=== PATIENT | male | born 1960 | race Caucasian/White ===

== ENCOUNTER 2019-04-28 13:00 | Outpatient (RCR) | payer MEDICAID, SELFPAY ==
[2019-04-16 08:27] VITALS: BP 126/83; PULSE 67; RESP 16; TEMP 36.6; BMI 27.8
--- NOTE | 2019-04-16 10:24 | HP.PCM_ITS ---
(1) Venous ulcer of right leg Status: Chronic Current Visit: Yes Code(s): I83.019 - Varicose veins of right lower extremity with ulcer of unspecified site; L97.919 - Non-pressure chronic ulcer of unspecified part of right lower leg with unspecified severity (2) Venous insufficiency of both lower extremities Status: Chronic Current Visit: Yes Code(s): I87.2 - Venous insufficiency (chronic) (peripheral) History of Present Illness Date of Service: 04/16/19 Chief Complaint: Nonhealing right lower extremity ulcer. History of Wound: Mr. Ly is a 58-year-old who was referred to the wound center by his primary care due to nonhealing right lower extremity ulcer. He reports recurrence of the ulcer since the . Recent episode said to have been present for over a year. He has managed this conservatively occasionally with Neosporin and gauze dressing without any significant improvement. Also be en periodically treated with doxycycline with only modest improvement. Denies any known precipitating factor however, states that he had venous studies about 20 years ago which was suggestive of venous insufficiency in his right lower extremity. Does admit to periodic bilateral lower extremity swelling. Stands for longer hours due to the nature of his job. Does state however that he utilizes compression stockings (20 to 30 mmHg). Denies any history of diabetes mellitus. Chews tobacco. Feels well otherwise at this time. Past Medical History Past Medical History: Chronic Problems Venous ulcer of right leg (Chronic) Venous insufficiency of both lower extremities (Chronic) Allergies/Adverse Reactions: Allergies iodine Allergy (Verified 04/16/19 08:57) Anaphylaxis Penicillins [PCN] Allergy (Verified 04/16/19 08:57) Anaphylaxis sulfasalazine Adverse Reaction (Verified 04/16/19 08:57) Anaphylaxis Home Medications: Ambulatory Orders Medication Instructions Recorded Loratadine 10 mg PO 04/16/19 Sildenafil Citrate [Viagra] 50 mg PO 04/16/19 Smoking Status: Current every day smoker Review of Systems Constitutional: Denies: Anorexia, Chills, Fever Eyes: Denies: Blurred vision, Pain HEENT: Denies: Difficulty Swallowing Cardiovascular: Denies: Chest Pain, Chest Pressure Respiratory: Denies: Cough Gastrointestinal: Denies: Abdominal Pain, Hematemesis Skin: Denies: Jaundice - Physical Exam Vital Signs Temp Pulse Resp BP 97.8 F 67 16 126/83 H 07/17/19 08:27 04/16/19 08:27 04/16/19 08:27 04/16/19 08:27 General: Alert, Oriented x3, Cooperative, No apparent distress HEENT: Atraumatic, Normocephalic Oral: Moist Mucosa Neck: Supple Lungs: Clear to auscultation, Normal air movement Cardiovascular: Regular rate, Regular Rhythm, Normal S1, Normal S2 Extremities: No cyanosis, Edema Skin: Ulcer/ Wound Wound Measurements and Assessment WC - Nurse 1 - General Ulcer Measurement Start: 04/16/19 08:18 Freq: Status: Active Protocol: Activity Type Activity Date Activity User E-Sign Co-Sign Detail Recorded Client Recorded Date Recorded By Document 04/16/19 08:27 DV [id number] 04/16/19 08:51 DV 04/16/19 08:27 Wound Center Nurse 1 [Ulcer Assessment] #1 R Med LE -Current Size (cm) - Length 3.8 -Current Size (cm) - Width 1.5 -Current Size (cm) - Depth 0.5 -Total Square Cm 5.70 -Photo Taken Yes -Exudate Amt Small -Exudate Type Serosanguineous -Wound Margin Distinct, Outline Attached -Granulation Amt Medium (34-66%) -Granulation Quality [place],Red -Necrosis Amt Medium (34-66%) -Necrotic Tissue Type Adherent Slough -Structure Exposed N/A -Texture (Emely-wound Skin Appearance) Scarring -Moisture (Emely-wound Skin Appearance Dry/Scaly ) -Color (Emely-wound Skin Appearance) Hemosiderin Staining,Rubor -Temperature (Emely-wound Skin No Abnormality Appearance) (Pt Warm) -Tenderness on Palpation (Emely-wound No Skin Appearance) -Ulcer Cleansing Wound Cleanser -Foul Odor after Cleansing No -Anesthetic Used 4% Lidocaine Solution [Edema Assessment] -Right Calf (cm) 40.5 -Right Ankle (cm) 27 -Left Calf (cm) 39.2 -Left Ankle (cm) 24.5 WC - Nurse 2 - General Ulcer CM Notes Start: 04/16/19 08:18 Freq: Status: Active Protocol: Activity Type Activity Date Activity User E-Sign Co-Sign Detail Recorded Client Recorded Date Recorded By Document 04/16/19 09:13 MW [id number] 04/16/19 09:24 MW 04/16/19 09:13 Wound Center Nurse 2 [Procedure/Treatment] #1 R [employer] LE -Time 09:13 -Correct Patient Yes -Correct Side, Site, Position Yes -Correct Procedure Yes -Procedure Performed Yes -Type of Procedure Debridement -Clinical Debridement Subcutaneous -Post Debridement Size (cm) - Length 4.0 -Post Debridement Size (cm) - Width 1.7 -Post Debridement Size (cm) - Depth 0.6 -Total Square Cm 6.80 -Wound/Ulcer Outcome Not Healed -Ulcer Cleansing Rinsed/ Irrigated with Saline -Foul Odor after Cleansing No -Bioengineered Tissue No -Bleeding Controlled with Pressure -Offloading No -Treatment Response Procedure Tolerated Well [See Physician Procedure note for Specifics] Pain Scale: 0-10 Numeric [Pain] -Is Patient Pain Free? Yes Musculoskeletal: No Muscle Wasting Neurological: Cranial nerves II-XII grossly intact Psych/Mental Status: Normal Affect Debridement Note Post-Debridement Measurements/Treatment WC - Nurse 2 - General Ulcer CM Notes Start: 04/16/19 08:18 Freq: Status: Active Protocol: Activity Type Activity Date Activity User E-Sign Co-Sign Detail Recorded Client Recorded Date Recorded By Document 04/16/19 09:13 MW [id number] 04/16/19 09:24 MW 04/16/19 09:13 Wound Center Nurse 2 #1 [place] LE -Time 09:13 -Correct Patient Yes -Correct Side, Site, Position Yes -Correct Procedure Yes -Procedure Performed Yes -Type of Procedure Debridement -Clinical Debridement Subcutaneous -Post Debridement Size (cm) - Length 4.0 -Post Debridement Size (cm) - Width 1.7 -Post Debridement Size (cm) - Depth 0.6 -Total Square Cm 6.80 -Wound/Ulcer Outcome Not Healed -Ulcer Cleansing Rinsed/ Irrigated with Saline -Foul Odor after Cleansing No -Bioengineered Tissue No -Bleeding Controlled with Pressure -Offloading No -Treatment Response Procedure Tolerated Well Pain Scale: 0-10 Numeric Is Patient Pain Free? Yes Wound debrided: Right lower extremity (medial) Wound Grade/Stage: Stage II Type of Debridement: Excisional debridement Anesthesia Used: 4% Lidocaine Solution Depth: Down to and including healthy tissue, in the subcutaneous layer Percentage of wound debrided: 100 Instrument Used: 3mm curette Tissue Removed: Slough and devitalized tissue Severity: Fat Layer Exposed Amount of bleeding with debridement: Mild Bleeding Controlled with: Pressure Patient tolerated procedure well Assessment/Plan Active Problems Venous ulcer of right leg (Chronic) Venous insufficiency of both lower extremities (Chronic) Assessment: Chronic/recurrent right lower extremity ulcer. Venous insufficiency. Venous leg ulcer. Plan: Debridement done as documented above, procedure was well-tolerated. Cultures taken. Venous and arterial studies also ordered. Last study was at least 20 years ago. Fibrocal daily with Adaptic over top. Continue use of compression stockings. Advised to elevate his lower extremities when seated and in bed. Increased protein intake also recommended. His questions were answered and he was advised to call with any further questions or concerns. Follow-up in 1 week. This note was generated with [employer] dictation software. It may contain incorrect words, spelling, and punctuation that were not noted in checking the note before signing.
[2019-04-24 09:08] VITALS: BP 148/86; PULSE 66; RESP 18; TEMP 36.9; BMI 27.8
--- NOTE | 2019-04-24 09:46 | PCM.WC.PN ---
(1) Venous ulcer of right leg Status: Chronic Current Visit: Yes Code(s): I83.019 - Varicose veins of right lower extremity with ulcer of unspecified site; L97.919 - Non-pressure chronic ulcer of unspecified part of right lower leg with unspecified severity (2) Venous insufficiency of both lower extremities Status: Chronic Current Visit: Yes Code(s): I87.2 - Venous insufficiency (chronic) (peripheral) Type of Wound Date of Service: 04/24/19 Chief Complaint: Nonhealing right lower extremity ulcer. History of Wound: Mr. Ly is a 58-year-old who was referred to the wound center by his primary care due to nonhealing right lower extremity ulcer. He reports recurrence of the ulcer since the . Recent episode said to have been present for over a year. He has managed this conservatively occasionally with Neosporin and gauze dressing without any significant improvement. Also been periodically treated with doxycycline with only modest improvement. Denies any known precipitating factor however, states that he had venous studies about 20 years ago which was suggestive of venous insufficiency in his right lower extremity. Does admit to periodic bilateral lower extremity swelling. Stands for longer hours due to the nature of his job. Does state however that he utilizes compression stockings (20 to 30 mmHg). Denies any history of diabetes mellitus. Chews tobacco. Feels well otherwise at this time. Progress of Wound: No new concerns at this time. Some improvement noted. Cultures positve for Ps[place] and Staph - Physical Exam Vital Signs Temp Pulse Resp BP 98.4 F 66 18 148/86 H 04/24/19 09:08 04/24/19 09:08 04/24/19 09:08 04/24/19 09:08 General: Alert, Oriented x3, Cooperative, No apparent distress HEENT: Atraumatic, Normocephalic Oral: Moist Mucosa Neck: Supple Lungs: Normal air movement Extremities: No cyanosis, Edema Skin: Ulcer/ Wound Wound Measurements and Assessment - Nurse 1 - General Ulcer Measurement Start: 04/16/19 08:18 Freq: Status: Active Protocol: Activity Type Activity Date Activity User E-Sign Co-Sign Detail Recorded Client Recorded Date Recorded By Document 04/24/19 09:08 [facility] [id number] 04/24/19 09:12 [facility] 04/24/19 09:08 Wound Center Nurse 1 [Ulcer Assessment] #1 R Med LE -Combined with other wound No -Current Size (cm) - Length 3.8 -Current Size (cm) - Width 1.5 -Current Size (cm) - Depth 0.5 -Total Square Cm 5.70 -Photo Taken No -Epithelialization None Present -Tunneling No -Undermining/Tunneling No -Circular Undermining No -Exudate Amt Small -Exudate Type Serosanguineous -Wound Margin Thickened -Granulation Amt Small (1-33%) -Granulation Quality Red -Slough/Fibrin Yes -Necrosis Amt Large (67-100%) -Necrotic Tissue Type Adherent Slough -Texture (Emely-wound Skin Appearance) Assessed, Scarring -Moisture (Emely-wound Skin Appearance Assessed ) -Color (Emely-wound Skin Appearance) Assessed, Hemosiderin Staining -Temperature (Emely-wound Skin No Abnormality Appearance) (Pt Warm) -Tenderness on Palpation (Emely-wound No Skin Appearance) -Ulcer Cleansing Rinsed/ Irrigated with Saline -Foul Odor after Cleansing No -Anesthetic Used 4% Lidocaine Solution WC - Nurse 2 - General Ulcer CM Notes Start: 04/16/19 08:18 Freq: Status: Active Protocol: Activity Type Activity Date Activity User E-Sign Co-Sign Detail Recorded Client Recorded Date Recorded By Document 04/24/19 09:25 MW [id number] 04/24/19 09:26 MW 04/24/19 09:25 Wound Center Nurse 2 [Procedure/Treatment] -Time 09:25 -Correct Patient Yes -Correct Side, Site, Position Yes -Correct Procedure Yes -Procedure Performed Yes -Type of Procedure Debridement -Clinical Debridement Subcutaneous -Post Debridement Size (cm) - Length 3.7 -Post Debridement Size (cm) - Width 1.4 -Post Debridement Size (cm) - Depth 0.4 -Total Square Cm 5.18 -Wound/Ulcer Outcome Not Healed -Ulcer Cleansing Rinsed/ Irrigated with Saline -Foul Odor after Cleansing No -Bioengineered Tissue No -Bleeding Controlled with Pressure -Offloading No -Treatment Response Procedure Tolerated Well [See Physician Procedure note for Specifics] Pain Scale: 0-10 Numeric [Pain] -Is Patient Pain Free? Yes Musculoskeletal: No Muscle Wasting Neurological: Cranial nerves II-XII grossly intact Psych/Mental Status: Normal Affect Debridement Note Post-Debridement Measurements/Treatment WC - Nurse 2 - General Ulcer CM Notes Start: 04/16/19 08:18 Freq: Status: Active Protocol: Activity Type Activity Date Activity User E-Sign Co-Sign Detail Recorded Client Recorded Date Recorded By Document 04/16/19 09:13 MW [id number] 04/16/19 09:24 MW Document 04/24/19 09:25 MW [id number] 04/24/19 09:26 MW 04/16/19 04/24/19 09:13 09:25 Wound Center Nurse 2 #1 R Med LE -Time 09:13 09:25 -Correct Patient Yes Yes -Correct Side, Site, Position Yes Yes -Correct Procedure Yes Yes -Procedure Performed Yes Yes -Type of Procedure Debridement Debridement -Clinical Debridement Subcutaneous Subcutaneous -Post Debridement Size (cm) - Length 4.0 3.7 -Post Debridement Size (cm) - Width 1.7 1.4 -Post Debridement Size (cm) - Depth 0.6 0.4 -Total Square Cm 6.80 5.18 -Wound/Ulcer Outcome Not Healed Not Healed -Ulcer Cleansing Rinsed/ Rinsed/ Irrigated with Irrigated with Saline Saline -Foul Odor after Cleansing No No -Bioengineered Tissue No No -Bleeding Controlled with Pressure Pressure -Offloading No No -Treatment Response Procedure Procedure Tolerated Well Tolerated Well Pain Scale: 0-10 Numeric Is Patient Pain Free? Yes Yes Wound debrided: Right lower extremity Wound Grade/Stage: Stage II Type of Debridement: Excisional debridement Anesthesia Used: 4% Lidocaine Solution Depth: Down to and including healthy tissue, in the subcutaneous layer Percentage of wound debrided: 100 Instrument Used: 3mm curette Tissue Removed: Slough and devitalized tissue Severity: Fat Layer Exposed Amount of bleeding with debridement: Mild Bleeding Controlled with: Pressure Patient tolerated procedure well Assessment/Plan Active Problems Venous ulcer of right leg (Chronic) Venous insufficiency of both lower extremities (Chronic) Assessment: Chronic/recurrent right lower extremity ulcer. Venous insufficiency. Venous leg ulcer. Plan: Debridement done as documented above, procedure was well-tolerated. Prescription for Ciprofloxacin given based on Culture and sensitivity. also now approved for Epifix. Will start next week. Continue Fibrocal daily with Adaptic over top. Continue use of compression stockings. Advised to elevate his lower extremities when seated and in bed. Increased protein intake also recommended. His questions were answered and he was advised to call with any further questions or concerns. Follow-up in 1 week. This note was generated with [employer] software. It may contain incorrect words, spelling, and punctuation that were not noted in checking the note before signing.
--- NOTE | 2019-04-28 12:57 | VDLE_ITS ---
Reason For Study: Leg ulcer RIGHT LEFT CFV is compressible, spontaneous, phasic, CFV is compressible, spontaneous, phasic, competent and demonstrates normal competent, and demonstrates normal augmentation. augmentation. FV is compressible, spontaneous, phasic, FV is compressible, spontaneous, phasic, competent and demonstrates normal competent and demonstrates normal augmentation. augmentation. T/P Trunk is compressible. POP V is compressible, spontaneous, phasic, PTV is compressible. competent and demonstrates normal RT PerV is compressible. augmentation. POP V is compressible, spontaeous, phasic, T/P Trunk is compressible. and INCOMPETENT for greater than 1.0 seconds. PTV is compressible. Right gastroc veins are partially LT PerV is compressible. compressible with bright intraluminal echos SFJ is INCOMPETENT for greater than 0.5 consistent with chronic DVT. seconds and measures 0.74 x 0.73 cm. GSV is competent and measures 0.46 x 0.46 cm SFJ is competent and measures 0.63 x 0.76 cm. in prox thigh and 0.24 x 0.22 cm at knee. GSV above knee is competent and measures0.44 SSV is competent and measures 0.22 x 0.25 cm. x 0.51 cm at prox thigh and 0.38 x 0.39 cm at knee. GSV below knee is INCOMEPETENT for greater than 0.5 seconds and measures 0.27 x 0.32 cm. SSV is competent and measures 0.36 x 0.37 cm. Procedure Exam performed in department. A preliminary report was called and/or faxed to [facility]. Interpretation Summary Chronic venous changes are noted in the right gastrocnemius veins, which are partially compressible and demonstrate bright intraluminal echogenicity. The remainder of the right lower extremity deep venous system is patent and compressible. The right popliteal vein is incompetent. The right common femoral vein and femoral vein are competent. Deep veins of the left lower extremity are patent and compressible segmentally. There is no evidence of left lower extremity deep vein thrombosis. Valvular competence appears intact within the proximal deep venous system on the left . The greater saphenous veins appear bilaterally patent and compressible segmentally. The right sapheno-femoral junction is competent . The left sapheno-femoral junction is incompetent . The right great saphenous vein appears competent above the knee. The right great saphenous vein appears incompetent below the knee. The left great saphenous vein appears segmentally competent. Small saphenous veins are patent and competent bilaterally. Ordering Physician: Finn Carroll Referring Physician: Mendy Goodman Performed By: Meagan Tello RVT
--- NOTE | 2019-04-28 12:57 | ART_ITS ---
Reason For Study: Leg Ulcer Procedure A bilateral lower extremity continuous wave Doppler with analog waveform analysis,segmental pressures,and ankle brachial indexes without exercise. Left Segmental Pressures Left brachial= 120mmHg. Left posterior tibial artery = 155mmHg. Left dorsalis pedis artery = 149mmHg. Left digit = 133 mmHg. The left dorsalis pedis waveforms are triphasic. The left posterior tibial artery waveforms are triphasic. Right Segmental Pressures Right brachial= 111mmHg. Right posterior tibial artery = 156mmHg. Right dorsalis pedis artery = 156mmHg. Right digit = 128 mmHg. The right dorsalis pedis waveforms are triphasic. The right posterior tibial artery waveforms are triphasic. Indices The right ankle brachial index by the dorsalis pedis is 1.30. The right ankle brachial index by the posterior tibial artery is 1.30. The right digital-brachial index is 1.07. The left ankle brachial index by the dorsalis pedis is 1.24. The left ankle brachial index by the posterior tibial artery is 1.29. The left digital-brachial index is 1.11. Interpretation Summary Triphasic Doppler waveforms are noted at ankle level bilaterally. Pulse-volume recording waveform amplitudes are satisfactory at all levels bilaterally, including low-thigh, calf, ankle, and digital levels. Resting ankle-brachial indices are normal bilaterally. Digital-brachial indices are normal bilaterally. There is no evidence of significant arterial occlusive disease in the lower extremities bilaterally. Ordering Physician: Finn Carroll Referring Physician: Mendy Goodman Performed By: Meagan Tello RVT
== END 2019-04-30 23:59 ==
LOC: CVS 13:00
PROVIDERS: Family Provider Nurse Practitioner Family; PCP Nurse Practitioner Family; Referring Provider Internal Medicine; Visit Provider Internal Medicine
DX: I83.018 Varicose veins of right lower extremity with ulcer other part of lower leg (principal); L97.812 Non-pressure chronic ulcer of other part of right lower leg with fat layer exposed; I87.2 Venous insufficiency (chronic) (peripheral); F17.220 Nicotine dependence, chewing tobacco, uncomplicated; M79.89 Other specified soft tissue disorders
CPT/HCPCS: 11042; 87070; 87075; 87077; 87186; 87205; 93923; 93970; 99203; G0463

== ENCOUNTER 2019-05-29 10:45 | Outpatient (RCR) | payer MEDICAID, SELFPAY ==
[2019-04-24 09:08] VITALS: BMI 27.8
[2019-05-01 01:14] VITALS: BP 148/86; PULSE 66; RESP 18; TEMP 36.9
[2019-05-01 08:19] VITALS: BP 134/72; PULSE 76; RESP 18; TEMP 37.1; BMI 27.8
--- NOTE | 2019-05-01 08:50 | PN.PCM_ITS ---
(1) Venous insufficiency of both lower extremities Status: Chronic Current Visit: Yes Code(s): I87.2 - Venous insufficiency (chronic) (peripheral) (2) Venous ulcer of right leg Status: Chronic Current Visit: Yes Code(s): I83.019 - Varicose veins of right lower extremity with ulcer of unspecified site; L97.919 - Non-pressure chronic ulcer of unspecified part of right lower leg with unspecified severity Type of Wound Date of Service: 05/01/19 Chief Complaint: Nonhealing right lower extremity ulcer. History of Wound: Mr. Ly is a 58-year-old who was referred to the wound center by his primary care due to nonhealing right lower extremity ulcer. He reports recurrence of the ulcer since the . Recent episode said to have been present for over a year. He has managed this conservatively occasionally with Neosporin and gauze dressing without any significant improvement. Also been periodically treated with doxycycline with only modest improvement. Denies any known precipitating factor however, states that he had venous studies about 20 years ago which was suggestive of venous insufficiency in his right lower extremity. Does admit to periodic bilateral lower extremity swelling. Stands for longer hours due to the nature of his job. Does state however that he utilizes compression stockings (20 to 30 mmHg). Denies any history of diabetes mellitus. Chews tobacco. Feels well otherwise at this time. Progress of Wound: No new concerns at this time. Tolerated antibiotics well. - Physical Exam Vital Signs Temp Pulse Resp BP 98.7 F 76 18 134/72 H 05/01/19 08:19 05/01/19 08:19 05/01/19 08:19 05/01/19 08:19 General: Alert, Oriented x3, Cooperative, No apparent distress HEENT: Atraumatic, Normocephalic Oral: Moist Mucosa Neck: Supple Lungs: Normal air movement Extremities: No cyanosis, Edema Skin: Ulcer/ Wound Wound Measurements and Assessment WC - Nurse 1 - General Ulcer Measurement Start: 05/01/19 08:19 Freq: Status: Active Protocol: Activity Type Activity Date Activity User E-Sign Co-Sign Detail Recorded Client Recorded Date Recorded By Document 05/01/19 08:19 DL [id number] 05/01/19 08:27 DL 05/01/19 08:19 Wound Center Nurse 1 [Ulcer Assessment] #1 R Med LE -Current Size (cm) - Length 3.6 -Current Size (cm) - Width 1.1 -Current Size (cm) - Depth 0.5 -Total Square Cm 3.96 -Photo Taken No -Exudate Amt Small -Exudate Type Serosanguineous -Wound Margin Distinct, Outline Attached -Granulation Amt Medium (34-66%) -Granulation Quality Red -Necrosis Amt Medium (34-66%) -Necrotic Tissue Type Adherent Slough -Structure Exposed N/A -Texture (Emely-wound Skin Appearance) Localized Edema ,Scarring -Moisture (Emely-wound Skin Appearance No Abnormality ) -Color (Emely-wound Skin Appearance) Hemosiderin Staining -Temperature (Emely-wound Skin No Abnormality Appearance) (Pt Warm) -Tenderness on Palpation (Emely-wound No Skin Appearance) -Ulcer Cleansing Wound Cleanser -Foul Odor after Cleansing No -Anesthetic Used 5% Lidocaine Gel [Edema Assessment] -Right Calf (cm) 38.5 -Right Ankle (cm) 25 WC - Nurse 2 - General Ulcer CM Notes Start: 05/01/19 08:19 Freq: Status: Active Protocol: Activity Type Activity Date Activity User E-Sign Co-Sign Detail Recorded Client Recorded Date Recorded By Document 05/01/19 08:37 MW [id number] 05/01/19 08:47 MW 05/01/19 08:37 Wound Center Nurse 2 [Procedure/Treatment] #1 R [employer] LE -Time 08:37 -Correct Patient Yes -Correct Side, Site, Position Yes -Correct Procedure Yes -Procedure Performed Yes -Type of Procedure Debridement -Clinical Debridement Subcutaneous -Post Debridement Size (cm) - Length 3.0 -Post Debridement Size (cm) - Width 1.4 -Post Debridement Size (cm) - Depth 0.4 -Total Square Cm 4.20 -Wound/Ulcer Outcome Not Healed -Ulcer Cleansing Rinsed/ Irrigated with Saline -Foul Odor after Cleansing No -Bioengineered Tissue Yes -Type of bioengineered Tissue EPIFIX -Expiration Date 07/01/23 -Product Lot Number [id number] -Percent Used 100 -Saline Lot Number [id number] -Bleeding Controlled with Pressure -Offloading No -Treatment Response Procedure Tolerated Well [See Physician Procedure note for Specifics] Pain Scale: 0-10 Numeric [Pain] -Is Patient Pain Free? Yes Musculoskeletal: No Muscle Wasting Neurological: Cranial nerves II-XII grossly intact Psych/Mental Status: Normal Affect Debridement Note Post-Debridement Measurements/Treatment WC - Nurse 2 - General Ulcer CM Notes Start: 05/01/19 08:19 Freq: Status: Active Protocol: Activity Type Activity Date Activity User E-Sign Co-Sign Detail Recorded Client Recorded Date Recorded By Document 05/01/19 08:37 MW [id number] 05/01/19 08:47 MW 05/01/19 08:37 Wound Center Nurse 2 #1 R Med LE -Time 08:37 -Correct Patient Yes -Correct Side, Site, Position Yes -Correct Procedure Yes -Procedure Performed Yes -Type of Procedure Debridement -Clinical Debridement Subcutaneous -Post Debridement Size (cm) - Length 3.0 -Post Debridement Size (cm) - Width 1.4 -Post Debridement Size (cm) - Depth 0.4 -Total Square Cm 4.20 -Wound/Ulcer Outcome Not Healed -Ulcer Cleansing Rinsed/ Irrigated with Saline -Foul Odor after Cleansing No -Bioengineered Tissue Yes -Type of bioengineered Tissue EPIFIX -Expiration Date 07/01/23 -Product Lot Number [id number] -Percent Used 100 -Saline Lot Number [id number] -Bleeding Controlled with Pressure -Offloading No -Treatment Response Procedure Tolerated Well Pain Scale: 0-10 Numeric Is Patient Pain Free? Yes Wound debrided: Right lower extremity Wound Grade/Stage: Stage II Type of Debridement: Excisional debridement Anesthesia Used: 4% Lidocaine Solution Depth: Down to and including healthy tissue, in the subcutaneous layer Percentage of wound debrided: 100 Instrument Used: 3mm curette Tissue Removed: Slough and devitalized Severity: Fat Layer Exposed Amount of bleeding with debridement: Mild Bleeding Controlled with: Pressure Patient tolerated procedure well Assessment/Plan Active Problems Venous ulcer of right leg (Chronic) Venous insufficiency of both lower extremities (Chronic) Assessment: Chronic/recurrent right lower extremity ulcer. Venous insufficiency. Venous leg ulcer. Plan: Debridement done as documented above, procedure was well-tolerated. Initial application of Epifix done today using 100% of product. Moistened with saline and secured with adaptic touch. Guaze over top. Leave in place for a week. Continue use of compression stockings. Advised to elevate his lower extremities when seated and in bed. Increased protein intake also recommended. His Venous studies were reviewed and patient was advised to follow / schedule with a vascular surgeon due to chronic venous incompetence and recurrent venous ulcers. His questions were answered and he was advised to call with any further questions or concerns. Follow-up in 1 week. This note was generated with [employer] dictation software. It may contain incorrect words, spelling, and punctuation that were not noted in checking the note before signing.
[2019-05-08 11:04] VITALS: BP 117/90; PULSE 80; RESP 18; TEMP 37.1; BMI 27.8
--- NOTE | 2019-05-08 11:54 | PN.PCM_ITS ---
(1) Venous insufficiency of both lower extremities Status: Chronic Current Visit: Yes Code(s): I87.2 - Venous insufficiency (chronic) (peripheral) (2) Venous ulcer of right leg Status: Chronic Current Visit: Yes Code(s): I83.019 - Varicose veins of right lower extremity with ulcer of unspecified site; L97.919 - Non-pressure chronic ulcer of unspecified part of right lower leg with unspecified severity Type of Wound Date of Service: 05/08/19 Chief Complaint: Nonhealing right lower extremity ulcer. History of Wound: Mr. Ly is a 58-year-old who was referred to the wound center by his primary care due to nonhealing right lower extremity ulcer. He reports recurrence of the ulcer since the . Recent episode said to have been present for over a year. He has managed this conservatively occasionally with Neosporin and gauze dressing without any significant improvement. Also been periodically treated with doxycycline with only modest improvement. Denies any known precipitating factor however, states that he had venous studies about 20 years ago which was suggestive of venous insufficiency in his right lower extremity. Does admit to periodic bilateral lower extremity swelling. Stands for longer hours due to the nature of his job. Does state however that he utilizes compression stockings (20 to 30 mmHg). Denies any history of diabetes mellitus. Chews tobacco. Feels well otherwise at this time. Progress of Wound: No new concerns at this time. Has had 1 application of Epifix. - Physical Exam Vital Signs Temp Pulse Resp BP 98.7 F 80 18 117/90 H 05/08/19 11:04 05/08/19 11:04 05/08/19 11:04 05/08/19 11:04 General: Alert, Oriented x3, Cooperative, No apparent distress HEENT: Atraumatic, Normocephalic Oral: Moist Mucosa Neck: Supple Lungs: Normal air movement Extremities: No cyanosis, Edema Skin: Ulcer/ Wound Wound Measurements and Assessment WC - Nurse 1 - General Ulcer Measurement Start: 05/01/19 08:19 Freq: Status: Active Protocol: Activity Type Activity Date Activity User E-Sign Co-Sign Detail Recorded Client Recorded Date Recorded By Document 05/08/19 11:04 RB [id number] 05/08/19 11:07 RB 05/08/19 11:04 Wound Center Nurse 1 [Ulcer Assessment] #1 R Med LE -Combined with other wound No -Current Size (cm) - Length 3.5 -Current Size (cm) - Width 1.3 -Current Size (cm) - Depth 0.3 -Total Square Cm 4.55 -Tunneling No -Undermining/Tunneling No -Circular Undermining No -Exudate Amt Small -Exudate Type Serosanguineous -Wound Margin Distinct, Outline Attached -Granulation Amt Large (67-100%) -Granulation Quality [place] -Slough/Fibrin Yes -Necrosis Amt Small (1-33%) -Necrotic Tissue Type Adherent Slough -Structure Exposed N/A -Texture (Emely-wound Skin Appearance) Assessed -Moisture (Emely-wound Skin Appearance Assessed ) -Color (Emely-wound Skin Appearance) Assessed -Temperature (Emely-wound Skin No Abnormality Appearance) (Pt Warm) -Tenderness on Palpation (Emely-wound No Skin Appearance) -Ulcer Cleansing Wound Cleanser -Foul Odor after Cleansing No -Anesthetic Used 5% Lidocaine Gel [Edema Assessment] -Lower Limb Edema Present Yes -Right Calf (cm) 41.5 -Right Ankle (cm) 26 WC - Nurse 2 - General Ulcer CM Notes Start: 05/01/19 08:19 Freq: Status: Active Protocol: Activity Type Activity Date Activity User E-Sign Co-Sign Detail Recorded Client Recorded Date Recorded By Document 05/08/19 11:24 MW [id number] 05/08/19 11:35 MW 05/08/19 11:24 Wound Center Nurse 2 [Procedure/Treatment] #1 R Med LE -Time 11:24 -Correct Patient Yes -Correct Side, Site, Position Yes -Correct Procedure Yes -Procedure Performed Yes -Type of Procedure Debridement -Clinical Debridement Subcutaneous -Post Debridement Size (cm) - Length 3.5 -Post Debridement Size (cm) - Width 1.0 -Post Debridement Size (cm) - Depth 0.3 -Total Square Cm 3.50 -Wound/Ulcer Outcome Not Healed -Ulcer Cleansing Rinsed/ Irrigated with Saline -Foul Odor after Cleansing No -Bioengineered Tissue Yes -Type of bioengineered Tissue EPIFIX -Expiration Date 08/31/23 -Product Lot Number [id number] -Percent Used 100 -Saline Lot Number [id number] -Bleeding Controlled with Pressure -Offloading No -Treatment Response Procedure Tolerated Well [See Physician Procedure note for Specifics] Pain Scale: 0-10 Numeric [Pain] -Is Patient Pain Free? Yes Musculoskeletal: No Muscle Wasting Neurological: Cranial nerves II-XII grossly intact Psych/Mental Status: Normal Affect Debridement Note Post-Debridement Measurements/Treatment WC - Nurse 2 - General Ulcer CM Notes Start: 05/01/19 08:19 Freq: Status: Active Protocol: Activity Type Activity Date Activity User E-Sign Co-Sign Detail Recorded Client Recorded Date Recorded By Document 05/01/19 08:37 MW [id number] 05/01/19 08:47 MW Document 05/08/19 11:24 MW [id number] 05/08/19 11:35 MW 05/01/19 05/08/19 08:37 11:24 Wound Center Nurse 2 #1 R [facility] LE -Time 08:37 11:24 -Correct Patient Yes Yes -Correct Side, Site, Position Yes Yes -Correct Procedure Yes Yes -Procedure Performed Yes Yes -Type of Procedure Debridement Debridement -Clinical Debridement Subcutaneous Subcutaneous -Post Debridement Size (cm) - Length 3.0 3.5 -Post Debridement Size (cm) - Width 1.4 1.0 -Post Debridement Size (cm) - Depth 0.4 0.3 -Total Square Cm 4.20 3.50 -Wound/Ulcer Outcome Not Healed Not Healed -Ulcer Cleansing Rinsed/ Rinsed/ Irrigated with Irrigated with Saline Saline -Foul Odor after Cleansing No No -Bioengineered Tissue Yes Yes -Type of bioengineered Tissue EPIFIX EPIFIX -Expiration Date 07/01/23 08/31/23 -Product Lot Number [id number] -Percent Used 100 100 -Saline Lot Number [id number] -Bleeding Controlled with Pressure Pressure -Offloading No No -Treatment Response Procedure Procedure Tolerated Well Tolerated Well Pain Scale: 0-10 Numeric Is Patient Pain Free? Yes Yes Wound debrided: Right lower extremity Wound Grade/Stage: Stage III Type of Debridement: Excisional debridement Anesthesia Used: 4% Lidocaine Solution Depth: Down to and including healthy tissue, in the subcutaneous layer Percentage of wound debrided: 100 Instrument Used: 3mm curette Tissue Removed: Slough and devitalized tissue Severity: Fat Layer Exposed Amount of bleeding with debridement: Mild Bleeding Controlled with: Pressure Patient tolerated procedure well Assessment/Plan Active Problems Venous ulcer of right leg (Chronic) Venous insufficiency of both lower extremities (Chronic) Assessment: Chronic/recurrent right lower extremity ulcer. Venous insufficiency. Venous leg ulcer. Plan: Debridement done as documented above, procedure was well-tolerated. 2nd application of Epifix done today using 100% of product. Moistened with saline and secured with adaptic touch. Guaze over top. Leave in place for a week. Continue use of compression stockings. Advised to elevate his lower extremities when seated and in bed. Increased protein intake also recommended. His Venous studies were reviewed and patient was advised to follow / schedule with a vascular surgeon due to chronic venous incompetence and recurrent venous ulcers. His questions were answered and he was advised to call with any further questions or concerns. Follow-up in 1 week. This note was generated with [employer] dictation software. It may contain incorrect words, spelling, and punctuation that were not noted in checking the note before signing.
[2019-05-15 08:53] VITALS: BP 141/80; PULSE 68; RESP 18; TEMP 37.4; BMI 27.8
--- NOTE | 2019-05-15 09:15 | PN.PCM_ITS ---
(1) Venous insufficiency of both lower extremities Status: Chronic Current Visit: Yes Code(s): I87.2 - Venous insufficiency (chronic) (peripheral) (2) Venous ulcer of right leg Status: Chronic Current Visit: Yes Code(s): I83.019 - Varicose veins of right lower extremity with ulcer of unspecified site; L97.919 - Non-pressure chronic ulcer of unspecified part of right lower leg with unspecified severity Type of Wound Date of Service: 05/15/19 Chief Complaint: Nonhealing right lower extremity ulcer. History of Wound: Mr. Ly is a 58-year-old who was referred to the wound center by his primary care due to nonhealing right lower extremity ulcer. He reports recurrence of the ulcer since the . Recent episode said to have been present for over a year. He has managed this conservatively occasionally with Neosporin and gauze dressing without any significant improvement. Also been periodically treated with doxycycline with only modest improvement. Denies any known precipitating factor however, states that he had venous studies about 20 years ago which was suggestive of venous insufficiency in his right lower extremity. Does admit to periodic bilateral lower extremity swelling. Stands for longer hours due to the nature of his job. Does state however that he utilizes compression stockings (20 to 30 mmHg). Denies any history of diabetes mellitus. Chews tobacco. Feels well otherwise at this time. Progress of Wound: No new concerns at this time. Has had 2 applications of Epifix. - Physical Exam Vital Signs Temp Pulse Resp BP 99.3 F H 68 18 141/80 H 05/15/19 08:53 05/15/19 08:53 05/15/19 08:53 05/15/19 08:53 General: Alert, Oriented x3, Cooperative, No apparent distress HEENT: Atraumatic, Normocephalic Oral: Moist Mucosa Neck: Supple Lungs: Normal air movement Extremities: No cyanosis, Edema Skin: Ulcer/ Wound Wound Measurements and Assessment WC - Nurse 1 - General Ulcer Measurement Start: 05/01/19 08:19 Freq: Status: Active Protocol: Activity Type Activity Date Activity User E-Sign Co-Sign Detail Recorded Client Recorded Date Recorded By Document 05/15/19 08:53 MN [id number] 05/15/19 09:00 MN 05/15/19 08:53 Wound Center Nurse 1 [Ulcer Assessment] #1 R Med LE -Current Size (cm) - Length 3.5 -Current Size (cm) - Width 1.0 -Current Size (cm) - Depth 0.2 -Total Square Cm 3.50 -Exudate Amt Small -Exudate Type Serosanguineous -Wound Margin Fibrotic Scar, Thickened Scar -Granulation Amt Small (1-33%) -Granulation Quality [place] -Necrosis Amt Large (67-100%) -Necrotic Tissue Type Adherent Slough -Texture (Emely-wound Skin Appearance) Assessed -Moisture (Emely-wound Skin Appearance Assessed ) -Color (Emely-wound Skin Appearance) Assessed -Temperature (Emely-wound Skin No Abnormality Appearance) (Pt Warm) -Tenderness on Palpation (Emely-wound Yes Skin Appearance) -Ulcer Cleansing Rinsed/ Irrigated with Saline -Foul Odor after Cleansing No -Anesthetic Used 5% Lidocaine Gel [Edema Assessment] -Right Calf (cm) 39 -Right Ankle (cm) 26 WC - Nurse 2 - General Ulcer CM Notes Start: 05/01/19 08:19 Freq: Status: Active Protocol: Activity Type Activity Date Activity User E-Sign Co-Sign Detail Recorded Client Recorded Date Recorded By Document 05/15/19 09:10 AN [id number] 05/15/19 09:12 AN 05/15/19 09:10 Wound Center Nurse 2 [Procedure/Treatment] #1 [employer] LE -Time 09:10 -Correct Patient Yes -Correct Side, Site, Position Yes -Correct Procedure Yes -Procedure Performed Yes -Type of Procedure Debridement -Clinical Debridement Subcutaneous -Post Debridement Size (cm) - Length 3.1 -Post Debridement Size (cm) - Width 0.1 -Post Debridement Size (cm) - Depth 0.3 -Total Square Cm 0.31 -Wound/Ulcer Outcome Not Healed -Ulcer Cleansing Rinsed/ Irrigated with Saline -Foul Odor after Cleansing No -Bioengineered Tissue Yes -Type of bioengineered Tissue EPIFIX -Expiration Date 08/31/23 -Product Lot Number [id number] -Bleeding Controlled with Pressure -Treatment Response Procedure Tolerated Well [See Physician Procedure note for Specifics] Pain Scale: 0-10 Numeric [Pain] -Is Patient Pain Free? Yes Musculoskeletal: No Muscle Wasting Neurological: Cranial nerves II-XII grossly intact Psych/Mental Status: Normal Affect Debridement Note Post-Debridement Measurements/Treatment - Nurse 2 - General Ulcer CM Notes Start: 05/01/19 08:19 Freq: Status: Active Protocol: Activity Type Activity Date Activity User E-Sign Co-Sign Detail Recorded Client Recorded Date Recorded By Document 05/01/19 08:37 MW [id number] 05/01/19 08:47 MW Document 05/08/19 11:24 MW [id number] 05/08/19 11:35 MW Document 05/15/19 09:10 AN [id number] 05/15/19 09:12 AN 05/01/19 05/08/19 05/15/19 08:37 11:24 09:10 Wound Center Nurse 2 #1 R Med LE -Time 08:37 11:24 09:10 -Correct Patient Yes Yes Yes -Correct Side, Site, Position Yes Yes Yes -Correct Procedure Yes Yes Yes -Procedure Performed Yes Yes Yes -Type of Procedure Debridement Debridement Debridement -Clinical Debridement Subcutaneous Subcutaneous Subcutaneous -Post Debridement Size (cm) - Length 3.0 3.5 3.1 -Post Debridement Size (cm) - Width 1.4 1.0 0.1 -Post Debridement Size (cm) - Depth 0.4 0.3 0.3 -Total Square Cm 4.20 3.50 0.31 -Wound/Ulcer Outcome Not Healed Not Healed Not Healed -Ulcer Cleansing Rinsed/ Rinsed/ Rinsed/ Irrigated with Irrigated with Irrigated with Saline Saline Saline -Foul Odor after Cleansing No No No -Bioengineered Tissue Yes Yes Yes -Type of bioengineered Tissue EPIFIX EPIFIX EPIFIX -Expiration Date 07/01/23 08/31/23 08/31/23 -Product Lot Number [id number] -Percent Used 100 100 -Saline Lot Number [id number] -Bleeding Controlled with Pressure Pressure Pressure -Offloading No No -Treatment Response Procedure Procedure Procedure Tolerated Well Tolerated Well Tolerated Well Pain Scale: 0-10 Numeric Is Patient Pain Free? Yes Yes Yes Wound debrided: Right lower extremity Wound Grade/Stage: Stage II Type of Debridement: Excisional debridement Anesthesia Used: 4% Lidocaine Solution Depth: Down to and including healthy tissue, in the subcutaneous layer Percentage of wound debrided: 100 Instrument Used: 7mm curette Tissue Removed: Slough and devitalized tissue Severity: Fat Layer Exposed Amount of bleeding with debridement: Mild Bleeding Controlled with: Compression and gauze Patient tolerated procedure well Assessment/Plan Active Problems Venous ulcer of right leg (Chronic) Venous insufficiency of both lower extremities (Chronic) Assessment: Chronic/recurrent right lower extremity ulcer. Venous insufficiency. Venous leg ulcer. Plan: Debridement done as documented above, procedure was well-tolerated. 3rd application of Epifix done today using 100% of product. Moistened with saline and secured with adaptic touch. Guaze over top. Leave in place for a week. Continue use of compression stockings. Advised to elevate his lower extremities when seated and in bed. Increased protein intake also recommended. His Venous studies were reviewed and patient was advised to follow / schedule with a vascular surgeon due to chronic venous incompetence and recurrent venous ulcers. His questions were answered and he was advised to call with any further que stions or concerns. Follow-up in 1 week. This note was generated with [employer] dictation software. It may contain incorrect words, spelling, and punctuation that were not noted in checking the note before signing.
[2019-05-22 09:23] VITALS: BP 141/83; PULSE 69; RESP 18; TEMP 37.3; BMI 27.8
--- NOTE | 2019-05-22 10:03 | PN.PCM_ITS ---
(1) Venous insufficiency of both lower extremities Status: Chronic Current Visit: Yes Code(s): I87.2 - Venous insufficiency (chronic) (peripheral) (2) Venous ulcer of right leg Status: Chronic Current Visit: Yes Code(s): I83.019 - Varicose veins of right lower extremity with ulcer of unspecified site; L97.919 - Non-pressure chronic ulcer of unspecified part of right lower leg with unspecified severity Type of Wound Date of Service: 05/22/19 Chief Complaint: Nonhealing right lower extremity ulcer. History of Wound: Mr. Ly is a 58-year-old who was referred to the wound center by his primary care due to nonhealing right lower extremity ulcer. He reports recurrence of the ulcer since the . Recent episode said to have been present for over a year. He has managed this conservatively occasionally with Neosporin and gauze dressing without any significant improvement. Also been periodically treated with doxycycline with only modest improvement. Denies any known precipitating factor however, states that he had venous studies about 20 years ago which was suggestive of venous insufficiency in his right lower extremity. Does admit to periodic bilateral lower extremity swelling. Stands for longer hours due to the nature of his job. Does state however that he utilizes compression stockings (20 to 30 mmHg). Denies any history of diabetes mellitus. Chews tobacco. Feels well otherwise at this time. Progress of Wound: No new concerns at this time. Has had 3 applications of Epifix. Improving. - Physical Exam Vital Signs Temp Pulse Resp BP 99.1 F 69 18 141/83 H 05/22/19 09:23 05/22/19 09:23 05/22/19 09:23 05/22/19 09:23 General: Alert, Oriented x3, Cooperative, No apparent distress HEENT: Atraumatic, Normocephalic Neck: Supple Lungs: Normal air movement Extremities: No cyanosis, Edema Skin: Ulcer/ Wound Wound Measurements and Assessment WC - Nurse 1 - General Ulcer Measurement Start: 05/01/19 08:19 Freq: Status: Active Protocol: Activity Type Activity Date Activity User E-Sign Co-Sign Detail Recorded Client Recorded Date Recorded By Document 05/22/19 09:23 RB [id number] 05/22/19 09:31 RB 05/22/19 09:23 Wound Center Nurse 1 [Ulcer Assessment] #1 R Med LE -Combined with other wound No -Current Size (cm) - Length 3.2 -Current Size (cm) - Width 1 -Current Size (cm) - Depth 0.3 -Total Square Cm 3.2 -Tunneling No -Undermining/Tunneling No -Circular Undermining No -Exudate Amt Small -Exudate Type Serosanguineous -Wound Margin Thickened & Rolled Under -Granulation Amt Medium (34-66%) -Granulation Quality [place] -Slough/Fibrin Yes -Necrosis Amt Medium (34-66%) -Necrotic Tissue Type Adherent Slough -Structure Exposed N/A -Texture (Emely-wound Skin Appearance) Assessed, Scarring -Moisture (Emely-wound Skin Appearance Dry/Scaly ) -Color (Emely-wound Skin Appearance) Assessed -Temperature (Emely-wound Skin No Abnormality Appearance) (Pt Warm) -Tenderness on Palpation (Emely-wound No Skin Appearance) -Ulcer Cleansing Wound Cleanser -Foul Odor after Cleansing No -Anesthetic Used 5% Lidocaine Gel [Edema Assessment] -Lower Limb Edema Present Yes -Right Calf (cm) 39.5 -Right Ankle (cm) 25.5 WC - Nurse 2 - General Ulcer CM Notes Start: 05/01/19 08:19 Freq: Status: Active Protocol: Activity Type Activity Date Activity User E-Sign Co-Sign Detail Recorded Client Recorded Date Recorded By Document 05/22/19 09:39 MW [id number] 05/22/19 09:49 MW 05/22/19 09:39 Wound Center Nurse 2 [Procedure/Treatment] #1 R Med LE -Time 09:39 -Correct Patient Yes -Correct Side, Site, Position Yes -Correct Procedure Yes -Procedure Performed Yes -Type of Procedure Debridement -Clinical Debridement Subcutaneous -Post Debridement Size (cm) - Length 3.3 -Post Debridement Size (cm) - Width 0.8 -Post Debridement Size (cm) - Depth 0.3 -Total Square Cm 2.64 -Wound/Ulcer Outcome Not Healed -Ulcer Cleansing Rinsed/ Irrigated with Saline -Foul Odor after Cleansing No -Bioengineered Tissue Yes -Type of bioengineered Tissue EPIFIX -Expiration Date 08/31/23 -Product Lot Number [id number] -Percent Used 100 -Saline Lot Number [id number] -Bleeding Controlled with Pressure -Offloading No -Treatment Response Procedure Tolerated Well [See Physician Procedure note for Specifics] Pain Scale: 0-10 Numeric [Pain] -Is Patient Pain Free? Yes Musculoskeletal: No Muscle Wasting Neurological: Cranial nerves II-XII grossly intact Psych/Mental Status: Normal Affect Debridement Note Post-Debridement Measurements/Treatment WC - Nurse 2 - General Ulcer CM Notes Start: 05/01/19 08:19 Freq: Status: Active Protocol: Activity Type Activity Date Activity User E-Sign Co-Sign Detail Recorded Client Recorded Date Recorded By Document 05/01/19 08:37 MW [id number] 05/01/19 08:47 MW Document 05/08/19 11:24 MW [id number] 05/08/19 11:35 MW Document 05/15/19 09:10 AN [id number] 05/15/19 09:12 AN Document 05/22/19 09:39 MW [id number] 05/22/19 09:49 MW 05/01/19 05/08/19 05/15/19 08:37 11:24 09:10 Wound Center Nurse 2 #1 R Med LE -Time 08:37 11:24 09:10 -Correct Patient Yes Yes Yes -Correct Side, Site, Position Yes Yes Yes -Correct Procedure Yes Yes Yes -Procedure Performed Yes Yes Yes -Type of Procedure Debridement Debridement Debridement -Clinical Debridement Subcutaneous Subcutaneous Subcutaneous -Post Debridement Size (cm) - Length 3.0 3.5 3.1 -Post Debridement Size (cm) - Width 1.4 1.0 0.1 -Post Debridement Size (cm) - Depth 0.4 0.3 0.3 -Total Square Cm 4.20 3.50 0.31 -Wound/Ulcer Outcome Not Healed Not Healed Not Healed -Ulcer Cleansing Rinsed/ Rinsed/ Rinsed/ Irrigated with Irrigated with Irrigated with Saline Saline Saline -Foul Odor after Cleansing No No No -Bioengineered Tissue Yes Yes Yes -Type of bioengineered Tissue EPIFIX EPIFIX EPIFIX -Expiration Date 07/01/23 08/31/23 08/31/23 -Product Lot Number [id number] -Percent Used 100 100 -Saline Lot Number [id number] -Bleeding Controlled with Pressure Pressure Pressure -Offloading No No -Treatment Response Procedure Procedure Procedure Tolerated Well Tolerated Well Tolerated Well Pain Scale: 0-10 Numeric Is Patient Pain Free? Yes Yes Yes 05/22/19 09:39 Wound Center Nurse 2 #1 R Med LE -Time 09:39 -Correct Patient Yes -Correct Side, Site, Position Yes -Correct Procedure Yes -Procedure Performed Yes -Type of Procedure Debridement -Clinical Debridement Subcutaneous -Post Debridement Size (cm) - Length 3.3 -Post Debridement Size (cm) - Width 0.8 -Post Debridement Size (cm) - Depth 0.3 -Total Square Cm 2.64 -Wound/Ulcer Outcome Not Healed -Ulcer Cleansing Rinsed/ Irrigated with Saline -Foul Odor after Cleansing No -Bioengineered Tissue Yes -Type of bioengineered Tissue EPIFIX -Expiration Date 08/31/23 -Product Lot Number [id number] -Percent Used 100 -Saline Lot Number [id number] -Bleeding Controlled with Pressure -Offloading No -Treatment Response Procedure Tolerated Well Pain Scale: 0-10 Numeric Is Patient Pain Free? Yes Wound debrided: Right lower extremity Wound Grade/Stage: Stage II Type of Debridement: Excisional debridement Anesthesia Used: 4% Lidocaine Solution Depth: Down to and including healthy tissue, in the subcutaneous layer Percentage of wound debrided: 100 Instrument Used: 3mm curette Tissue Removed: Slough and devitalized tissue Severity: Fat Layer Exposed Amount of bleeding with debridement: Mild Bleeding Controlled with: Pressure Patient tolerated procedure well Assessment/Plan Active Problems Venous ulcer of right leg (Chronic) Venous insufficiency of both lower extremities (Chronic) Assessment: Chronic/recurrent right lower extremity ulcer. Venous insufficiency. Venous leg ulcer. Plan: Improving. Debridement done as documented above, procedure was well- tolerated. 4th application of Epifix done today using 100% of product. Moistened with saline and secured with adaptic touch. Guaze over top. Leave in place for a week. Continue use of compression stockings. Advised to elevate his lower extremities when seated and in bed. Increased protein intake also recommended. His Venous studies were reviewed and patient was advised to follow / schedule with a vascular surgeon due to chronic venous incompetence and recurrent venous ulcers. His questions were answered and he was advised to call with any further questions or concerns. Follow-up in 1 week. This note was generated with [employer] software. It may contain incorrect words, spelling, and punctuation that were not noted in checking the note before signing.
[2019-05-29 08:46] VITALS: BP 128/83; PULSE 66; RESP 18; TEMP 36.6; BMI 27.8
--- NOTE | 2019-05-29 10:00 | PN.PCM_ITS ---
(1) Venous insufficiency of both lower extremities Status: Chronic Current Visit: Yes Code(s): I87.2 - Venous insufficiency (chronic) (peripheral) (2) Venous ulcer of right leg Status: Chronic Current Visit: Yes Code(s): I83.019 - Varicose veins of right lower extremity with ulcer of unspecified site; L97.919 - Non-pressure chronic ulcer of unspecified part of right lower leg with unspecified severity Type of Wound Date of Service: 05/29/19 Chief Complaint: Nonhealing right lower extremity ulcer. History of Wound: Mr. Ly is a 58-year-old who was referred to the wound center by his primary care due to nonhealing right lower extremity ulcer. He reports recurrence of the ulcer since the . Recent episode said to have been present for over a year. He has managed this conservatively occasionally with Neosporin and gauze dressing without any significant improvement. Also been periodically treated with doxycycline with only modest improvement. Denies any known precipitating factor however, states that he had venous studies about 20 years ago which was suggestive of venous insufficiency in his right lower extremity. Does admit to periodic bilateral lower extremity swelling. Stands for longer hours due to the nature of his job. Does state however that he utilizes compression stockings (20 to 30 mmHg). Denies any history of diabetes mellitus. Chews tobacco. Feels well otherwise at this time. Progress of Wound: No new concerns at this time. Has had 4 applications of Epifix. Improving. - Physical Exam Vital Signs Temp Pulse Resp BP 98 F 66 18 128/83 H 05/29/19 08:46 05/29/19 08:46 05/29/19 08:46 05/29/19 08:46 General: Alert, Oriented x3, Cooperative, No apparent distress HEENT: Atraumatic, Normocephalic Oral: Moist Mucosa Neck: Supple Lungs: Normal air movement Extremities: No cyanosis, Edema Skin: Ulcer/ Wound Wound Measurements and Assessment WC - Nurse 1 - General Ulcer Measurement Start: 05/01/19 08:19 Freq: Status: Active Protocol: Activity Type Activity Date Activity User E-Sign Co-Sign Detail Recorded Client Recorded Date Recorded By Document 05/29/19 08:46 RB [id number] 05/29/19 08:48 RB 05/29/19 08:46 Wound Center Nurse 1 [Ulcer Assessment] #1 R Med LE -Combined with other wound No -Current Size (cm) - Length 2.7 -Current Size (cm) - Width 1.8 -Current Size (cm) - Depth 0.2 -Total Square Cm 4.86 -Tunneling No -Undermining/Tunneling No -Circular Undermining No -Exudate Amt Small -Exudate Type Serosanguineous -Wound Margin Flat & Intact -Granulation Amt Medium (34-66%) -Granulation Quality [place] -Slough/Fibrin Yes -Necrosis Amt Small (1-33%) -Necrotic Tissue Type Adherent Slough -Structure Exposed N/A -Texture (Emely-wound Skin Appearance) Assessed -Moisture (Emely-wound Skin Appearance Assessed ) -Color (Emely-wound Skin Appearance) Hemosiderin Staining -Temperature (Emely-wound Skin No Abnormality Appearance) (Pt Warm) -Tenderness on Palpation (Emely-wound No Skin Appearance) -Ulcer Cleansing Wound Cleanser -Foul Odor after Cleansing No -Anesthetic Used 4% Lidocaine Solution,5% Lidocaine Gel [Edema Assessment] -Lower Limb Edema Present Yes -Right Calf (cm) 40 -Right Ankle (cm) 26.1 WC - Nurse 2 - General Ulcer CM Notes Start: 05/01/19 08:19 Freq: Status: Active Protocol: Activity Type Activity Date Activity User E-Sign Co-Sign Detail Recorded Client Recorded Date Recorded By Document 05/29/19 09:11 MW [id number] 05/29/19 09:17 MW 05/29/19 09:11 Wound Center Nurse 2 [Procedure/Treatment] #1 R Med LE -Time 09:11 -Correct Patient Yes -Correct Side, Site, Position Yes -Correct Procedure Yes -Procedure Performed Yes -Type of Procedure Debridement -Clinical Debridement Subcutaneous -Post Debridement Size (cm) - Length 2.1 -Post Debridement Size (cm) - Width 0.9 -Post Debridement Size (cm) - Depth 0.3 -Total Square Cm 1.89 -Wound/Ulcer Outcome Not Healed -Ulcer Cleansing Rinsed/ Irrigated with Saline -Foul Odor after Cleansing No -Bioengineered Tissue Yes -Type of bioengineered Tissue EPIFIX -Expiration Date 08/31/23 -Product Lot Number [id number] -Percent Used 100 -Saline Lot Number [id number] -Bleeding Controlled with Pressure -Offloading No -Treatment Response Procedure Tolerated Well [See Physician Procedure note for Specifics] Pain Scale: 0-10 Numeric [Pain] -Is Patient Pain Free? Yes Musculoskeletal: No Muscle Wasting Neurological: Cranial nerves II-XII grossly intact Psych/Mental Status: Normal Affect Debridement Note Post-Debridement Measurements/Treatment WC - Nurse 2 - General Ulcer CM Notes Start: 05/01/19 08:19 Freq: Status: Active Protocol: Activity Type Activity Date Activity User E-Sign Co-Sign Detail Recorded Client Recorded Date Recorded By Document 05/01/19 08:37 MW [id number] 05/01/19 08:47 MW Document 05/08/19 11:24 MW [id number] 05/08/19 11:35 MW Document 05/15/19 09:10 AN [id number] 05/15/19 09:12 AN Document 05/22/19 09:39 MW [id number] 05/22/19 09:49 MW Document 05/29/19 09:11 MW [id number] 05/29/19 09:17 MW 05/01/19 05/08/19 05/15/19 08:37 11:24 09:10 Wound Center Nurse 2 #1 R Med LE -Time 08:37 11:24 09:10 -Correct Patient Yes Yes Yes -Correct Side, Site, Position Yes Yes Yes -Correct Procedure Yes Yes Yes -Procedure Performed Yes Yes Yes -Type of Procedure Debridement Debridement Debridement -Clinical Debridement Subcutaneous Subcutaneous Subcutaneous -Post Debridement Size (cm) - Length 3.0 3.5 3.1 -Post Debridement Size (cm) - Width 1.4 1.0 0.1 -Post Debridement Size (cm) - Depth 0.4 0.3 0.3 -Total Square Cm 4.20 3.50 0.31 -Wound/Ulcer Outcome Not Healed Not Healed Not Healed -Ulcer Cleansing Rinsed/ Rinsed/ Rinsed/ Irrigated with Irrigated with Irrigated with Saline Saline Saline -Foul Odor after Cleansing No No No -Bioengineered Tissue Yes Yes Yes -Type of bioengineered Tissue EPIFIX EPIFIX EPIFIX -Expiration Date 07/01/23 08/31/23 08/31/23 -Product Lot Number [id number] -Percent Used 100 100 -Saline Lot Number [id number] -Bleeding Controlled with Pressure Pressure Pressure -Offloading No No -Treatment Response Procedure Procedure Procedure Tolerated Well Tolerated Well Tolerated Well Pain Scale: 0-10 Numeric Is Patient Pain Free? Yes Yes Yes 05/22/19 05/29/19 09:39 09:11 Wound Center Nurse 2 #1 R Med LE -Time 09:39 09:11 -Correct Patient Yes Yes -Correct Side, Site, Position Yes Yes -Correct Procedure Yes Yes -Procedure Performed Yes Yes -Type of Procedure Debridement Debridement -Clinical Debridement Subcutaneous Subcutaneous -Post Debridement Size (cm) - Length 3.3 2.1 -Post Debridement Size (cm) - Width 0.8 0.9 -Post Debridement Size (cm) - Depth 0.3 0.3 -Total Square Cm 2.64 1.89 -Wound/Ulcer Outcome Not Healed Not Healed -Ulcer Cleansing Rinsed/ Rinsed/ Irrigated with Irrigated with Saline Saline -Foul Odor after Cleansing No No -Bioengineered Tissue Yes Yes -Type of bioengineered Tissue EPIFIX EPIFIX -Expiration Date 08/31/23 08/31/23 -Product Lot Number [id number] -Percent Used 100 100 -Saline Lot Number [id number] -Bleeding Controlled with Pressure Pressure -Offloading No No -Treatment Response Procedure Procedure Tolerated Well Tolerated Well Pain Scale: 0-10 Numeric Is Patient Pain Free? Yes Yes Wound debrided: Right lower extremity Type of Debridement: Excisional debridement Anesthesia Used: 4% Lidocaine Solution Depth: Down to and including healthy tissue, in the subcutaneous layer Percentage of wound debrided: 100 Instrument Used: 3mm curette Tissue Removed: Slough and devitalized tissue Severity: Fat Layer Exposed Amount of bleeding with debridement: Mild Bleeding Controlled with: Pressure Patient tolerated procedure well Assessment/Plan Active Problems Venous ulcer of right leg (Chronic) Venous insufficiency of both lower extremities (Chronic) Assessment: Chronic/recurrent right lower extremity ulcer. Venous insufficiency. Venous leg ulcer. Plan: Improving. Debridement done as documented above, procedure was well- tolerated. 5th application of Epifix done today using 100% of product. Moistened with saline and secured with adaptic touch. Guaze over top. Leave in place for a week. Continue use of compression stockings. Advised to elevate his lower extremities when seated and in bed. Increased protein intake also recommended. His Venous studies were reviewed and patient was advised to follow / schedule with a vascular surgeon due to chronic venous incompetence and recurrent venous ulcers. His questions were answered and he was advised to call with any further questions or concerns. Follow-up in 1 week. This note was generated with [employer] dictation software. It may contain incorrect words, spelling, and punctuation that were not noted in checking the note before signing.
== END 2019-05-31 23:59 ==
LOC: WC 10:45
PROVIDERS: Family Provider Nurse Practitioner Family; PCP Nurse Practitioner Family; Referring Provider Internal Medicine; Visit Provider Internal Medicine
DX: I83.018 Varicose veins of right lower extremity with ulcer other part of lower leg (principal); L97.812 Non-pressure chronic ulcer of other part of right lower leg with fat layer exposed; I87.2 Venous insufficiency (chronic) (peripheral); M79.89 Other specified soft tissue disorders; F17.220 Nicotine dependence, chewing tobacco, uncomplicated
CPT/HCPCS: 15271; Q4186

== ENCOUNTER 2019-06-26 08:00 | Outpatient (RCR) | payer MEDICAID, SELFPAY ==
[2019-06-01 00:59] VITALS: BP 128/83; PULSE 66; RESP 18; TEMP 36.6
[2019-06-05 09:12] VITALS: BP 132/75; PULSE 79; RESP 16; TEMP 37; BMI 27.8
--- NOTE | 2019-06-05 10:09 | PN.PCM_ITS ---
(1) Venous insufficiency of both lower extremities Status: Chronic Current Visit: No Code(s): I87.2 - Venous insufficiency (chronic) (peripheral) (2) Venous ulcer of right leg Status: Chronic Current Visit: No Code(s): I83.019 - Varicose veins of right lower extremity with ulcer of unspecified site; L97.919 - Non-pressure chronic ulcer of unspecified part of right lower leg with unspecified severity Type of Wound Date of Service: 06/05/19 Chief Complaint: Nonhealing right lower extremity ulcer. History of Wound: Mr. Ly is a 58-year-old who was referred to the wound center by his primary care due to nonhealing right lower extremity ulcer. He reports recurrence of the ulcer since the . Recent episode said to have been present for over a year. He has managed this conservatively occasionally with Neosporin and gauze dressing without any significant improvement. Also been periodically treated with doxycycline with only modest improvement. Denies any known precipitating factor however, states that he had venous studies about 20 years ago which was suggestive of venous insufficiency in his right lower extremity. Does admit to periodic bilateral lower extremity swelling. Stands for longer hours due to the nature of his job. Does state however that he utilizes compression stockings (20 to 30 mmHg). Denies any history of diabetes mellitus. Chews tobacco. Feels well otherwise at this time. Progress of Wound: No new concerns at this time. Has had 5 applications of Epifix. Stable. - Physical Exam Vital Signs Temp Pulse Resp BP 98.6 F 79 16 132/75 H 06/05/19 09:12 06/05/19 09:12 06/05/19 09:12 06/05/19 09:12 General: Alert, Oriented x3, Cooperative, No apparent distress HEENT: Atraumatic, Normocephalic Oral: Moist Mucosa Neck: Supple Lungs: Normal air movement Extremities: No cyanosis Skin: Ulcer/ Wound Wound Measurements and Assessment WC - Nurse 1 - General Ulcer Measurement Start: 06/05/19 09:11 Freq: Status: Active Protocol: Activity Type Activity Date Activity User E-Sign Co-Sign Detail Recorded Client Recorded Date Recorded By Document 06/05/19 09:12 [facility] [id number] 06/05/19 09:17 [facility] 06/05/19 09:12 Wound Center Nurse 1 [Ulcer Assessment] #1 R Med LE -Combined with other wound No -Current Size (cm) - Length 2.1 -Current Size (cm) - Width 1.1 -Current Size (cm) - Depth 0.2 -Total Square Cm 2.31 -Photo Taken No -Epithelialization None Present -Tunneling No -Undermining/Tunneling No -Circular Undermining No -Exudate Amt Small -Exudate Type Serosanguineous -Wound Margin Distinct, Outline Attached -Granulation Amt Small (1-33%) -Granulation Quality Red -Slough/Fibrin Yes -Necrosis Amt Large (67-100%) -Necrotic Tissue Type Adherent Slough -Texture (Emely-wound Skin Appearance) Assessed, Scarring -Moisture (Emely-wound Skin Appearance Assessed ) -Color (Emely-wound Skin Appearance) Assessed, Hemosiderin Staining -Temperature (Emely-wound Skin No Abnormality Appearance) (Pt Warm) -Tenderness on Palpation (Emely-wound No Skin Appearance) -Ulcer Cleansing Rinsed/ Irrigated with Saline -Foul Odor after Cleansing No -Anesthetic Used 4% Lidocaine Solution [Edema Assessment] -Lower Limb Edema Present Yes -Right Calf (cm) 39.9 -Right Ankle (cm) 25.1 WC - Nurse 2 - General Ulcer CM Notes Start: 06/05/19 09:11 Freq: Status: Active Protocol: Activity Type Activity Date Activity User E-Sign Co-Sign Detail Recorded Client Recorded Date Recorded By Document 06/05/19 09:43 MW [id number] 06/05/19 09:52 MW 06/05/19 09:43 Wound Center Nurse 2 [Procedure/Treatment] #1 R Med LE -Time 09:50 -Correct Patient Yes -Correct Side, Site, Position Yes -Correct Procedure Yes -Procedure Performed Yes -Type of Procedure Debridement -Clinical Debridement Subcutaneous -Post Debridement Size (cm) - Length 2.0 -Post Debridement Size (cm) - Width 1.0 -Post Debridement Size (cm) - Depth 0.3 -Total Square Cm 2.00 -Wound/Ulcer Outcome Not Healed -Ulcer Cleansing Rinsed/ Irrigated with Saline -Foul Odor after Cleansing No -Bioengineered Tissue Yes -Type of bioengineered Tissue EPIFIX -Expiration Date 11/01/23 -Product Lot Number [id number] -Percent Used 100 -Saline Lot Number [id number] -Bleeding Controlled with Pressure -Offloading No -Treatment Response Procedure Tolerated Well [See Physician Procedure note for Specifics] Pain Scale: 0-10 Numeric [Pain] -Is Patient Pain Free? Yes Musculoskeletal: No Muscle Wasting Neurological: Cranial nerves II-XII grossly intact Psych/Mental Status: Normal Affect Debridement Note Post-Debridement Measurements/Treatment WC - Nurse 2 - General Ulcer CM Notes Start: 06/05/19 09:11 Freq: Status: Active Protocol: Activity Type Activity Date Activity User E-Sign Co-Sign Detail Recorded Client Recorded Date Recorded By Document 06/05/19 09:43 MW [id number] 06/05/19 09:52 MW 06/05/19 09:43 Wound Center Nurse 2 #1 R Med LE -Time 09:50 -Correct Patient Yes -Correct Side, Site, Position Yes -Correct Procedure Yes -Procedure Performed Yes -Type of Procedure Debridement -Clinical Debridement Subcutaneous -Post Debridement Size (cm) - Length 2.0 -Post Debridement Size (cm) - Width 1.0 -Post Debridement Size (cm) - Depth 0.3 -Total Square Cm 2.00 -Wound/Ulcer Outcome Not Healed -Ulcer Cleansing Rinsed/ Irrigated with Saline -Foul Odor after Cleansing No -Bioengineered Tissue Yes -Type of bioengineered Tissue EPIFIX -Expiration Date 11/01/23 -Product Lot Number [id number] -Percent Used 100 -Saline Lot Number [id number] -Bleeding Controlled with Pressure -Offloading No -Treatment Response Procedure Tolerated Well Pain Scale: 0-10 Numeric Is Patient Pain Free? Yes Wound debrided: Right Leg Wound Grade/Stage: Stgae II Type of Debridement: Excisional debridement Anesthesia Used: 4% Lidocaine Solution Depth: Down to and including healthy tissue, in the subcutaneous layer Percentage of wound debrided: 100 Instrument Used: 3mm curette Tissue Removed: Slough and devitalized tissue Severity: Fat Layer Exposed Amount of bleeding with debridement: Mild Bleeding Controlled with: Pressure Patient tolerated procedure well Assessment/Plan Assessment: Chronic/recurrent right lower extremity ulcer. Venous insufficiency. Venous leg ulcer. Plan: Stable. Debridement done as documented above, procedure was well- tolerated. 6th application of Epifix done today using 100% of product. Moistened with saline and secured with adaptic touch. Guaze over top. Leave in place for a week. Continue use of compression stockings. Advised to elevate his lower extremities when seated and in bed. Increased protein intake also recom mended. His Venous studies were reviewed and patient was advised to follow / schedule with a vascular surgeon due to chronic venous incompetence and recurrent venous ulcers. His questions were answered and he was advised to call with any further questions or concerns. Follow-up in 2 weeks . Paient going on vacation. This note was generated with [employer] dictation software. It may contain incorrect words, spelling, and punctuation that were not noted in checking the note before signing.
[2019-06-19 09:09] VITALS: BP 124/78; PULSE 62; RESP 18; TEMP 36; BMI 27.8
--- NOTE | 2019-06-19 10:24 | PN.PCM_ITS ---
(1) Venous insufficiency of both lower extremities Status: Chronic Current Visit: No Code(s): I87.2 - Venous insufficiency (chronic) (peripheral) (2) Venous ulcer of right leg Status: Chronic Current Visit: No Code(s): I83.019 - Varicose veins of right lower extremity with ulcer of unspecified site; L97.919 - Non-pressure chronic ulcer of unspecified part of right lower leg with unspecified severity Type of Wound Date of Service: 06/19/19 Chief Complaint: Nonhealing right lower extremity ulcer. History of Wound: Mr. Ly is a 58-year-old who was referred to the wound center by his primary care due to nonhealing right lower extremity ulcer. He reports recurrence of the ulcer since the . Recent episode said to have been present for over a year. He has managed this conservatively occasionally with Neosporin and gauze dressing without any significant improvement. Also been periodically treated with doxycycline with only modest improvement. Denies any known precipitating factor however, states that he had venous studies about 20 years ago which was suggestive of venous insufficiency in his right lower extremity. Does admit to periodic bilateral lower extremity swelling. Stands for longer hours due to the nature of his job. Does state however that he utilizes compression stockings (20 to 30 mmHg). Denies any history of diabetes mellitus. Chews tobacco. Feels well otherwise at this time. Progress of Wound: Improving. Has had 6 applications of Epifix. Stable. - Physical Exam Vital Signs Temp Pulse Resp BP 96.8 F L 62 18 124/78 H 06/19/19 09:09 06/19/19 09:09 06/19/19 09:09 06/19/19 09:09 General: Alert, Oriented x3, Cooperative, No apparent distress HEENT: Atraumatic, Normocephalic Oral: Moist Mucosa Neck: Supple Lungs: Normal air movement Extremities: No cyanosis, Edema Skin: Ulcer/ Wound Wound Measurements and Assessment WC - Nurse 1 - General Ulcer Measurement Start: 06/05/19 09:11 Freq: Status: Active Protocol: Activity Type Activity Date Activity User E-Sign Co-Sign Detail Recorded Client Recorded Date Recorded By Document 06/19/19 09:09 DL [id number] 06/19/19 09:17 DL 06/19/19 09:09 Wound Center Nurse 1 [Ulcer Assessment] #1 R Med LE -Current Size (cm) - Length 1.2 -Current Size (cm) - Width 0.9 -Current Size (cm) - Depth 0.3 -Total Square Cm 1.08 -Photo Taken No -Exudate Amt Small -Exudate Type Serosanguineous -Wound Margin Distinct, Outline Attached -Granulation Amt Medium (34-66%) -Granulation Quality [place],Red -Necrosis Amt Medium (34-66%) -Necrotic Tissue Type Adherent Slough -Structure Exposed N/A -Texture (Emely-wound Skin Appearance) Scarring -Moisture (Emely-wound Skin Appearance Dry/Scaly ) -Color (Emely-wound Skin Appearance) Hemosiderin Staining -Temperature (Emely-wound Skin No Abnormality Appearance) (Pt Warm) -Tenderness on Palpation (Emely-wound No Skin Appearance) -Ulcer Cleansing Wound Cleanser -Foul Odor after Cleansing No -Anesthetic Used 5% Lidocaine Gel [Edema Assessment] -Right Calf (cm) 38 -Right Ankle (cm) 24.4 WC - Nurse 2 - General Ulcer CM Notes Start: 06/05/19 09:11 Freq: Status: Active Protocol: Activity Type Activity Date Activity User E-Sign Co-Sign Detail Recorded Client Recorded Date Recorded By Document 06/19/19 09:29 MW [id number] 06/19/19 09:35 MW 06/19/19 09:29 Wound Center Nurse 2 [Procedure/Treatment] #1 R Trending Taste LE -Time 09:30 -Correct Patient Yes -Correct Side, Site, Position Yes -Correct Procedure Yes -Procedure Performed Yes -Type of Procedure Debridement -Clinical Debridement Subcutaneous -Post Debridement Size (cm) - Length 1.5 -Post Debridement Size (cm) - Width 0.8 -Post Debridement Size (cm) - Depth 0.2 -Total Square Cm 1.20 -Wound/Ulcer Outcome Not Healed -Ulcer Cleansing Rinsed/ Irrigated with Saline -Foul Odor after Cleansing No -Bioengineered Tissue Yes -Type of bioengineered Tissue EPIFIX -Expiration Date 10/01/23 -Product Lot Number [id number] -Percent Used 100 -Saline Lot Number [id number] -Bleeding Controlled with Pressure -Offloading No -Treatment Response Procedure Tolerated Well [See Physician Procedure note for Specifics] Musculoskeletal: No Muscle Wasting Neurological: Cranial nerves II-XII grossly intact Psych/Mental Status: Normal Affect Debridement Note Post-Debridement Measurements/Treatment WC - Nurse 2 - General Ulcer CM Notes Start: 06/05/19 09:11 Freq: Status: Active Protocol: Activity Type Activity Date Activity User E-Sign Co-Sign Detail Recorded Client Recorded Date Recorded By Document 06/05/19 09:43 MW [id number] 06/05/19 09:52 MW Document 06/19/19 09:29 MW [id number] 06/19/19 09:35 MW 06/05/19 06/19/19 09:43 09:29 Wound Center Nurse 2 #1 R Med LE -Time 09:50 09:30 -Correct Patient Yes Yes -Correct Side, Site, Position Yes Yes -Correct Procedure Yes Yes -Procedure Performed Yes Yes -Type of Procedure Debridement Debridement -Clinical Debridement Subcutaneous Subcutaneous -Post Debridement Size (cm) - Length 2.0 1.5 -Post Debridement Size (cm) - Width 1.0 0.8 -Post Debridement Size (cm) - Depth 0.3 0.2 -Total Square Cm 2.00 1.20 -Wound/Ulcer Outcome Not Healed Not Healed -Ulcer Cleansing Rinsed/ Rinsed/ Irrigated with Irrigated with Saline Saline -Foul Odor after Cleansing No No -Bioengineered Tissue Yes Yes -Type of bioengineered Tissue EPIFIX EPIFIX -Expiration Date 11/01/23 10/01/23 -Product Lot Number [id number] -Percent Used 100 100 -Saline Lot Number [id number] -Bleeding Controlled with Pressure Pressure -Offloading No No -Treatment Response Procedure Procedure Tolerated Well Tolerated Well Pain Scale: 0-10 Numeric Is Patient Pain Free? Yes Wound debrided: Right Leg Type of Debridement: Excisional debridement Anesthesia Used: 4% Lidocaine Solution Depth: Down to and including healthy tissue, in the subcutaneous layer Percentage of wound debrided: 100 Instrument Used: 3mm curette Tissue Removed: Slough and devitalized tissue Severity: Fat Layer Exposed Amount of bleeding with debridement: Mild Bleeding Controlled with: Pressure Patient tolerated procedure well Assessment/Plan Assessment: Chronic/recurrent right lower extremity ulcer. Venous insufficiency. Venous leg ulcer. Plan: Improving. Debridement done as documented above, procedure was well- tolerated. 7th application of Epifix done today using 100% of product. Moistened with saline and secured with adaptic touch. Guaze over top. Leave in place for a week. Continue use of compression stockings. Prescription for a 30 - 40mmHg stocking given. Advised to elevate his lower extremities when seated and in bed. Increased protein intake also recommended. His Venous studies were reviewed and patient was advised to follow / schedule with a vascular surgeon due to chronic venous incompetence and recurrent venous ulcers. His questions were answered and he was advised to call with any further questions or concerns. Follow-up in 1 week. This note was generated with [employer] dictation software. It may contain incorrect words, spelling, and punctuation that were not noted in checking the note before signing.
[2019-06-26 08:24] VITALS: BP 139/88; PULSE 67; RESP 16; TEMP 36.9; BMI 27.8
--- NOTE | 2019-06-26 08:51 | PCM.WC.PN ---
(1) Venous insufficiency of both lower extremities Status: Chronic Current Visit: Yes Code(s): I87.2 - Venous insufficiency (chronic) (peripheral) (2) Venous ulcer of right leg Status: Chronic Current Visit: Yes Code(s): I83.019 - Varicose veins of right lower extremity with ulcer of unspecified site; L97.919 - Non-pressure chronic ulcer of unspecified part of right lower leg with unspecified severity Type of Wound Date of Service: 06/26/19 Chief Complaint: Nonhealing right lower extremity ulcer. History of Wound: Mr. Ly is a 58-year-old who was referred to the wound center by his primary care due to nonhealing right lower extremity ulcer. He reports recurrence of the ulcer since the . Recent episode said to have been present for over a year. He has managed this conservatively occasionally with Neosporin and gauze dressing without any significant improvement. Also been periodically treated with doxycycline with only modest improvement. Denies any known precipitating factor however, states that he had venous studies about 20 years ago which was suggestive of venous insufficiency in his right lower extremity. Does admit to periodic bilateral lower extremity swelling. Stands for longer hours due to the nature of his job. Does state however that he utilizes compression stockings (20 to 30 mmHg). Denies any history of diabetes mellitus. Chews tobacco. Feels well otherwise at this time. Progress of Wound: Improving. Has had 7 applications of Epifix. Stable. - Physical Exam Vital Signs Temp Pulse Resp BP 98.4 F 67 16 139/88 H 06/26/19 08:24 06/26/19 08:24 06/26/19 08:24 06/26/19 08:24 General: Alert, Oriented x3, Cooperative, No apparent distress HEENT: Atraumatic, Normocephalic Oral: Moist Mucosa Neck: Supple Lungs: Normal air movement Extremities: No cyanosis, Edema Skin: Ulcer/ Wound Wound Measurements and Assessment WC - Nurse 1 - General Ulcer Measurement Start: 06/05/19 09:11 Freq: Status: Active Protocol: Activity Type Activity Date Activity User E-Sign Co-Sign Detail Recorded Client Recorded Date Recorded By Document 06/26/19 08:24 [id number] 06/26/19 08:26 06/26/19 08:24 Wound Center Nurse 1 [Ulcer Assessment] #1 R Med LE -Combined with other wound No -Current Size (cm) - Length 0.1 -Current Size (cm) - Width 0.1 -Current Size (cm) - Depth 0.1 -Total Square Cm 0.01 -Photo Taken No -Epithelialization Small 1-33% -Tunneling No -Undermining/Tunneling No -Circular Undermining No -Exudate Amt Small -Exudate Type Serosanguineous -Wound Margin Distinct, Outline Attached -Granulation Amt None Present (0 %) -Granulation Quality N/A -Slough/Fibrin Yes -Necrosis Amt Large (67-100%) -Necrotic Tissue Type Adherent Slough -Structure Exposed N/A -Texture (Emely-wound Skin Appearance) Assessed, Excoriation, Scarring -Moisture (Emely-wound Skin Appearance No Abnormality, ) Assessed -Color (Emely-wound Skin Appearance) No Abnormality, Assessed -Temperature (Emely-wound Skin No Abnormality Appearance) (Pt Warm) -Ulcer Cleansing soap and water -Foul Odor after Cleansing No -Anesthetic Used 4% Lidocaine Solution,5% Lidocaine Gel [Edema Assessment] -Lower Limb Edema Present Yes -Right Calf (cm) 39.0 -Right Ankle (cm) 25.8 WC - Nurse 2 - General Ulcer CM Notes Start: 06/05/19 09:11 Freq: Status: Active Protocol: Activity Type Activity Date Activity User E-Sign Co-Sign Detail Recorded Client Recorded Date Recorded By Document 06/26/19 08:27 MW [id number] 06/26/19 08:35 MW 06/26/19 08:27 Wound Center Nurse 2 [Procedure/Treatment] #1 R Med LE -Time 08:28 -Correct Patient Yes -Correct Side, Site, Position Yes -Correct Procedure Yes -Procedure Performed Yes -Type of Procedure Debridement -Clinical Debridement Subcutaneous -Post Debridement Size (cm) - Length 1.3 -Post Debridement Size (cm) - Width 0.8 -Post Debridement Size (cm) - Depth 0.2 -Total Square Cm 1.04 -Wound/Ulcer Outcome Not Healed -Ulcer Cleansing Rinsed/ Irrigated with Saline -Foul Odor after Cleansing No -Bioengineered Tissue Yes -Type of bioengineered Tissue EPIFIX -Expiration Date 10/01/23 -Product Lot Number [id number] -Percent Used 100 -Saline Lot Number [id number] -Bleeding Controlled with Pressure -Offloading No -Treatment Response Procedure Tolerated Well [See Physician Procedure note for Specifics] Pain Scale: 0-10 Numeric [Pain] -Is Patient Pain Free? Yes Musculoskeletal: No Muscle Wasting Neurological: Cranial nerves II-XII grossly intact Psych/Mental Status: Normal Affect Debridement Note Post-Debridement Measurements/Treatment WC - Nurse 2 - General Ulcer CM Notes Start: 06/05/19 09:11 Freq: Status: Active Protocol: Activity Type Activity Date Activity User E-Sign Co-Sign Detail Recorded Client Recorded Date Recorded By Document 06/05/19 09:43 MW [id number] 06/05/19 09:52 MW Document 06/19/19 09:29 MW [id number] 06/19/19 09:35 MW Document 06/26/19 08:27 MW [id number] 06/26/19 08:35 MW 06/05/19 06/19/19 06/26/19 09:43 09:29 08:27 Wound Center Nurse 2 #1 R Med LE -Time 09:50 09:30 08:28 -Correct Patient Yes Yes Yes -Correct Side, Site, Position Yes Yes Yes -Correct Procedure Yes Yes Yes -Procedure Performed Yes Yes Yes -Type of Procedure Debridement Debridement Debridement -Clinical Debridement Subcutaneous Subcutaneous Subcutaneous -Post Debridement Size (cm) - Length 2.0 1.5 1.3 -Post Debridement Size (cm) - Width 1.0 0.8 0.8 -Post Debridement Size (cm) - Depth 0.3 0.2 0.2 -Total Square Cm 2.00 1.20 1.04 -Wound/Ulcer Outcome Not Healed Not Healed Not Healed -Ulcer Cleansing Rinsed/ Rinsed/ Rinsed/ Irrigated with Irrigated with Irrigated with Saline Saline Saline -Foul Odor after Cleansing No No No -Bioengineered Tissue Yes Yes Yes -Type of bioengineered Tissue EPIFIX EPIFIX EPIFIX -Expiration Date 11/01/23 10/01/23 10/01/23 -Product Lot Number [id number] -Percent Used 100 100 100 -Saline Lot Number [id number] -Bleeding Controlled with Pressure Pressure Pressure -Offloading No No No -Treatment Response Procedure Procedure Procedure Tolerated Well Tolerated Well Tolerated Well Pain Scale: 0-10 Numeric Is Patient Pain Free? Yes Yes Wound debrided: Right Leg Type of Debridement: Excisional debridement Anesthesia Used: 4% Lidocaine Solution Depth: Down to and including healthy tissue, in the subcutaneous layer Percentage of wound debrided: 100 Instrument Used: 3mm curette Tissue Removed: Slough and devitalized tissue Severity: Fat Layer Exposed Amount of bleeding with debridement: Mild Bleeding Controlled with: Pressure Patient tolerated procedure well Assessment/Plan Active Problems Venous ulcer of right leg (Chronic) Venous insufficiency of both lower extremities (Chronic) Assessment: Chronic/recurrent right lower extremity ulcer. Venous insufficiency. Venous leg ulcer. Plan: Improving. Debridement done as documented above, procedure was well-tolerated. 8th application of Epifix done today using 100% of product. Moistened with saline and secured with adaptic touch. Guaze over top. Leave in place for a week. Continue use of compression stockings. Advised to elevate his lower extremities when seated and in bed. Increased protein intake also recommended. His Venous studies were reviewed and patient was advised to follow / schedule with a vascular surgeon due to chronic venous incompetence and recurrent venous ulcers. His questions were answered and he was advised to call with any further questions or concerns. Follow-up in 1 week. This note was generated with [employer] dictation software. It may contain incorrect words, spelling, and punctuation that were not noted in checking the note before signing.
== END 2019-06-30 23:59 ==
LOC: WC 08:00
PROVIDERS: Family Provider Nurse Practitioner Family; PCP Nurse Practitioner Family; Referring Provider Internal Medicine; Visit Provider Internal Medicine
DX: I83.018 Varicose veins of right lower extremity with ulcer other part of lower leg (principal); L97.812 Non-pressure chronic ulcer of other part of right lower leg with fat layer exposed; I87.2 Venous insufficiency (chronic) (peripheral); F17.220 Nicotine dependence, chewing tobacco, uncomplicated; M79.89 Other specified soft tissue disorders
CPT/HCPCS: 15271; Q4186

== ENCOUNTER 2019-07-31 08:45 | Outpatient (RCR) | payer MEDICAID, SELFPAY ==
[2019-07-01 00:54] VITALS: BP 139/88; PULSE 67; RESP 16; TEMP 36.9
[2019-07-03 09:01] VITALS: BP 123/79; PULSE 71; RESP 18; TEMP 36.6; BMI 27.8
--- NOTE | 2019-07-03 09:35 | PN.PCM_ITS ---
(1) Venous insufficiency of both lower extremities Status: Chronic Current Visit: Yes Code(s): I87.2 - Venous insufficiency (chronic) (peripheral) (2) Venous ulcer of right leg Status: Chronic Current Visit: Yes Code(s): I83.019 - Varicose veins of right lower extremity with ulcer of unspecified site; L97.919 - Non-pressure chronic ulcer of unspecified part of right lower leg with unspecified severity Type of Wound Date of Service: 07/03/19 Chief Complaint: Nonhealing right lower extremity ulcer. History of Wound: Mr. Ly is a 58-year-old who was referred to the wound center by his primary care due to nonhealing right lower extremity ulcer. He reports recurrence of the ulcer since the . Recent episode said to have been present for over a year. He has managed this conservatively occasionally with Neosporin and gauze dressing without any significant improvement. Also been periodically treated with doxycycline with only modest improvement. Denies any known precipitating factor however, states that he had venous studies about 20 years ago which was suggestive of venous insufficiency in his right lower extremity. Does admit to periodic bilateral lower extremity swelling. Stands for longer hours due to the nature of his job. Does state however that he utilizes compression stockings (20 to 30 mmHg). Denies any history of diabetes mellitus. Chews tobacco. Feels well otherwise at this time. Progress of Wound: Improving. Has had 8 applications of Epifix. Stable. - Physical Exam Vital Signs Temp Pulse Resp BP 97.8 F 71 18 123/79 H 07/03/19 09:01 07/03/19 09:01 07/03/19 09:01 07/03/19 09:01 General: Alert, Oriented x3, Cooperative, No apparent distress HEENT: Atraumatic, Normocephalic Oral: Moist Mucosa Neck: Supple Lungs: Normal air movement Extremities: No cyanosis Skin: Ulcer/ Wound Wound Measurements and Assessment WC - Nurse 1 - General Ulcer Measurement Start: 07/03/19 09:00 Freq: Status: Active Protocol: Activity Type Activity Date Activity User E-Sign Co-Sign Detail Recorded Client Recorded Date Recorded By Document 07/03/19 09:01 DL [id number] 07/03/19 09:07 DL 07/03/19 09:01 Wound Center Nurse 1 [Ulcer Assessment] #1 R Med LE -Current Size (cm) - Length 1.2 -Current Size (cm) - Width 0.6 -Current Size (cm) - Depth 0.2 -Total Square Cm 0.72 -Photo Taken No -Exudate Amt None Present -Wound Margin Thickened -Granulation Amt Small (1-33%) -Granulation Quality Pale,[place] -Necrosis Amt Small (1-33%) -Necrotic Tissue Type Adherent Slough -Structure Exposed N/A -Texture (Emely-wound Skin Appearance) Excoriation, Scarring -Moisture (Emely-wound Skin Appearance Dry/Scaly ) -Color (Emely-wound Skin Appearance) Hemosiderin Staining -Temperature (Emely-wound Skin No Abnormality Appearance) (Pt Warm) -Tenderness on Palpation (Emely-wound No Skin Appearance) -Ulcer Cleansing Wound Cleanser -Foul Odor after Cleansing No -Anesthetic Used 5% Lidocaine Gel [Edema Assessment] -Right Calf (cm) 39 -Right Ankle (cm) 25 WC - Nurse 2 - General Ulcer CM Notes Start: 07/03/19 09:00 Freq: Status: Active Protocol: Activity Type Activity Date Activity User E-Sign Co-Sign Detail Recorded Client Recorded Date Recorded By Document 07/03/19 09:17 MW [id number] 07/03/19 09:26 MW 07/03/19 09:17 Wound Center Nurse 2 [Procedure/Treatment] #1 R XillianTV LE -Time 09:18 -Correct Patient Yes -Correct Side, Site, Position Yes -Correct Procedure Yes -Procedure Performed Yes -Type of Procedure Debridement -Clinical Debridement Subcutaneous -Post Debridement Size (cm) - Length 1.1 -Post Debridement Size (cm) - Width 0.7 -Post Debridement Size (cm) - Depth 0.2 -Total Square Cm 0.77 -Wound/Ulcer Outcome Not Healed -Ulcer Cleansing Rinsed/ Irrigated with Saline -Foul Odor after Cleansing No -Bioengineered Tissue Yes -Type of bioengineered Tissue EPIFIX -Expiration Date 10/01/23 -Product Lot Number [id number] -Percent Used 100 -Saline Lot Number [id number] -Bleeding Controlled with Pressure -Offloading No -Treatment Response Procedure Tolerated Well [See Physician Procedure note for Specifics] Pain Scale: 0-10 Numeric [Pain] -Is Patient Pain Free? Yes Musculoskeletal: No Muscle Wasting Neurological: Cranial nerves II-XII grossly intact Psych/Mental Status: Normal Affect Debridement Note Post-Debridement Measurements/Treatment WC - Nurse 2 - General Ulcer CM Notes Start: 07/03/19 09:00 Freq: Status: Active Protocol: Activity Type Activity Date Activity User E-Sign Co-Sign Detail Recorded Client Recorded Date Recorded By Document 07/03/19 09:17 MW [id number] 07/03/19 09:26 MW 07/03/19 09:17 Wound Center Nurse 2 #1 R Med LE -Time 09:18 -Correct Patient Yes -Correct Side, Site, Position Yes -Correct Procedure Yes -Procedure Performed Yes -Type of Procedure Debridement -Clinical Debridement Subcutaneous -Post Debridement Size (cm) - Length 1.1 -Post Debridement Size (cm) - Width 0.7 -Post Debridement Size (cm) - Depth 0.2 -Total Square Cm 0.77 -Wound/Ulcer Outcome Not Healed -Ulcer Cleansing Rinsed/ Irrigated with Saline -Foul Odor after Cleansing No -Bioengineered Tissue Yes -Type of bioengineered Tissue EPIFIX -Expiration Date 10/01/23 -Product Lot Number [id number] -Percent Used 100 -Saline Lot Number [id number] -Bleeding Controlled with Pressure -Offloading No -Treatment Response Procedure Tolerated Well Pain Scale: 0-10 Numeric Is Patient Pain Free? Yes Wound debrided: Right Leg Type of Debridement: Excisional debridement Anesthesia Used: 5% Lidocaine Gel Depth: Down to and including healthy tissue, in the subcutaneous layer Percentage of wound debrided: 100 Instrument Used: 3mm curette Tissue Removed: Slough and devitalized tissue Severity: Fat Layer Exposed Amount of bleeding with debridement: Mild Bleeding Controlled with: Pressure Patient tolerated procedure well Assessment/Plan Active Problems Venous ulcer of right leg (Chronic) Venous insufficiency of both lower extremities (Chronic) Assessment: Chronic/recurrent right lower extremity ulcer. Venous insufficiency. Venous leg ulcer. Plan: Improving. Debridement done as documented above, procedure was well- tolerated. 9th application of Epifix done today using 100% of product. Moistened with saline and secured with adaptic touch. Guaze over top. Leave in place for a week. Continue use of compression stockings. Advised to elevate his lower extremities when seated and in bed. Increased protein intake also recommended. His Venous studies were reviewed and patient was advised to follow / schedule with a vascular surgeon due to chronic venous incompetence and recurrent venous ulcers. His questions were answered and he was advised to call with any further questions or concerns. Follow-up in 1 week. This note was generated with [employer] dictation software. It may contain incorrect words, spelling, and punctuation that were not noted in checking the note before signing.
[2019-07-10 08:16] VITALS: BP 134/75; PULSE 61; RESP 18; TEMP 37.2; BMI 27.8
--- NOTE | 2019-07-10 08:30 | PN.PCM_ITS ---
(1) Venous insufficiency of both lower extremities Status: Chronic Current Visit: Yes Code(s): I87.2 - Venous insufficiency (chronic) (peripheral) (2) Venous ulcer of right leg Status: Chronic Current Visit: Yes Code(s): I83.019 - Varicose veins of right lower extremity with ulcer of unspecified site; L97.919 - Non-pressure chronic ulcer of unspecified part of right lower leg with unspecified severity Type of Wound Date of Service: 07/10/19 Chief Complaint: Nonhealing right lower extremity ulcer. History of Wound: Mr. Ly is a 58-year-old who was referred to the wound center by his primary care due to nonhealing right lower extremity ulcer. He reports recurrence of the ulcer since the . Recent episode said to have been present for over a year. He has managed this conservatively occasionally with Neosporin and gauze dressing without any significant improvement. Also been periodically treated with doxycycline with only modest improvement. Denies any known precipitating factor however, states that he had venous studies about 20 years ago which was suggestive of venous insufficiency in his right lower extremity. Does admit to periodic bilateral lower extremity swelling. Stands for longer hours due to the nature of his job. Does state however that he utilizes compression stockings (20 to 30 mmHg). Denies any history of diabetes mellitus. Chews tobacco. Feels well otherwise at this time. Progress of Wound: Improving. Has had 9 applications of Epifix. - Physical Exam Vital Signs Temp Pulse Resp BP 98.9 F 61 18 134/75 H 07/10/19 08:16 07/10/19 08:16 07/10/19 08:16 07/10/19 08:16 General: Alert, Oriented x3, Cooperative, No apparent distress HEENT: Atraumatic, Normocephalic Oral: Moist Mucosa Neck: Supple Lungs: Normal air movement Extremities: No cyanosis Skin: Ulcer/ Wound Wound Measurements and Assessment WC - Nurse 1 - General Ulcer Measurement Start: 07/03/19 09:00 Freq: Status: Active Protocol: Activity Type Activity Date Activity User E-Sign Co-Sign Detail Recorded Client Recorded Date Recorded By Document 07/10/19 08:16 DL [id number] 07/10/19 08:17 DL 07/10/19 08:16 Wound Center Nurse 1 [Ulcer Assessment] #1 R Med LE -Current Size (cm) - Length 1.1 -Current Size (cm) - Width 0.7 -Current Size (cm) - Depth 0.2 -Total Square Cm 0.77 -Photo Taken No -Exudate Amt Small -Exudate Type Serosanguineous -Wound Margin Distinct, Outline Attached -Granulation Amt Large (67-100%) -Granulation Quality [place],Red -Necrosis Amt Small (1-33%) -Necrotic Tissue Type Adherent Slough -Structure Exposed N/A -Texture (Emely-wound Skin Appearance) Scarring -Moisture (Emely-wound Skin Appearance Dry/Scaly ) -Color (Emely-wound Skin Appearance) Hemosiderin Staining -Temperature (Emely-wound Skin No Abnormality Appearance) (Pt Warm) -Tenderness on Palpation (Emely-wound No Skin Appearance) -Ulcer Cleansing Wound Cleanser -Foul Odor after Cleansing No -Anesthetic Used 5% Lidocaine Gel Musculoskeletal: No Muscle Wasting Neurological: Cranial nerves II-XII grossly intact Psych/Mental Status: Normal Affect Debridement Note Post-Debridement Measurements/Treatment WC - Nurse 2 - General Ulcer CM Notes Start: 07/03/19 09:00 Freq: Status: Active Protocol: Activity Type Activity Date Activity User E-Sign Co-Sign Detail Recorded Client Recorded Date Recorded By Document 07/03/19 09:17 MW [id number] 07/03/19 09:26 MW 07/03/19 09:17 Wound Center Nurse 2 #1 R Med LE -Time 09:18 -Correct Patient Yes -Correct Side, Site, Position Yes -Correct Procedure Yes -Procedure Performed Yes -Type of Procedure Debridement -Clinical Debridement Subcutaneous -Post Debridement Size (cm) - Length 1.1 -Post Debridement Size (cm) - Width 0.7 -Post Debridement Size (cm) - Depth 0.2 -Total Square Cm 0.77 -Wound/Ulcer Outcome Not Healed -Ulcer Cleansing Rinsed/ Irrigated with Saline -Foul Odor after Cleansing No -Bioengineered Tissue Yes -Type of bioengineered Tissue EPIFIX -Expiration Date 10/01/23 -Product Lot Number [id number] -Percent Used 100 -Saline Lot Number [id number] -Bleeding Controlled with Pressure -Offloading No -Treatment Response Procedure Tolerated Well Pain Scale: 0-10 Numeric Is Patient Pain Free? Yes Wound debrided: Right Leg Type of Debridement: Excisional debridement Anesthesia Used: 5% Lidocaine Gel Depth: Down to and including healthy tissue, in the subcutaneous layer Percentage of wound debrided: 100 Instrument Used: 3mm curette Tissue Removed: Slough and devitalized tissue Severity: Fat Layer Exposed Amount of bleeding with debridement: Mild Bleeding Controlled with: Pressure Patient tolerated procedure well Assessment/Plan Active Problems Venous ulcer of right leg (Chronic) Venous insufficiency of both lower extremities (Chronic) Assessment: Chronic/recurrent right lower extremity ulcer. Venous insufficiency. Venous leg ulcer. Plan: Improving. Debridement done as documented above, procedure was well- tolerated. 10th application of Epifix done today using 100% of product. Moistened with saline and secured with adaptic touch. Guaze over top. Leave in place for a week. Continue use of compression stockings. Advised to elevate his lower extremities when seated and in bed. Increased protein intake also recommended. His Venous studies were reviewed and patient was advised to follow / schedule with a vascular surgeon due to chronic venous incompetence and recurrent venous ulcers. His questions were answered and he was advised to call with any further questions or concerns. Follow-up in 1 week. This note was generated with [employer] dictation software. It may contain incorrect words, spelling, and punctuation that were not noted in checking the note before signing.
[2019-07-17 09:22] VITALS: BP 133/83; PULSE 80; RESP 16; TEMP 38.8; BMI 27.8
--- NOTE | 2019-07-17 10:10 | PCM.WC.PN ---
(1) Venous insufficiency of both lower extremities Status: Chronic Current Visit: Yes Code(s): I87.2 - Venous insufficiency (chronic) (peripheral) (2) Venous ulcer of right leg Status: Chronic Current Visit: Yes Code(s): I83.019 - Varicose veins of right lower extremity with ulcer of unspecified site; L97.919 - Non-pressure chronic ulcer of unspecified part of right lower leg with unspecified severity Type of Wound Date of Service: 07/17/19 Chief Complaint: Nonhealing right lower extremity ulcer. History of Wound: Mr. Ly is a 58-year-old who was referred to the wound center by his primary care due to nonhealing right lower extremity ulcer. He reports recurrence of the ulcer since the . Recent episode said to have been present for over a year. He has managed this conservatively occasionally with Neosporin and gauze dressing without any significant improvement. Also been periodically treated with doxycycline with only modest improvement. Denies any known precipitating factor however, states that he had venous studies about 20 years ago which was suggestive of venous insufficiency in his right lower extremity. Does admit to periodic bilateral lower extremity swelling. Stands for longer hours due to the nature of his job. Does state however that he utilizes compression stockings (20 to 30 mmHg). Denies any history of diabetes mellitus. Chews tobacco. Feels well otherwise at this time. Progress of Wound: Improving. Has had 10 applications of Epifix. - Physical Exam Vital Signs Temp Pulse Resp BP 101.9 F H 80 16 133/83 H 07/17/19 09:22 07/17/19 09:22 07/17/19 09:22 07/17/19 09:22 General: Alert, Oriented x3, Cooperative, No apparent distress HEENT: Atraumatic, Normocephalic Oral: Moist Mucosa Neck: No JVD Lungs: Normal air movement Extremities: No cyanosis, Edema Skin: Ulcer/ Wound Wound Measurements and Assessment WC - Nurse 1 - General Ulcer Measurement Start: 07/03/19 09:00 Freq: Status: Active Protocol: Activity Type Activity Date Activity User E-Sign Co-Sign Detail Recorded Client Recorded Date Recorded By Document 07/17/19 09:22 DV [id number] 07/17/19 09:25 DV 07/17/19 09:22 Wound Center Nurse 1 [Ulcer Assessment] #1 R Med LE -Combined with other wound No -Current Size (cm) - Length 1.0 -Current Size (cm) - Width 0.5 -Current Size (cm) - Depth 0.2 -Total Square Cm 0.50 -Photo Taken No -Epithelialization Small 1-33% -Tunneling No -Undermining/Tunneling No -Circular Undermining No -Classification - Thickness Full Thickness without Exposed Support Structure -Exudate Amt Medium -Exudate Type Serosanguineous -Wound Margin Flat & Intact -Granulation Amt Medium (34-66%) -Granulation Quality Pale,[place] -Slough/Fibrin Yes -Necrosis Amt Medium (34-66%) -Necrotic Tissue Type Adherent Slough -Structure Exposed None/Limited to Skin Breakdown -Texture (Emely-wound Skin Appearance) Assessed, Scarring -Moisture (Emely-wound Skin Appearance Assessed, ) Weeping -Color (Emely-wound Skin Appearance) No Abnormality, Assessed -Foul Odor after Cleansing No -Anesthetic Used 5% Lidocaine Gel [Edema Assessment] -Lower Limb Edema Present No WC - Nurse 2 - General Ulcer CM Notes Start: 07/03/19 09:00 Freq: Status: Active Protocol: Activity Type Activity Date Activity User E-Sign Co-Sign Detail Recorded Client Recorded Date Recorded By Document 07/17/19 09:40 MW [id number] 07/17/19 09:46 MW 07/17/19 09:40 Wound Center Nurse 2 [Procedure/Treatment] #1 R Med LE -Time 09:40 -Correct Patient Yes -Correct Side, Site, Position Yes -Correct Procedure Yes -Procedure Performed Yes -Type of Procedure Debridement -Clinical Debridement Subcutaneous -Post Debridement Size (cm) - Length 1.1 -Post Debridement Size (cm) - Width 0.6 -Post Debridement Size (cm) - Depth 0.2 -Total Square Cm 0.66 -Wound/Ulcer Outcome Not Healed -Ulcer Cleansing Rinsed/ Irrigated with Saline -Foul Odor after Cleansing No -Bioengineered Tissue Yes -Type of bioengineered Tissue EPIFIX -Expiration Date 01/30/24 -Product Lot Number [id number] -Percent Used 100 -Saline Lot Number [id number] -Bleeding Controlled with Pressure -Offloading No -Treatment Response Procedure Tolerated Well [See Physician Procedure note for Specifics] Pain Scale: 0-10 Numeric [Pain] -Is Patient Pain Free? Yes Musculoskeletal: No Muscle Wasting Neurological: Cranial nerves II-XII grossly intact Psych/Mental Status: Normal Affect Debridement Note Post-Debridement Measurements/Treatment WC - Nurse 2 - General Ulcer CM Notes Start: 07/03/19 09:00 Freq: Status: Active Protocol: Activity Type Activity Date Activity User E-Sign Co-Sign Detail Recorded Client Recorded Date Recorded By Document 07/03/19 09:17 MW [id number] 07/03/19 09:26 MW Document 07/10/19 08:41 MW [id number] 07/10/19 08:42 MW Document 07/17/19 09:40 MW [id number] 07/17/19 09:46 MW 07/03/19 07/10/19 07/17/19 09:17 08:41 09:40 Wound Center Nurse 2 #1 R Med LE -Time 09:18 08:20 09:40 -Correct Patient Yes Yes Yes -Correct Side, Site, Position Yes Yes Yes -Correct Procedure Yes Yes Yes -Procedure Performed Yes Yes Yes -Type of Procedure Debridement Debridement Debridement -Clinical Debridement Subcutaneous Subcutaneous Subcutaneous -Post Debridement Size (cm) - Length 1.1 1.1 1.1 -Post Debridement Size (cm) - Width 0.7 0.5 0.6 -Post Debridement Size (cm) - Depth 0.2 0.2 0.2 -Total Square Cm 0.77 0.55 0.66 -Wound/Ulcer Outcome Not Healed Not Healed Not Healed -Ulcer Cleansing Rinsed/ Rinsed/ Rinsed/ Irrigated with Irrigated with Irrigated with Saline Saline Saline -Foul Odor after Cleansing No No No -Bioengineered Tissue Yes Yes Yes -Type of bioengineered Tissue EPIFIX EPIFIX EPIFIX -Expiration Date 10/01/23 10/01/23 01/30/24 -Product Lot Number [id number] -Percent Used 100 100 100 -Saline Lot Number [id number] -Bleeding Controlled with Pressure Pressure Pressure -Offloading No No No -Treatment Response Procedure Procedure Procedure Tolerated Well Tolerated Well Tolerated Well Pain Scale: 0-10 Numeric Is Patient Pain Free? Yes Yes Yes Wound debrided: Right Leg Type of Debridement: Excisional debridement Anesthesia Used: 4% Lidocaine Solution Depth: Down to and including healthy tissue, in the subcutaneous layer Percentage of wound debrided: 100 Instrument Used: 3mm curette Tissue Removed: Slough and devitalized tissue Severity: Fat Layer Exposed Amount of bleeding with debridement: Mild Bleeding Controlled with: Pressure Patient tolerated procedure well Assessment/Plan Active Problems Venous ulcer of right leg (Chronic) Venous insufficiency of both lower extremities (Chronic) Assessment: Chronic/recurrent right lower extremity ulcer. Venous insufficiency. Venous leg ulcer. Plan: Improving. Debridement done as documented above, procedure was well-tolerated. 11th application of Epifix done today using 100% of product. Moistened with saline and secured with adaptic touch. Guaze over top. Leave in place for a week. Continue use of compression stockings. Advised to elevate his lower extremities when seated and in bed. Increased protein intake also recommended. His Venous studies were reviewed and patient was advised to follow / schedule with a vascular surgeon due to chronic venous incompetence and recurrent venous ulcers. His questions were answered and he was advised to call with any further questions or concerns. Follow-up in 1 week. This note was generated with [employer] dictation software. It may contain incorrect words, spelling, and punctuation that were not noted in checking the note before signing.
[2019-07-24 08:46] VITALS: BP 133/92; PULSE 74; RESP 18; TEMP 37.1; BMI 27.8
--- NOTE | 2019-07-24 09:56 | PCM.WC.PN ---
(1) Venous insufficiency of both lower extremities Status: Chronic Current Visit: Yes Code(s): I87.2 - Venous insufficiency (chronic) (peripheral) (2) Venous ulcer of right leg Status: Chronic Current Visit: Yes Code(s): I83.019 - Varicose veins of right lower extremity with ulcer of unspecified site; L97.919 - Non-pressure chronic ulcer of unspecified part of right lower leg with unspecified severity Type of Wound Date of Service: 07/24/19 Chief Complaint: Nonhealing right lower extremity ulcer. History of Wound: Mr. Ly is a 58-year-old who was referred to the wound center by his primary care due to nonhealing right lower extremity ulcer. He reports recurrence of the ulcer since the . Recent episode said to have been present for over a year. He has managed this conservatively occasionally with Neosporin and gauze dressing without any significant improvement. Also been periodically treated with doxycycline with only modest improvement. Denies any known precipitating factor however, states that he had venous studies about 20 years ago which was suggestive of venous insufficiency in his right lower extremity. Does admit to periodic bilateral lower extremity swelling. Stands for longer hours due to the nature of his job. Does state however that he utilizes compression stockings (20 to 30 mmHg). Denies any history of diabetes mellitus. Chews tobacco. Feels well otherwise at this time. Progress of Wound: Improving. Has had 11 applications of Epifix. - Physical Exam Vital Signs Temp Pulse Resp BP 98.8 F 74 18 133/92 H 07/24/19 08:46 07/24/19 08:46 07/24/19 08:46 07/24/19 08:46 General: Alert, Oriented x3, Cooperative, No apparent distress HEENT: Atraumatic, Normocephalic Oral: Moist Mucosa Neck: Supple Lungs: Normal air movement Extremities: No cyanosis, Edema Skin: Ulcer/ Wound Wound Measurements and Assessment WC - Nurse 1 - General Ulcer Measurement Start: 07/03/19 09:00 Freq: Status: Active Protocol: Activity Type Activity Date Activity User E-Sign Co-Sign Detail Recorded Client Recorded Date Recorded By Document 07/24/19 08:46 DL [id number] 07/24/19 08:55 DL 07/24/19 08:46 Wound Center Nurse 1 [Ulcer Assessment] #1 R Med LE -Current Size (cm) - Length 1.3 -Current Size (cm) - Width 0.6 -Current Size (cm) - Depth 0.2 -Total Square Cm 0.78 -Photo Taken No -Exudate Amt Small -Exudate Type Serosanguineous -Wound Margin Distinct, Outline Attached -Granulation Amt None Present (0 %) -Necrosis Amt Large (67-100%) -Necrotic Tissue Type Adherent Slough -Structure Exposed N/A -Texture (Emely-wound Skin Appearance) Scarring -Moisture (Emely-wound Skin Appearance Dry/Scaly ) -Color (Emely-wound Skin Appearance) Hemosiderin Staining -Temperature (Emely-wound Skin No Abnormality Appearance) (Pt Warm) -Tenderness on Palpation (Emely-wound No Skin Appearance) -Ulcer Cleansing Rinsed/ Irrigated with Saline -Foul Odor after Cleansing No -Anesthetic Used 5% Lidocaine Gel [Edema Assessment] -Right Calf (cm) 38.5 -Right Ankle (cm) 25 WC - Nurse 2 - General Ulcer CM Notes Start: 07/03/19 09:00 Freq: Status: Active Protocol: Activity Type Activity Date Activity User E-Sign Co-Sign Detail Recorded Client Recorded Date Recorded By Document 07/24/19 09:23 MW [id number] 07/24/19 09:29 MW 07/24/19 09:23 Wound Center Nurse 2 [Procedure/Treatment] #1 R Broken Buy LE -Time 09:23 -Correct Patient Yes -Correct Side, Site, Position Yes -Correct Procedure Yes -Procedure Performed Yes -Type of Procedure Debridement -Clinical Debridement Subcutaneous -Post Debridement Size (cm) - Length 0.9 -Post Debridement Size (cm) - Width 0.4 -Post Debridement Size (cm) - Depth 0.2 -Total Square Cm 0.36 -Wound/Ulcer Outcome Not Healed -Ulcer Cleansing Rinsed/ Irrigated with Saline -Foul Odor after Cleansing No -Bioengineered Tissue Yes -Type of bioengineered Tissue EPIFIX -Expiration Date 12/31/23 -Product Lot Number [id number] -Percent Used 100 -Saline Lot Number [id number] -Bleeding Controlled with Pressure -Offloading No -Treatment Response Procedure Tolerated Well [See Physician Procedure note for Specifics] Pain Scale: 0-10 Numeric [Pain] -Is Patient Pain Free? Yes Musculoskeletal: No Muscle Wasting Neurological: Cranial nerves II-XII grossly intact Psych/Mental Status: Normal Affect Debridement Note Post-Debridement Measurements/Treatment WC - Nurse 2 - General Ulcer CM Notes Start: 07/03/19 09:00 Freq: Status: Active Protocol: Activity Type Activity Date Activity User E-Sign Co-Sign Detail Recorded Client Recorded Date Recorded By Document 07/03/19 09:17 MW [id number] 07/03/19 09:26 MW Document 07/10/19 08:41 MW [id number] 07/10/19 08:42 MW Document 07/17/19 09:40 MW [id number] 07/17/19 09:46 MW Document 07/24/19 09:23 MW [id number] 07/24/19 09:29 MW 07/03/19 07/10/19 07/17/19 09:17 08:41 09:40 Wound Center Nurse 2 #1 R Med LE -Time 09:18 08:20 09:40 -Correct Patient Yes Yes Yes -Correct Side, Site, Position Yes Yes Yes -Correct Procedure Yes Yes Yes -Procedure Performed Yes Yes Yes -Type of Procedure Debridement Debridement Debridement -Clinical Debridement Subcutaneous Subcutaneous Subcutaneous -Post Debridement Size (cm) - Length 1.1 1.1 1.1 -Post Debridement Size (cm) - Width 0.7 0.5 0.6 -Post Debridement Size (cm) - Depth 0.2 0.2 0.2 -Total Square Cm 0.77 0.55 0.66 -Wound/Ulcer Outcome Not Healed Not Healed Not Healed -Ulcer Cleansing Rinsed/ Rinsed/ Rinsed/ Irrigated with Irrigated with Irrigated with Saline Saline Saline -Foul Odor after Cleansing No No No -Bioengineered Tissue Yes Yes Yes -Type of bioengineered Tissue EPIFIX EPIFIX EPIFIX -Expiration Date 10/01/23 10/01/23 01/30/24 -Product Lot Number [id number] -Percent Used 100 100 100 -Saline Lot Number [id number] -Bleeding Controlled with Pressure Pressure Pressure -Offloading No No No -Treatment Response Procedure Procedure Procedure Tolerated Well Tolerated Well Tolerated Well Pain Scale: 0-10 Numeric Is Patient Pain Free? Yes Yes Yes 07/24/19 09:23 Wound Center Nurse 2 #1 R Med LE -Time 09:23 -Correct Patient Yes -Correct Side, Site, Position Yes -Correct Procedure Yes -Procedure Performed Yes -Type of Procedure Debridement -Clinical Debridement Subcutaneous -Post Debridement Size (cm) - Length 0.9 -Post Debridement Size (cm) - Width 0.4 -Post Debridement Size (cm) - Depth 0.2 -Total Square Cm 0.36 -Wound/Ulcer Outcome Not Healed -Ulcer Cleansing Rinsed/ Irrigated with Saline -Foul Odor after Cleansing No -Bioengineered Tissue Yes -Type of bioengineered Tissue EPIFIX -Expiration Date 12/31/23 -Product Lot Number [id number] -Percent Used 100 -Saline Lot Number [id number] -Bleeding Controlled with Pressure -Offloading No -Treatment Response Procedure Tolerated Well Pain Scale: 0-10 Numeric Is Patient Pain Free? Yes Wound debrided: Right Leg Type of Debridement: Excisional debridement Anesthesia Used: 4% Lidocaine Solution Depth: Down to and including healthy tissue, in the subcutaneous layer Percentage of wound debrided: 100 Instrument Used: 3mm curette Tissue Removed: Slough and devitalized tissue Severity: Fat Layer Exposed Amount of bleeding with debridement: Mild Bleeding Controlled with: Pressure Patient tolerated procedure well Assessment/Plan Active Problems Venous ulcer of right leg (Chronic) Venous insufficiency of both lower extremities (Chronic) Assessment: Chronic/recurrent right lower extremity ulcer. Venous insufficiency. Venous leg ulcer. Plan: Improving. Debridement done as documented above, procedure was well-tolerated. 12th application of Epifix done today using 100% of product. Moistened with saline and secured with adaptic touch. Guaze over top. Leave in place for a week. Continue use of compression stockings. Advised to elevate his lower extremities when seated and in bed. Increased protein intake also recommended. His Venous studies were reviewed and patient was advised to follow / schedule with a vascular surgeon due to chronic venous incompetence and recurrent venous ulcers. His questions were answered and he was advised to call with any further questions or concerns. Follow-up in 1 week. This note was generated with [employer] software. It may contain incorrect words, spelling, and punctuation that were not noted in checking the note before signing.
[2019-07-31 08:46] VITALS: BP 129/59; PULSE 72; RESP 16; TEMP 36.8; BMI 27.8
--- NOTE | 2019-07-31 09:59 | PN.PCM_ITS ---
(1) Venous insufficiency of both lower extremities Status: Chronic Current Visit: Yes Code(s): I87.2 - Venous insufficiency (chronic) (peripheral) (2) Venous ulcer of right leg Status: Chronic Current Visit: Yes Code(s): I83.019 - Varicose veins of right lower extremity with ulcer of unspecified site; L97.919 - Non-pressure chronic ulcer of unspecified part of right lower leg with unspecified severity Type of Wound Date of Service: 07/31/19 Chief Complaint: Nonhealing right lower extremity ulcer. History of Wound: Mr. Ly is a 58-year-old who was referred to the wound center by his primary care due to nonhealing right lower extremity ulcer. He reports recurrence of the ulcer since the . Recent episode said to have been present for over a year. He has managed this conservatively occasionally with Neosporin and gauze dressing without any significant improvement. Also been periodically treated with doxycycline with only modest improvement. Denies any known precipitating factor however, states that he had venous studies about 20 years ago which was suggestive of venous insufficiency in his right lower extremity. Does admit to periodic bilateral lower extremity swelling. Stands for longer hours due to the nature of his job. Does state however that he utilizes compression stockings (20 to 30 mmHg). Denies any history of diabetes mellitus. Chews tobacco. Feels well otherwise at this time. Progress of Wound: Stable. No new concerns at this time. Has had 12 applications of Epifix. - Physical Exam Vital Signs Temp Pulse Resp BP 98.2 F 72 16 129/59 H 07/31/19 08:46 07/31/19 08:46 07/31/19 08:46 07/31/19 08:46 General: Alert, Oriented x3, Cooperative, No apparent distress HEENT: Atraumatic, Normocephalic Oral: Moist Mucosa Neck: Supple Lungs: Normal air movement Extremities: No cyanosis Skin: Ulcer/ Wound Wound Measurements and Assessment WC - Nurse 1 - General Ulcer Measurement Start: 07/03/19 09:00 Freq: Status: Active Protocol: Activity Type Activity Date Activity User E-Sign Co-Sign Detail Recorded Client Recorded Date Recorded By Document 07/31/19 08:46 DV [id number] 07/31/19 08:58 DV 07/31/19 08:46 Wound Center Nurse 1 [Ulcer Assessment] #1 R Med LE -Combined with other wound No -Current Size (cm) - Length 1.3 -Current Size (cm) - Width 0.7 -Current Size (cm) - Depth 0.1 -Total Square Cm 0.91 -Photo Taken No -Epithelialization Small 1-33% -Tunneling No -Undermining/Tunneling No -Circular Undermining No -Classification - Thickness Full Thickness without Exposed Support Structure -Wound Margin Distinct, Outline Attached -Granulation Amt Small (1-33%) -Granulation Quality Red -Slough/Fibrin Yes -Necrosis Amt Small (1-33%) -Necrotic Tissue Type Adherent Slough -Structure Exposed None/Limited to Skin Breakdown -Texture (Emely-wound Skin Appearance) Assessed, Scarring -Moisture (Emely-wound Skin Appearance Assessed,Dry/ ) Scaly -Color (Emely-wound Skin Appearance) No Abnormality, Assessed -Temperature (Emely-wound Skin No Abnormality Appearance) (Pt Warm) -Tenderness on Palpation (Emely-wound No Skin Appearance) -Ulcer Cleansing Rinsed/ Irrigated with Saline -Foul Odor after Cleansing No -Anesthetic Used 5% Lidocaine Gel WC - Nurse 2 - General Ulcer CM Notes Start: 07/03/19 09:00 Freq: Status: Active Protocol: Activity Type Activity Date Activity User E-Sign Co-Sign Detail Recorded Client Recorded Date Recorded By Document 07/31/19 09:22 MW [id number] 07/31/19 09:27 MW 07/31/19 09:22 Wound Center Nurse 2 [Procedure/Treatment] -Time 09:26 -Correct Patient Yes -Correct Side, Site, Position Yes -Correct Procedure Yes -Procedure Performed Yes -Type of Procedure Debridement -Clinical Debridement Subcutaneous -Post Debridement Size (cm) - Length 0.9 -Post Debridement Size (cm) - Width 0.5 -Post Debridement Size (cm) - Depth 0.1 -Total Square Cm 0.45 -Wound/Ulcer Outcome Not Healed -Ulcer Cleansing Rinsed/ Irrigated with Saline -Foul Odor after Cleansing No -Bioengineered Tissue Yes -Type of bioengineered Tissue EPIFIX -Expiration Date 01/30/24 -Product Lot Number [id number] -Percent Used 100 -Saline Lot Number [id number] -Bleeding Controlled with Pressure -Offloading No -Treatment Response Procedure Tolerated Well [See Physician Procedure note for Specifics] Pain Scale: 0-10 Numeric [Pain] -Is Patient Pain Free? Yes Musculoskeletal: No Muscle Wasting Neurological: Cranial nerves II-XII grossly intact Psych/Mental Status: Normal Affect Debridement Note Post-Debridement Measurements/Treatment WC - Nurse 2 - General Ulcer CM Notes Start: 07/03/19 09:00 Freq: Status: Active Protocol: Activity Type Activity Date Activity User E-Sign Co-Sign Detail Recorded Client Recorded Date Recorded By Document 07/03/19 09:17 MW [id number] 07/03/19 09:26 MW Document 07/10/19 08:41 MW [id number] 07/10/19 08:42 MW Document 07/17/19 09:40 MW [id number] 07/17/19 09:46 MW Document 07/24/19 09:23 MW [id number] 07/24/19 09:29 MW Document 07/31/19 09:22 MW [id number] 07/31/19 09:27 MW 07/03/19 07/10/19 07/17/19 09:17 08:41 09:40 Wound Center Nurse 2 #1 R Med LE -Time 09:18 08:20 09:40 -Correct Patient Yes Yes Yes -Correct Side, Site, Position Yes Yes Yes -Correct Procedure Yes Yes Yes -Procedure Performed Yes Yes Yes -Type of Procedure Debridement Debridement Debridement -Clinical Debridement Subcutaneous Subcutaneous Subcutaneous -Post Debridement Size (cm) - Length 1.1 1.1 1.1 -Post Debridement Size (cm) - Width 0.7 0.5 0.6 -Post Debridement Size (cm) - Depth 0.2 0.2 0.2 -Total Square Cm 0.77 0.55 0.66 -Wound/Ulcer Outcome Not Healed Not Healed Not Healed -Ulcer Cleansing Rinsed/ Rinsed/ Rinsed/ Irrigated with Irrigated with Irrigated with Saline Saline Saline -Foul Odor after Cleansing No No No -Bioengineered Tissue Yes Yes Yes -Type of bioengineered Tissue EPIFIX EPIFIX EPIFIX -Expiration Date 10/01/23 10/01/23 01/30/24 -Product Lot Number [id number] -Percent Used 100 100 100 -Saline Lot Number [id number] -Bleeding Controlled with Pressure Pressure Pressure -Offloading No No No -Treatment Response Procedure Procedure Procedure Tolerated Well Tolerated Well Tolerated Well Pain Scale: 0-10 Numeric Is Patient Pain Free? Yes Yes Yes 07/24/19 07/31/19 09:23 09:22 Wound Center Nurse 2 #1 Lucie Walter LE -Time 09:26 -Correct Patient Yes Yes -Correct Side, Site, Position Yes Yes -Correct Procedure Yes Yes -Procedure Performed Yes Yes -Type of Procedure Debridement Debridement -Clinical Debridement Subcutaneous Subcutaneous -Post Debridement Size (cm) - Length 0.9 0.9 -Post Debridement Size (cm) - Width 0.4 0.5 -Post Debridement Size (cm) - Depth 0.2 0.1 -Total Square Cm 0.36 0.45 -Wound/Ulcer Outcome Not Healed Not Healed -Ulcer Cleansing Rinsed/ Rinsed/ Irrigated with Irrigated with Saline Saline -Foul Odor after Cleansing No No -Bioengineered Tissue Yes Yes -Type of bioengineered Tissue EPIFIX EPIFIX -Expiration Date 12/31/23 01/30/24 -Product Lot Number [id number] -Percent Used 100 100 -Saline Lot Number [id number] -Bleeding Controlled with Pressure Pressure -Offloading No No -Treatment Response Procedure Procedure Tolerated Well Tolerated Well Pain Scale: 0-10 Numeric Is Patient Pain Free? Yes Yes Wound debrided: Right Leg Type of Debridement: Excisional debridement Anesthesia Used: 4% Lidocaine Solution Depth: Down to and including healthy tissue, in the subcutaneous layer Percentage of wound debrided: 100 Instrument Used: 3mm curette Tissue Removed: Slough and devitalized tissue Severity: Fat Layer Exposed Amount of bleeding with debridement: Mild Bleeding Controlled with: Pressure Patient tolerated procedure well Assessment/Plan Active Problems Venous ulcer of right leg (Chronic) Venous insufficiency of both lower extremities (Chronic) Assessment: Chronic/recurrent right lower extremity ulcer. Venous insu fficiency. Venous leg ulcer. Plan: Improving depth. Debridement done as documented above, procedure was well- tolerated. 13th application of Epifix done today using 100% of product. Moistened with saline and secured with adaptic touch. Guaze over top. Leave in place for a week. Continue use of compression stockings. Advised to elevate his lower extremities when seated and in bed. Increased protein intake also recommended. His Venous studies have been reviewed and patient was advised to follow / schedule with a vascular surgeon due to chronic venous incompetence and recurrent venous ulcers. His questions were answered and he was advised to call with any further questions or concerns. Follow-up in 1 week. This note was generated with [employer] dictation software. It may contain incorrect words, spelling, and punctuation that were not noted in checking the note before signing.
== END 2019-07-31 23:59 ==
LOC: WC 08:45
PROVIDERS: Family Provider Nurse Practitioner Family; PCP Nurse Practitioner Family; Referring Provider Internal Medicine; Visit Provider Internal Medicine
DX: I83.018 Varicose veins of right lower extremity with ulcer other part of lower leg (principal); L97.812 Non-pressure chronic ulcer of other part of right lower leg with fat layer exposed; I87.2 Venous insufficiency (chronic) (peripheral); M79.89 Other specified soft tissue disorders
CPT/HCPCS: 15271; Q4186

== ENCOUNTER 2019-08-21 08:15 | Outpatient (RCR) | payer MEDICAID, SELFPAY ==
[2019-08-01 00:53] VITALS: BP 129/59; PULSE 72; RESP 16; TEMP 36.8
[2019-08-07 08:11] VITALS: BP 136/84; PULSE 66; RESP 18; TEMP 36.6; BMI 27.8
--- NOTE | 2019-08-07 08:52 | PN.PCM_ITS ---
(1) Venous ulcer of right leg Status: Chronic Current Visit: Yes Code(s): I83.019 - Varicose veins of right lower extremity with ulcer of unspecified site; L97.919 - Non-pressure chronic ulcer of unspecified part of right lower leg with unspecified severity (2) Venous insufficiency of both lower extremities Status: Chronic Current Visit: Yes Code(s): I87.2 - Venous insufficiency (chronic) (peripheral) Type of Wound Date of Service: 08/07/19 Chief Complaint: Nonhealing right lower extremity ulcer. History of Wound: Mr. Ly is a 58-year-old who was referred to the wound center by his primary care due to nonhealing right lower extremity ulcer. He reports recurrence of the ulcer since the . Recent episode said to have been present for over a year. He has managed this conservatively occasionally with Neosporin and gauze dressing without any significant improvement. Also been periodically treated with doxycycline with only modest improvement. Denies any known precipitating factor however, states that he had venous studies about 20 years ago which was suggestive of venous insufficiency in his right lower extremity. Does admit to periodic bilateral lower extremity swelling. Stands for longer hours due to the nature of his job. Does state however that he utilizes compression stockings (20 to 30 mmHg). Denies any history of diabetes mellitus. Chews tobacco. Feels well otherwise at this time. Progress of Wound: Stable. No new concerns at this time. Has had 13 applications of Epifix. - Physical Exam Vital Signs Temp Pulse Resp BP 97.8 F 66 18 136/84 H 08/07/19 08:11 08/07/19 08:11 08/07/19 08:11 08/07/19 08:11 General: Alert, Oriented x3, Cooperative, No apparent distress HEENT: Atraumatic, Normocephalic Oral: Moist Mucosa Neck: Supple Lungs: Normal air movement Extremities: No cyanosis, Edema Skin: Ulcer/ Wound Wound Measurements and Assessment WC - Nurse 1 - General Ulcer Measurement Start: 08/07/19 08:11 Freq: Status: Active Protocol: Activity Type Activity Date Activity User E-Sign Co-Sign Detail Recorded Client Recorded Date Recorded By Document 08/07/19 08:11 DL [id number] 08/07/19 08:16 DL 08/07/19 08:11 Wound Center Nurse 1 [Ulcer Assessment] #1 R M2G LE -Current Size (cm) - Length 1 -Current Size (cm) - Width 0.5 -Current Size (cm) - Depth 0.1 -Total Square Cm 0.5 -Photo Taken No -Exudate Amt None Present -Wound Margin Thickened -Granulation Amt Small (1-33%) -Granulation Quality Red -Necrosis Amt Small (1-33%) -Necrotic Tissue Type Adherent Slough -Structure Exposed N/A -Texture (Emely-wound Skin Appearance) Scarring -Moisture (Emely-wound Skin Appearance Dry/Scaly ) -Color (Emely-wound Skin Appearance) Hemosiderin Staining -Temperature (Emely-wound Skin No Abnormality Appearance) (Pt Warm) -Tenderness on Palpation (Emely-wound No Skin Appearance) -Ulcer Cleansing Wound Cleanser -Foul Odor after Cleansing No -Anesthetic Used 5% Lidocaine Gel [Edema Assessment] -Right Calf (cm) 38.5 -Right Ankle (cm) 25.5 WC - Nurse 2 - General Ulcer CM Notes Start: 08/07/19 08:11 Freq: Status: Active Protocol: Activity Type Activity Date Activity User E-Sign Co-Sign Detail Recorded Client Recorded Date Recorded By Document 08/07/19 08:40 MW [id number] 08/07/19 08:48 MW 08/07/19 08:40 Wound Center Nurse 2 [Procedure/Treatment] #1 ShelfFlip LE -Time 08:42 -Correct Patient Yes -Correct Side, Site, Position Yes -Correct Procedure Yes -Procedure Performed Yes -Type of Procedure Debridement -Clinical Debridement Subcutaneous -Post Debridement Size (cm) - Length 0.9 -Post Debridement Size (cm) - Width 0.4 -Post Debridement Size (cm) - Depth 0.1 -Total Square Cm 0.36 -Wound/Ulcer Outcome Not Healed -Ulcer Cleansing Rinsed/ Irrigated with Saline -Foul Odor after Cleansing No -Bioengineered Tissue Yes -Type of bioengineered Tissue EPIFIX -Expiration Date 01/30/24 -Product Lot Number [id number] -Percent Used 100 -Saline Lot Number [id number] -Bleeding Controlled with Pressure -Offloading No -Treatment Response Procedure Tolerated Well [See Physician Procedure note for Specifics] Pain Scale: 0-10 Numeric [Pain] -Is Patient Pain Free? Yes Musculoskeletal: No Muscle Wasting Neurological: Cranial nerves II-XII grossly intact Psych/Mental Status: Normal Affect Debridement Note Post-Debridement Measurements/Treatment WC - Nurse 2 - General Ulcer CM Notes Start: 08/07/19 08:11 Freq: Status: Active Protocol: Activity Type Activity Date Activity User E-Sign Co-Sign Detail Recorded Client Recorded Date Recorded By Document 08/07/19 08:40 MW [id number] 08/07/19 08:48 MW 08/07/19 08:40 Wound Center Nurse 2 #1 R Med LE -Time 08:42 -Correct Patient Yes -Correct Side, Site, Position Yes -Correct Procedure Yes -Procedure Performed Yes -Type of Procedure Debridement -Clinical Debridement Subcutaneous -Post Debridement Size (cm) - Length 0.9 -Post Debridement Size (cm) - Width 0.4 -Post Debridement Size (cm) - Depth 0.1 -Total Square Cm 0.36 -Wound/Ulcer Outcome Not Healed -Ulcer Cleansing Rinsed/ Irrigated with Saline -Foul Odor after Cleansing No -Bioengineered Tissue Yes -Type of bioengineered Tissue EPIFIX -Expiration Date 01/30/24 -Product Lot Number [id number] -Percent Used 100 -Saline Lot Number [id number] -Bleeding Controlled with Pressure -Offloading No -Treatment Response Procedure Tolerated Well Pain Scale: 0-10 Numeric Is Patient Pain Free? Yes Wound debrided: Right leg Type of Debridement: Excisional debridement Anesthesia Used: 4% Lidocaine Solution Depth: Down to and including healthy tissue, in the subcutaneous layer Percentage of wound debrided: 100 Instrument Used: 3mm curette Tissue Removed: Slough and devitalized tissue Severity: Fat Layer Exposed Amount of bleeding with debridement: Mild Bleeding Controlled with: Compression and gauze Patient tolerated procedure well Assessment/Plan Active Problems Venous ulcer of right leg (Chronic) Venous insufficiency of both lower extremities (Chronic) Assessment: Chronic/recurrent right lower extremity ulcer. Venous insufficie ncy. Venous leg ulcer. Plan: Stable. Debridement done as documented above, procedure was well- tolerated. 14th application of Epifix done today using 100% of product. Moisten ed with saline and secured with adaptic touch. Guaze over top. Leave in place for 2 weeks. may change outer dressing. Continue use of compression stockings. Advised to elevate his lower extremities when seated and in bed. Increased protein intake also recommended. His Venous studies have been reviewed and patient was advised to follow / schedule with a vascular surgeon due to chronic venous incompetence and recurrent venous ulcers. His questions were answered and he was advised to call with any further questions or concerns. Follow-up in 2 weeks. This note was generated with [employer] dictation software. It may contain incorrect words, spelling, and punctuation that were not noted in checking the note before signing. Multi Select Codes - Integumentary Integumentary CPT Codes: 82395 [place] subq tissue 20 sq cm/<, 69949 Skin sub graft trnk/arm/leg
[2019-08-21 08:26] VITALS: BP 118/76; PULSE 67; RESP 18; TEMP 37.1; BMI 27.8
--- NOTE | 2019-08-21 08:56 | PN.PCM_ITS ---
(1) Venous ulcer of right leg Status: Chronic Current Visit: Yes Code(s): I83.019 - Varicose veins of right lower extremity with ulcer of unspecified site; L97.919 - Non-pressure chronic ulcer of unspecified part of right lower leg with unspecified severity (2) Venous insufficiency of both lower extremities Status: Chronic Current Visit: Yes Code(s): I87.2 - Venous insufficiency (chronic) (peripheral) Type of Wound Date of Service: 08/21/19 Chief Complaint: Nonhealing right lower extremity ulcer. History of Wound: Mr. Ly is a 58-year-old who was referred to the wound center by his primary care due to nonhealing right lower extremity ulcer. He reports recurrence of the ulcer since the . Recent episode said to have been present for over a year. He has managed this conservatively occasionally with Neosporin and gauze dressing without any significant improvement. Also been periodically treated with doxycycline with only modest improvement. Denies any known precipitating factor however, states that he had venous studies about 20 years ago which was suggestive of venous insufficiency in his right lower extremity. Does admit to periodic bilateral lower extremity swelling. Stands for longer hours due to the nature of his job. Does state however that he utilizes compression stockings (20 to 30 mmHg). Denies any history of diabetes mellitus. Chews tobacco. Feels well otherwise at this time. Progress of Wound: Stable. No new concerns at this time. Has had 14 applications of Epifix. - Physical Exam Vital Signs Temp Pulse Resp BP 98.7 F 67 18 118/76 08/21/19 08:26 08/21/19 08:26 08/21/19 08:26 08/21/19 08:26 General: Alert, Oriented x3, Cooperative, No apparent distress HEENT: Atraumatic, Normocephalic Oral: Moist Mucosa Neck: Supple Lungs: Normal air movement Extremities: No cyanosis Wound Measurements and Assessment WC - Nurse 1 - General Ulcer Measurement Start: 08/07/19 08:11 Freq: Status: Active Protocol: Activity Type Activity Date Activity User E-Sign Co-Sign Detail Recorded Client Recorded Date Recorded By Document 08/21/19 08:26 DL [id number] 08/21/19 08:34 DL 08/21/19 08:26 Wound Center Nurse 1 [Ulcer Assessment] #1 R Med LE -Current Size (cm) - Length 0.9 -Current Size (cm) - Width 0.4 -Current Size (cm) - Depth 0.1 -Total Square Cm 0.36 -Photo Taken No -Exudate Amt Small -Exudate Type Serosanguineous -Wound Margin Indistinct, Non -Visible -Granulation Amt None Present (0 %) -Necrosis Amt Large (67-100%) -Necrotic Tissue Type Adherent Slough -Structure Exposed N/A -Texture (Emely-wound Skin Appearance) Excoriation, Localized Edema ,Scarring -Moisture (Emely-wound Skin Appearance Dry/Scaly ) -Color (Emely-wound Skin Appearance) Erythema -Temperature (Emely-wound Skin No Abnormality Appearance) (Pt Warm) -Tenderness on Palpation (Emely-wound No Skin Appearance) -Ulcer Cleansing Wound Cleanser -Foul Odor after Cleansing No -Anesthetic Used 4% Lidocaine Solution [Edema Assessment] -Right Calf (cm) 39.7 -Right Ankle (cm) 25 WC - Nurse 2 - General Ulcer CM Notes Start: 08/07/19 08:11 Freq: Status: Active Protocol: Activity Type Activity Date Activity User E-Sign Co-Sign Detail Recorded Client Recorded Date Recorded By Document 08/21/19 08:38 MW [id number] 08/21/19 08:45 MW 08/21/19 08:38 Wound Center Nurse 2 [Procedure/Treatment] #1 R [place] LE -Time 08:39 -Correct Patient Yes -Correct Side, Site, Position Yes -Correct Procedure Yes -Procedure Performed Yes -Type of Procedure Debridement -Clinical Debridement Subcutaneous -Post Debridement Size (cm) - Length 0.5 -Post Debridement Size (cm) - Width 0.2 -Post Debridement Size (cm) - Depth 0.1 -Total Square Cm 0.10 -Wound/Ulcer Outcome Not Healed -Ulcer Cleansing Rinsed/ Irrigated with Saline -Foul Odor after Cleansing No -Bioengineered Tissue Yes -Type of bioengineered Tissue EPIFIX -Expiration Date 01/30/24 -Product Lot Number [id number] -Percent Used 100 -Saline Lot Number [id number] -Bleeding Controlled with Pressure -Offloading No -Treatment Response Procedure Tolerated Well [See Physician Procedure note for Specifics] Pain Scale: 0-10 Numeric [Pain] -Is Patient Pain Free? Yes Musculoskeletal: No Muscle Wasting Neurological: Cranial nerves II-XII grossly intact Psych/Mental Status: Normal Affect Debridement Note Post-Debridement Measurements/Treatment WC - Nurse 2 - General Ulcer CM Notes Start: 08/07/19 08:11 Freq: Status: Active Protocol: Activity Type Activity Date Activity User E-Sign Co-Sign Detail Recorded Client Recorded Date Recorded By Document 08/07/19 08:40 MW [id number] 08/07/19 08:48 MW Document 08/21/19 08:38 MW [id number] 08/21/19 08:45 MW 08/07/19 08/21/19 08:40 08:38 Wound Center Nurse 2 #1 R Med LE -Time 08:42 08:39 -Correct Patient Yes Yes -Correct Side, Site, Position Yes Yes -Correct Procedure Yes Yes -Procedure Performed Yes Yes -Type of Procedure Debridement Debridement -Clinical Debridement Subcutaneous Subcutaneous -Post Debridement Size (cm) - Length 0.9 0.5 -Post Debridement Size (cm) - Width 0.4 0.2 -Post Debridement Size (cm) - Depth 0.1 0.1 -Total Square Cm 0.36 0.10 -Wound/Ulcer Outcome Not Healed Not Healed -Ulcer Cleansing Rinsed/ Rinsed/ Irrigated with Irrigated with Saline Saline -Foul Odor after Cleansing No No -Bioengineered Tissue Yes Yes -Type of bioengineered Tissue EPIFIX EPIFIX -Expiration Date 01/30/24 01/30/24 -Product Lot Number [id number] -Percent Used 100 100 -Saline Lot Number [id number] -Bleeding Controlled with Pressure Pressure -Offloading No No -Treatment Response Procedure Procedure Tolerated Well Tolerated Well Pain Scale: 0-10 Numeric Is Patient Pain Free? Yes Yes Wound debrided: Left Leg Type of Debridement: Excisional debridement Anesthesia Used: 4% Lidocaine Solution Depth: Down to and including healthy tissue, in the subcutaneous layer Percentage of wound debrided: 100 Instrument Used: 3mm curette Tissue Removed: Slough and devitalized tissue Severity: Fat Layer Exposed Amount of bleeding with debridement: Mild Bleeding Controlled with: Pressure Patient tolerated procedure well Assessment/Plan Active Problems Venous ulcer of right leg (Chronic) Venous insufficiency of both lower extremities (Chronic) Assessment: Chronic/recurrent right lower extremity ulcer. Venous insufficiency. Venous leg ulcer. Plan: Improving. Debridement done as documented above, procedure was well- tolerated. 15th application of Epifix done today using 100% of product. Moistened with saline and secured with adaptic touch. Guaze over top. Leave in place for 2 weeks. May change outter dressing. Continue use of compression stockings. Advised to elevate his lower extremities when seated and in bed. Increased protein intake also recommended. His Venous studies have been reviewed and patient was advised to follow / schedule with a vascular surgeon due to chronic venous incompetence and recurrent venous ulcers. His questions were answered and he was advised to call with any further questions or concerns. Follow-up in 2 weeks. This note was generated with [employer] dictation software. It may contain incorrect words, spelling, and punctuation that were not noted in checking the note before signing. Multi Select Codes - Integumentary Integumentary CPT Codes: 55947 [place] subq tissue 20 sq cm/<, 74314 Skin sub graft trnk/arm/leg
== END 2019-08-30 23:59 ==
LOC: WC 08:15
PROVIDERS: Family Provider Nurse Practitioner Family; PCP Nurse Practitioner Family; Referring Provider Internal Medicine; Visit Provider Internal Medicine
DX: I83.018 Varicose veins of right lower extremity with ulcer other part of lower leg (principal); L97.812 Non-pressure chronic ulcer of other part of right lower leg with fat layer exposed; I87.2 Venous insufficiency (chronic) (peripheral); M79.89 Other specified soft tissue disorders; F17.220 Nicotine dependence, chewing tobacco, uncomplicated
CPT/HCPCS: 15271; Q4186

== ENCOUNTER 2019-09-18 08:00 | Outpatient (RCR) | payer MEDICAID, SELFPAY ==
[2019-08-31 00:42] VITALS: BP 118/76; PULSE 67; RESP 18; TEMP 37.1
[2019-09-04 08:16] VITALS: BP 130/87; PULSE 67; RESP 18; TEMP 37.3; BMI 27.8
--- NOTE | 2019-09-04 08:52 | PCM.WC.PN ---
(1) Venous insufficiency of both lower extremities Status: Chronic Current Visit: Yes Code(s): I87.2 - Venous insufficiency (chronic) (peripheral) (2) Venous ulcer of right leg Status: Chronic Current Visit: Yes Code(s): I83.019 - Varicose veins of right lower extremity with ulcer of unspecified site; L97.919 - Non-pressure chronic ulcer of unspecified part of right lower leg with unspecified severity Type of Wound Date of Service: 09/04/19 Chief Complaint: Nonhealing right lower extremity ulcer. History of Wound: Mr. Ly is a 58-year-old who was referred to the wound center by his primary care due to nonhealing right lower extremity ulcer. He reports recurrence of the ulcer since the . Recent episode said to have been present for over a year. He has managed this conservatively occasionally with Neosporin and gauze dressing without any significant improvement. Also been periodically treated with doxycycline with only modest improvement. Denies any known precipitating factor however, states that he had venous studies about 20 years ago which was suggestive of venous insufficiency in his right lower extremity. Does admit to periodic bilateral lower extremity swelling. Stands for longer hours due to the nature of his job. Does state however that he utilizes compression stockings (20 to 30 mmHg). Denies any history of diabetes mellitus. Chews tobacco. Feels well otherwise at this time. Progress of Wound: Drainage and skin tear noted today. Has had 15 applications of Epifix. - Physical Exam Vital Signs Temp Pulse Resp BP 99.1 F 67 18 130/87 H 09/04/19 08:16 09/04/19 08:16 09/04/19 08:16 09/04/19 08:16 General: Alert, Oriented x3, Cooperative, No apparent distress HEENT: Atraumatic, Normocephalic Oral: Moist Mucosa Neck: Supple Lungs: Normal air movement Extremities: No cyanosis, Edema Skin: Ulcer/ Wound Wound Measurements and Assessment WC - Nurse 1 - General Ulcer Measurement Start: 09/04/19 08:16 Freq: Status: Active Protocol: Activity Type Activity Date Activity User E-Sign Co-Sign Detail Recorded Client Recorded Date Recorded By Document 09/04/19 08:16 DL [id number] 09/04/19 08:18 DL 09/04/19 08:16 Wound Center Nurse 1 [Ulcer Assessment] #1 R Med LE -Current Size (cm) - Length 0.8 -Current Size (cm) - Width 0.7 -Current Size (cm) - Depth 0.1 -Total Square Cm 0.56 -Photo Taken No -Exudate Amt Small -Exudate Type Yellow/Green -Wound Margin Indistinct, Non -Visible -Granulation Amt Medium (34-66%) -Granulation Quality [place] -Necrosis Amt Medium (34-66%) -Necrotic Tissue Type Adherent Slough -Structure Exposed N/A -Texture (Emely-wound Skin Appearance) Excoriation, Scarring -Color (Emely-wound Skin Appearance) Hemosiderin Staining -Temperature (Emely-wound Skin No Abnormality Appearance) (Pt Warm) -Tenderness on Palpation (Emely-wound No Skin Appearance) -Ulcer Cleansing Rinsed/ Irrigated with Saline -Foul Odor after Cleansing No -Anesthetic Used 4% Lidocaine Solution [Edema Assessment] -Right Calf (cm) 39.5 -Right Ankle (cm) 26.4 Neurological: Cranial nerves II-XII grossly intact Psych/Mental Status: Normal Affect Debridement Note Wound debrided: Right Leg Type of Debridement: Excisional debridement Anesthesia Used: 4% Lidocaine Solution Depth: Down to and including healthy tissue, in the subcutaneous layer Percentage of wound debrided: 100 Instrument Used: 3mm curette Tissue Removed: Slough and devitalized tissue Severity: Fat Layer Exposed Amount of bleeding with debridement: Mild Bleeding Controlled with: Pressure Patient tolerated procedure well Assessment/Plan Active Problems Venous ulcer of right leg (Chronic) Venous insufficiency of both lower extremities (Chronic) Assessment: Chronic/recurrent right lower extremity ulcer. Venous insufficiency. Venous leg ulcer. Plan: Some drainage noted and new superficial skin tear surrounding. Old ulcer appears to be improving. Debridement done as documented above, procedure was well-tolerated. Cultures taken. 16th application of Epifix done today using 100% of product. Moistened with saline and secured with adaptic touch. Guaze over top. Leave in place x 1 week. May change outter dressing. Continue use of compression stockings. Worsened edema noted today. Complaince encouraged. Advised to elevate his lower extremities when seated and in bed. Increased protein intake also recommended. His Venous studies have been reviewed and patient was advised to follow / schedule with a vascular surgeon due to chronic venous incompetence and recurrent venous ulcers. His questions were answered and he was advised to call with any further questions or concerns. Follow-up in 1 week. This note was generated with [employer] dictation software. It may contain incorrect words, spelling, and punctuation that were not noted in checking the note before signing. Code Visit 150xxx-[id number]: 26306 Skin sub graft trnk/arm/leg
[2019-09-11 09:26] VITALS: BP 131/77; PULSE 75; RESP 18; TEMP 37; BMI 27.8
--- NOTE | 2019-09-11 10:18 | PN.PCM_ITS ---
(1) Venous insufficiency of both lower extremities Status: Chronic Current Visit: Yes Code(s): I87.2 - Venous insufficiency (chronic) (peripheral) (2) Venous ulcer of right leg Status: Chronic Current Visit: Yes Code(s): I83.019 - Varicose veins of right lower extremity with ulcer of unspecified site; L97.919 - Non-pressure chronic ulcer of unspecified part of right lower leg with unspecified severity Type of Wound Date of Service: 09/11/19 Chief Complaint: Nonhealing right lower extremity ulcer. History of Wound: Mr. Ly is a 58-year-old who was referred to the wound center by his primary care due to nonhealing right lower extremity ulcer. He reports recurrence of the ulcer since the . Recent episode said to have been present for over a year. He has managed this conservatively occasionally with Neosporin and gauze dressing without any significant improvement. Also been periodically treated with doxycycline with only modest improvement. Denies any known precipitating factor however, states that he had venous studies about 20 years ago which was suggestive of venous insufficiency in his right lower extremity. Does admit to periodic bilateral lower extremity swelling. Stands for longer hours due to the nature of his job. Does state however that he utilizes compression stockings (20 to 30 mmHg). Denies any history of diabetes mellitus. Chews tobacco. Feels well otherwise at this time. Progress of Wound: Improving. No new cocnerns at this time. - Physical Exam Vital Signs Temp Pulse Resp BP 98.6 F 75 18 131/77 H 09/11/19 09:26 09/11/19 09:26 09/11/19 09:26 09/11/19 09:26 General: Alert, Oriented x3, Cooperative, No apparent distress HEENT: Atraumatic, Normocephalic Oral: Moist Mucosa Neck: Supple Lungs: Normal air movement Extremities: No cyanosis, Edema Skin: Ulcer/ Wound Wound Measurements and Assessment WC - Nurse 1 - General Ulcer Measurement Start: 09/04/19 08:16 Freq: Status: Active Protocol: Activity Type Activity Date Activity User E-Sign Co-Sign Detail Recorded Client Recorded Date Recorded By Document 09/11/19 09:26 RB [id number] 09/11/19 09:28 RB 09/11/19 09:26 Wound Center Nurse 1 [Ulcer Assessment] #1 R Med LE -Combined with other wound No -Current Size (cm) - Length 1 -Current Size (cm) - Width 0.4 -Current Size (cm) - Depth 0.2 -Total Square Cm 0.4 -Photo Taken No -Tunneling No -Undermining/Tunneling No -Circular Undermining No -Exudate Amt None Present -Exudate Type Serosanguineous -Wound Margin Thickened -Granulation Amt Small (1-33%) -Granulation Quality [place] -Slough/Fibrin Yes -Necrosis Amt Small (1-33%) -Necrotic Tissue Type Adherent Slough -Structure Exposed N/A -Texture (Emely-wound Skin Appearance) Assessed -Moisture (Emely-wound Skin Appearance Assessed ) -Color (Emely-wound Skin Appearance) Assessed -Temperature (Emely-wound Skin No Abnormality Appearance) (Pt Warm) -Tenderness on Palpation (Emely-wound No Skin Appearance) -Ulcer Cleansing Wound Cleanser -Foul Odor after Cleansing No -Anesthetic Used 5% Lidocaine Gel [Edema Assessment] -Lower Limb Edema Present Yes -Right Calf (cm) 40 -Right Ankle (cm) 28.5 WC - Nurse 2 - General Ulcer CM Notes Start: 09/04/19 08:16 Freq: Status: Active Protocol: Activity Type Activity Date Activity User E-Sign Co-Sign Detail Recorded Client Recorded Date Recorded By Document 09/11/19 09:42 MW [id number] 09/11/19 09:47 MW 09/11/19 09:42 Wound Center Nurse 2 [Procedure/Treatment] #1 R Med LE -Time 09:42 -Correct Patient Yes -Correct Side, Site, Position Yes -Correct Procedure Yes -Procedure Performed Yes -Type of Procedure Debridement -Clinical Debridement Subcutaneous -Post Debridement Size (cm) - Length 0.3 -Post Debridement Size (cm) - Width 0.3 -Post Debridement Size (cm) - Depth 0.1 -Total Square Cm 0.09 -Wound/Ulcer Outcome Not Healed -Ulcer Cleansing Rinsed/ Irrigated with Saline -Foul Odor after Cleansing No -Bioengineered Tissue No -Bleeding Controlled with Pressure -Offloading No -Treatment Response Procedure Tolerated Well [See Physician Procedure note for Specifics] Pain Scale: 0-10 Numeric [Pain] -Is Patient Pain Free? Yes Musculoskeletal: No Muscle Wasting Neurological: Cranial nerves II-XII grossly intact Psych/Mental Status: Normal Affect Debridement Note Post-Debridement Measurements/Treatment WC - Nurse 2 - General Ulcer CM Notes Start: 09/04/19 08:16 Freq: Status: Active Protocol: Activity Type Activity Date Activity User E-Sign Co-Sign Detail Recorded Client Recorded Date Recorded By Document 09/04/19 08:50 MW [id number] 09/04/19 08:52 MW Document 09/11/19 09:42 MW [id number] 09/11/19 09:47 MW 09/04/19 09/11/19 08:50 09:42 Wound Center Nurse 2 #1 R Med LE -Time 08:51 09:42 -Correct Patient Yes Yes -Correct Side, Site, Position Yes Yes -Correct Procedure Yes Yes -Procedure Performed Yes Yes -Type of Procedure Debridement Debridement -Clinical Debridement Subcutaneous Subcutaneous -Post Debridement Size (cm) - Length 0.4 0.3 -Post Debridement Size (cm) - Width 0.3 0.3 -Post Debridement Size (cm) - Depth 0.1 0.1 -Total Square Cm 0.12 0.09 -Wound/Ulcer Outcome Not Healed Not Healed -Ulcer Cleansing Rinsed/ Rinsed/ Irrigated with Irrigated with Saline Saline -Foul Odor after Cleansing Yes No -Bioengineered Tissue No -Type of bioengineered Tissue EPIFIX -Expiration Date 01/30/24 -Product Lot Number [id number] -Percent Used 100 -Saline Lot Number [id number] -Bleeding Controlled with Pressure Pressure -Offloading No No -Treatment Response Procedure Procedure Tolerated Well Tolerated Well Pain Scale: 0-10 Numeric Is Patient Pain Free? Yes Yes Wound debrided: Right leg Type of Debridement: Excisional debridement Anesthesia Used: 4% Lidocaine Solution Depth: Down to and including healthy tissue, in the subcutaneous layer Percentage of wound debrided: 100 Instrument Used: 3mm curette Tissue Removed: Devitalized tissue Severity: Fat Layer Exposed Amount of bleeding with debridement: Mild Bleeding Controlled with: Pressure Patient tolerated procedure well Assessment/Plan Active Problems Venous ulcer of right leg (Chronic) Venous insufficiency of both lower extremities (Chronic) Assessment: Chronic/recurrent right lower extremity ulcer. Venous insufficiency. Venous leg ulcer. Plan: Improved. No draiange appreciated. Culure done last week with no significant growth. Debridement done as documented above, procedure was well-tolerated. Hold off Epifix. switch to Pomogran daily with adaptic over top. Moisturize skin adequately. Continue use of compression stockings. Compliance encouraged. Advised to elevate his lower extremities when seated and in bed. Increased protein intake also recommended. His Venous studies have been reviewed and patient was advised to follow / schedule with a vascular surgeon due to chronic venous incompetence and recurrent venous ulcers. His questions were answered and he was advised to call with any further questions or concerns. Follow-up in 1 week. This note was generated with [employer] dictation software. It may contain incorrect words, spelling, and punctuation that were not noted in checking the note before signing. Code Visit 111xxx-113xx: [id number] Sylwia subq tissue 20 sq cm/<
[2019-09-18 08:08] VITALS: BP 126/81; PULSE 70; RESP 18; TEMP 36.2; BMI 27.8
--- NOTE | 2019-09-18 08:29 | PN.PCM_ITS ---
(1) Venous insufficiency of both lower extremities Status: Chronic Current Visit: Yes Code(s): I87.2 - Venous insufficiency (chronic) (peripheral) (2) Venous ulcer of right leg Status: Chronic Current Visit: Yes Code(s): I83.019 - Varicose veins of right lower extremity with ulcer of unspecified site; L97.919 - Non-pressure chronic ulcer of unspecified part of right lower leg with unspecified severity Type of Wound Date of Service: 09/18/19 Chief Complaint: Nonhealing right lower extremity ulcer. History of Wound: Mr. Ly is a 58-year-old who was referred to the wound center by his primary care due to nonhealing right lower extremity ulcer. He reports recurrence of the ulcer since the . Recent episode said to have been present for over a year. He has managed this conservatively occasionally with Neosporin and gauze dressing without any significant improvement. Also been periodically treated with doxycycline with only modest improvement. Denies any known precipitating factor however, states that he had venous studies about 20 years ago which was suggestive of venous insufficiency in his right lower extremity. Does admit to periodic bilateral lower extremity swelling. Stands for longer hours due to the nature of his job. Does state however that he utilizes compression stockings (20 to 30 mmHg). Denies any history of diabetes mellitus. Chews tobacco. Feels well otherwise at this time. Progress of Wound: Healed. - Physical Exam Vital Signs Temp Pulse Resp BP 97.2 F L 70 18 126/81 H 09/18/19 08:08 09/18/19 08:08 09/18/19 08:08 09/18/19 08:08 General: Alert, Oriented x3, Cooperative, No apparent distress HEENT: Atraumatic, Normocephalic Oral: Moist Mucosa Neck: Supple Lungs: Normal air movement Extremities: No cyanosis, Edema Wound Measurements and Assessment WC - Nurse 1 - General Ulcer Measurement Start: 09/04/19 08:16 Freq: Status: Active Protocol: Activity Type Activity Date Activity User E-Sign Co-Sign Detail Recorded Client Recorded Date Recorded By Document 09/18/19 08:08 DL [id number] 09/18/19 08:15 DL 09/18/19 08:08 Wound Center Nurse 1 [Ulcer Assessment] #1 R Med LE -Current Size (cm) - Length 0.1 -Current Size (cm) - Width 0.1 -Current Size (cm) - Depth 0.1 -Total Square Cm 0.01 -Photo Taken No -Exudate Amt Small -Exudate Type Serosanguineous -Wound Margin Indistinct, Non -Visible -Granulation Amt Small (1-33%) -Granulation Quality [place] -Necrosis Amt Small (1-33%) -Necrotic Tissue Type Adherent Slough -Structure Exposed N/A -Texture (Emely-wound Skin Appearance) Scarring -Moisture (Emely-wound Skin Appearance Dry/Scaly ) -Color (Emely-wound Skin Appearance) Hemosiderin Staining -Temperature (Emely-wound Skin No Abnormality Appearance) (Pt Warm) -Tenderness on Palpation (Emely-wound No Skin Appearance) -Ulcer Cleansing Wound Cleanser -Foul Odor after Cleansing No -Anesthetic Used 5% Lidocaine Gel [Edema Assessment] -Right Calf (cm) 38.5 -Right Ankle (cm) 25.5 WC - Nurse 2 - General Ulcer CM Notes Start: 09/04/19 08:16 Freq: Status: Active Protocol: Activity Type Activity Date Activity User E-Sign Co-Sign Detail Recorded Client Recorded Date Recorded By Document 09/18/19 08:24 DL [id number] 09/18/19 08:28 DL 09/18/19 08:24 Wound Center Nurse 2 [Procedure/Treatment] #1 R Med LE -Time 08:25 -Correct Patient Yes -Correct Side, Site, Position Yes -Correct Procedure Yes -Procedure Performed No -Post Debridement Size (cm) - Length 0 -Post Debridement Size (cm) - Width 0 -Post Debridement Size (cm) - Depth 0 -Total Square Cm 0 -Wound/Ulcer Outcome Healed- Epithelialized [See Physician Procedure note for Specifics] Musculoskeletal: No Muscle Wasting Neurological: Cranial nerves II-XII grossly intact Psych/Mental Status: Normal Affect Debridement Note Post-Debridement Measurements/Treatment WC - Nurse 2 - General Ulcer CM Notes Start: 09/04/19 08:16 Freq: Status: Active Protocol: Activity Type Activity Date Activity User E-Sign Co-Sign Detail Recorded Client Recorded Date Recorded By Document 09/04/19 08:50 MW [id number] 09/04/19 08:52 MW Document 09/11/19 09:42 MW [id number] 09/11/19 09:47 MW Document 09/18/19 08:24 DL [id number] 09/18/19 08:28 DL 09/04/19 09/11/19 09/18/19 08:50 09:42 08:24 Wound Center Nurse 2 #1 R [facility] LE -Time 08:51 09:42 08:25 -Correct Patient Yes Yes Yes -Correct Side, Site, Position Yes Yes Yes -Correct Procedure Yes Yes Yes -Procedure Performed Yes Yes No -Type of Procedure Debridement Debridement -Clinical Debridement Subcutaneous Subcutaneous -Post Debridement Size (cm) - Length 0.4 0.3 0 -Post Debridement Size (cm) - Width 0.3 0.3 0 -Post Debridement Size (cm) - Depth 0.1 0.1 0 -Total Square Cm 0.12 0.09 0 -Wound/Ulcer Outcome Not Healed Not Healed Healed- Epithelialized -Ulcer Cleansing Rinsed/ Rinsed/ Irrigated with Irrigated with Saline Saline -Foul Odor after Cleansing Yes No -Bioengineered Tissue No -Type of bioengineered Tissue EPIFIX -Expiration Date 01/30/24 -Product Lot Number [id number] -Percent Used 100 -Saline Lot Number [id number] -Bleeding Controlled with Pressure Pressure -Offloading No No -Treatment Response Procedure Procedure Tolerated Well Tolerated Well Pain Scale: 0-10 Numeric Is Patient Pain Free? Yes Yes No debridement was completed today Assessment/Plan Active Problems Venous ulcer of right leg (Chronic) Venous insufficiency of both lower extremities (Chronic) Assessment: Chronic/recurrent right lower extremity ulcer. Venous insufficiency. Venous leg ulcer. Plan: Healed. Surrounding area of erythema but ulcer is healed. Aquaphor healing ointment daily and cover with guaze for 2 weeks. Advised to elevate his lower extremities when seated and in bed. Compliance with compression stockings also strongly recommended. His questions were answered and he was advised to call with any further questions or concerns. Discharged from the wound clinic. This note was generated with [employer] dictation software. It may contain incorrect words, spelling, and punctuation that were not noted in checking the note before signing. Code Visit Office Visits / Consults: 59739 OV L3 Est - E and M level 3.
== END 2019-09-30 23:59 ==
LOC: WC 08:00
PROVIDERS: Family Provider Nurse Practitioner Family; PCP Nurse Practitioner Family; Referring Provider Internal Medicine; Visit Provider Internal Medicine
DX: I83.018 Varicose veins of right lower extremity with ulcer other part of lower leg (principal); L97.812 Non-pressure chronic ulcer of other part of right lower leg with fat layer exposed; I87.2 Venous insufficiency (chronic) (peripheral); M79.89 Other specified soft tissue disorders; F17.220 Nicotine dependence, chewing tobacco, uncomplicated
CPT/HCPCS: 11042; 15271; 87070; 87075; 87077; 87186; 87205; 99213; Q4186; G0463

== ENCOUNTER 2020-07-29 08:45 | Outpatient (RCR) | payer MEDICAID, SELFPAY ==
[2020-07-22 08:17] VITALS: BP 156/83; RESP 16; TEMP 36.3; BMI 29.0
--- NOTE | 2020-07-22 16:54 | HP.PCM_ITS ---
(1) Venous insufficiency of both lower extremities Status: Chronic Code(s): I87.2 - Venous insufficiency (chronic) (peripheral) (2) Venous ulcer of right leg Status: Chronic Code(s): I83.019 - Varicose veins of right lower extremity with ulcer of unspecified site; L97.919 - Non-pressure chronic ulcer of unspecified part of right lower leg with unspecified severity History of Present Illness Date of Service: 07/22/20 Chief Complaint: Nonhealing right lower extremity ulcer. History of Wound: Mr. Ly is a 59 yo Last seen here in August 2019 for right lower extremity ulcer. He had done well post discharge from the wound center until about 2 to 3 months ago when he noted reopening of his ulcer. Denies trauma. Has been using his compression stockings as prescribed. Was seen by his primary care physician and prescribed an ointment which he applied daily with no significant improvement. Denies chills or fever but notes a lot of pain around the site. No known history of diabetes. Feels well otherwise. Past Medical History Past Medical History: Chronic Problems Venous ulcer of right leg (Chronic) Venous insufficiency of both lower extremities (Chronic) Allergies/Adverse Reactions: Allergies iodine Allergy (Verified 04/16/19 08:57) Anaphylaxis Penicillins [PCN] Allergy (Verified 04/16/19 08:57) Anaphylaxis sulfasalazine Adverse Reaction (Verified 04/16/19 08:57) Anaphylaxis Home Medications: Ambulatory Orders Medication Instructions Recorded Loratadine 10 mg PO DAILY 04/16/19 Sildenafil Citrate [Viagra] 50 mg PO DAILY 04/16/19 Azelastine/Fluticasone 23 gm NS DAILY 07/22/20 [Azelastin-Flutic 137-50Mcg Spr] Mupirocin [Bactroban] 1 applic TOPICAL TID 07/22/20 Triamcinolone 0.1% Cream [Kenalog] 1 applic TP PRN PRN 07/22/20 Smoking Status: Current every day smoker Review of Systems Constitutional: Denies: Anorexia, Chills, Fever Eyes: Denies: Pain, Redness HEENT: Denies: Difficulty Hearing, Difficulty Swallowing, Head Aches Cardiovascular: Denies: Chest Pain, Claudication, Chest Pressure, Chest Tightness Respiratory: Denies: Cough, Hemoptysis Gastrointestinal: Denies: Abdominal Pain, Hematemesis, Vomiting Genitourinary: Denies: Hematuria Skin: Denies: Jaundice - Physical Exam Vital Signs Temp Resp BP 97.4 F L 16 156/83 H 07/22/20 08:17 07/22/20 08:17 07/22/20 08:17 General: Alert, Oriented x3, Cooperative, No apparent distress HEENT: Atraumatic, Normocephalic Oral: Moist Mucosa Lungs: Normal air movement Abdomen: Non Tender Extremities: No cyanosis, Edema Skin: Ulcer/ Wound Wound Measurements and Assessment WC - Nurse 1 - General Ulcer Measurement Start: 07/22/20 08:17 Freq: Status: Active Protocol: Activity Type Activity Date Activity User E-Sign Co-Sign Detail Recorded Client Recorded Date Recorded By Document 07/22/20 08:17 MW [id number] 07/22/20 08:28 MW Document 07/22/20 08:29 MT [id number] 07/22/20 08:38 MT 07/22/20 07/22/20 08:17 08:29 Wound Center Nurse 1 [Ulcer Assessment] #2 RIGHT MEDIAL LE -Combined with other wound No -Current Size (cm) - Length 6.5 -Current Size (cm) - Width 3.5 -Current Size (cm) - Depth 0.2 -Total Square Cm 22.75 -Photo Taken Yes -Wound Margin Thickened & Rolled Under -Granulation Amt Medium (34-66%) -Granulation Quality Pale,[place],Red -Necrosis Amt Medium (34-66%) -Necrotic Tissue Type Adherent Slough -Texture (Emely-wound Skin Appearance) Assessed -Moisture (Emely-wound Skin Appearance Assessed, ) Maceration -Color (Emely-wound Skin Appearance) Assessed, Hemosiderin Staining -Temperature (Emely-wound Skin No Abnormality Appearance) (Pt Warm) -Tenderness on Palpation (Emely-wound No Skin Appearance) -Ulcer Cleansing Rinsed/ Irrigated with Saline -Foul Odor after Cleansing No -Anesthetic Used 4% Lidocaine Solution WC - Nurse 2 - General Ulcer CM Notes Start: 07/22/20 08:17 Freq: Status: Active Protocol: Activity Type Activity Date Activity User E-Sign Co-Sign Detail Recorded Client Recorded Date Recorded By Document 07/22/20 08:46 MW [id number] 07/22/20 08:55 MW 07/22/20 08:46 Wound Center Nurse 2 [Procedure/Treatment] -Time 08:46 -Correct Patient Yes -Correct Side, Site, Position Yes -Correct Procedure Yes -Procedure Performed Yes -Type of Procedure Debridement -Clinical Debridement Subcutaneous -Tissue Removed Subcutaneous -Post Debridement (cm) - Length 7.0 -Post Debridement (cm) - Width 3.5 -Post Debridement (cm) - Depth 0.4 -Total Square (Post) (cm) 24.50 -Area of Debridement (cm) - Length 7.0 -Area of Debridement (cm) - Width 3.5 -Total Square (Area) (cm) 24.50 -Tunneling No -Undermining/Tunneling No -Circular Undermining No -Wound/Ulcer Outcome Not Healed -Ulcer Cleansing Rinsed/ Irrigated with Saline -Foul Odor after Cleansing No -Bioengineered Tissue No -Bleeding Controlled with Pressure -Offloading No -Treatment Response Procedure Tolerated Well -Debridement - Subq, 1st 20sq cm Yes -Debridement, SubQ, ea addt'l 20sq cm 1 or part thereof [See Physician Procedure note for Specifics] Pain Scale: 0-10 Numeric [Pain] -Is Patient Pain Free? Yes - Nurse 3 - General Ulcer D/C NN Start: 07/22/20 08:17 Freq: Status: Active Protocol: Activity Type Activity Date Activity User E-Sign Co-Sign Detail Recorded Client Recorded Date Recorded By Document 07/22/20 09:09 [facility] [id number] 07/22/20 09:11 [facility] 07/22/20 09:09 Wound Care Nurse 3 [Wound Dressing] #2 RIGHT MEDIAL LE -Ulcer Cleansing Rinsed/ Irrigated with Saline -Foul Odor after Cleansing No -Primary Dressing Applied NonAdherent Contact Layer, Promogran -Primary Dressing Covered/Secured Dry Gauze & with Roll Gauze, Secured with Tape,Other -Other Covering DRSG BY Erasto RAMOS RN -Promogran 1 [Compression Applied] Right -Multi-Layered Wrap Application Multi-Layer Comp - Right ($ ) [Post Procedure Tolerated] -Treatment Response Procedure Tolerated Well Pain Scale: 0-10 Numeric [Pain] -Is Patient Pain Free? Yes - Visit Discharge [Visit Discharge Information] -Discharge Condition Stable -Ambulatory Status Ambulatory -Transportation Private Auto Musculoskeletal: No Muscle Wasting Neurological: Cranial nerves II-XII grossly intact Psych/Mental Status: Normal Affect Debridement Note Post-Debridement Measurements/Treatment - Nurse 2 - General Ulcer CM Notes Start: 07/22/20 08:17 Freq: Status: Active Protocol: Activity Type Activity Date Activity User E-Sign Co-Sign Detail Recorded Client Recorded Date Recorded By Document 07/22/20 08:46 MW [id number] 07/22/20 08:55 MW 07/22/20 08:46 Wound Center Nurse 2 #2 RIGHT MEDIAL LE -Time 08:46 -Correct Patient Yes -Correct Side, Site, Position Yes -Correct Procedure Yes -Procedure Performed Yes -Type of Procedure Debridement -Clinical Debridement Subcutaneous -Tissue Removed Subcutaneous -Post Debridement (cm) - Length 7.0 -Post Debridement (cm) - Width 3.5 -Post Debridement (cm) - Depth 0.4 -Total Square (Post) (cm) 24.50 -Area of Debridement (cm) - Length 7.0 -Area of Debridement (cm) - Width 3.5 -Total Square (Area) (cm) 24.50 -Tunneling No -Undermining/Tunneling No -Circular Undermining No -Wound/Ulcer Outcome Not Healed -Ulcer Cleansing Rinsed/ Irrigated with Saline -Foul Odor after Cleansing No -Bioengineered Tissue No -Bleeding Controlled with Pressure -Offloading No -Treatment Response Procedure Tolerated Well -Debridement - Subq, 1st 20sq cm Yes -Debridement, SubQ, ea addt'l 20sq cm 1 or part thereof Pain Scale: 0-10 Numeric Is Patient Pain Free? Yes - Nurse 3 - General Ulcer D/C NN Start: 07/22/20 08:17 Freq: Status: Active Protocol: Activity Type Activity Date Activity User E-Sign Co-Sign Detail Recorded Client Recorded Date Recorded By Document 07/22/20 09:09 [facility] [id number] 07/22/20 09:11 [facility] 07/22/20 09:09 Wound Care Nurse 3 #2 RIGHT MEDIAL LE -Ulcer Cleansing Rinsed/ Irrigated with Saline -Foul Odor after Cleansing No -Primary Dressing Applied NonAdherent Contact Layer, Promogran -Primary Dressing Covered/Secured with Dry Gauze & Roll Gauze, Secured with Tape,Other -Other Covering DRSG BY Erasto RAMOS RN -Promogran 1 Right -Multi-Layered Wrap Application Multi-Layer Comp - Right ($ ) Treatment Response Procedure Tolerated Well Pain Scale: 0-10 Numeric Is Patient Pain Free? Yes WC - Visit Discharge Discharge Condition Stable Ambulatory Status Ambulatory Transportation Private Auto Wound debrided: Right lower extremity Type of Debridement: Excisional debridement Anesthesia Used: 4% Lidocaine Solution Depth: Down to and including healthy tissue, in the subcutaneous layer Percentage of wound debrided: 100 Instrument Used: 5mm curette Tissue Removed: Slough and devitalized tissue Severity: Fat Layer Exposed Amount of bleeding with debridement: Mild Bleeding Controlled with: Pressure Patient tolerated procedure well Assessment/Plan Active Problems Venous ulcer of right leg (Chronic) Venous insufficiency of both lower extremities (Chronic) Assessment: Chronic/recurrent right lower extremity ulcer. Venous insufficiency. Venous leg ulcer. Plan: Debridement done as documented above, procedure was well-tolerated. Cultures taken due to significant tenderness. Promogran with Xeroform over top. 3M wrap for edema management. Due to the chronicity and having done really well on Epifix in the past, will apply for a skin substitute again. Follow-up on Sunday for a nurse visit. Leg elevation, avoid idle standing and exercise as tolerated. Increase protein intake as well. His questions were answered and he was advised to call with any further questions or concerns. Follow-up with me in a week. This note was generated with [employer] dictation software. It may contain incorrect words, spelling, and punctuation that were not noted in checking the note before signing. Multi Select Codes - Visit Charges Office Visit/Consults: 30437 OV L3 Est - Integumentary Integumentary CPT Codes: 00264 Sylwia subq tissue 20 sq cm/< - Additional square centimeter debrided, please refer to clinical note.
[2020-07-27 12:29] VITALS: BP 132/86; PULSE 82; RESP 16; TEMP 36.4; BMI 29.0
[2020-07-29 08:59] VITALS: BP 137/90; PULSE 67; RESP 18; TEMP 36.6; BMI 29.0
[2020-07-29 09:39] VITALS: BP 137/90
--- NOTE | 2020-07-29 12:44 | PN.PCM_ITS ---
(1) Venous insufficiency of both lower extremities Status: Chronic Code(s): I87.2 - Venous insufficiency (chronic) (peripheral) (2) Venous ulcer of right leg Status: Chronic Code(s): I83.019 - Varicose veins of right lower extremity with ulcer of unspecified site; L97.919 - Non-pressure chronic ulcer of unspecified part of right lower leg with unspecified severity Type of Wound Date of Service: 07/29/20 Chief Complaint: Nonhealing right lower extremity ulcer. History of Wound: Mr. Ly is a 59 yo Last seen here in August 2019 for right lower extremity ulcer. He had done well post discharge from the wound center until about 2 to 3 months ago when he noted reopening of his ulcer. Denies trauma. Has been using his compression stockings as prescribed. Was seen by his primary care physician and prescribed an ointment which he applied daily with no significant improvement. Denies chills or fever but notes a lot of pain around the site. No known history of diabetes. Feels well otherwise. Progress of Wound: Some Improvement noted in the past week. Now approved for epifix. - Physical Exam Vital Signs Temp Pulse Resp BP 98 F 67 18 137/90 H 07/29/20 08:59 07/29/20 08:59 07/29/20 08:59 07/29/20 09:39 General: Alert, Oriented x3, Cooperative, No apparent distress HEENT: Atraumatic, Normocephalic Oral: Moist Mucosa Neck: Supple Lungs: Normal air movement Abdomen: Non Tender, Obese Extremities: No cyanosis, Edema Skin: Ulcer/ Wound Wound Measurements and Assessment WC - Nurse 1 - General Ulcer Measurement Start: 07/22/20 08:17 Freq: Status: Active Protocol: Activity Type Activity Date Activity User E-Sign Co-Sign Detail Recorded Client Recorded Date Recorded By Document 07/27/20 12:29 [facility] [id number] 07/27/20 12:30 BM Document 07/29/20 08:59 RB [id number] 07/29/20 09:12 RB 07/27/20 07/29/20 12:29 08:59 [Ulcer Assessment] #2 RIGHT MEDIAL LE -Combined with other wound No -Current Size (cm) - Length 6 -Current Size (cm) - Width 2.9 -Current Size (cm) - Depth 0.3 -Total Square Cm 17.4 -Tunneling No -Undermining/Tunneling No -Circular Undermining No -Exudate Amt Small -Exudate Type Serosanguineous -Wound Margin Flat & Intact -Granulation Amt Small (1-33%) -Granulation Quality [address] -Slough/Fibrin Yes -Necrosis Amt Large (67-100%) -Necrotic Tissue Type Adherent Slough -Structure Exposed N/A -Texture (Emely-wound Skin Appearance) Assessed, Scarring -Moisture (Emely-wound Skin Appearance Assessed ) -Color (Emely-wound Skin Appearance) Assessed, Hemosiderin Staining -Temperature (Emely-wound Skin No Abnormality Appearance) (Pt Warm) -Tenderness on Palpation (Emely-wound No Skin Appearance) -Ulcer Cleansing Wound Cleanser -Foul Odor after Cleansing No -Anesthetic Used 4% Lidocaine Solution,5% Lidocaine Gel Wound Center Nurse 1 [Edema Assessment] -Lower Limb Edema Present Yes Yes -Right Calf (cm) 39.8 39 -Right Ankle (cm) 25.7 27 WC - Nurse 2 - General Ulcer CM Notes Start: 07/22/20 08:17 Freq: Status: Active Protocol: Activity Type Activity Date Activity User E-Sign Co-Sign Detail Recorded Client Recorded Date Recorded By Document 07/29/20 09:17 MW [id number] 07/29/20 09:26 MW 07/29/20 09:17 Wound Center Nurse 2 [Procedure/Treatment] #2 RIGHT MEDIAL LE -Time 09:17 -Correct Patient Yes -Correct Side, Site, Position Yes -Correct Procedure Yes -Procedure Performed Yes -Type of Procedure Debridement -Clinical Debridement Subcutaneous -Tissue Removed Subcutaneous -Post Debridement (cm) - Length 5.8 -Post Debridement (cm) - Width 2.7 -Post Debridement (cm) - Depth 0.3 -Total Square (Post) (cm) 15.66 -Area of Debridement (cm) - Length 5.8 -Area of Debridement (cm) - Width 2.7 -Total Square (Area) (cm) 15.66 -Tunneling No -Undermining/Tunneling No -Circular Undermining No -Wound/Ulcer Outcome Not Healed -Ulcer Cleansing Rinsed/ Irrigated with Saline -Foul Odor after Cleansing No -Bioengineered Tissue Yes -Type of Bioengineered Tissue Epifix Mesh -Expiration Date 05/01/25 -Product Lot Number [id number] -Percent Used 100 -Saline Lot Number [id number] -Bleeding Controlled with Pressure -Offloading No -Treatment Response Procedure Tolerated Well -Debridement - Subq, 1st 20sq cm No -Apply Skin Sub - 1st 25 sq cm - Legs 1 -Epifix Mesh (per sq cm) 11 [See Physician Procedure note for Specifics] Pain Scale: 0-10 Numeric [Pain] -Is Patient Pain Free? Yes WC - Nurse 3 - General Ulcer D/C NN Start: 07/22/20 08:17 Freq: Status: Active Protocol: Activity Type Activity Date Activity User E-Sign Co-Sign Detail Recorded Client Recorded Date Recorded By Document 07/27/20 12:29 [facility] [id number] 07/27/20 12:30 BM Document 07/29/20 09:39 RB [id number] 07/29/20 09:40 RB 07/27/20 07/29/20 12:29 09:39 Vital Signs [Temperature Protocol: VS] -Temperature (97.8 F-99.1 F) 97.6 F L -Temperature Source Temporal [Pulse] -Pulse Rate (60-100 beats/min) 82 -Pulse Location Monitor [Respirations] -Respiratory Rate (12-18 breaths/min) 16 -Respiratory rate source Observation -Oxygen Delivery Method Room Air [Blood Pressure] -Blood Pressure (90/60-120/80 mm Hg) 132/86 H 137/90 H -Blood Pressure Mean (mm Hg) 101 105 -Source Monitor Monitor -Position Sitting Semi-Fowlers -Blood Pressure Location Left Forearm Left Arm Pain Scale: 0-10 Numeric [Pain] -Is Patient Pain Free? Yes Teaching: Wound Center [Wound Center Education] (Items with an * have Printed Materials Available- Please identify what is given to patient under the Teaching materials given to patient and caregiver Section. Compression Wraps & Stockings -Person Taught Patient -Teaching Method Discussion -Response to teaching Verbalize understanding Wound Care Nurse 3 [Wound Dressing] #2 RIGHT MEDIAL LE -Ulcer Cleansing soapy water -Foul Odor after Cleansing No -Primary Dressing Applied NonAdherent Contact Layer, Promogran -Other Dressing xeroform -Primary Dressing Covered/Secured Other with -Other Covering abd ABD -Promogran 1 [Compression Applied] Right -Multi-Layered Wrap Application Multi-Layer Multi-Layer Comp - Right ($ Comp - Left ($) ) [Post Procedure Tolerated] -Treatment Response Procedure Procedure Tolerated Well Tolerated Well WC - Visit Discharge [Visit Discharge Information] -Discharge Condition Stable Stable -Ambulatory Status Ambulatory Ambulatory -Transportation Private Auto Private Auto -Medication Reconcilliation completed No & provided to patient/care provider -Clinical Summary of Care Provided Yes Musculoskeletal: No Muscle Wasting Neurological: Cranial nerves II-XII grossly intact Psych/Mental Status: Normal Affect Debridement Note Post-Debridement Measurements/Treatment WC - Nurse 2 - General Ulcer CM Notes Start: 07/22/20 08:17 Freq: Status: Active Protocol: Activity Type Activity Date Activity User E-Sign Co-Sign Detail Recorded Client Recorded Date Recorded By Document 07/22/20 08:46 MW [id number] 07/22/20 08:55 MW Document 07/29/20 09:17 MW [id number] 07/29/20 09:26 MW 07/22/20 07/29/20 08:46 09:17 Wound Center Nurse 2 #2 RIGHT MEDIAL LE -Time 08:46 09:17 -Correct Patient Yes Yes -Correct Side, Site, Position Yes Yes -Correct Procedure Yes Yes -Procedure Performed Yes Yes -Type of Procedure Debridement Debridement -Clinical Debridement Subcutaneous Subcutaneous -Tissue Removed Subcutaneous Subcutaneous -Post Debridement (cm) - Length 7.0 5.8 -Post Debridement (cm) - Width 3.5 2.7 -Post Debridement (cm) - Depth 0.4 0.3 -Total Square (Post) (cm) 24.50 15.66 -Area of Debridement (cm) - Length 7.0 5.8 -Area of Debridement (cm) - Width 3.5 2.7 -Total Square (Area) (cm) 24.50 15.66 -Tunneling No No -Undermining/Tunneling No No -Circular Undermining No No -Wound/Ulcer Outcome Not Healed Not Healed -Ulcer Cleansing Rinsed/ Rinsed/ Irrigated with Irrigated with Saline Saline -Foul Odor after Cleansing No No -Bioengineered Tissue No Yes -Type of Bioengineered Tissue Epifix Mesh -Expiration Date 05/01/25 -Product Lot Number [id number] -Percent Used 100 -Saline Lot Number [id number] -Bleeding Controlled with Pressure Pressure -Offloading No No -Treatment Response Procedure Procedure Tolerated Well Tolerated Well -Debridement - Subq, 1st 20sq cm Yes No -Debridement, SubQ, ea addt'l 20sq cm 1 or part thereof -Apply Skin Sub - 1st 25 sq cm - Legs 1 -Epifix Mesh (per sq cm) 11 Pain Scale: 0-10 Numeric Is Patient Pain Free? Yes Yes WC - Nurse 3 - General Ulcer D/C NN Start: 07/22/20 08:17 Freq: Status: Active Protocol: Activity Type Activity Date Activity User E-Sign Co-Sign Detail Recorded Client Recorded Date Recorded By Document 07/22/20 09:09 [facility] [id number] 07/22/20 09:11 [facility] Document 07/27/20 12:29 BM [id number] 07/27/20 12:30 BM Document 07/29/20 09:39 RB [id number] 07/29/20 09:40 RB 07/22/20 07/27/20 07/29/20 09:09 12:29 09:39 Wound Care Nurse 3 #2 RIGHT MEDIAL LE -Ulcer Cleansing Rinsed/ soapy water Irrigated with Saline -Foul Odor after Cleansing No No -Primary Dressing Applied NonAdherent NonAdherent Contact Layer, Contact Layer, Promogran Promogran -Other Dressing xeroform -Primary Dressing Covered/Secured with Dry Gauze & Other Roll Gauze, Secured with Tape,Other -Other Covering DRSG BY Erasto RAMOS RN -Promogran 1 1 Right -Multi-Layered Wrap Application Multi-Layer Multi-Layer Multi-Layer Comp - Right ($ Comp - Right ($ Comp - Left ($) ) ) Treatment Response Procedure Procedure Procedure Tolerated Well Tolerated Well Tolerated Well Vital Signs Temperature (97.8 F-99.1 F) 97.6 F L Temperature Source Temporal Pulse Rate (60-100 beats/min) 82 Pulse Location Monitor Respiratory Rate (12-18 breaths/min) 16 Respiratory rate source Observation Oxygen Delivery Method Room Air Blood Pressure (90/60-120/80 mm Hg) 132/86 H 137/90 H Blood Pressure Mean (mm Hg) 101 105 Source Monitor Monitor Position Sitting Semi-Fowlers Blood Pressure Location Left Forearm Left Arm Pain Scale: 0-10 Numeric Is Patient Pain Free? Yes Yes Teaching: Wound Center Compression Wraps & Stockings -Person Taught Patient -Teaching Method Discussion -Response to teaching Verbalize understanding WC - Visit Discharge Discharge Condition Stable Stable Stable Ambulatory Status Ambulatory Ambulatory Ambulatory Transportation Private Auto Private Auto Private Auto Medication Reconcilliation completed & No provided to patient/care provider Clinical Summary of Care Provided Yes Wound debrided: Right lower extremity Type of Debridement: Excisional debridement Anesthesia Used: 4% Lidocaine Solution Depth: Down to and including healthy tissue, in the subcutaneous layer Percentage of wound debrided: 100 Instrument Used: 5mm curette Tissue Removed: Slough and devitalized tissue Severity: Fat Layer Exposed Amount of bleeding with debridement: Mild Bleeding Controlled with: Pressure Patient tolerated procedure well Assessment/Plan Active Problems Venous ulcer of right leg (Chronic) Venous insufficiency of both lower extremities (Chronic) Assessment: Chronic/recurrent right lower extremity ulcer. Venous insufficiency. Venous leg ulcer. Plan: Debridement done as documented above, procedure was well-tolerated. Started on ciprofloxacin per culture and sensitivity. First application of epifix done today using 100% of product. Adaptic touch over top and secured with Steri-Strips. Leave in place for a week. 3M wrap for edema management. Leg elevation, avoid idle standing and exercise as tolerated. Increase protein intake as well. His questions were answered and he was advised to call with any further questions or concerns. Follow-up with me in a week. This note was generated with [employer] dictation software. It may contain incorrect words, spel ling, and punctuation that were not noted in checking the note before signing. [id number]: [id number] Skin sub graft trnk/arm/leg
== END 2020-07-31 23:59 ==
LOC: WC 08:45
PROVIDERS: PCP Nurse Practitioner Family; Visit Provider Internal Medicine
DX: I87.2 Venous insufficiency (chronic) (peripheral) (principal); I83.019 Varicose veins of right lower extremity with ulcer of unspecified site; L97.919 Non-pressure chronic ulcer of unspecified part of right lower leg with unspecified severity; F17.200 Nicotine dependence, unspecified, uncomplicated; Z79.899 Other long term (current) drug therapy; Z88.0 Allergy status to penicillin
CPT/HCPCS: 11042; 11045; 15271; 29581; 87070; 87075; 87077; 87186; 87205; 99213; Q4186; G0463

== ENCOUNTER 2020-08-25 13:00 | Outpatient (RCR) | payer MEDICAID, SELFPAY ==
[2020-08-01 00:40] VITALS: BP 137/90; PULSE 67; RESP 18; TEMP 36.6
[2020-08-05 08:18] VITALS: BP 153/96; PULSE 61; RESP 18; TEMP 36.7; BMI 29.0
--- NOTE | 2020-08-05 12:43 | PCM.WC.PN ---
(1) Venous insufficiency of both lower extremities Status: Chronic Code(s): I87.2 - Venous insufficiency (chronic) (peripheral) (2) Venous ulcer of right leg Status: Chronic Code(s): I83.019 - Varicose veins of right lower extremity with ulcer of unspecified site; L97.919 - Non-pressure chronic ulcer of unspecified part of right lower leg with unspecified severity Type of Wound Date of Service: 08/05/20 Chief Complaint: Nonhealing right lower extremity ulcer. History of Wound: Mr. Ly is a 59 yo Last seen here in August 2019 for right lower extremity ulcer. He had done well post discharge from the wound center until about 2 to 3 months ago when he noted reopening of his ulcer. Denies trauma. Has been using his compression stockings as prescribed. Was seen by his primary care physician and prescribed an ointment which he applied daily with no significant improvement. Denies chills or fever but notes a lot of pain around the site. No known history of diabetes. Feels well otherwise. Progress of Wound: Improving. Has had 1 application of Epifix so far. - Physical Exam Vital Signs Temp Pulse Resp BP 98.1 F 61 18 153/96 H 08/05/20 08:18 08/05/20 08:18 08/05/20 08:18 08/05/20 08:18 General: Alert, Oriented x3, Cooperative, No apparent distress HEENT: Atraumatic, Normocephalic Oral: Moist Mucosa Neck: Supple Lungs: Normal air movement Extremities: No cyanosis, Edema Wound Measurements and Assessment WC - Nurse 1 - General Ulcer Measurement Start: 08/05/20 08:18 Freq: Status: Active Protocol: Activity Type Activity Date Activity User E-Sign Co-Sign Detail Recorded Client Recorded Date Recorded By Document 08/05/20 08:18 PL [id number] 08/05/20 08:29 PL 08/05/20 08:18 Wound Center Nurse 1 [Ulcer Assessment] #2 RIGHT MEDIAL LE -Combined with other wound No -Combined with (Name of Wound-Exactly R Medial LE as it is documented) -Current Size (cm) - Length 5.4 -Current Size (cm) - Width 2.4 -Current Size (cm) - Depth 0.3 -Total Square Cm 12.96 -Photo Taken No -Epithelialization None Present -Tunneling No -Undermining/Tunneling No -Circular Undermining No -Exudate Amt Medium -Exudate Type Serosanguineous -Wound Margin Flat & Intact -Granulation Amt Small (1-33%) -Granulation Quality [place] -Slough/Fibrin Yes -Necrosis Amt Large (67-100%) -Necrotic Tissue Type Adherent Slough -Structure Exposed Fat Layer Exposed -Texture (Emely-wound Skin Appearance) No Abnormality -Moisture (Emely-wound Skin Appearance No Abnormality ) -Color (Emely-wound Skin Appearance) No Abnormality -Temperature (Emely-wound Skin No Abnormality Appearance) (Pt Warm) -Tenderness on Palpation (Emely-wound No Skin Appearance) -Ulcer Cleansing soap and water -Foul Odor after Cleansing No -Anesthetic Used 5% Lidocaine Gel [Edema Assessment] -Right Calf (cm) 38 -Point of measurement (cm from the 32 medial instep) -Right Ankle (cm) 26 -Point of Measurement (cm from the 14 medial instep) WC - Nurse 2 - General Ulcer CM Notes Start: 08/05/20 08:18 Freq: Status: Active Protocol: Activity Type Activity Date Activity User E-Sign Co-Sign Detail Recorded Client Recorded Date Recorded By Document 08/05/20 08:35 MW [id number] 08/05/20 08:43 MW 08/05/20 08:35 Wound Center Nurse 2 [Procedure/Treatment] #2 RIGHT MEDIAL LE -Time 08:36 -Correct Patient Yes -Correct Side, Site, Position Yes -Correct Procedure Yes -Procedure Performed Yes -Type of Procedure Debridement -Clinical Debridement Subcutaneous -Tissue Removed Subcutaneous -Post Debridement (cm) - Length 5.2 -Post Debridement (cm) - Width 2.3 -Post Debridement (cm) - Depth 0.3 -Total Square (Post) (cm) 11.96 -Area of Debridement (cm) - Length 5.2 -Area of Debridement (cm) - Width 2.3 -Total Square (Area) (cm) 11.96 -Tunneling No -Undermining/Tunneling No -Circular Undermining No -Wound/Ulcer Outcome Not Healed -Ulcer Cleansing Rinsed/ Irrigated with Saline -Foul Odor after Cleansing No -Bioengineered Tissue Yes -Type of Bioengineered Tissue Epifix Mesh -Expiration Date 05/01/25 -Product Lot Number [id number] -Percent Used 100 -Saline Lot Number [id number] -Bleeding Controlled with Pressure -Offloading No -Treatment Response Procedure Tolerated Well -Debridement - Subq, 1st 20sq cm Yes -Apply Skin Sub - 1st 25 sq cm - Legs 1 -Epifix Mesh (per sq cm) 11 [See Physician Procedure note for Specifics] Pain Scale: 0-10 Numeric [Pain] -Is Patient Pain Free? Yes - Nurse 3 - General Ulcer D/C NN Start: 08/05/20 08:18 Freq: Status: Active Protocol: Activity Type Activity Date Activity User E-Sign Co-Sign Detail Recorded Client Recorded Date Recorded By Document 08/05/20 08:59 PL [id number] 08/05/20 09:01 PL 08/05/20 08:59 Wound Care Nurse 3 [Wound Dressing] #2 RIGHT MEDIAL LE -Ulcer Cleansing Rinsed/ Irrigated with Saline -Foul Odor after Cleansing No [Compression Applied] Right -Lotion applied to leg before Yes compression wrap -Multi-Layered Wrap Application Multi-Layer Comp - Right ($ ) Pain Scale: 0-10 Numeric [Pain] -Is Patient Pain Free? Yes - Visit Discharge [Visit Discharge Information] -Discharge Condition Stable -Ambulatory Status Ambulatory -Transportation Private Auto -Clinical Summary of Care Provided Yes Musculoskeletal: No Muscle Wasting Neurological: Cranial nerves II-XII grossly intact Psych/Mental Status: Normal Affect Debridement Note Post-Debridement Measurements/Treatment - Nurse 2 - General Ulcer CM Notes Start: 08/05/20 08:18 Freq: Status: Active Protocol: Activity Type Activity Date Activity User E-Sign Co-Sign Detail Recorded Client Recorded Date Recorded By Document 08/05/20 08:35 MW [id number] 08/05/20 08:43 MW 08/05/20 08:35 Wound Center Nurse 2 #2 RIGHT MEDIAL LE -Time 08:36 -Correct Patient Yes -Correct Side, Site, Position Yes -Correct Procedure Yes -Procedure Performed Yes -Type of Procedure Debridement -Clinical Debridement Subcutaneous -Tissue Removed Subcutaneous -Post Debridement (cm) - Length 5.2 -Post Debridement (cm) - Width 2.3 -Post Debridement (cm) - Depth 0.3 -Total Square (Post) (cm) 11.96 -Area of Debridement (cm) - Length 5.2 -Area of Debridement (cm) - Width 2.3 -Total Square (Area) (cm) 11.96 -Tunneling No -Undermining/Tunneling No -Circular Undermining No -Wound/Ulcer Outcome Not Healed -Ulcer Cleansing Rinsed/ Irrigated with Saline -Foul Odor after Cleansing No -Bioengineered Tissue Yes -Type of Bioengineered Tissue Epifix Mesh -Expiration Date 05/01/25 -Product Lot Number [id number] -Percent Used 100 -Saline Lot Number [id number] -Bleeding Controlled with Pressure -Offloading No -Treatment Response Procedure Tolerated Well -Debridement - Subq, 1st 20sq cm Yes -Apply Skin Sub - 1st 25 sq cm - Legs 1 -Epifix Mesh (per sq cm) 11 Pain Scale: 0-10 Numeric Is Patient Pain Free? Yes - Nurse 3 - General Ulcer D/C NN Start: 08/05/20 08:18 Freq: Status: Active Protocol: Activity Type Activity Date Activity User E-Sign Co-Sign Detail Recorded Client Recorded Date Recorded By Document 08/05/20 08:59 [id number] 08/05/20 09:01 PL 08/05/20 08:59 Wound Care Nurse 3 #2 RIGHT MEDIAL LE -Ulcer Cleansing Rinsed/ Irrigated with Saline -Foul Odor after Cleansing No Right -Lotion applied to leg before Yes compression wrap -Multi-Layered Wrap Application Multi-Layer Comp - Right ($ ) Pain Scale: 0-10 Numeric Is Patient Pain Free? Yes WC - Visit Discharge Discharge Condition Stable Ambulatory Status Ambulatory Transportation Private Auto Clinical Summary of Care Provided Yes Wound debrided: Right Lower Extremity Type of Debridement: Excisional debridement Anesthesia Used: 4% Lidocaine Solution Depth: Down to and including healthy tissue, in the subcutaneous layer Percentage of wound debrided: 100 Instrument Used: 5mm curette Tissue Removed: Slough and devitalized tissue Severity: Fat Layer Exposed Amount of bleeding with debridement: Mild Bleeding Controlled with: Pressure Patient tolerated procedure well Assessment/Plan Assessment: Chronic/recurrent right lower extremity ulcer. Venous insufficiency. Venous leg ulcer. Plan: Debridement done as documented above, procedure was well-tolerated. Improving. 2nd application of epifix done today using 100% of product. Adaptic touch over top. Leave in place for a week. 3M wrap for edema management. Leg elevation, avoid idle standing and exercise as tolerated. Increase protein intake as well. His questions were answered and he was advised to call with any further questions or concerns. Follow-up with me in a week. This note was generated with [employer] software. It may contain incorrect words, spelling, and punctuation that were not noted in checking the note before signing. [id number]: [id number] Skin sub graft trnk/arm/leg
[2020-08-12 09:07] VITALS: BP 156/85; PULSE 76; RESP 18; TEMP 36.6; BMI 29.0
--- NOTE | 2020-08-12 09:46 | PN.PCM_ITS ---
(1) Venous insufficiency of both lower extremities Status: Chronic Code(s): I87.2 - Venous insufficiency (chronic) (peripheral) (2) Venous ulcer of right leg Status: Chronic Code(s): I83.019 - Varicose veins of right lower extremity with ulcer of unspecified site; L97.919 - Non-pressure chronic ulcer of unspecified part of right lower leg with unspecified severity Type of Wound Date of Service: 08/12/20 Chief Complaint: Nonhealing right lower extremity ulcer. History of Wound: Mr. Ly is a 59 yo Last seen here in August 2019 for right lower extremity ulcer. He had done well post discharge from the wound center until about 2 to 3 months ago when he noted reopening of his ulcer. Denies trauma. Has been using his compression stockings as prescribed. Was seen by his primary care physician and prescribed an ointment which he applied daily with no significant improvement. Denies chills or fever but notes a lot of pain around the site. No known history of diabetes. Feels well otherwise. Progress of Wound: Improving. Has had 2 applications of Epifix so far. - Physical Exam Vital Signs Temp Pulse Resp BP 97.8 F 76 18 156/85 H 08/12/20 09:07 08/12/20 09:07 08/12/20 09:07 08/12/20 09:07 General: Alert, Oriented x3, Cooperative, No apparent distress HEENT: Atraumatic, Normocephalic Oral: Moist Mucosa Neck: Supple Lungs: Normal air movement Extremities: No cyanosis, Edema Skin: Ulcer/ Wound Wound Measurements and Assessment WC - Nurse 1 - General Ulcer Measurement Start: 08/05/20 08:18 Freq: Status: Active Protocol: Activity Type Activity Date Activity User E-Sign Co-Sign Detail Recorded Client Recorded Date Recorded By Document 08/12/20 09:07 TN [id number] 08/12/20 09:19 TN 08/12/20 09:07 Wound Center Nurse 1 [Ulcer Assessment] #2 RIGHT MEDIAL LE -Current Size (cm) - Length 4.4 -Current Size (cm) - Width 2.2 -Current Size (cm) - Depth 0.2 -Total Square Cm 9.68 -Exudate Amt Small -Exudate Type Serosanguineous -Wound Margin Thickened & Rolled Under -Granulation Amt Large (67-100%) -Granulation Quality Pale,[place] -Necrosis Amt Small (1-33%) -Necrotic Tissue Type Adherent Slough -Texture (Emely-wound Skin Appearance) Assessed -Moisture (Emely-wound Skin Appearance Assessed, ) Maceration -Color (Emely-wound Skin Appearance) Assessed -Temperature (Emely-wound Skin No Abnormality Appearance) (Pt Warm) -Tenderness on Palpation (Emely-wound No Skin Appearance) -Ulcer Cleansing Rinsed/ Irrigated with Saline -Foul Odor after Cleansing No -Anesthetic Used 4% Lidocaine Solution [Edema Assessment] -Right Calf (cm) 38.5 -Right Ankle (cm) 26.5 WC - Nurse 2 - General Ulcer CM Notes Start: 08/05/20 08:18 Freq: Status: Active Protocol: Activity Type Activity Date Activity User E-Sign Co-Sign Detail Recorded Client Recorded Date Recorded By Document 08/12/20 09:29 MW [id number] 08/12/20 09:40 MW 08/12/20 09:29 Wound Center Nurse 2 [Procedure/Treatment] #2 RIGHT MEDIAL LE -Time 09:31 -Correct Patient Yes -Correct Side, Site, Position Yes -Correct Procedure Yes -Procedure Performed Yes -Type of Procedure Debridement -Clinical Debridement Subcutaneous -Tissue Removed Subcutaneous -Post Debridement (cm) - Length 4.5 -Post Debridement (cm) - Width 2.0 -Post Debridement (cm) - Depth 0.2 -Total Square (Post) (cm) 9.00 -Area of Debridement (cm) - Length 4.5 -Area of Debridement (cm) - Width 2.0 -Total Square (Area) (cm) 9.00 -Tunneling No -Undermining/Tunneling No -Circular Undermining No -Wound/Ulcer Outcome Not Healed -Ulcer Cleansing Rinsed/ Irrigated with Saline -Foul Odor after Cleansing No -Bioengineered Tissue Yes -Type of Bioengineered Tissue Epifix Mesh -Expiration Date 06/01/25 -Product Lot Number [id number] -Percent Used 100 -Saline Lot Number [id number] -Bleeding Controlled with Pressure -Offloading No -Treatment Response Procedure Tolerated Well -Debridement - Subq, 1st 20sq cm No -Apply Skin Sub - 1st 25 sq cm - Legs 1 -Epifix Mesh (per sq cm) 11 [See Physician Procedure note for Specifics] Pain Scale: 0-10 Numeric [Pain] -Is Patient Pain Free? Yes Musculoskeletal: No Muscle Wasting Neurological: Cranial nerves II-XII grossly intact Psych/Mental Status: Normal Affect Debridement Note Post-Debridement Measurements/Treatment WC - Nurse 2 - General Ulcer CM Notes Start: 08/05/20 08:18 Freq: Status: Active Protocol: Activity Type Activity Date Activity User E-Sign Co-Sign Detail Recorded Client Recorded Date Recorded By Document 08/05/20 08:35 MW [id number] 08/05/20 08:43 MW Document 08/12/20 09:29 MW [id number] 08/12/20 09:40 MW 08/05/20 08/12/20 08:35 09:29 Wound Center Nurse 2 #2 RIGHT MEDIAL LE -Time 08:36 09:31 -Correct Patient Yes Yes -Correct Side, Site, Position Yes Yes -Correct Procedure Yes Yes -Procedure Performed Yes Yes -Type of Procedure Debridement Debridement -Clinical Debridement Subcutaneous Subcutaneous -Tissue Removed Subcutaneous Subcutaneous -Post Debridement (cm) - Length 5.2 4.5 -Post Debridement (cm) - Width 2.3 2.0 -Post Debridement (cm) - Depth 0.3 0.2 -Total Square (Post) (cm) 11.96 9.00 -Area of Debridement (cm) - Length 5.2 4.5 -Area of Debridement (cm) - Width 2.3 2.0 -Total Square (Area) (cm) 11.96 9.00 -Tunneling No No -Undermining/Tunneling No No -Circular Undermining No No -Wound/Ulcer Outcome Not Healed Not Healed -Ulcer Cleansing Rinsed/ Rinsed/ Irrigated with Irrigated with Saline Saline -Foul Odor after Cleansing No No -Bioengineered Tissue Yes Yes -Type of Bioengineered Tissue Epifix Mesh Epifix Mesh -Expiration Date 05/01/25 06/01/25 -Product Lot Number [id number] -Percent Used 100 100 -Saline Lot Number [id number] -Bleeding Controlled with Pressure Pressure -Offloading No No -Treatment Response Procedure Procedure Tolerated Well Tolerated Well -Debridement - Subq, 1st 20sq cm Yes No -Apply Skin Sub - 1st 25 sq cm - Legs 1 1 -Epifix Mesh (per sq cm) 11 11 Pain Scale: 0-10 Numeric Is Patient Pain Free? Yes Yes WC - Nurse 3 - General Ulcer D/C NN Start: 08/05/20 08:18 Freq: Status: Active Protocol: Activity Type Activity Date Activity User E-Sign Co-Sign Detail Recorded Client Recorded Date Recorded By Document 08/05/20 08:59 PL [id number] 08/05/20 09:01 PL 08/05/20 08:59 Wound Care Nurse 3 #2 RIGHT MEDIAL LE -Ulcer Cleansing Rinsed/ Irrigated with Saline -Foul Odor after Cleansing No Right -Lotion applied to leg before Yes compression wrap -Multi-Layered Wrap Application Multi-Layer Comp - Right ($ ) Pain Scale: 0-10 Numeric Is Patient Pain Free? Yes WC - Visit Discharge Discharge Condition Stable Ambulatory Status Ambulatory Transportation Private Auto Clinical Summary of Care Provided Yes Wound debrided: Right lower extremity Type of Debridement: Excisional debridement Anesthesia Used: 4% Lidocaine Solution Depth: Down to and including healthy tissue, in the subcutaneous layer Percentage of wound debrided: 100 Instrument Used: 5mm curette Tissue Removed: Slough and devitalized tissue Severity: Fat Layer Exposed Amount of bleeding with debridement: Mild Bleeding Controlled with: Pressure Patient tolerated procedure well Assessment/Plan Active Problems Venous ulcer of right leg (Chronic) Venous insufficiency of both lower extremities (Chronic) Assessment: Chronic/recurrent right lower extremity ulcer. Venous insufficiency. Venous leg ulcer. Plan: Debridement done as documented above, procedure was well-tolerated. Improving. 3rd application of epifix done today using 100% of product. Adaptic touch over top. Leave in place for a week. 3M wrap for edema management. Leg elevation, avoid idle standing and exercise as tolerated. Increase protein intake as well. His questions were answered and he was advised to call with any further questions or concerns. Follow-up with me in a week. This note was generated with [employer] dictation software. It may contain incorrect words, spelling, and punctuation that were not noted in checking the note before signing. [id number]: [id number] Skin sub graft trnk/arm/leg
[2020-08-19 08:20] VITALS: BP 117/70; PULSE 77; TEMP 36.6; BMI 29.0
[2020-08-19 09:07] VITALS: BP 120/78
--- NOTE | 2020-08-19 12:45 | PN.PCM_ITS ---
(1) Venous insufficiency of both lower extremities Status: Chronic Code(s): I87.2 - Venous insufficiency (chronic) (peripheral) (2) Venous ulcer of right leg Status: Chronic Code(s): I83.019 - Varicose veins of right lower extremity with ulcer of unspecified site; L97.919 - Non-pressure chronic ulcer of unspecified part of right lower leg with unspecified severity Type of Wound Date of Service: 08/19/20 Chief Complaint: Nonhealing right lower extremity ulcer. History of Wound: Mr. Ly is a 59 yo Last seen here in August 2019 for right lower extremity ulcer. He had done well post discharge from the wound center until about 2 to 3 months ago when he noted reopening of his ulcer. Denies trauma. Has been using his compression stockings as prescribed. Was seen by his primary care physician and prescribed an ointment which he applied daily with no significant improvement. Denies chills or fever but notes a lot of pain around the site. No known history of diabetes. Feels well otherwise. Progress of Wound: Improving. Has had 3 applications of Epifix so far. - Physical Exam Vital Signs Temp Pulse Resp BP 97.8 F 77 18 120/78 08/19/20 08:20 08/19/20 08:20 08/12/20 09:07 08/19/20 09:07 General: Alert, Oriented x3, Cooperative, No apparent distress HEENT: Atraumatic, Normocephalic Oral: Moist Mucosa Neck: Supple Lungs: Normal air movement Extremities: No cyanosis, Edema Skin: Ulcer/ Wound Wound Measurements and Assessment WC - Nurse 1 - General Ulcer Measurement Start: 08/05/20 08:18 Freq: Status: Active Protocol: Activity Type Activity Date Activity User E-Sign Co-Sign Detail Recorded Client Recorded Date Recorded By Document 08/19/20 08:20 KR [id number] 08/19/20 08:29 KR 08/19/20 08:20 Wound Center Nurse 1 [Ulcer Assessment] #2 RIGHT MEDIAL LE -Combined with other wound No -Current Size (cm) - Length 4.7 -Current Size (cm) - Width 2.6 -Current Size (cm) - Depth 0.1 -Total Square Cm 12.22 -Photo Taken No -Exudate Amt Medium -Exudate Type Serosanguineous -Wound Margin Distinct, Outline Attached -Granulation Amt Medium (34-66%) -Granulation Quality Red -Necrosis Amt Small (1-33%) -Necrotic Tissue Type Adherent Slough -Texture (Emely-wound Skin Appearance) Assessed, Scarring -Moisture (Emely-wound Skin Appearance Assessed,Dry/ ) Scaly -Color (Emely-wound Skin Appearance) Assessed, Hemosiderin Staining -Temperature (Emely-wound Skin No Abnormality Appearance) (Pt Warm) -Tenderness on Palpation (Emely-wound No Skin Appearance) -Ulcer Cleansing soapy water -Foul Odor after Cleansing No -Anesthetic Used 4% Lidocaine Solution [Edema Assessment] -Right Calf (cm) 39.9 -Right Ankle (cm) 26 WC - Nurse 2 - General Ulcer CM Notes Start: 08/05/20 08:18 Freq: Status: Active Protocol: Activity Type Activity Date Activity User E-Sign Co-Sign Detail Recorded Client Recorded Date Recorded By Document 08/19/20 08:37 MW [id number] 08/19/20 08:46 MW 08/19/20 08:37 Wound Center Nurse 2 [Procedure/Treatment] #2 RIGHT MEDIAL LE -Time 08:37 -Correct Patient Yes -Correct Side, Site, Position Yes -Correct Procedure Yes -Procedure Performed Yes -Type of Procedure Debridement -Clinical Debridement Subcutaneous -Tissue Removed Subcutaneous -Post Debridement (cm) - Length 3.5 -Post Debridement (cm) - Width 1.4 -Post Debridement (cm) - Depth 0.2 -Total Square (Post) (cm) 4.90 -Area of Debridement (cm) - Length 3.5 -Area of Debridement (cm) - Width 1.4 -Total Square (Area) (cm) 4.90 -Tunneling No -Undermining/Tunneling No -Circular Undermining No -Wound/Ulcer Outcome Not Healed -Ulcer Cleansing Rinsed/ Irrigated with Saline -Foul Odor after Cleansing No -Bioengineered Tissue Yes -Type of Bioengineered Tissue Epifix -Expiration Date 03/31/25 -Product Lot Number [id number] -Percent Used 100 -Saline Lot Number [id number] -Bleeding Controlled with Pressure -Offloading No -Treatment Response Procedure Tolerated Well -Debridement - Subq, 1st 20sq cm No -Apply Skin Sub - 1st 25 sq cm - Legs 1 -Epifix (per sq cm) 4 [See Physician Procedure note for Specifics] Pain Scale: 0-10 Numeric [Pain] -Is Patient Pain Free? Yes WC - Nurse 3 - General Ulcer D/C NN Start: 08/05/20 08:18 Freq: Status: Active Protocol: Activity Type Activity Date Activity User E-Sign Co-Sign Detail Recorded Client Recorded Date Recorded By Document 08/19/20 09:07 RB [id number] 08/19/20 09:08 RB 08/19/20 09:07 Wound Care Nurse 3 [Wound Dressing] #2 RIGHT MEDIAL LE -Other Dressing ABD PAD -Primary Dressing Covered/Secured Dry Gauze with [Compression Applied] Right -Multi-Layered Wrap Application Multi-Layer Comp - Right ($ ) [Post Procedure Tolerated] -Treatment Response Procedure Tolerated Well Vital Signs [Blood Pressure] -Blood Pressure (90/60-120/80 mm Hg) 120/78 -Blood Pressure Mean (mm Hg) 92 -Source Monitor -Position Semi-Fowlers -Blood Pressure Location Left Arm Pain Scale: 0-10 Numeric [Pain] -Is Patient Pain Free? No WC - Visit Discharge [Visit Discharge Information] -Discharge Condition Stable -Ambulatory Status Ambulatory -Transportation Private Auto -Medication Reconcilliation completed No & provided to patient/care provider -Clinical Summary of Care Provided Yes Musculoskeletal: No Muscle Wasting Neurological: Cranial nerves II-XII grossly intact Psych/Mental Status: Normal Affect Debridement Note Post-Debridement Measurements/Treatment WC - Nurse 2 - General Ulcer CM Notes Start: 08/05/20 08:18 Freq: Status: Active Protocol: Activity Type Activity Date Activity User E-Sign Co-Sign Detail Recorded Client Recorded Date Recorded By Document 08/05/20 08:35 MW [id number] 08/05/20 08:43 MW Document 08/12/20 09:29 MW [id number] 08/12/20 09:40 MW Document 08/19/20 08:37 MW [id number] 08/19/20 08:46 MW 08/05/20 08/12/20 08/19/20 08:35 09:29 08:37 Wound Center Nurse 2 #2 RIGHT MEDIAL LE -Time 08:36 09:31 08:37 -Correct Patient Yes Yes Yes -Correct Side, Site, Position Yes Yes Yes -Correct Procedure Yes Yes Yes -Procedure Performed Yes Yes Yes -Type of Procedure Debridement Debridement Debridement -Clinical Debridement Subcutaneous Subcutaneous Subcutaneous -Tissue Removed Subcutaneous Subcutaneous Subcutaneous -Post Debridement (cm) - Length 5.2 4.5 3.5 -Post Debridement (cm) - Width 2.3 2.0 1.4 -Post Debridement (cm) - Depth 0.3 0.2 0.2 -Total Square (Post) (cm) 11.96 9.00 4.90 -Area of Debridement (cm) - Length 5.2 4.5 3.5 -Area of Debridement (cm) - Width 2.3 2.0 1.4 -Total Square (Area) (cm) 11.96 9.00 4.90 -Tunneling No No No -Undermining/Tunneling No No No -Circular Undermining No No No -Wound/Ulcer Outcome Not Healed Not Healed Not Healed -Ulcer Cleansing Rinsed/ Rinsed/ Rinsed/ Irrigated with Irrigated with Irrigated with Saline Saline Saline -Foul Odor after Cleansing No No No -Bioengineered Tissue Yes Yes Yes -Type of Bioengineered Tissue Epifix Mesh Epifix Mesh Epifix -Expiration Date 05/01/25 06/01/25 03/31/25 -Product Lot Number [id number] -Percent Used 100 100 100 -Saline Lot Number [id number] -Bleeding Controlled with Pressure Pressure Pressure -Offloading No No No -Treatment Response Procedure Procedure Procedure Tolerated Well Tolerated Well Tolerated Well -Debridement - Subq, 1st 20sq cm Yes No No -Apply Skin Sub - 1st 25 sq cm - Legs 1 1 1 -Epifix (per sq cm) 4 -Epifix Mesh (per sq cm) 11 11 Pain Scale: 0-10 Numeric Is Patient Pain Free? Yes Yes Yes WC - Nurse 3 - General Ulcer D/C NN Start: 08/05/20 08:18 Freq: Status: Active Protocol: Activity Type Activity Date Activity User E-Sign Co-Sign Detail Recorded Client Recorded Date Recorded By Document 08/05/20 08:59 PL [id number] 08/05/20 09:01 PL Document 08/12/20 09:48 BMF [id number] 08/12/20 09:48 BMF Document 08/19/20 09:07 RB [id number] 08/19/20 09:08 RB 08/05/20 08/12/20 08/19/20 08:59 09:48 09:07 Wound Care Nurse 3 #2 RIGHT MEDIAL LE -Ulcer Cleansing Rinsed/ Irrigated with Saline -Foul Odor after Cleansing No -Primary Dressing Applied Other -Other Dressing EPIFIX PER MD CHAVARRIA PAD -Primary Dressing Covered/Secured with Dry Gauze Dry Gauze Right -Lotion applied to leg before Yes Yes compression wrap -Multi-Layered Wrap Application Multi-Layer Multi-Layer Multi-Layer Comp - Right ($ Comp - Right ($ Comp - Right ($ ) ) ) Treatment Response Procedure Procedure Tolerated Well Tolerated Well Vital Signs Blood Pressure (90/60-120/80 mm Hg) 120/78 Blood Pressure Mean (mm Hg) 92 Source Monitor Position Semi-Fowlers Blood Pressure Location Left Arm Pain Scale: 0-10 Numeric Is Patient Pain Free? Yes Yes No WC - Visit Discharge Discharge Condition Stable Stable Stable Ambulatory Status Ambulatory Ambulatory Ambulatory Transportation Private Auto Private Auto Private Auto Medication Reconcilliation completed & No provided to patient/care provider Clinical Summary of Care Provided Yes Yes Wound debrided: Right Lower Extremity Type of Debridement: Excisional debridement Anesthesia Used: 4% Lidocaine Solution Depth: Down to and including healthy tissue, in the subcutaneous layer Percentage of wound debrided: 100 Instrument Used: 5mm curette Tissue Removed: Slough and devitalized tissue Severity: Fat Layer Exposed Amount of bleeding with debridement: Mild Bleeding Controlled with: Pressure Patient tolerated procedure well Assessment/Plan Active Problems Venous ulcer of right leg (Chronic) Venous insufficiency of both lower extremities (Chronic) Assessment: Chronic/recurrent right lower extremity ulcer. Venous insufficiency. Venous leg ulcer. Plan: Debridement done as documented above, procedure was well-tolerated. Improving. 4th application of epifix done today using 100% of product. Adaptic touch over top. Leave in place for a week. 3M wrap for edema management. Leg elevation, avoid idle standing and exercise as tolerated. Increase protein intake as well. His questions were answered and he was advised to call with any further questions or concerns. Follow-up in a week with Sean Kelly NP and in 2 weeks with me. This note was generated with [employer]ation software. It may contain incorrect words, spelling, and punctuation that were not noted in checking the note before signing. [id number]: [id number] Skin sub graft trnk/arm/leg
[2020-08-25 13:02] VITALS: BP 148/98; PULSE 85; RESP 16; TEMP 36; BMI 29.0
--- NOTE | 2020-08-25 19:35 | PCM.WC.PN ---
(1) Venous insufficiency of both lower extremities Status: Chronic Code(s): I87.2 - Venous insufficiency (chronic) (peripheral) (2) Venous ulcer of right leg Status: Chronic Code(s): I83.019 - Varicose veins of right lower extremity with ulcer of unspecified site; L97.919 - Non-pressure chronic ulcer of unspecified part of right lower leg with unspecified severity Type of Wound Date of Service: 08/25/20 Chief Complaint: Nonhealing right lower extremity ulcer. History of Wound: Mr. Ly is a 59 yo Last seen here in August 2019 for right lower extremity ulcer. He had done well post discharge from the wound center until about 2 to 3 months ago when he noted reopening of his ulcer. Denies trauma. Has been using his compression stockings as prescribed. Was seen by his primary care physician and prescribed an ointment which he applied daily with no significant improvement. Denies chills or fever but notes a lot of pain around the site. No known history of diabetes. Feels well otherwise. Progress of Wound: Courtesy visit Dr. Carroll?Improving. Has had 4 applications of Epifix so far. - Physical Exam Vital Signs Temp Pulse Resp BP 96.8 F L 85 16 148/98 H 08/25/20 13:02 08/25/20 13:02 08/25/20 13:02 08/25/20 13:02 General: Alert, Oriented x3, Cooperative, No apparent distress HEENT: Atraumatic Oral: Moist Mucosa Lungs: Clear to auscultation Cardiovascular: Regular rate Extremities: No clubbing, No cyanosis, Edema - Generalized bilateral lower extremity edema Skin: Ulcer/ Wound - See nursing documentation, right Lower extremity ulcer with adherent slough, no signs of obvious infection at this time Wound Measurements and Assessment WC - Nurse 1 - General Ulcer Measurement Start: 08/05/20 08:18 Freq: Status: Active Protocol: Activity Type Activity Date Activity User E-Sign Co-Sign Detail Recorded Client Recorded Date Recorded By Document 08/25/20 13:02 GIOVANNA [id number] 08/25/20 13:10 GIOVANNA 08/25/20 13:02 Wound Center Nurse 1 [Ulcer Assessment] #2 RIGHT MEDIAL LE -Combined with other wound No -Current Size (cm) - Length 4.9 -Current Size (cm) - Width 2.5 -Current Size (cm) - Depth 0.2 -Total Square Cm 12.25 -Photo Taken No -Epithelialization Small 1-33% -Tunneling No -Undermining/Tunneling No -Circular Undermining No -Exudate Amt Medium -Exudate Type Serosanguineous -Wound Margin Distinct, Outline Attached -Granulation Amt Medium (34-66%) -Granulation Quality Red -Slough/Fibrin Yes -Necrosis Amt Medium (34-66%) -Necrotic Tissue Type Adherent Slough -Texture (Emely-wound Skin Appearance) Assessed, Scarring -Moisture (Emely-wound Skin Appearance Assessed,Dry/ ) Scaly -Color (Emely-wound Skin Appearance) Assessed, Erythema -Temperature (Emely-wound Skin No Abnormality Appearance) (Pt Warm) -Tenderness on Palpation (Emely-wound No Skin Appearance) -Ulcer Cleansing soapy water -Foul Odor after Cleansing No -Anesthetic Used 5% Lidocaine Gel [Edema Assessment] -Lower Limb Edema Present Yes -Right Calf (cm) 38.7 -Right Ankle (cm) 26 WC - Nurse 2 - General Ulcer CM Notes Start: 08/05/20 08:18 Freq: Status: Active Protocol: Activity Type Activity Date Activity User E-Sign Co-Sign Detail Recorded Client Recorded Date Recorded By Document 08/25/20 13:26 MW [id number] 08/25/20 13:32 MW 08/25/20 13:26 Wound Center Nurse 2 [Procedure/Treatment] #2 RIGHT MEDIAL LE -Time 13:26 -Correct Patient Yes -Correct Side, Site, Position Yes -Correct Procedure Yes -Procedure Performed Yes -Type of Procedure Debridement -Clinical Debridement Subcutaneous -Tissue Removed Subcutaneous -Post Debridement (cm) - Length 3.8 -Post Debridement (cm) - Width 1.7 -Post Debridement (cm) - Depth 0.3 -Total Square (Post) (cm) 6.46 -Area of Debridement (cm) - Length 3.8 -Area of Debridement (cm) - Width 1.7 -Total Square (Area) (cm) 6.46 -Tunneling No -Undermining/Tunneling No -Circular Undermining No -Wound/Ulcer Outcome Not Healed -Ulcer Cleansing Rinsed/ Irrigated with Saline -Foul Odor after Cleansing No -Bioengineered Tissue Yes -Type of Bioengineered Tissue Epifix Mesh -Expiration Date 06/01/25 -Product Lot Number [id number] -Percent Used 100 -Saline Lot Number [id number] -Bleeding Controlled with Pressure -Offloading No -Treatment Response Procedure Tolerated Well -Debridement - Subq, 1st 20sq cm No -Apply Skin Sub - 1st 25 sq cm - Legs 1 -Epifix Mesh (per sq cm) 11 [See Physician Procedure note for Specifics] Pain Scale: 0-10 Numeric [Pain] -Is Patient Pain Free? Yes - Nurse 3 - General Ulcer D/C NN Start: 08/05/20 08:18 Freq: Status: Active Protocol: Activity Type Activity Date Activity User E-Sign Co-Sign Detail Recorded Client Recorded Date Recorded By Document 08/25/20 13:39 [facility] [id number] 08/25/20 13:40 [facility] 08/25/20 13:39 Wound Care Nurse 3 [Wound Dressing] #2 RIGHT MEDIAL LE -Primary Dressing Applied Other -Other Dressing EPIFIX PER [facility] [employer] -Primary Dressing Covered/Secured Other with -Other Covering ABD [Compression Applied] Right -Multi-Layered Wrap Application Multi-Layer Comp - Right ($ ) [Post Procedure Tolerated] -Treatment Response Procedure Tolerated Well Pain Scale: 0-10 Numeric [Pain] -Is Patient Pain Free? Yes - Visit Discharge [Visit Discharge Information] -Discharge Condition Stable -Ambulatory Status Ambulatory -Transportation Private Auto Neurological: Neuro grossly intact Psych/Mental Status: Normal Affect, Appropriate Debridement Note Post-Debridement Measurements/Treatment - Nurse 2 - General Ulcer CM Notes Start: 08/05/20 08:18 Freq: Status: Active Protocol: Activity Type Activity Date Activity User E-Sign Co-Sign Detail Recorded Client Recorded Date Recorded By Document 08/05/20 08:35 MW [id number] 08/05/20 08:43 MW Document 08/12/20 09:29 MW [id number] 08/12/20 09:40 MW Document 08/19/20 08:37 MW [id number] 08/19/20 08:46 MW Document 08/25/20 13:26 MW [id number] 08/25/20 13:32 MW 08/05/20 08/12/20 08/19/20 08:35 09:29 08:37 Wound Center Nurse 2 #2 RIGHT MEDIAL LE -Time 08:36 09:31 08:37 -Correct Patient Yes Yes Yes -Correct Side, Site, Position Yes Yes Yes -Correct Procedure Yes Yes Yes -Procedure Performed Yes Yes Yes -Type of Procedure Debridement Debridement Debridement -Clinical Debridement Subcutaneous Subcutaneous Subcutaneous -Tissue Removed Subcutaneous Subcutaneous Subcutaneous -Post Debridement (cm) - Length 5.2 4.5 3.5 -Post Debridement (cm) - Width 2.3 2.0 1.4 -Post Debridement (cm) - Depth 0.3 0.2 0.2 -Total Square (Post) (cm) 11.96 9.00 4.90 -Area of Debridement (cm) - Length 5.2 4.5 3.5 -Area of Debridement (cm) - Width 2.3 2.0 1.4 -Total Square (Area) (cm) 11.96 9.00 4.90 -Tunneling No No No -Undermining/Tunneling No No No -Circular Undermining No No No -Wound/Ulcer Outcome Not Healed Not Healed Not Healed -Ulcer Cleansing Rinsed/ Rinsed/ Rinsed/ Irrigated with Irrigated with Irrigated with Saline Saline Saline -Foul Odor after Cleansing No No No -Bioengineered Tissue Yes Yes Yes -Type of Bioengineered Tissue Epifix Mesh Epifix Mesh Epifix -Expiration Date 05/01/25 06/01/25 03/31/25 -Product Lot Number [id number] -Percent Used 100 100 100 -Saline Lot Number [id number] -Bleeding Controlled with Pressure Pressure Pressure -Offloading No No No -Treatment Response Procedure Procedure Procedure Tolerated Well Tolerated Well Tolerated Well -Debridement - Subq, 1st 20sq cm Yes No No -Apply Skin Sub - 1st 25 sq cm - Legs 1 1 1 -Epifix (per sq cm) 4 -Epifix Mesh (per sq cm) 11 11 Pain Scale: 0-10 Numeric Is Patient Pain Free? Yes Yes Yes 08/25/20 13:26 Wound Center Nurse 2 #2 RIGHT MEDIAL LE -Time 13:26 -Correct Patient Yes -Correct Side, Site, Position Yes -Correct Procedure Yes -Procedure Performed Yes -Type of Procedure Debridement -Clinical Debridement Subcutaneous -Tissue Removed Subcutaneous -Post Debridement (cm) - Length 3.8 -Post Debridement (cm) - Width 1.7 -Post Debridement (cm) - Depth 0.3 -Total Square (Post) (cm) 6.46 -Area of Debridement (cm) - Length 3.8 -Area of Debridement (cm) - Width 1.7 -Total Square (Area) (cm) 6.46 -Tunneling No -Undermining/Tunneling No -Circular Undermining No -Wound/Ulcer Outcome Not Healed -Ulcer Cleansing Rinsed/ Irrigated with Saline -Foul Odor after Cleansing No -Bioengineered Tissue Yes -Type of Bioengineered Tissue Epifix Mesh -Expiration Date 06/01/25 -Product Lot Number [id number] -Percent Used 100 -Saline Lot Number [id number] -Bleeding Controlled with Pressure -Offloading No -Treatment Response Procedure Tolerated Well -Debridement - Subq, 1st 20sq cm No -Apply Skin Sub - 1st 25 sq cm - Legs 1 -Epifix (per sq cm) -Epifix Mesh (per sq cm) 11 Pain Scale: 0-10 Numeric Is Patient Pain Free? Yes WC - Nurse 3 - General Ulcer D/C NN Start: 08/05/20 08:18 Freq: Status: Active Protocol: Activity Type Activity Date Activity User E-Sign Co-Sign Detail Recorded Client Recorded Date Recorded By Document 08/05/20 08:59 PL [id number] 08/05/20 09:01 PL Document 08/12/20 09:48 [facility] [id number] 08/12/20 09:48 [facility] Document 08/19/20 09:07 RB [id number] 08/19/20 09:08 RB Document 08/25/20 13:39 [facility] [id number] 08/25/20 13:40 [facility] 08/05/20 08/12/20 08/19/20 08:59 09:48 09:07 Wound Care Nurse 3 #2 RIGHT MEDIAL LE -Ulcer Cleansing Rinsed/ Irrigated with Saline -Foul Odor after Cleansing No -Primary Dressing Applied Other -Other Dressing EPIFIX PER MD CHAVARRIA PAD -Primary Dressing Covered/Secured with Dry Gauze Dry Gauze -Other Covering Right -Lotion applied to leg before Yes Yes compression wrap -Multi-Layered Wrap Application Multi-Layer Multi-Layer Multi-Layer Comp - Right ($ Comp - Right ($ Comp - Right ($ ) ) ) Treatment Response Procedure Procedure Tolerated Well Tolerated Well Vital Signs Blood Pressure (90/60-120/80) 120/78 Blood Pressure Mean (mm Hg) 92 Source Monitor Position Semi-Fowlers Blood Pressure Location Left Arm Pain Scale: 0-10 Numeric Is Patient Pain Free? Yes Yes No WC - Visit Discharge Discharge Condition Stable Stable Stable Ambulatory Status Ambulatory Ambulatory Ambulatory Transportation Private Auto Private Auto Private Auto Medication Reconcilliation completed & No provided to patient/care provider Clinical Summary of Care Provided Yes Yes 08/25/20 13:39 Wound Care Nurse 3 #2 RIGHT MEDIAL LE -Ulcer Cleansing -Foul Odor after Cleansing -Primary Dressing Applied Other -Other Dressing EPIFIX PER [employer] [employer] -Primary Dressing Covered/Secured with Other -Other Covering ABD Right -Lotion applied to leg before compression wrap -Multi-Layered Wrap Application Multi-Layer Comp - Right ($ ) Treatment Response Procedure Tolerated Well Vital Signs Blood Pressure (90/60-120/80) Blood Pressure Mean (mm Hg) Source Position Blood Pressure Location Pain Scale: 0-10 Numeric Is Patient Pain Free? Yes WC - Visit Discharge Discharge Condition Stable Ambulatory Status Ambulatory Transportation Private Auto Medication Reconcilliation completed & provided to patient/care provider Clinical Summary of Care Provided Wound debrided: Right lower extremity ulcer Laterality: Right Type of Debridement: Excisional debridement Anesthesia Used: 5% Lidocaine Gel Depth: in the subcutaneous layer Percentage of wound debrided: 100 Instrument Used: 5mm curette Tissue Removed: Slough and devitalized tissue Severity: Fat Layer Exposed Amount of bleeding with debridement: Mild Bleeding Controlled with: Pressure Patient tolerated procedure well Assessment/Plan Active Problems Venous ulcer of right leg (Chronic) Venous insufficiency of both lower extremities (Chronic) Assessment: Chronic/recurrent right lower extremity ulcer. Venous insufficiency. Venous leg ulcer. Plan: Debridement done as documented above, procedure was well-tolerated. Improving. 5th application of epifix done today using 100% of product. Adaptic touch over top. Leave in place for a week. 3M wrap for edema management. Leg elevation, avoid idle standing and exercise as tolerated. Increase protein intake as well. His questions were answered and he was advised to call with any further questions or concerns. Follow-up in a week with Dr. Carroll. This note was generated with [employer] software. It may contain incorrect words, spelling, and punctuation that were not noted in checking the note before signing. [id number]: [id number] Skin sub graft trnk/arm/leg
== END 2020-08-30 23:59 ==
LOC: WC 13:00
PROVIDERS: PCP Nurse Practitioner Family; Visit Provider Internal Medicine
DX: I83.018 Varicose veins of right lower extremity with ulcer other part of lower leg (principal); L97.812 Non-pressure chronic ulcer of other part of right lower leg with fat layer exposed; I87.2 Venous insufficiency (chronic) (peripheral); Z79.899 Other long term (current) drug therapy
CPT/HCPCS: 11042; 15271; 29581; Q4186

== ENCOUNTER 2020-09-23 08:00 | Outpatient (RCR) | payer MEDICAID, SELFPAY ==
[2020-08-31 00:36] VITALS: BP 148/98; PULSE 85; RESP 16; TEMP 36
[2020-09-02 08:28] VITALS: BP 110/77; PULSE 67; RESP 18; TEMP 36.3; BMI 29.0
--- NOTE | 2020-09-02 12:53 | PN.PCM_ITS ---
(1) Venous insufficiency of both lower extremities Status: Chronic Code(s): I87.2 - Venous insufficiency (chronic) (peripheral) (2) Venous ulcer of right leg Status: Chronic Code(s): I83.019 - Varicose veins of right lower extremity with ulcer of unspecified site; L97.919 - Non-pressure chronic ulcer of unspecified part of right lower leg with unspecified severity Type of Wound Date of Service: 09/02/20 Chief Complaint: Nonhealing right lower extremity ulcer. History of Wound: Mr. Ly is a 59 yo Last seen here in August 2019 for right lower extremity ulcer. He had done well post discharge from the wound center until about 2 to 3 months ago when he noted reopening of his ulcer. Denies trauma. Has been using his compression stockings as prescribed. Was seen by his primary care physician and prescribed an ointment which he applied daily with no significant improvement. Denies chills or fever but notes a lot of pain around the site. No known history of diabetes. Feels well otherwise. Progress of Wound: Improving. Has had 5 applications of Epifix so far. No new concerns at this time. - Physical Exam Vital Signs Temp Pulse Resp BP 97.3 F L 67 18 110/77 09/02/20 08:28 09/02/20 08:28 09/02/20 08:28 09/02/20 08:28 General: Alert, Oriented x3, Cooperative, No apparent distress HEENT: Atraumatic, Normocephalic Oral: Moist Mucosa Neck: Supple Lungs: Normal air movement Skin: Ulcer/ Wound Wound Measurements and Assessment WC - Nurse 1 - General Ulcer Measurement Start: 09/02/20 08:28 Freq: Status: Active Protocol: Activity Type Activity Date Activity User E-Sign Co-Sign Detail Recorded Client Recorded Date Recorded By Document 09/02/20 08:28 DL [id number] 09/02/20 08:33 DL 09/02/20 08:28 Wound Center Nurse 1 [Ulcer Assessment] #2 RIGHT MEDIAL LE -Combined with other wound No -Current Size (cm) - Length 1.2 -Current Size (cm) - Width 0.6 -Current Size (cm) - Depth 0.2 -Total Square Cm 0.72 -Tunneling No -Undermining/Tunneling No -Circular Undermining No -Exudate Amt Small -Exudate Type Serosanguineous -Wound Margin Thickened & Rolled Under -Granulation Amt Medium (34-66%) -Granulation Quality [place] -Slough/Fibrin Yes -Necrosis Amt Small (1-33%) -Necrotic Tissue Type Adherent Slough -Structure Exposed N/A -Texture (Emely-wound Skin Appearance) Assessed, Scarring -Moisture (Emely-wound Skin Appearance Assessed ) -Color (Emely-wound Skin Appearance) Assessed -Temperature (Emely-wound Skin No Abnormality Appearance) (Pt Warm) -Tenderness on Palpation (Emely-wound No Skin Appearance) -Ulcer Cleansing Wound Cleanser -Foul Odor after Cleansing No -Anesthetic Used 4% Lidocaine Solution,5% Lidocaine Gel [Edema Assessment] -Lower Limb Edema Present Yes -Right Calf (cm) 38 -Right Ankle (cm) 25.8 WC - Nurse 2 - General Ulcer CM Notes Start: 09/02/20 08:28 Freq: Status: Active Protocol: Activity Type Activity Date Activity User E-Sign Co-Sign Detail Recorded Client Recorded Date Recorded By Document 09/02/20 08:40 MW [id number] 09/02/20 08:51 MW 09/02/20 08:40 Wound Center Nurse 2 [Procedure/Treatment] #2 RIGHT MEDIAL LE -Time 08:40 -Correct Patient Yes -Correct Side, Site, Position Yes -Correct Procedure Yes -Procedure Performed Yes -Type of Procedure Debridement -Clinical Debridement Subcutaneous -Tissue Removed Subcutaneous -Post Debridement (cm) - Length 1.8 -Post Debridement (cm) - Width 1.0 -Post Debridement (cm) - Depth 0.2 -Total Square (Post) (cm) 1.80 -Area of Debridement (cm) - Length 1.8 -Area of Debridement (cm) - Width 1.0 -Total Square (Area) (cm) 1.80 -Tunneling No -Undermining/Tunneling No -Circular Undermining No -Wound/Ulcer Outcome Not Healed -Ulcer Cleansing Rinsed/ Irrigated with Saline -Foul Odor after Cleansing No -Bioengineered Tissue Yes -Type of Bioengineered Tissue Epifix -Expiration Date 03/31/25 -Product Lot Number [id number] -Percent Used 100 -Saline Lot Number [id number] -Bleeding Controlled with Pressure -Offloading No -Treatment Response Procedure Tolerated Well -Debridement - Subq, 1st 20sq cm No -Apply Skin Sub - 1st 25 sq cm - Legs 1 -Epifix (per sq cm) 4 [See Physician Procedure note for Specifics] Pain Scale: 0-10 Numeric [Pain] -Is Patient Pain Free? Yes WC - Nurse 3 - General Ulcer D/C NN Start: 09/02/20 08:28 Freq: Status: Active Protocol: Activity Type Activity Date Activity User E-Sign Co-Sign Detail Recorded Client Recorded Date Recorded By Document 09/02/20 09:08 [facility] [id number] 09/02/20 09:13 [facility] 09/02/20 09:08 Wound Care Nurse 3 [Wound Dressing] #2 RIGHT MEDIAL LE -Primary Dressing Applied Other -Other Dressing epifix per md -Primary Dressing Covered/Secured Dry Gauze with [Compression Applied] Right -Lotion applied to leg before Yes compression wrap -Multi-Layered Wrap Application Multi-Layer Comp - Right ($ ) [Post Procedure Tolerated] -Treatment Response Procedure Tolerated Well WC - Visit Discharge [Visit Discharge Information] -Discharge Condition Stable -Ambulatory Status Ambulatory -Transportation Private Auto Musculoskeletal: No Muscle Wasting Neurological: Cranial nerves II-XII grossly intact Psych/Mental Status: Normal Affect Debridement Note Post-Debridement Measurements/Treatment WC - Nurse 2 - General Ulcer CM Notes Start: 09/02/20 08:28 Freq: Status: Active Protocol: Activity Type Activity Date Activity User E-Sign Co-Sign Detail Recorded Client Recorded Date Recorded By Document 09/02/20 08:40 MW [id number] 09/02/20 08:51 MW 09/02/20 08:40 Wound Center Nurse 2 #2 RIGHT MEDIAL LE -Time 08:40 -Correct Patient Yes -Correct Side, Site, Position Yes -Correct Procedure Yes -Procedure Performed Yes -Type of Procedure Debridement -Clinical Debridement Subcutaneous -Tissue Removed Subcutaneous -Post Debridement (cm) - Length 1.8 -Post Debridement (cm) - Width 1.0 -Post Debridement (cm) - Depth 0.2 -Total Square (Post) (cm) 1.80 -Area of Debridement (cm) - Length 1.8 -Area of Debridement (cm) - Width 1.0 -Total Square (Area) (cm) 1.80 -Tunneling No -Undermining/Tunneling No -Circular Undermining No -Wound/Ulcer Outcome Not Healed -Ulcer Cleansing Rinsed/ Irrigated with Saline -Foul Odor after Cleansing No -Bioengineered Tissue Yes -Type of Bioengineered Tissue Epifix -Expiration Date 03/31/25 -Product Lot Number [id number] -Percent Used 100 -Saline Lot Number [id number] -Bleeding Controlled with Pressure -Offloading No -Treatment Response Procedure Tolerated Well -Debridement - Subq, 1st 20sq cm No -Apply Skin Sub - 1st 25 sq cm - Legs 1 -Epifix (per sq cm) 4 Pain Scale: 0-10 Numeric Is Patient Pain Free? Yes WC - Nurse 3 - General Ulcer D/C NN Start: 09/02/20 08:28 Freq: Status: Active Protocol: Activity Type Activity Date Activity User E-Sign Co-Sign Detail Recorded Client Recorded Date Recorded By Document 09/02/20 09:08 [facility] [id number] 09/02/20 09:13 [facility] 09/02/20 09:08 Wound Care Nurse 3 #2 RIGHT MEDIAL LE -Primary Dressing Applied Other -Other Dressing epifix per md -Primary Dressing Covered/Secured with Dry Gauze Right -Lotion applied to leg before Yes compression wrap -Multi-Layered Wrap Application Multi-Layer Comp - Right ($ ) Treatment Response Procedure Tolerated Well WC - Visit Discharge Discharge Condition Stable Ambulatory Status Ambulatory Transportation Private Auto Wound debrided: Right lower extremity Type of Debridement: Excisional debridement Anesthesia Used: 4% Lidocaine Solution Depth: Down to and including healthy tissue, in the subcutaneous layer Percentage of wound debrided: 100 Instrument Used: 5mm curette Tissue Removed: Slough and devitalized tissue Severity: Fat Layer Exposed Bleeding Controlled with: Pressure Patient tolerated procedure well Assessment/Plan Assessment: Chronic/recurrent right lower extremity ulcer. Venous insufficiency. Venous leg ulcer. Plan: Debridement done as documented above, procedure was well-tolerated. Improving. 6th application of epifix done today using 100% of product. Adaptic touch over top. Leave in place for a week. 3M wrap for edema management. Leg elevation, avoid idle standing and exercise as tolerated. Increase protein intake as well. His questions were answered and he was advised to call with any further questions or concerns. Follow-up in a week with Sean Kelly NP and in 2 weeks with me. This note was generated with [employer] software. It may contain incorrect words, spelling, and punctuation that were not noted in checking the note before signing. [id number]: [id number] Skin sub graft trnk/arm/leg
[2020-09-09 09:07] VITALS: BP 129/84; PULSE 76; RESP 18; TEMP 36.6; BMI 29.0
[2020-09-09 09:49] VITALS: BP 129/84
--- NOTE | 2020-09-09 11:46 | PCM.WC.PN ---
(1) Venous ulcer of right leg Status: Chronic Code(s): I83.019 - Varicose veins of right lower extremity with ulcer of unspecified site; L97.919 - Non-pressure chronic ulcer of unspecified part of right lower leg with unspecified severity (2) Venous insufficiency of both lower extremities Status: Chronic Code(s): I87.2 - Venous insufficiency (chronic) (peripheral) Type of Wound Date of Service: 09/09/20 Chief Complaint: Nonhealing right lower extremity ulcer. History of Wound: Mr. Ly is a 59 yo Last seen here in August 2019 for right lower extremity ulcer. He had done well post discharge from the wound center until about 2 to 3 months ago when he noted reopening of his ulcer. Denies trauma. Has been using his compression stockings as prescribed. Was seen by his primary care physician and prescribed an ointment which he applied daily with no significant improvement. Denies chills or fever but notes a lot of pain around the site. No known history of diabetes. Feels well otherwise. Progress of Wound: Improving. Has had 7 applications of Epifix so far. No new concerns at this time. - Physical Exam Vital Signs Temp Pulse Resp BP 97.8 F 76 18 129/84 H 09/09/20 09:07 09/09/20 09:07 09/09/20 09:07 09/09/20 09:49 General: Alert, Oriented x3, Cooperative, No apparent distress HEENT: Atraumatic Oral: Moist Mucosa Neck: Supple, No JVD Lungs: Clear to auscultation Cardiovascular: Regular rate Abdomen: Soft, Non Tender Extremities: No clubbing, No cyanosis, Edema - generalized BLLE edema Skin: Ulcer/ Wound - see nursing documentatio, right lower extremity ulcer with slough and devitalized tissue, no signs of infection at this time Wound Measurements and Assessment WC - Nurse 1 - General Ulcer Measurement Start: 09/02/20 08:28 Freq: Status: Active Protocol: Activity Type Activity Date Activity User E-Sign Co-Sign Detail Recorded Client Recorded Date Recorded By Document 09/09/20 09:07 DL [id number] 09/09/20 09:18 DL 09/09/20 09:07 Wound Center Nurse 1 [Ulcer Assessment] #2 RIGHT MEDIAL LE -Current Size (cm) - Length 1.7 -Current Size (cm) - Width 1.2 -Current Size (cm) - Depth 0.1 -Total Square Cm 2.04 -Photo Taken No -Exudate Amt Small -Exudate Type Serosanguineous -Wound Margin Distinct, Outline Attached -Granulation Amt Medium (34-66%) -Granulation Quality Red -Necrosis Amt Medium (34-66%) -Necrotic Tissue Type Adherent Slough -Structure Exposed N/A -Texture (Emely-wound Skin Appearance) Scarring -Moisture (Emely-wound Skin Appearance Dry/Scaly ) -Color (Emely-wound Skin Appearance) Hemosiderin Staining -Temperature (Emely-wound Skin No Abnormality Appearance) (Pt Warm) -Tenderness on Palpation (Emely-wound No Skin Appearance) -Ulcer Cleansing Wound Cleanser -Foul Odor after Cleansing No -Anesthetic Used 4% Lidocaine Solution [Edema Assessment] -Right Calf (cm) 38 -Right Ankle (cm) 24 WC - Nurse 2 - General Ulcer CM Notes Start: 09/02/20 08:28 Freq: Status: Active Protocol: Activity Type Activity Date Activity User E-Sign Co-Sign Detail Recorded Client Recorded Date Recorded By Document 09/09/20 09:31 MW [id number] 09/09/20 09:37 MW 09/09/20 09:31 Wound Center Nurse 2 [Procedure/Treatment] #2 RIGHT MEDIAL LE -Time 09:31 -Correct Patient Yes -Correct Side, Site, Position Yes -Correct Procedure Yes -Procedure Performed Yes -Type of Procedure Debridement -Clinical Debridement Subcutaneous -Tissue Removed Subcutaneous -Post Debridement (cm) - Length 1.5 -Post Debridement (cm) - Width 0.9 -Post Debridement (cm) - Depth 0.2 -Total Square (Post) (cm) 1.35 -Area of Debridement (cm) - Length 1.5 -Area of Debridement (cm) - Width 0.9 -Total Square (Area) (cm) 1.35 -Tunneling No -Undermining/Tunneling No -Circular Undermining No -Wound/Ulcer Outcome Not Healed -Ulcer Cleansing Rinsed/ Irrigated with Saline -Foul Odor after Cleansing No -Bioengineered Tissue Yes -Type of Bioengineered Tissue Epifix -Expiration Date 03/31/25 -Product Lot Number [id number] -Percent Used 100 -Bleeding Controlled with Pressure -Other SALINE LOT # [id number] -Offloading No -Treatment Response Procedure Tolerated Well -Debridement - Subq, 1st 20sq cm No -Apply Skin Sub - 1st 25 sq cm - Legs 1 -Epifix (per sq cm) 4 [See Physician Procedure note for Specifics] Pain Scale: 0-10 Numeric [Pain] -Is Patient Pain Free? Yes - Nurse 3 - General Ulcer D/C NN Start: 09/02/20 08:28 Freq: Status: Active Protocol: Activity Type Activity Date Activity User E-Sign Co-Sign Detail Recorded Client Recorded Date Recorded By Document 09/09/20 09:49 RB [id number] 09/09/20 09:50 RB 09/09/20 09:49 Wound Care Nurse 3 [Wound Dressing] #2 RIGHT MEDIAL LE -Primary Dressing Covered/Secured Dry Gauze with [Compression Applied] Right -Lotion applied to leg before Yes compression wrap -Multi-Layered Wrap Application Multi-Layer Comp - Right ($ ) Vital Signs [Blood Pressure] -Blood Pressure (90/60-120/80) 129/84 H -Blood Pressure Mean (mm Hg) 99 -Source Monitor -Position Semi-Fowlers -Blood Pressure Location Left Arm Pain Scale: 0-10 Numeric [Pain] -Is Patient Pain Free? Yes WC - Visit Discharge [Visit Discharge Information] -Discharge Condition Stable -Ambulatory Status Ambulatory -Transportation Private Auto -Medication Reconcilliation completed No & provided to patient/care provider -Clinical Summary of Care Provided Yes Neurological: Neuro grossly intact Psych/Mental Status: Normal Affect, Appropriate, Alert and oriented to time, place, person, mood and affect Debridement Note Post-Debridement Measurements/Treatment WC - Nurse 2 - General Ulcer CM Notes Start: 09/02/20 08:28 Freq: Status: Active Protocol: Activity Type Activity Date Activity User E-Sign Co-Sign Detail Recorded Client Recorded Date Recorded By Document 09/02/20 08:40 MW [id number] 09/02/20 08:51 MW Document 09/09/20 09:31 MW [id number] 09/09/20 09:37 MW 09/02/20 09/09/20 08:40 09:31 Wound Center Nurse 2 #2 RIGHT MEDIAL LE -Time 08:40 09:31 -Correct Patient Yes Yes -Correct Side, Site, Position Yes Yes -Correct Procedure Yes Yes -Procedure Performed Yes Yes -Type of Procedure Debridement Debridement -Clinical Debridement Subcutaneous Subcutaneous -Tissue Removed Subcutaneous Subcutaneous -Post Debridement (cm) - Length 1.8 1.5 -Post Debridement (cm) - Width 1.0 0.9 -Post Debridement (cm) - Depth 0.2 0.2 -Total Square (Post) (cm) 1.80 1.35 -Area of Debridement (cm) - Length 1.8 1.5 -Area of Debridement (cm) - Width 1.0 0.9 -Total Square (Area) (cm) 1.80 1.35 -Tunneling No No -Undermining/Tunneling No No -Circular Undermining No No -Wound/Ulcer Outcome Not Healed Not Healed -Ulcer Cleansing Rinsed/ Rinsed/ Irrigated with Irrigated with Saline Saline -Foul Odor after Cleansing No No -Bioengineered Tissue Yes Yes -Type of Bioengineered Tissue Epifix Epifix -Expiration Date 03/31/25 03/31/25 -Product Lot Number [id number] -Percent Used 100 100 -Saline Lot Number [id number] -Bleeding Controlled with Pressure Pressure -Other SALINE LOT # [id number] -Offloading No No -Treatment Response Procedure Procedure Tolerated Well Tolerated Well -Debridement - Subq, 1st 20sq cm No No -Apply Skin Sub - 1st 25 sq cm - Legs 1 1 -Epifix (per sq cm) 4 4 Pain Scale: 0-10 Numeric Is Patient Pain Free? Yes Yes WC - Nurse 3 - General Ulcer D/C NN Start: 09/02/20 08:28 Freq: Status: Active Protocol: Activity Type Activity Date Activity User E-Sign Co-Sign Detail Recorded Client Recorded Date Recorded By Document 09/02/20 09:08 [facility] [id number] 09/02/20 09:13 [facility] Document 09/09/20 09:49 RB [id number] 09/09/20 09:50 RB 09/02/20 09/09/20 09:08 09:49 Wound Care Nurse 3 #2 RIGHT MEDIAL LE -Primary Dressing Applied Other -Other Dressing epifix per md -Primary Dressing Covered/Secured with Dry Gauze Dry Gauze Right -Lotion applied to leg before Yes Yes compression wrap -Multi-Layered Wrap Application Multi-Layer Multi-Layer Comp - Right ($ Comp - Right ($ ) ) Treatment Response Procedure Tolerated Well Vital Signs Blood Pressure (90/60-120/80) 129/84 H Blood Pressure Mean (mm Hg) 99 Source Monitor Position Semi-Fowlers Blood Pressure Location Left Arm Pain Scale: 0-10 Numeric Is Patient Pain Free? Yes WC - Visit Discharge Discharge Condition Stable Stable Ambulatory Status Ambulatory Ambulatory Transportation Private Auto Private Auto Medication Reconcilliation completed & No provided to patient/care provider Clinical Summary of Care Provided Yes Wound debrided: Right lower extremity ulcer Laterality: Right Type of Debridement: Excisional debridement Anesthesia Used: 5% Lidocaine Gel Depth: in the subcutaneous layer Percentage of wound debrided: 100 Instrument Used: 5mm curette Tissue Removed: Slough and devitalized tissue Severity: Fat Layer Exposed Amount of bleeding with debridement: Mild Bleeding Controlled with: Pressure Patient tolerated procedure well Assessment/Plan Active Problems Venous ulcer of right leg (Chronic) Venous insufficiency of both lower extremities (Chronic) Assessment: Chronic/recurrent right lower extremity ulcer. Venous insufficiency. Venous leg ulcer. Plan: Debridement done as documented above, procedure was well-tolerated. Improving. 7th application of epifix done today using 100% of product. Adaptic touch over top. Leave in place for a week. 3M wrap for edema management. Leg elevation, avoid idle standing and exercise as tolerated. Increase protein intake as well. His questions were answered and he was advised to call with any further questions or concerns. Follow-up in a week with Dr. Carroll. This note was generated with [employer] software. It may contain incorrect words, spelling, and punctuation that were not noted in checking the note before signing. [id number]: [id number] Skin sub graft trnk/arm/leg
[2020-09-16 08:04] VITALS: BP 127/74; PULSE 68; RESP 18; TEMP 36.9; BMI 29.0
[2020-09-16 08:49] VITALS: BP 128/78
--- NOTE | 2020-09-16 12:24 | PCM.WC.PN ---
(1) Venous insufficiency of both lower extremities Status: Chronic Code(s): I87.2 - Venous insufficiency (chronic) (peripheral) (2) Venous ulcer of right leg Status: Chronic Code(s): I83.019 - Varicose veins of right lower extremity with ulcer of unspecified site; L97.919 - Non-pressure chronic ulcer of unspecified part of right lower leg with unspecified severity Type of Wound Date of Service: 09/16/20 Chief Complaint: Nonhealing right lower extremity ulcer. History of Wound: Mr. Ly is a 59 yo Last seen here in August 2019 for right lower extremity ulcer. He had done well post discharge from the wound center until about 2 to 3 months ago when he noted reopening of his ulcer. Denies trauma. Has been using his compression stockings as prescribed. Was seen by his primary care physician and prescribed an ointment which he applied daily with no significant improvement. Denies chills or fever but notes a lot of pain around the site. No known history of diabetes. Feels well otherwise. Progress of Wound: Stable. Has had 7 applications of Epifix so far. No new concerns at this time. - Physical Exam Vital Signs Temp Pulse Resp BP 98.5 F 68 18 128/78 H 09/16/20 08:04 09/16/20 08:04 09/16/20 08:04 09/16/20 08:49 General: Alert, Oriented x3, Cooperative, No apparent distress HEENT: Atraumatic, Normocephalic Oral: Moist Mucosa Neck: Supple Lungs: Normal air movement Extremities: No cyanosis, Edema Skin: Ulcer/ Wound Wound Measurements and Assessment WC - Nurse 1 - General Ulcer Measurement Start: 09/02/20 08:28 Freq: Status: Active Protocol: Activity Type Activity Date Activity User E-Sign Co-Sign Detail Recorded Client Recorded Date Recorded By Document 09/16/20 08:04 DL [id number] 09/16/20 08:12 DL 09/16/20 08:04 Wound Center Nurse 1 [Ulcer Assessment] #2 RIGHT MEDIAL LE -Current Size (cm) - Length 1.8 -Current Size (cm) - Width 1 -Current Size (cm) - Depth 0.2 -Total Square Cm 1.8 -Photo Taken No -Exudate Amt Small -Exudate Type Serosanguineous -Wound Margin Distinct, Outline Attached -Granulation Amt Medium (34-66%) -Granulation Quality [place] -Necrosis Amt Medium (34-66%) -Necrotic Tissue Type Adherent Slough -Structure Exposed N/A -Texture (Emely-wound Skin Appearance) Scarring,Rash -Moisture (Emely-wound Skin Appearance Weeping ) -Color (Emely-wound Skin Appearance) Hemosiderin Staining -Temperature (Emely-wound Skin No Abnormality Appearance) (Pt Warm) -Tenderness on Palpation (Emely-wound No Skin Appearance) -Ulcer Cleansing Wound Cleanser -Foul Odor after Cleansing No -Anesthetic Used 4% Lidocaine Solution,5% Lidocaine Gel [Edema Assessment] -Right Calf (cm) 38 -Right Ankle (cm) 25 WC - Nurse 2 - General Ulcer CM Notes Start: 09/02/20 08:28 Freq: Status: Active Protocol: Activity Type Activity Date Activity User E-Sign Co-Sign Detail Recorded Client Recorded Date Recorded By Document 09/16/20 08:22 MW [id number] 09/16/20 08:31 MW 09/16/20 08:22 Wound Center Nurse 2 [Procedure/Treatment] #2 RIGHT MEDIAL LE -Time 08:22 -Correct Patient Yes -Correct Side, Site, Position Yes -Correct Procedure Yes -Procedure Performed Yes -Type of Procedure Debridement -Clinical Debridement Subcutaneous -Tissue Removed Subcutaneous -Post Debridement (cm) - Length 1.1 -Post Debridement (cm) - Width 1.0 -Post Debridement (cm) - Depth 0.2 -Total Square (Post) (cm) 1.10 -Area of Debridement (cm) - Length 1.1 -Area of Debridement (cm) - Width 1.0 -Total Square (Area) (cm) 1.10 -Tunneling No -Undermining/Tunneling No -Circular Undermining No -Wound/Ulcer Outcome Not Healed -Ulcer Cleansing Rinsed/ Irrigated with Saline -Foul Odor after Cleansing No -Bioengineered Tissue Yes -Type of Bioengineered Tissue Epifix -Expiration Date 05/01/22 -Product Lot Number [id number] -Percent Used 100 -Bleeding Controlled with Pressure -Other SALINE LOT # [id number] -Offloading No -Treatment Response Procedure Tolerated Well -Debridement - Subq, 1st 20sq cm No -Apply Skin Sub - 1st 25 sq cm - Legs 1 -Epifix (per sq cm) 4 [See Physician Procedure note for Specifics] Pain Scale: 0-10 Numeric [Pain] -Is Patient Pain Free? Yes - Nurse 3 - General Ulcer D/C NN Start: 09/02/20 08:28 Freq: Status: Active Protocol: Activity Type Activity Date Activity User E-Sign Co-Sign Detail Recorded Client Recorded Date Recorded By Document 09/16/20 08:49 RB [id number] 09/16/20 08:50 RB 09/16/20 08:49 Wound Care Nurse 3 [Wound Dressing] #2 RIGHT MEDIAL LE -Other Dressing ABD [Compression Applied] Right -Lotion applied to leg before Yes compression wrap -Multi-Layered Wrap Application Multi-Layer Comp - Right ($ ) Vital Signs [Blood Pressure] -Blood Pressure (90/60-120/80 mm Hg) 128/78 H -Blood Pressure Mean (mm Hg) 94 -Source Monitor -Position Sitting -Blood Pressure Location Left Arm Pain Scale: 0-10 Numeric [Pain] -Is Patient Pain Free? Yes - Visit Discharge [Visit Discharge Information] -Discharge Condition Stable -Ambulatory Status Ambulatory -Transportation Private Auto -Medication Reconcilliation completed No & provided to patient/care provider -Clinical Summary of Care Provided Yes Musculoskeletal: No Muscle Wasting Neurological: Cranial nerves II-XII grossly intact Psych/Mental Status: Normal Affect Debridement Note Post-Debridement Measurements/Treatment - Nurse 2 - General Ulcer CM Notes Start: 09/02/20 08:28 Freq: Status: Active Protocol: Activity Type Activity Date Activity User E-Sign Co-Sign Detail Recorded Client Recorded Date Recorded By Document 09/02/20 08:40 MW [id number] 09/02/20 08:51 MW Document 09/09/20 09:31 MW [id number] 09/09/20 09:37 MW Document 09/16/20 08:22 MW [id number] 09/16/20 08:31 MW 09/02/20 09/09/20 09/16/20 08:40 09:31 08:22 Wound Center Nurse 2 #2 RIGHT MEDIAL LE -Time 08:40 09:31 08:22 -Correct Patient Yes Yes Yes -Correct Side, Site, Position Yes Yes Yes -Correct Procedure Yes Yes Yes -Procedure Performed Yes Yes Yes -Type of Procedure Debridement Debridement Debridement -Clinical Debridement Subcutaneous Subcutaneous Subcutaneous -Tissue Removed Subcutaneous Subcutaneous Subcutaneous -Post Debridement (cm) - Length 1.8 1.5 1.1 -Post Debridement (cm) - Width 1.0 0.9 1.0 -Post Debridement (cm) - Depth 0.2 0.2 0.2 -Total Square (Post) (cm) 1.80 1.35 1.10 -Area of Debridement (cm) - Length 1.8 1.5 1.1 -Area of Debridement (cm) - Width 1.0 0.9 1.0 -Total Square (Area) (cm) 1.80 1.35 1.10 -Tunneling No No No -Undermining/Tunneling No No No -Circular Undermining No No No -Wound/Ulcer Outcome Not Healed Not Healed Not Healed -Ulcer Cleansing Rinsed/ Rinsed/ Rinsed/ Irrigated with Irrigated with Irrigated with Saline Saline Saline -Foul Odor after Cleansing No No No -Bioengineered Tissue Yes Yes Yes -Type of Bioengineered Tissue Epifix Epifix Epifix -Expiration Date 03/31/25 03/31/25 05/01/22 -Product Lot Number [id number] -Percent Used 100 100 100 -Saline Lot Number [id number] -Bleeding Controlled with Pressure Pressure Pressure -Other SALINE LOT # SALINE LOT # [id number] -Offloading No No No -Treatment Response Procedure Procedure Procedure Tolerated Well Tolerated Well Tolerated Well -Debridement - Subq, 1st 20sq cm No No No -Apply Skin Sub - 1st 25 sq cm - Legs 1 1 1 -Epifix (per sq cm) 4 4 4 Pain Scale: 0-10 Numeric Is Patient Pain Free? Yes Yes Yes - Nurse 3 - General Ulcer D/C NN Start: 09/02/20 08:28 Freq: Status: Active Protocol: Activity Type Activity Date Activity User E-Sign Co-Sign Detail Recorded Client Recorded Date Recorded By Document 09/02/20 09:08 [facility] [id number] 09/02/20 09:13 [facility] Document 09/09/20 09:49 RB [id number] 09/09/20 09:50 RB Document 09/16/20 08:49 RB [id number] 09/16/20 08:50 RB 12/03/20 12/10/20 12/17/20 09:08 09:49 08:49 Wound Care Nurse 3 #2 RIGHT MEDIAL LE -Primary Dressing Applied Other -Other Dressing epifix per ABD -Primary Dressing Covered/Secured with Dry Gauze Dry Gauze Right -Lotion applied to leg before Yes Yes Yes compression wrap -Multi-Layered Wrap Application Multi-Layer Multi-Layer Multi-Layer Comp - Right ($ Comp - Right ($ Comp - Right ($ ) ) ) Treatment Response Procedure Tolerated Well Vital Signs Blood Pressure (90/60-120/80 mm Hg) 129/84 H 128/78 H Blood Pressure Mean (mm Hg) 99 94 Source Monitor Monitor Position Semi-Fowlers Sitting Blood Pressure Location Left Arm Left Arm Pain Scale: 0-10 Numeric Is Patient Pain Free? Yes Yes WC - Visit Discharge Discharge Condition Stable Stable Stable Ambulatory Status Ambulatory Ambulatory Ambulatory Transportation Private Auto Private Auto Private Auto Medication Reconcilliation completed & No No provided to patient/care provider Clinical Summary of Care Provided Yes Yes Wound debrided: Right Lower Extremity Type of Debridement: Excisional debridement Anesthesia Used: 4% Lidocaine Solution Depth: Down to and including healthy tissue, in the subcutaneous layer Percentage of wound debrided: 100 Instrument Used: 5mm curette Tissue Removed: Slough and devitalized tissue Severity: Fat Layer Exposed Amount of bleeding with debridement: Mild Bleeding Controlled with: Pressure Patient tolerated procedure well Assessment/Plan Active Problems Venous ulcer of right leg (Chronic) Venous insufficiency of both lower extremities (Chronic) Assessment: Chronic/recurrent right lower extremity ulcer. Venous insufficiency. Venous leg ulcer. Plan: Debridement done as documented above, procedure was well-tolerated. Stable, no significant change in the past week. 8th application of epifix done today using 100% of product. Adaptic touch over top. Leave in place for a week. 3M wrap for edema management. Leg elevation, avoid idle standing and exercise as tolerated. Increase protein intake as well. His questions were answered and he was advised to call with any further questions or concerns. Follow-up in a week. This note was generated with [employer] software. It may contain incorrect words, spelling, and punctuation that were not noted in checking the note before signing. 150xxx-[id number]: [id number] Skin sub graft trnk/arm/leg
[2020-09-23 08:13] VITALS: BP 122/76; PULSE 69; RESP 18; TEMP 36.4; BMI 29.0
[2020-09-23 08:58] VITALS: BP 122/76
--- NOTE | 2020-09-23 09:31 | PCM.WC.PN ---
(1) Venous insufficiency of both lower extremities Status: Chronic Code(s): I87.2 - Venous insufficiency (chronic) (peripheral) (2) Venous ulcer of right leg Status: Chronic Code(s): I83.019 - Varicose veins of right lower extremity with ulcer of unspecified site; L97.919 - Non-pressure chronic ulcer of unspecified part of right lower leg with unspecified severity Type of Wound Date of Service: 09/23/20 Chief Complaint: Nonhealing right lower extremity ulcer. History of Wound: Mr. Ly is a 59 yo Last seen here in August 2019 for right lower extremity ulcer. He had done well post discharge from the wound center until about 2 to 3 months ago when he noted reopening of his ulcer. Denies trauma. Has been using his compression stockings as prescribed. Was seen by his primary care physician and prescribed an ointment which he applied daily with no significant improvement. Denies chills or fever but notes a lot of pain around the site. No known history of diabetes. Feels well otherwise. Progress of Wound: Stable. Has had 8 applications of Epifix so far. No new concerns at this time. - Physical Exam Vital Signs Temp Pulse Resp BP 97.5 F L 69 18 122/76 H 09/23/20 08:13 09/23/20 08:13 09/23/20 08:13 09/23/20 08:58 General: Alert, Oriented x3, Cooperative, No apparent distress HEENT: Atraumatic, Normocephalic Oral: Moist Mucosa Neck: Supple Lungs: Normal air movement Extremities: No cyanosis, Edema Skin: Ulcer/ Wound Wound Measurements and Assessment WC - Nurse 1 - General Ulcer Measurement Start: 09/02/20 08:28 Freq: Status: Active Protocol: Activity Type Activity Date Activity User E-Sign Co-Sign Detail Recorded Client Recorded Date Recorded By Document 09/23/20 08:13 DL [id number] 09/23/20 08:18 DL 09/23/20 08:13 Wound Center Nurse 1 [Ulcer Assessment] #2 RIGHT MEDIAL LE -Current Size (cm) - Length 1.4 -Current Size (cm) - Width 1 -Current Size (cm) - Depth 0.3 -Total Square Cm 1.4 -Photo Taken No -Exudate Amt Small -Exudate Type Serosanguineous -Wound Margin Distinct, Outline Attached -Granulation Amt Large (67-100%) -Granulation Quality [place],Red -Necrosis Amt Small (1-33%) -Necrotic Tissue Type Adherent Slough -Structure Exposed N/A -Texture (Emely-wound Skin Appearance) Excoriation, Scarring -Moisture (Emely-wound Skin Appearance Dry/Scaly ) -Color (Emely-wound Skin Appearance) Rubor -Temperature (Emely-wound Skin No Abnormality Appearance) (Pt Warm) -Tenderness on Palpation (Emely-wound No Skin Appearance) -Ulcer Cleansing Wound Cleanser -Foul Odor after Cleansing No -Anesthetic Used 4% Lidocaine Solution [Edema Assessment] -Right Calf (cm) 38.5 -Right Ankle (cm) 26 WC - Nurse 2 - General Ulcer CM Notes Start: 09/02/20 08:28 Freq: Status: Active Protocol: Activity Type Activity Date Activity User E-Sign Co-Sign Detail Recorded Client Recorded Date Recorded By Document 09/23/20 08:30 MW [id number] 09/23/20 08:40 MW 09/23/20 08:30 Wound Center Nurse 2 [Procedure/Treatment] #2 RIGHT MEDIAL LE -Time 08:31 -Correct Patient Yes -Correct Side, Site, Position Yes -Correct Procedure Yes -Procedure Performed Yes -Type of Procedure Debridement -Clinical Debridement Subcutaneous -Tissue Removed Subcutaneous -Post Debridement (cm) - Length 1.5 -Post Debridement (cm) - Width 0.7 -Post Debridement (cm) - Depth 0.2 -Total Square (Post) (cm) 1.05 -Area of Debridement (cm) - Length 1.5 -Area of Debridement (cm) - Width 0.7 -Total Square (Area) (cm) 1.05 -Tunneling No -Undermining/Tunneling No -Circular Undermining No -Wound/Ulcer Outcome Not Healed -Ulcer Cleansing Rinsed/ Irrigated with Saline -Foul Odor after Cleansing No -Bioengineered Tissue Yes -Type of Bioengineered Tissue Epifix -Expiration Date 05/01/25 -Product Lot Number [id number] -Percent Used 100 -Lot number of Saline Used [id number] -Bleeding Controlled with Pressure -Offloading No -Treatment Response Procedure Tolerated Well -Debridement - Subq, 1st 20sq cm No -Epifix (per sq cm) 4 [See Physician Procedure note for Specifics] Pain Scale: 0-10 Numeric [Pain] -Is Patient Pain Free? Yes - Nurse 3 - General Ulcer D/C NN Start: 09/02/20 08:28 Freq: Status: Active Protocol: Activity Type Activity Date Activity User E-Sign Co-Sign Detail Recorded Client Recorded Date Recorded By Document 09/23/20 08:58 RB [id number] 09/23/20 08:59 RB 09/23/20 08:58 Wound Care Nurse 3 [Wound Dressing] #2 RIGHT MEDIAL LE -Other Dressing ABD -Primary Dressing Covered/Secured Dry Gauze with [Compression Applied] Right -Lotion applied to leg before Yes compression wrap -Multi-Layered Wrap Application Multi-Layer Comp - Right ($ ) Vital Signs [Blood Pressure] -Blood Pressure (90/60-120/80 mm Hg) 122/76 H -Blood Pressure Mean (mm Hg) 91 -Source Monitor -Position Semi-Fowlers -Blood Pressure Location Left Arm Pain Scale: 0-10 Numeric [Pain] -Is Patient Pain Free? Yes - Visit Discharge [Visit Discharge Information] -Discharge Condition Stable -Ambulatory Status Ambulatory -Transportation Private Auto -Medication Reconcilliation completed No & provided to patient/care provider -Clinical Summary of Care Provided Yes Musculoskeletal: No Muscle Wasting Neurological: Cranial nerves II-XII grossly intact Psych/Mental Status: Normal Affect Debridement Note Post-Debridement Measurements/Treatment - Nurse 2 - General Ulcer CM Notes Start: 09/02/20 08:28 Freq: Status: Active Protocol: Activity Type Activity Date Activity User E-Sign Co-Sign Detail Recorded Client Recorded Date Recorded By Document 09/02/20 08:40 MW [id number] 09/02/20 08:51 MW Document 09/09/20 09:31 MW [id number] 09/09/20 09:37 MW Document 09/16/20 08:22 MW [id number] 09/16/20 08:31 MW Document 09/23/20 08:30 MW [id number] 09/23/20 08:40 MW 09/02/20 09/09/20 09/16/20 08:40 09:31 08:22 Wound Center Nurse 2 #2 RIGHT MEDIAL LE -Time 08:40 09:31 08:22 -Correct Patient Yes Yes Yes -Correct Side, Site, Position Yes Yes Yes -Correct Procedure Yes Yes Yes -Procedure Performed Yes Yes Yes -Type of Procedure Debridement Debridement Debridement -Clinical Debridement Subcutaneous Subcutaneous Subcutaneous -Tissue Removed Subcutaneous Subcutaneous Subcutaneous -Post Debridement (cm) - Length 1.8 1.5 1.1 -Post Debridement (cm) - Width 1.0 0.9 1.0 -Post Debridement (cm) - Depth 0.2 0.2 0.2 -Total Square (Post) (cm) 1.80 1.35 1.10 -Area of Debridement (cm) - Length 1.8 1.5 1.1 -Area of Debridement (cm) - Width 1.0 0.9 1.0 -Total Square (Area) (cm) 1.80 1.35 1.10 -Tunneling No No No -Undermining/Tunneling No No No -Circular Undermining No No No -Wound/Ulcer Outcome Not Healed Not Healed Not Healed -Ulcer Cleansing Rinsed/ Rinsed/ Rinsed/ Irrigated with Irrigated with Irrigated with Saline Saline Saline -Foul Odor after Cleansing No No No -Bioengineered Tissue Yes Yes Yes -Type of Bioengineered Tissue Epifix Epifix Epifix -Expiration Date 03/31/25 03/31/25 05/01/22 -Product Lot Number [id number] -Percent Used 100 100 100 -Saline Lot Number [id number] -Lot number of Saline Used -Bleeding Controlled with Pressure Pressure Pressure -Other SALINE LOT # SALINE LOT # [id number] -Offloading No No No -Treatment Response Procedure Procedure Procedure Tolerated Well Tolerated Well Tolerated Well -Debridement - Subq, 1st 20sq cm No No No -Apply Skin Sub - 1st 25 sq cm - Legs 1 1 1 -Epifix (per sq cm) 4 4 4 Pain Scale: 0-10 Numeric Is Patient Pain Free? Yes Yes Yes 09/23/20 08:30 Wound Center Nurse 2 #2 RIGHT MEDIAL LE -Time 08:31 -Correct Patient Yes -Correct Side, Site, Position Yes -Correct Procedure Yes -Procedure Performed Yes -Type of Procedure Debridement -Clinical Debridement Subcutaneous -Tissue Removed Subcutaneous -Post Debridement (cm) - Length 1.5 -Post Debridement (cm) - Width 0.7 -Post Debridement (cm) - Depth 0.2 -Total Square (Post) (cm) 1.05 -Area of Debridement (cm) - Length 1.5 -Area of Debridement (cm) - Width 0.7 -Total Square (Area) (cm) 1.05 -Tunneling No -Undermining/Tunneling No -Circular Undermining No -Wound/Ulcer Outcome Not Healed -Ulcer Cleansing Rinsed/ Irrigated with Saline -Foul Odor after Cleansing No -Bioengineered Tissue Yes -Type of Bioengineered Tissue Epifix -Expiration Date 05/01/25 -Product Lot Number [id number] -Percent Used 100 -Saline Lot Number -Lot number of Saline Used [id number] -Bleeding Controlled with Pressure -Other -Offloading No -Treatment Response Procedure Tolerated Well -Debridement - Subq, 1st 20sq cm No -Apply Skin Sub - 1st 25 sq cm - Legs -Epifix (per sq cm) 4 Pain Scale: 0-10 Numeric Is Patient Pain Free? Yes - Nurse 3 - General Ulcer D/C NN Start: 09/02/20 08:28 Freq: Status: Active Protocol: Activity Type Activity Date Activity User E-Sign Co-Sign Detail Recorded Client Recorded Date Recorded By Document 09/02/20 09:08 [facility] [id number] 09/02/20 09:13 [facility] Document 09/09/20 09:49 RB [id number] 09/09/20 09:50 RB Document 09/16/20 08:49 RB [id number] 09/16/20 08:50 RB Document 09/23/20 08:58 RB [id number] 09/23/20 08:59 RB 09/02/20 09/09/20 09/16/20 09:08 09:49 08:49 Wound Care Nurse 3 #2 RIGHT MEDIAL LE -Primary Dressing Applied Other -Other Dressing epifix per ABD -Primary Dressing Covered/Secured with Dry Gauze Dry Gauze Right -Lotion applied to leg before Yes Yes Yes compression wrap -Multi-Layered Wrap Application Multi-Layer Multi-Layer Multi-Layer Comp - Right ($ Comp - Right ($ Comp - Right ($ ) ) ) Treatment Response Procedure Tolerated Well Vital Signs Blood Pressure (90/60-120/80 mm Hg) 129/84 H 128/78 H Blood Pressure Mean (mm Hg) 99 94 Source Monitor Monitor Position Semi-Fowlers Sitting Blood Pressure Location Left Arm Left Arm Pain Scale: 0-10 Numeric Is Patient Pain Free? Yes Yes WC - Visit Discharge Discharge Condition Stable Stable Stable Ambulatory Status Ambulatory Ambulatory Ambulatory Transportation Private Auto Private Auto Private Auto Medication Reconcilliation completed & No No provided to patient/care provider Clinical Summary of Care Provided Yes Yes 09/23/20 08:58 Wound Care Nurse 3 #2 RIGHT MEDIAL LE -Primary Dressing Applied -Other Dressing ABD -Primary Dressing Covered/Secured with Dry Gauze Right -Lotion applied to leg before Yes compression wrap -Multi-Layered Wrap Application Multi-Layer Comp - Right ($ ) Treatment Response Vital Signs Blood Pressure (90/60-120/80 mm Hg) 122/76 H Blood Pressure Mean (mm Hg) 91 Source Monitor Position Semi-Fowlers Blood Pressure Location Left Arm Pain Scale: 0-10 Numeric Is Patient Pain Free? Yes WC - Visit Discharge Discharge Condition Stable Ambulatory Status Ambulatory Transportation Private Auto Medication Reconcilliation completed & No provided to patient/care provider Clinical Summary of Care Provided Yes Wound debrided: Right Lower extremity Type of Debridement: Excisional debridement Anesthesia Used: 4% Lidocaine Solution Depth: Down to and including healthy tissue, in the subcutaneous layer Percentage of wound debrided: 100 Instrument Used: 3mm curette Tissue Removed: Slough and devitalized tissue Severity: Fat Layer Exposed Amount of bleeding with debridement: Mild Bleeding Controlled with: Pressure Patient tolerated procedure well Assessment/Plan Active Problems Venous ulcer of right leg (Chronic) Venous insufficiency of both lower extremities (Chronic) Assessment: Chronic/recurrent right lower extremity ulcer. Venous insufficiency. Venous leg ulcer. Plan: Debridement done as documented above, procedure was well-tolerated. Some improvement. 9th application of epifix done today using 100% of product. Adaptic touch over top. 3M wrap for edema management. Leg elevation, avoid idle standing and exercise as tolerated. Increase protein intake as well. His questions were answered and he was advised to call with any further questions or concerns. Leave epifix in place for 10 days. Cut off 3M wrap in a week. May apply Promogran if dressing comes off. Follow-up in 2 weeks per patient request. This note was generated with [employer] dictation software. It may contain incorrect words, spelling, and punctuation that were not noted in checking the note before signing. [id number]: [id number] Skin sub graft trnk/arm/leg
== END 2020-09-30 23:59 ==
LOC: WC 08:00
PROVIDERS: PCP Nurse Practitioner Family; Visit Provider Internal Medicine
DX: I87.2 Venous insufficiency (chronic) (peripheral) (principal); I83.018 Varicose veins of right lower extremity with ulcer other part of lower leg; Z79.899 Other long term (current) drug therapy; L97.812 Non-pressure chronic ulcer of other part of right lower leg with fat layer exposed; R60.9 Edema, unspecified; M79.604 Pain in right leg
CPT/HCPCS: 15271; 29581; Q4186

== ENCOUNTER 2020-10-28 08:30 | Outpatient (RCR) | payer MEDICAID, SELFPAY ==
[2020-10-01 00:31] VITALS: BP 122/76; PULSE 69; RESP 18; TEMP 36.4
[2020-10-07 09:06] VITALS: BP 129/79; PULSE 59; RESP 18; TEMP 37; BMI 29.0
--- NOTE | 2020-10-07 09:46 | PCM.WC.PN ---
(1) Venous insufficiency of both lower extremities Status: Chronic Code(s): I87.2 - Venous insufficiency (chronic) (peripheral) (2) Venous ulcer of right leg Status: Chronic Code(s): I83.019 - Varicose veins of right lower extremity with ulcer of unspecified site; L97.919 - Non-pressure chronic ulcer of unspecified part of right lower leg with unspecified severity Type of Wound Date of Service: 10/07/20 Chief Complaint: Nonhealing right lower extremity ulcer. History of Wound: Mr. Ly is a 59 yo Last seen here in August 2019 for right lower extremity ulcer. He had done well post discharge from the wound center until about 2 to 3 months ago when he noted reopening of his ulcer. Denies trauma. Has been using his compression stockings as prescribed. Was seen by his primary care physician and prescribed an ointment which he applied daily with no significant improvement. Denies chills or fever but notes a lot of pain around the site. No known history of diabetes. Feels well otherwise. Progress of Wound: Stable. Has had 9 applications of Epifix so far. No new concerns at this time. - Physical Exam Vital Signs Temp Pulse Resp BP 98.6 F 59 L 18 129/79 H 10/07/20 09:06 10/07/20 09:06 10/07/20 09:06 10/07/20 09:06 General: Alert, Oriented x3, Cooperative, No apparent distress HEENT: Atraumatic, Normocephalic Extremities: No cyanosis, Edema Skin: Ulcer/ Wound Wound Measurements and Assessment WC - Nurse 1 - General Ulcer Measurement Start: 10/07/20 09:06 Freq: Status: Active Protocol: Activity Type Activity Date Activity User E-Sign Co-Sign Detail Recorded Client Recorded Date Recorded By Document 10/07/20 09:06 DL [id number] 10/07/20 09:13 DL 10/07/20 09:06 Wound Center Nurse 1 [Ulcer Assessment] #2 RIGHT MEDIAL LE -Current Size (cm) - Length 0.6 -Current Size (cm) - Width 0.5 -Current Size (cm) - Depth 0.1 -Total Square Cm 0.30 -Photo Taken No -Exudate Amt None Present -Wound Margin Thickened -Granulation Amt Medium (34-66%) -Granulation Quality [place] -Necrosis Amt Small (1-33%) -Necrotic Tissue Type Adherent Slough -Structure Exposed N/A -Texture (Emely-wound Skin Appearance) Scarring -Moisture (Emely-wound Skin Appearance No Abnormality ) -Color (Emely-wound Skin Appearance) Hemosiderin Staining -Temperature (Emely-wound Skin No Abnormality Appearance) (Pt Warm) -Tenderness on Palpation (Emely-wound No Skin Appearance) -Ulcer Cleansing Wound Cleanser -Foul Odor after Cleansing No -Anesthetic Used 4% Lidocaine Solution [Edema Assessment] -Right Calf (cm) 38 -Right Ankle (cm) 24.8 WC - Nurse 2 - General Ulcer CM Notes Start: 10/07/20 09:06 Freq: Status: Active Protocol: Activity Type Activity Date Activity User E-Sign Co-Sign Detail Recorded Client Recorded Date Recorded By Document 10/07/20 09:25 MW [id number] 10/07/20 09:26 MW 10/07/20 09:25 Wound Center Nurse 2 [Procedure/Treatment] #2 RIGHT MEDIAL LE -Time 09:25 -Correct Patient Yes -Correct Side, Site, Position Yes -Correct Procedure Yes -Procedure Performed Yes -Type of Procedure Debridement -Clinical Debridement Subcutaneous -Tissue Removed Subcutaneous -Post Debridement (cm) - Length 1.0 -Post Debridement (cm) - Width 0.4 -Post Debridement (cm) - Depth 0.1 -Total Square (Post) (cm) 0.40 -Area of Debridement (cm) - Length 1.0 -Area of Debridement (cm) - Width 0.4 -Total Square (Area) (cm) 0.40 -Tunneling No -Undermining/Tunneling No -Circular Undermining No -Wound/Ulcer Outcome Not Healed -Ulcer Cleansing Rinsed/ Irrigated with Saline -Foul Odor after Cleansing No -Bioengineered Tissue Yes -Type of Bioengineered Tissue Epifix 18mm Disc -Bleeding Controlled with Pressure -Offloading No -Treatment Response Procedure Tolerated Well -Debridement - Subq, 1st 20sq cm No -Apply Skin Sub - 1st 25 sq cm - Legs 1 -Epifix 18mm Disc 3 Query Text:18mm = 3 [See Physician Procedure note for Specifics] Pain Scale: 0-10 Numeric [Pain] -Is Patient Pain Free? Yes - Nurse 3 - General Ulcer D/C NN Start: 10/07/20 09:06 Freq: Status: Active Protocol: Activity Type Activity Date Activity User E-Sign Co-Sign Detail Recorded Client Recorded Date Recorded By Document 10/07/20 09:30 BM [id number] 10/07/20 09:31 BM 10/07/20 09:30 Wound Care Nurse 3 [Wound Dressing] #2 RIGHT MEDIAL LE -Primary Dressing Applied Other -Other Dressing epifix per dr crabtree -Primary Dressing Covered/Secured Dry Gauze & with Roll Gauze, Secured with Tape [Compression Applied] Left -Multi-Layered Wrap Application Multi-Layer Comp - Left ($) [Post Procedure Tolerated] -Treatment Response Procedure Tolerated Well Pain Scale: 0-10 Numeric [Pain] -Is Patient Pain Free? Yes WC - Visit Discharge [Visit Discharge Information] -Discharge Condition Stable -Ambulatory Status Ambulatory -Transportation Private Auto Musculoskeletal: No Muscle Wasting Debridement Note Post-Debridement Measurements/Treatment WC - Nurse 2 - General Ulcer CM Notes Start: 10/07/20 09:06 Freq: Status: Active Protocol: Activity Type Activity Date Activity User E-Sign Co-Sign Detail Recorded Client Recorded Date Recorded By Document 10/07/20 09:25 MW [id number] 10/07/20 09:26 MW 10/07/20 09:25 Wound Center Nurse 2 #2 RIGHT MEDIAL LE -Time 09:25 -Correct Patient Yes -Correct Side, Site, Position Yes -Correct Procedure Yes -Procedure Performed Yes -Type of Procedure Debridement -Clinical Debridement Subcutaneous -Tissue Removed Subcutaneous -Post Debridement (cm) - Length 1.0 -Post Debridement (cm) - Width 0.4 -Post Debridement (cm) - Depth 0.1 -Total Square (Post) (cm) 0.40 -Area of Debridement (cm) - Length 1.0 -Area of Debridement (cm) - Width 0.4 -Total Square (Area) (cm) 0.40 -Tunneling No -Undermining/Tunneling No -Circular Undermining No -Wound/Ulcer Outcome Not Healed -Ulcer Cleansing Rinsed/ Irrigated with Saline -Foul Odor after Cleansing No -Bioengineered Tissue Yes -Type of Bioengineered Tissue Epifix 18mm Disc -Bleeding Controlled with Pressure -Offloading No -Treatment Response Procedure Tolerated Well -Debridement - Subq, 1st 20sq cm No -Apply Skin Sub - 1st 25 sq cm - Legs 1 -Epifix 18mm Disc 3 Query Text:18mm = 3 Pain Scale: 0-10 Numeric Is Patient Pain Free? Yes WC - Nurse 3 - General Ulcer D/C NN Start: 10/07/20 09:06 Freq: Status: Active Protocol: Activity Type Activity Date Activity User E-Sign Co-Sign Detail Recorded Client Recorded Date Recorded By Document 10/07/20 09:30 [facility] [id number] 10/07/20 09:31 [facility] 10/07/20 09:30 Wound Care Nurse 3 #2 RIGHT MEDIAL LE -Primary Dressing Applied Other -Other Dressing epifix per dr crabrtee -Primary Dressing Covered/Secured with Dry Gauze & Roll Gauze, Secured with Tape Left -Multi-Layered Wrap Application Multi-Layer Comp - Left ($) Treatment Response Procedure Tolerated Well Pain Scale: 0-10 Numeric Is Patient Pain Free? Yes WC - Visit Discharge Discharge Condition Stable Ambulatory Status Ambulatory Transportation Private Auto Wound debrided: Right Leg Type of Debridement: Excisional debridement Anesthesia Used: 4% Lidocaine Solution Depth: Down to and including healthy tissue, in the subcutaneous layer Percentage of wound debrided: 100 Instrument Used: 3mm curette Tissue Removed: Slough and devitalized tissue Amount of bleeding with debridement: Mild Bleeding Controlled with: Pressure Patient tolerated procedure well Assessment/Plan Assessment: Chronic/recurrent right lower extremity ulcer. Venous insufficiency. Venous leg ulcer. Plan: Debridement done as documented above, procedure was well-tolerated. Some improvement. 10th application of epifix done today using 100% of product. Adaptic touch over top. 3M wrap for edema management. Leg elevation, avoid idle standing and exercise as tolerated. Increase protein intake as well. His questions were answered and he was advised to call with any further questions or concerns. Leave the Epifix in place for 2 weeks. Follow-up in 1 week for nurse visit/3M change. This note was generated with [facility] dictation software. It may contain incorrect words, spelling, and punctuation that were not noted in checking the note before signing. [id number]: [id number] Skin sub graft trnk/arm/leg
[2020-10-15 12:27] VITALS: TEMP 36.4; BMI 29.0
[2020-10-21 08:39] VITALS: BP 132/78; PULSE 69; RESP 18; TEMP 36.9; BMI 29.0
--- NOTE | 2020-10-21 10:11 | PCM.WC.PN ---
(1) Venous insufficiency of both lower extremities Status: Chronic Code(s): I87.2 - Venous insufficiency (chronic) (peripheral) (2) Venous ulcer of right leg Status: Chronic Code(s): I83.019 - Varicose veins of right lower extremity with ulcer of unspecified site; L97.919 - Non-pressure chronic ulcer of unspecified part of right lower leg with unspecified severity Type of Wound Date of Service: 10/21/20 Chief Complaint: Nonhealing right lower extremity ulcer. History of Wound: Mr. Ly is a 59 yo Last seen here in August 2019 for right lower extremity ulcer. He had done well post discharge from the wound center until about 2 to 3 months ago when he noted reopening of his ulcer. Denies trauma. Has been using his compression stockings as prescribed. Was seen by his primary care physician and prescribed an ointment which he applied daily with no significant improvement. Denies chills or fever but notes a lot of pain around the site. No known history of diabetes. Feels well otherwise. Progress of Wound: Stable. Has had 10 applications of Epifix so far. Improving. - Physical Exam Vital Signs Temp Pulse Resp BP 98.5 F 69 18 132/78 H 10/21/20 08:39 10/21/20 08:39 10/21/20 08:39 10/21/20 08:39 General: Alert, Oriented x3, Cooperative, No apparent distress HEENT: Atraumatic, Normocephalic Oral: Moist Mucosa Neck: Supple Lungs: Normal air movement Extremities: No cyanosis, Edema Skin: Ulcer/ Wound Wound Measurements and Assessment WC - Nurse 1 - General Ulcer Measurement Start: 10/07/20 09:06 Freq: Status: Active Protocol: Activity Type Activity Date Activity User E-Sign Co-Sign Detail Recorded Client Recorded Date Recorded By Document 10/21/20 08:39 DL [id number] 10/21/20 08:46 DL 10/21/20 08:39 Wound Center Nurse 1 [Ulcer Assessment] #2 RIGHT MEDIAL LE -Current Size (cm) - Length 1.5 -Current Size (cm) - Width 0.6 -Current Size (cm) - Depth 0.1 -Total Square Cm 0.90 -Photo Taken No -Exudate Amt Small -Exudate Type Serosanguineous -Wound Margin Distinct, Outline Attached -Granulation Amt Small (1-33%) -Granulation Quality [place] -Necrosis Amt Small (1-33%) -Necrotic Tissue Type Adherent Slough -Structure Exposed N/A -Texture (Emely-wound Skin Appearance) Scarring -Moisture (Emely-wound Skin Appearance Dry/Scaly ) -Color (Emely-wound Skin Appearance) Hemosiderin Staining -Temperature (Emely-wound Skin No Abnormality Appearance) (Pt Warm) -Tenderness on Palpation (Emely-wound No Skin Appearance) -Ulcer Cleansing Wound Cleanser -Foul Odor after Cleansing No -Anesthetic Used 4% Lidocaine Solution [Edema Assessment] -Right Calf (cm) 37.5 -Right Ankle (cm) 25 WC - Nurse 2 - General Ulcer CM Notes Start: 10/07/20 09:06 Freq: Status: Active Protocol: Activity Type Activity Date Activity User E-Sign Co-Sign Detail Recorded Client Recorded Date Recorded By Document 10/21/20 09:18 MW [id number] 10/21/20 09:20 MW 10/21/20 09:18 Wound Center Nurse 2 [Procedure/Treatment] #2 RIGHT MEDIAL LE -Time 09:19 -Correct Patient Yes -Correct Side, Site, Position Yes -Correct Procedure Yes -Procedure Performed Yes -Type of Procedure Debridement -Clinical Debridement Subcutaneous -Tissue Removed Subcutaneous -Post Debridement (cm) - Length 0.6 -Post Debridement (cm) - Width 0.5 -Post Debridement (cm) - Depth 0.1 -Total Square (Post) (cm) 0.30 -Area of Debridement (cm) - Length 0.6 -Area of Debridement (cm) - Width 0.5 -Total Square (Area) (cm) 0.30 -Tunneling No -Undermining/Tunneling No -Circular Undermining No -Wound/Ulcer Outcome Not Healed -Ulcer Cleansing Rinsed/ Irrigated with Saline -Foul Odor after Cleansing No -Bioengineered Tissue No -Bleeding Controlled with Pressure -Offloading No -Treatment Response Procedure Tolerated Well -Debridement - Subq, 1st 20sq cm Yes [See Physician Procedure note for Specifics] Pain Scale: 0-10 Numeric [Pain] -Is Patient Pain Free? Yes HUNTER - Nurse 3 - General Ulcer D/C NN Start: 10/07/20 09:06 Freq: Status: Active Protocol: Activity Type Activity Date Activity User E-Sign Co-Sign Detail Recorded Client Recorded Date Recorded By Document 10/21/20 09:33 PL [id number] 10/21/20 09:34 PL 10/21/20 09:33 Wound Care Nurse 3 [Wound Dressing] #2 RIGHT MEDIAL LE -Ulcer Cleansing Rinsed/ Irrigated with Saline -Foul Odor after Cleansing No -Primary Dressing Applied Promogran Princess Matter -Primary Dressing Covered/Secured Dry Gauze with -Promogran Princess Matter 1 [Compression Applied] Right -Multi-Layered Wrap Application Multi-Layer Comp - Right ($ ) Pain Scale: 0-10 Numeric [Pain] -Is Patient Pain Free? Yes Musculoskeletal: No Muscle Wasting Neurological: Cranial nerves II-XII grossly intact Psych/Mental Status: Normal Affect Debridement Note Post-Debridement Measurements/Treatment WC - Nurse 2 - General Ulcer CM Notes Start: 10/07/20 09:06 Freq: Status: Active Protocol: Activity Type Activity Date Activity User E-Sign Co-Sign Detail Recorded Client Recorded Date Recorded By Document 10/07/20 09:25 MW [id number] 10/07/20 09:26 MW Document 10/21/20 09:18 MW [id number] 10/21/20 09:20 MW 10/07/20 10/21/20 09:25 09:18 Wound Center Nurse 2 #2 RIGHT MEDIAL LE -Time 09:25 09:19 -Correct Patient Yes Yes -Correct Side, Site, Position Yes Yes -Correct Procedure Yes Yes -Procedure Performed Yes Yes -Type of Procedure Debridement Debridement -Clinical Debridement Subcutaneous Subcutaneous -Tissue Removed Subcutaneous Subcutaneous -Post Debridement (cm) - Length 1.0 0.6 -Post Debridement (cm) - Width 0.4 0.5 -Post Debridement (cm) - Depth 0.1 0.1 -Total Square (Post) (cm) 0.40 0.30 -Area of Debridement (cm) - Length 1.0 0.6 -Area of Debridement (cm) - Width 0.4 0.5 -Total Square (Area) (cm) 0.40 0.30 -Tunneling No No -Undermining/Tunneling No No -Circular Undermining No No -Wound/Ulcer Outcome Not Healed Not Healed -Ulcer Cleansing Rinsed/ Rinsed/ Irrigated with Irrigated with Saline Saline -Foul Odor after Cleansing No No -Bioengineered Tissue Yes No -Type of Bioengineered Tissue Epifix 18mm Disc -Expiration Date 06/01/25 -Product Lot Number [id number] -Percent Used 100 -Lot number of Saline Used [id number] -Bleeding Controlled with Pressure Pressure -Offloading No No -Treatment Response Procedure Procedure Tolerated Well Tolerated Well -Debridement - Subq, 1st 20sq cm No Yes -Apply Skin Sub - 1st 25 sq cm - Legs 1 -Epifix 18mm Disc 3 Pain Scale: 0-10 Numeric Is Patient Pain Free? Yes Yes - Nurse 3 - General Ulcer D/C NN Start: 10/07/20 09:06 Freq: Status: Active Protocol: Activity Type Activity Date Activity User E-Sign Co-Sign Detail Recorded Client Recorded Date Recorded By Document 10/07/20 09:30 BM [id number] 10/07/20 09:31 BMF Document 10/15/20 14:00 PL [id number] 10/20/20 15:02 PL Document 10/21/20 09:33 PL [id number] 10/21/20 09:34 PL 10/07/20 10/15/20 10/21/20 09:30 14:00 09:33 Wound Care Nurse 3 #2 RIGHT MEDIAL LE -Ulcer Cleansing Rinsed/ Irrigated with Saline -Foul Odor after Cleansing No -Primary Dressing Applied Other Promogran Princess Matter -Other Dressing epifix per dr crabtree -Primary Dressing Covered/Secured with Dry Gauze & Dry Gauze Roll Gauze, Secured with Tape -Promogran Princess Matter 1 Right -Multi-Layered Wrap Application Multi-Layer Multi-Layer Comp - Right ($ Comp - Right ($ ) ) Left -Multi-Layered Wrap Application Multi-Layer Comp - Left ($) Treatment Response Procedure Tolerated Well Pain Scale: 0-10 Numeric Is Patient Pain Free? Yes Yes - Visit Discharge Discharge Condition Stable Ambulatory Status Ambulatory Transportation Private Auto Wound debrided: Right lower extremity Type of Debridement: Excisional debridement Anesthesia Used: 4% Lidocaine Solution Depth: Down to and including healthy tissue, in the subcutaneous layer Percentage of wound debrided: 100 Instrument Used: 3mm curette Tissue Removed: Slough and devitalized tissue Severity: Fat Layer Exposed Amount of bleeding with debridement: Mild Bleeding Controlled with: Pressure Patient tolerated procedure well Assessment/Plan Active Problems Venous ulcer of right leg (Chronic) Venous insufficiency of both lower extremities (Chronic) Assessment: Chronic/recurrent right lower extremity ulcer. Venous insufficiency. Venous leg ulcer. Plan: Debridement done as documented above, procedure was well-tolerated. Some improvement. Completed 10 applications of epifix. For now, switch to Promogran with Adaptic over top. 3M wrap for edema management. Leg elevation, avoid idle standing and exercise as tolerated. Increase protein intake as well. New applications for epifix done. If no significant improvement by next week, patient will require more applications for complete wound healing. His questions were answered and he was advised to call with any further questions or concerns. Follow-up in a week. This note was generated with [employer] dictation software. It may contain incorrect words, spelling, and punctuation that were not noted in checking the note before signing. [id number]: [id number] [place] subq tissue 20 sq cm/<
[2020-10-28 08:32] VITALS: BP 135/83; PULSE 82; RESP 18; TEMP 35.9; BMI 29.0
--- NOTE | 2020-10-28 09:58 | PN.PCM_ITS ---
(1) Venous insufficiency of both lower extremities Status: Chronic Code(s): I87.2 - Venous insufficiency (chronic) (peripheral) (2) Venous ulcer of right leg Status: Chronic Code(s): I83.019 - Varicose veins of right lower extremity with ulcer of unspecified site; L97.919 - Non-pressure chronic ulcer of unspecified part of right lower leg with unspecified severity Type of Wound Date of Service: 10/28/20 Chief Complaint: Nonhealing right lower extremity ulcer. History of Wound: Mr. Ly is a 59 yo Last seen here in August 2019 for right lower extremity ulcer. He had done well post discharge from the wound center until about 2 to 3 months ago when he noted reopening of his ulcer. Denies trauma. Has been using his compression stockings as prescribed. Was seen by his primary care physician and prescribed an ointment which he applied daily with no significant improvement. Denies chills or fever but notes a lot of pain around the site. No known history of diabetes. Feels well otherwise. Progress of Wound: Stable. Has had 10 applications of Epifix so far. No new concerns at this time. - Physical Exam Vital Signs Temp Pulse Resp BP 96.7 F L 82 18 135/83 H 10/28/20 08:32 10/28/20 08:32 10/28/20 08:32 10/28/20 08:32 General: Alert, Oriented x3, Cooperative, No apparent distress HEENT: Atraumatic, Normocephalic Oral: Moist Mucosa Neck: Supple Lungs: Normal air movement Extremities: No cyanosis, Edema Skin: Ulcer/ Wound Wound Measurements and Assessment WC - Nurse 1 - General Ulcer Measurement Start: 10/07/20 09:06 Freq: Status: Active Protocol: Activity Type Activity Date Activity User E-Sign Co-Sign Detail Recorded Client Recorded Date Recorded By Document 10/28/20 08:32 DL [id number] 10/28/20 08:37 DL 10/28/20 08:32 Wound Center Nurse 1 [Ulcer Assessment] #2 RIGHT MEDIAL LE -Current Size (cm) - Length 0.5 -Current Size (cm) - Width 0.4 -Current Size (cm) - Depth 0.1 -Total Square Cm 0.20 -Photo Taken No -Exudate Amt None Present -Wound Margin Distinct, Outline Attached -Granulation Amt None Present (0 %) -Necrosis Amt Small (1-33%) -Necrotic Tissue Type Adherent Slough -Structure Exposed N/A -Texture (Emely-wound Skin Appearance) Excoriation, Scarring -Moisture (Emely-wound Skin Appearance Dry/Scaly ) -Color (Emely-wound Skin Appearance) Hemosiderin Staining -Temperature (Emely-wound Skin No Abnormality Appearance) (Pt Warm) -Tenderness on Palpation (Emely-wound No Skin Appearance) -Ulcer Cleansing Wound Cleanser -Foul Odor after Cleansing No -Anesthetic Used 5% Lidocaine Gel [Edema Assessment] -Right Calf (cm) 38 -Right Ankle (cm) 35 WC - Nurse 2 - General Ulcer CM Notes Start: 10/07/20 09:06 Freq: Status: Active Protocol: Activity Type Activity Date Activity User E-Sign Co-Sign Detail Recorded Client Recorded Date Recorded By Document 10/28/20 08:43 MW [id number] 10/28/20 08:55 MW 10/28/20 08:43 Wound Center Nurse 2 [Procedure/Treatment] #2 RIGHT MEDIAL LE -Time 08:43 -Correct Patient Yes -Correct Side, Site, Position Yes -Correct Procedure Yes -Procedure Performed Yes -Type of Procedure Debridement -Clinical Debridement Subcutaneous -Tissue Removed Subcutaneous -Post Debridement (cm) - Length 0.9 -Post Debridement (cm) - Width 0.5 -Post Debridement (cm) - Depth 0.1 -Total Square (Post) (cm) 0.45 -Area of Debridement (cm) - Length 0.9 -Area of Debridement (cm) - Width 0.5 -Total Square (Area) (cm) 0.45 -Tunneling No -Undermining/Tunneling No -Circular Undermining No -Wound/Ulcer Outcome Not Healed -Ulcer Cleansing Rinsed/ Irrigated with Saline -Foul Odor after Cleansing No -Bioengineered Tissue Yes -Type of Bioengineered Tissue Epifix 18mm Disc -Expiration Date 07/01/25 -Product Lot Number [id number] -Percent Used 100 -Lot number of Saline Used [id number] -Bleeding Controlled with Pressure -Offloading No -Debridement - Subq, 1st 20sq cm Yes -Apply Skin Sub - 1st 25 sq cm - Legs 1 -Epifix 18mm Disc 3 Query Text:18mm = 3 [See Physician Procedure note for Specifics] Pain Scale: 0-10 Numeric [Pain] -Is Patient Pain Free? Yes WC - Nurse 3 - General Ulcer D/C NN Start: 10/07/20 09:06 Freq: Status: Active Protocol: Activity Type Activity Date Activity User E-Sign Co-Sign Detail Recorded Client Recorded Date Recorded By Document 10/28/20 09:08 PL [id number] 10/28/20 09:09 PL 10/28/20 09:08 Wound Care Nurse 3 [Wound Dressing] #2 RIGHT MEDIAL LE -Primary Dressing Covered/Secured Dry Gauze with [Compression Applied] Right -Multi-Layered Wrap Application Multi-Layer Comp - Right ($ ) Musculoskeletal: No Muscle Wasting Neurological: Cranial nerves II-XII grossly intact Psych/Mental Status: Normal Affect Debridement Note Post-Debridement Measurements/Treatment WC - Nurse 2 - General Ulcer CM Notes Start: 10/07/20 09:06 Freq: Status: Active Protocol: Activity Type Activity Date Activity User E-Sign Co-Sign Detail Recorded Client Recorded Date Recorded By Document 10/07/20 09:25 MW [id number] 10/07/20 09:26 MW Document 10/21/20 09:18 MW [id number] 10/21/20 09:20 MW Document 10/28/20 08:43 MW [id number] 10/28/20 08:55 MW 10/07/20 10/21/20 10/28/20 09:25 09:18 08:43 Wound Center Nurse 2 #2 RIGHT MEDIAL LE -Time 09:25 09:19 08:43 -Correct Patient Yes Yes Yes -Correct Side, Site, Position Yes Yes Yes -Correct Procedure Yes Yes Yes -Procedure Performed Yes Yes Yes -Type of Procedure Debridement Debridement Debridement -Clinical Debridement Subcutaneous Subcutaneous Subcutaneous -Tissue Removed Subcutaneous Subcutaneous Subcutaneous -Post Debridement (cm) - Length 1.0 0.6 0.9 -Post Debridement (cm) - Width 0.4 0.5 0.5 -Post Debridement (cm) - Depth 0.1 0.1 0.1 -Total Square (Post) (cm) 0.40 0.30 0.45 -Area of Debridement (cm) - Length 1.0 0.6 0.9 -Area of Debridement (cm) - Width 0.4 0.5 0.5 -Total Square (Area) (cm) 0.40 0.30 0.45 -Tunneling No No No -Undermining/Tunneling No No No -Circular Undermining No No No -Wound/Ulcer Outcome Not Healed Not Healed Not Healed -Ulcer Cleansing Rinsed/ Rinsed/ Rinsed/ Irrigated with Irrigated with Irrigated with Saline Saline Saline -Foul Odor after Cleansing No No No -Bioengineered Tissue Yes No Yes -Type of Bioengineered Tissue Epifix 18mm Epifix 18mm Disc Disc -Expiration Date 06/01/25 07/01/25 -Product Lot Number [id number] -Percent Used 100 100 -Lot number of Saline Used [id number] -Bleeding Controlled with Pressure Pressure Pressure -Offloading No No No -Treatment Response Procedure Procedure Tolerated Well Tolerated Well -Debridement - Subq, 1st 20sq cm No Yes Yes -Apply Skin Sub - 1st 25 sq cm - Legs 1 1 -Epifix 18mm Disc 3 3 Query Text:18mm = 3 Pain Scale: 0-10 Numeric Is Patient Pain Free? Yes Yes Yes - Nurse 3 - General Ulcer D/C NN Start: 10/07/20 09:06 Freq: Status: Active Protocol: Activity Type Activity Date Activity User E-Sign Co-Sign Detail Recorded Client Recorded Date Recorded By Document 10/07/20 09:30 [facility] [id number] 10/07/20 09:31 BM Document 10/15/20 14:00 PL [id number] 10/20/20 15:02 PL Document 10/21/20 09:33 PL [id number] 10/21/20 09:34 PL Document 10/28/20 09:08 PL [id number] 10/28/20 09:09 PL 10/07/20 10/15/20 10/21/20 09:30 14:00 09:33 Wound Care Nurse 3 #2 RIGHT MEDIAL LE -Ulcer Cleansing Rinsed/ Irrigated with Saline -Foul Odor after Cleansing No -Primary Dressing Applied Other Promogran Princess Matter -Other Dressing epifix per dr crabtree -Primary Dressing Covered/Secured with Dry Gauze & Dry Gauze Roll Gauze, Secured with Tape -Promogran Princess Matter 1 Right -Multi-Layered Wrap Application Multi-Layer Multi-Layer Comp - Right ($ Comp - Right ($ ) ) Left -Multi-Layered Wrap Application Multi-Layer Comp - Left ($) Treatment Response Procedure Tolerated Well Pain Scale: 0-10 Numeric Is Patient Pain Free? Yes Yes WC - Visit Discharge Discharge Condition Stable Ambulatory Status Ambulatory Transportation Private Auto 10/28/20 09:08 Wound Care Nurse 3 #2 RIGHT MEDIAL LE -Ulcer Cleansing -Foul Odor after Cleansing -Primary Dressing Applied -Other Dressing -Primary Dressing Covered/Secured with Dry Gauze -Promogran Princess Matter Right -Multi-Layered Wrap Application Multi-Layer Comp - Right ($ ) Left -Multi-Layered Wrap Application Treatment Response Pain Scale: 0-10 Numeric Is Patient Pain Free? WC - Visit Discharge Discharge Condition Ambulatory Status Transportation Wound debrided: Right lower extremity Type of Debridement: Excisional debridement Anesthesia Used: 4% Lidocaine Solution Depth: Down to and including healthy tissue, in the subcutaneous layer Percentage of wound debrided: 100 Instrument Used: 3mm curette Tissue Removed: Slough and devitalized tissue Severity: Fat Layer Exposed Amount of bleeding with debridement: Mild Bleeding Controlled with: Pressure Patient tolerated procedure well Assessment/Plan Active Problems Venous ulcer of right leg (Chronic) Venous insufficiency of both lower extremities (Chronic) Assessment: Chronic/recurrent right lower extremity ulcer. Venous insufficiency. Venous leg ulcer. Plan: Debridement done as documented above, procedure was well-tolerated. 11th application of Epifix done using 100% of product. Moistened with saline and Adaptic touch over top. Covered with gauze and tape. 3M wrap for edema management. Leg elevation, avoid idle standing and exercise as tolerated. Increase protein intake as well. His questions were answered and he was advised to call with any further questions or concerns. Follow-up in a week. This note was generated with [employer] software. It may contain incorrect words, spelling, and punctuation that were not noted in checking the note before signing. [id number]: [id number] Skin sub graft trnk/arm/leg
== END 2020-10-31 23:59 ==
LOC: WC 08:30
PROVIDERS: PCP Nurse Practitioner Family; Visit Provider Internal Medicine
DX: I87.2 Venous insufficiency (chronic) (peripheral) (principal); I83.018 Varicose veins of right lower extremity with ulcer other part of lower leg; L97.812 Non-pressure chronic ulcer of other part of right lower leg with fat layer exposed; R60.9 Edema, unspecified; Z79.899 Other long term (current) drug therapy
CPT/HCPCS: 11042; 15271; 29581; Q4186

== ENCOUNTER 2020-11-25 08:00 | Outpatient (RCR) | payer MEDICAID, SELFPAY ==
[2020-11-01 00:29] VITALS: BP 135/83; PULSE 82; RESP 18; TEMP 35.9
[2020-11-04 09:33] VITALS: BP 136/87; PULSE 68; TEMP 36.3; BMI 29.0
--- NOTE | 2020-11-04 13:50 | PCM.WC.PN ---
(1) Venous insufficiency of both lower extremities Status: Chronic Code(s): I87.2 - Venous insufficiency (chronic) (peripheral) (2) Venous ulcer of right leg Status: Chronic Code(s): I83.019 - Varicose veins of right lower extremity with ulcer of unspecified site; L97.919 - Non-pressure chronic ulcer of unspecified part of right lower leg with unspecified severity Type of Wound Date of Service: 11/04/20 Chief Complaint: Nonhealing right lower extremity ulcer. History of Wound: Mr. Ly is a 59 yo Last seen here in August 2019 for right lower extremity ulcer. He had done well post discharge from the wound center until about 2 to 3 months ago when he noted reopening of his ulcer. Denies trauma. Has been using his compression stockings as prescribed. Was seen by his primary care physician and prescribed an ointment which he applied daily with no significant improvement. Denies chills or fever but notes a lot of pain around the site. No known history of diabetes. Feels well otherwise. Progress of Wound: Stable. Has had 11 applications of Epifix so far. Some worsening edema noted. - Physical Exam Vital Signs Temp Pulse Resp BP 97.4 F L 68 18 136/87 H 11/04/20 09:33 11/04/20 09:33 11/01/20 00:29 11/04/20 09:33 General: Alert, Oriented x3, Cooperative, No apparent distress HEENT: Atraumatic, Normocephalic Oral: Moist Mucosa Neck: Supple Lungs: Normal air movement Extremities: No cyanosis, Edema Skin: Ulcer/ Wound Wound Measurements and Assessment WC - Nurse 1 - General Ulcer Measurement Start: 11/04/20 09:33 Freq: Status: Active Protocol: Activity Type Activity Date Activity User E-Sign Co-Sign Detail Recorded Client Recorded Date Recorded By Document 11/04/20 09:33 MW [id number] 11/04/20 09:35 MW 11/04/20 09:33 Wound Center Nurse 1 [Ulcer Assessment] #2 RIGHT MEDIAL LE -Combined with other wound No -Current Size (cm) - Length 0.1 -Current Size (cm) - Width 0.1 -Current Size (cm) - Depth 0.1 -Total Square Cm 0.01 -Photo Taken No -Epithelialization None Present -Undermining/Tunneling No -Circular Undermining No -Exudate Amt Small -Exudate Type Serosanguineous -Wound Margin Flat & Intact -Granulation Amt None Present (0 %) -Granulation Quality N/A -Slough/Fibrin Yes -Necrosis Amt Medium (34-66%) -Necrotic Tissue Type Adherent Slough -Structure Exposed N/A -Texture (Emely-wound Skin Appearance) Assessed, Excoriation, Localized Edema ,Scarring -Moisture (Emely-wound Skin Appearance Assessed ) -Color (Emely-wound Skin Appearance) Assessed,Rubor -Temperature (Emely-wound Skin No Abnormality Appearance) (Pt Warm) -Tenderness on Palpation (Emely-wound Yes Skin Appearance) -Ulcer Cleansing soap and water -Foul Odor after Cleansing No -Anesthetic Used 4% Lidocaine Solution [Edema Assessment] -Lower Limb Edema Present No WC - Nurse 2 - General Ulcer CM Notes Start: 11/04/20 09:33 Freq: Status: Active Protocol: Activity Type Activity Date Activity User E-Sign Co-Sign Detail Recorded Client Recorded Date Recorded By Document 11/04/20 09:38 MW [id number] 11/04/20 09:47 MW 11/04/20 09:38 Wound Center Nurse 2 [Procedure/Treatment] #2 RIGHT MEDIAL LE -Time 09:39 -Correct Patient Yes -Correct Side, Site, Position Yes -Correct Procedure Yes -Procedure Performed Yes -Type of Procedure Debridement -Clinical Debridement Subcutaneous -Tissue Removed Subcutaneous -Post Debridement (cm) - Length 0.6 -Post Debridement (cm) - Width 1.0 -Post Debridement (cm) - Depth 0.1 -Total Square (Post) (cm) 0.60 -Area of Debridement (cm) - Length 0.6 -Area of Debridement (cm) - Width 1.0 -Total Square (Area) (cm) 0.60 -Tunneling No -Undermining/Tunneling No -Circular Undermining No -Wound/Ulcer Outcome Not Healed -Ulcer Cleansing Rinsed/ Irrigated with Saline -Foul Odor after Cleansing No -Bioengineered Tissue Yes -Type of Bioengineered Tissue Epifix 18mm Disc -Expiration Date 08/01/25 -Product Lot Number [id number] -Percent Used 100 -Lot number of Saline Used [id number] -Bleeding Controlled with Pressure -Offloading No -Debridement - Subq, 1st 20sq cm No -Apply Skin Sub - 1st 25 sq cm - Legs 1 -Epifix 18mm Disc 3 Query Text:18mm = 3 [See Physician Procedure note for Specifics] Pain Scale: 0-10 Numeric [Pain] -Is Patient Pain Free? Yes - Nurse 3 - General Ulcer D/C NN Start: 11/04/20 09:33 Freq: Status: Active Protocol: Activity Type Activity Date Activity User E-Sign Co-Sign Detail Recorded Client Recorded Date Recorded By Document 11/04/20 09:59 DL [id number] 11/04/20 10:01 DL 11/04/20 09:59 Wound Care Nurse 3 [Wound Dressing] #2 RIGHT MEDIAL LE -Foul Odor after Cleansing No -Other Dressing Epifix -Primary Dressing Covered/Secured Dry Gauze with [Compression Applied] Left -Multi-Layered Wrap Application Multi-Layer Comp - Left ($) [Post Procedure Tolerated] -Treatment Response Procedure Tolerated Well Pain Scale: 0-10 Numeric [Pain] -Is Patient Pain Free? Yes - Visit Discharge [Visit Discharge Information] -Discharge Condition Stable -Ambulatory Status Ambulatory -Transportation Private Auto Musculoskeletal: No Muscle Wasting Neurological: Cranial nerves II-XII grossly intact Psych/Mental Status: Normal Affect Debridement Note Post-Debridement Measurements/Treatment WC - Nurse 2 - General Ulcer CM Notes Start: 11/04/20 09:33 Freq: Status: Active Protocol: Activity Type Activity Date Activity User E-Sign Co-Sign Detail Recorded Client Recorded Date Recorded By Document 11/04/20 09:38 MW [id number] 11/04/20 09:47 MW 11/04/20 09:38 Wound Center Nurse 2 #2 RIGHT MEDIAL LE -Time 09:39 -Correct Patient Yes -Correct Side, Site, Position Yes -Correct Procedure Yes -Procedure Performed Yes -Type of Procedure Debridement -Clinical Debridement Subcutaneous -Tissue Removed Subcutaneous -Post Debridement (cm) - Length 0.6 -Post Debridement (cm) - Width 1.0 -Post Debridement (cm) - Depth 0.1 -Total Square (Post) (cm) 0.60 -Area of Debridement (cm) - Length 0.6 -Area of Debridement (cm) - Width 1.0 -Total Square (Area) (cm) 0.60 -Tunneling No -Undermining/Tunneling No -Circular Undermining No -Wound/Ulcer Outcome Not Healed -Ulcer Cleansing Rinsed/ Irrigated with Saline -Foul Odor after Cleansing No -Bioengineered Tissue Yes -Type of Bioengineered Tissue Epifix 18mm Disc -Expiration Date 08/01/25 -Product Lot Number [id number] -Percent Used 100 -Lot number of Saline Used [id number] -Bleeding Controlled with Pressure -Offloading No -Debridement - Subq, 1st 20sq cm No -Apply Skin Sub - 1st 25 sq cm - Legs 1 -Epifix 18mm Disc 3 Query Text:18mm = 3 Pain Scale: 0-10 Numeric Is Patient Pain Free? Yes - Nurse 3 - General Ulcer D/C NN Start: 11/04/20 09:33 Freq: Status: Active Protocol: Activity Type Activity Date Activity User E-Sign Co-Sign Detail Recorded Client Recorded Date Recorded By Document 11/04/20 09:59 DL [id number] 11/04/20 10:01 DL 11/04/20 09:59 Wound Care Nurse 3 #2 RIGHT MEDIAL LE -Foul Odor after Cleansing No -Other Dressing Epifix -Primary Dressing Covered/Secured with Dry Gauze Left -Multi-Layered Wrap Application Multi-Layer Comp - Left ($) Treatment Response Procedure Tolerated Well Pain Scale: 0-10 Numeric Is Patient Pain Free? Yes WC - Visit Discharge Discharge Condition Stable Ambulatory Status Ambulatory Transportation Private Auto Wound debrided: Right Lower extremity Type of Debridement: Excisional debridement Anesthesia Used: 4% Lidocaine Solution Depth: Down to and including healthy tissue, in the subcutaneous layer Percentage of wound debrided: 100 Instrument Used: 3mm curette Tissue Removed: Slough and devitalized tissue Severity: Fat Layer Exposed Amount of bleeding with debridement: Mild Bleeding Controlled with: Pressure Patient tolerated procedure well Assessment/Plan Assessment: Chronic/recurrent right lower extremity ulcer. Venous insufficiency. Venous leg ulcer. Plan: Debridement done as documented above, procedure was well-tolerated. 12th application of Epifix done using 100% of product. Moistened with saline and Adaptic touch over top. Covered with gauze and tape. 3M wrap for edema management. Leg elevation, avoid idle standing and exercise as tolerated. Increase protein intake as well. His questions were answered and he was advised to call with any further questions or concerns. Follow-up in a week. This note was generated with Dragon dictation software. It may contain incorrect words, spelling, and punctuation that were not noted in checking the note before signing. [id number]: [id number] Skin sub graft trnk/arm/leg
[2020-11-11 08:43] VITALS: BP 140/71; PULSE 77; RESP 18; TEMP 36.8; BMI 29.0
[2020-11-11 09:24] VITALS: BP 188/75; PULSE 71; RESP 16; TEMP 36.8
--- NOTE | 2020-11-11 10:20 | PN.PCM_ITS ---
(1) Venous insufficiency of both lower extremities Status: Chronic Code(s): I87.2 - Venous insufficiency (chronic) (peripheral) (2) Venous ulcer of right leg Status: Chronic Code(s): I83.019 - Varicose veins of right lower extremity with ulcer of unspecified site; L97.919 - Non-pressure chronic ulcer of unspecified part of right lower leg with unspecified severity Type of Wound Date of Service: 11/11/20 Chief Complaint: Nonhealing right lower extremity ulcer. History of Wound: Mr. Ly is a 59 yo Last seen here in August 2019 for right lower extremity ulcer. He had done well post discharge from the wound center until about 2 to 3 months ago when he noted reopening of his ulcer. Denies trauma. Has been using his compression stockings as prescribed. Was seen by his primary care physician and prescribed an ointment which he applied daily with no significant improvement. Denies chills or fever but notes a lot of pain around the site. No known history of diabetes. Feels well otherwise. Progress of Wound: Stable. Has had 12 applications of Epifix so far. Edema improved. - Physical Exam Vital Signs Temp Pulse Resp BP 98.3 F 71 16 188/75 H 11/11/20 09:24 11/11/20 09:24 11/11/20 09:24 11/11/20 09:24 General: Alert, Oriented x3, Cooperative, No apparent distress HEENT: Atraumatic, Normocephalic Oral: Moist Mucosa Neck: Supple Lungs: Normal air movement Extremities: No cyanosis, Edema Skin: Ulcer/ Wound Wound Measurements and Assessment WC - Nurse 1 - General Ulcer Measurement Start: 11/04/20 09:33 Freq: Status: Active Protocol: Activity Type Activity Date Activity User E-Sign Co-Sign Detail Recorded Client Recorded Date Recorded By Document 11/11/20 08:43 DL [id number] 11/11/20 08:48 DL 11/11/20 08:43 Wound Center Nurse 1 [Ulcer Assessment] #2 RIGHT MEDIAL LE -Current Size (cm) - Length 0.1 -Current Size (cm) - Width 0.1 -Current Size (cm) - Depth 0.1 -Total Square Cm 0.01 -Photo Taken No -Exudate Amt None Present -Wound Margin Flat & Intact -Granulation Amt Small (1-33%) -Granulation Quality [place] -Necrosis Amt Small (1-33%) -Necrotic Tissue Type Adherent Slough -Structure Exposed N/A -Texture (Emely-wound Skin Appearance) Excoriation, Scarring -Color (Emely-wound Skin Appearance) Hemosiderin Staining -Temperature (Emely-wound Skin No Abnormality Appearance) (Pt Warm) -Tenderness on Palpation (Emely-wound No Skin Appearance) -Ulcer Cleansing Wound Cleanser -Foul Odor after Cleansing No -Anesthetic Used 4% Lidocaine Solution [Edema Assessment] -Right Calf (cm) 38.5 -Right Ankle (cm) 25 WC - Nurse 2 - General Ulcer CM Notes Start: 11/04/20 09:33 Freq: Status: Active Protocol: Activity Type Activity Date Activity User E-Sign Co-Sign Detail Recorded Client Recorded Date Recorded By Document 11/11/20 08:54 MW [id number] 11/11/20 09:02 MW 11/11/20 08:54 Wound Center Nurse 2 [Procedure/Treatment] #2 RIGHT MEDIAL LE -Time 08:56 -Correct Patient Yes -Correct Side, Site, Position Yes -Correct Procedure Yes -Procedure Performed Yes -Type of Procedure Debridement -Clinical Debridement Subcutaneous -Tissue Removed Subcutaneous -Post Debridement (cm) - Length 1.0 -Post Debridement (cm) - Width 0.6 -Post Debridement (cm) - Depth 0.1 -Total Square (Post) (cm) 0.60 -Area of Debridement (cm) - Length 1.0 -Area of Debridement (cm) - Width 0.6 -Total Square (Area) (cm) 0.60 -Tunneling No -Undermining/Tunneling No -Circular Undermining No -Wound/Ulcer Outcome Not Healed -Ulcer Cleansing Rinsed/ Irrigated with Saline -Foul Odor after Cleansing No -Bioengineered Tissue Yes -Type of Bioengineered Tissue Epifix 18mm Disc -Expiration Date 08/01/25 -Product Lot Number [id number] -Percent Used 100 -Lot number of Saline Used [id number] -Bleeding Controlled with Pressure -Offloading No -Treatment Response Procedure Tolerated Well -Debridement - Subq, 1st 20sq cm No -Apply Skin Sub - 1st 25 sq cm - Legs 1 -Epifix 18mm Disc 3 Query Text:18mm = 3 [See Physician Procedure note for Specifics] WC - Nurse 3 - General Ulcer D/C NN Start: 11/04/20 09:33 Freq: Status: Active Protocol: Activity Type Activity Date Activity User E-Sign Co-Sign Detail Recorded Client Recorded Date Recorded By Document 11/11/20 09:24 MS [id number] 11/11/20 09:26 MS 11/11/20 09:24 Wound Care Nurse 3 [Wound Dressing] #2 RIGHT MEDIAL LE -Foul Odor after Cleansing No -Primary Dressing Covered/Secured Dry Gauze with [Compression Applied] Right -Multi-Layered Wrap Application Multi-Layer Comp - Right ($ ) Vital Signs [Temperature Protocol: VS] -Temperature (97.8 F-99.1 F) 98.3 F -Temperature Source Temporal [Pulse] -Pulse Rate (60-100 beats/min) 71 -Pulse Location Monitor [Respirations] -Respiratory Rate (12-18 breaths/min) 16 -Respiratory rate source Monitor [Blood Pressure] -Blood Pressure (90/60-120/80 mm Hg) 188/75 H -Blood Pressure Mean (mm Hg) 112 -Source Monitor -Position Supine -Blood Pressure Location Right Arm Pain Scale: 0-10 Numeric [Pain] -Is Patient Pain Free? Yes Musculoskeletal: No Muscle Wasting Neurological: Cranial nerves II-XII grossly intact Psych/Mental Status: Normal Affect Debridement Note Post-Debridement Measurements/Treatment HUNTER - Nurse 2 - General Ulcer CM Notes Start: 11/04/20 09:33 Freq: Status: Active Protocol: Activity Type Activity Date Activity User E-Sign Co-Sign Detail Recorded Client Recorded Date Recorded By Document 11/04/20 09:38 MW [id number] 11/04/20 09:47 MW Document 11/11/20 08:54 MW [id number] 11/11/20 09:02 MW 11/04/20 11/11/20 09:38 08:54 Wound Center Nurse 2 #2 RIGHT MEDIAL LE -Time 09:39 08:56 -Correct Patient Yes Yes -Correct Side, Site, Position Yes Yes -Correct Procedure Yes Yes -Procedure Performed Yes Yes -Type of Procedure Debridement Debridement -Clinical Debridement Subcutaneous Subcutaneous -Tissue Removed Subcutaneous Subcutaneous -Post Debridement (cm) - Length 0.6 1.0 -Post Debridement (cm) - Width 1.0 0.6 -Post Debridement (cm) - Depth 0.1 0.1 -Total Square (Post) (cm) 0.60 0.60 -Area of Debridement (cm) - Length 0.6 1.0 -Area of Debridement (cm) - Width 1.0 0.6 -Total Square (Area) (cm) 0.60 0.60 -Tunneling No No -Undermining/Tunneling No No -Circular Undermining No No -Wound/Ulcer Outcome Not Healed Not Healed -Ulcer Cleansing Rinsed/ Rinsed/ Irrigated with Irrigated with Saline Saline -Foul Odor after Cleansing No No -Bioengineered Tissue Yes Yes -Type of Bioengineered Tissue Epifix 18mm Epifix 18mm Disc Disc -Expiration Date 08/01/25 08/01/25 -Product Lot Number [id number] -Percent Used 100 100 -Lot number of Saline Used [id number] -Bleeding Controlled with Pressure Pressure -Offloading No No -Treatment Response Procedure Tolerated Well -Debridement - Subq, 1st 20sq cm No No -Apply Skin Sub - 1st 25 sq cm - Legs 1 1 -Epifix 18mm Disc 3 3 Query Text:18mm = 3 Pain Scale: 0-10 Numeric Is Patient Pain Free? Yes WC - Nurse 3 - General Ulcer D/C NN Start: 11/04/20 09:33 Freq: Status: Active Protocol: Activity Type Activity Date Activity User E-Sign Co-Sign Detail Recorded Client Recorded Date Recorded By Document 11/04/20 09:59 DL [id number] 11/04/20 10:01 DL Document 11/11/20 09:24 MS [id number] 11/11/20 09:26 MS 11/04/20 11/11/20 09:59 09:24 Wound Care Nurse 3 #2 RIGHT MEDIAL LE -Foul Odor after Cleansing No No -Other Dressing Epifix -Primary Dressing Covered/Secured with Dry Gauze Dry Gauze Right -Multi-Layered Wrap Application Multi-Layer Comp - Right ($ ) Left -Multi-Layered Wrap Application Multi-Layer Comp - Left ($) Treatment Response Procedure Tolerated Well Vital Signs Temperature (97.8 F-99.1 F) 98.3 F Temperature Source Temporal Pulse Rate (60-100 beats/min) 71 Pulse Location Monitor Respiratory Rate (12-18 breaths/min) 16 Respiratory rate source Monitor Blood Pressure (90/60-120/80 mm Hg) 188/75 H Blood Pressure Mean (mm Hg) 112 Source Monitor Position Supine Blood Pressure Location Right Arm Pain Scale: 0-10 Numeric Is Patient Pain Free? Yes Yes WC - Visit Discharge Discharge Condition Stable Ambulatory Status Ambulatory Transportation Private Auto Wound debrided: Right lower extremity (medial) Type of Debridement: Excisional debridement Anesthesia Used: 4% Lidocaine Solution Depth: Down to and including healthy tissue, in the subcutaneous layer Percentage of wound debrided: 100 Instrument Used: 3mm curette Tissue Removed: Slough and devitalized tissue Severity: Fat Layer Exposed Amount of bleeding with debridement: Mild Bleeding Controlled with: Pressure Patient tolerated procedure well Assessment/Plan Active Problems Venous ulcer of right leg (Chronic) Venous insufficiency of both lower extremities (Chronic) Assessment: Chronic/recurrent right lower extremity ulcer. Venous insufficiency. Venous leg ulcer. Plan: Debridement done as documented above, procedure was well-tolerated. 13th application of Epifix done using 100% of product. Moistened with saline and Adaptic touch over top. Covered with gauze and tape. Leave in place for 2 weeks. 3M wrap for edema management. Leg elevation, avoid idle standing and exercise as tolerated. Increase protein intake as well. His questions were answered and he was advised to call with any further questions or concerns. Follow-up in a week for nurse visit in 2 weeks with me. This note was generated with Noomeoation software. It may contain incorrect words, spelling, and punctuation that were not noted in checking the note before signing. [id number]: [id number] Skin sub graft trnk/arm/leg
[2020-11-18 14:06] VITALS: BP 125/86; PULSE 86; RESP 18; TEMP 36.8; BMI 29.0
--- NOTE | 2020-11-18 15:53 | PN.PCM_ITS ---
(1) Venous ulcer of right leg Status: Chronic Code(s): I83.019 - Varicose veins of right lower extremity with ulcer of unspecified site; L97.919 - Non-pressure chronic ulcer of unspecified part of right lower leg with unspecified severity (2) Venous insufficiency of both lower extremities Status: Chronic Code(s): I87.2 - Venous insufficiency (chronic) (peripheral) Type of Wound Date of Service: 11/18/20 Chief Complaint: Nonhealing right lower extremity ulcer. History of Wound: Mr. Ly is a 59 yo Last seen here in August 2019 for right lower extremity ulcer. He had done well post discharge from the wound center until about 2 to 3 months ago when he noted reopening of his ulcer. Denies trauma. Has been using his compression stockings as prescribed. Was seen by his primary care physician and prescribed an ointment which he applied daily with no significant improvement. Denies chills or fever but notes a lot of pain around the site. No known history of diabetes. Feels well otherwise. Progress of Wound: Stable. Has had 13 applications of Epifix so far. Edema improved. 14th application of Epifix today. Courtesy visit for Dr. Carroll. Patient does note that his 3M wrap had to come off early this week due to it not being wrapped correctly and cutting into the back of his calf. - Physical Exam Vital Signs Temp Pulse Resp BP 98.2 F 86 18 125/86 H 11/18/20 14:06 11/18/20 14:06 11/18/20 14:06 11/18/20 14:06 General: Alert, Oriented x3, Cooperative, No apparent distress HEENT: Atraumatic Oral: Moist Mucosa Lungs: Clear to auscultation, Normal air movement Cardiovascular: Regular rate Abdomen: Soft, Non Tender Extremities: No clubbing, No cyanosis, Edema - Generalized bilateral lower extremity edema, Peripheral Pulses Normal Skin: Ulcer/ Wound - See nursing documentation, slough and devitalized tissue present, no signs of obvious infection at this time, there are some chronic venous changes present to bilateral lower extremities Wound Measurements and Assessment WC - Nurse 1 - General Ulcer Measurement Start: 11/04/20 09:33 Freq: Status: Active Protocol: Activity Type Activity Date Activity User E-Sign Co-Sign Detail Recorded Client Recorded Date Recorded By Document 11/18/20 14:06 DL [id number] 11/18/20 14:08 DL 11/18/20 14:06 Wound Center Nurse 1 [Ulcer Assessment] #2 RIGHT MEDIAL LE -Current Size (cm) - Length 0.1 -Current Size (cm) - Width 0.1 -Current Size (cm) - Depth 0.1 -Total Square Cm 0.01 -Photo Taken No -Exudate Amt None Present -Wound Margin Thickened -Granulation Amt Small (1-33%) -Granulation Quality [place] -Necrosis Amt Small (1-33%) -Necrotic Tissue Type Adherent Slough -Structure Exposed N/A -Texture (Emely-wound Skin Appearance) Scarring,Rash -Moisture (Emely-wound Skin Appearance No Abnormality ) -Color (Emely-wound Skin Appearance) Hemosiderin Staining -Temperature (Emely-wound Skin No Abnormality Appearance) (Pt Warm) -Tenderness on Palpation (Emely-wound No Skin Appearance) -Ulcer Cleansing Wound Cleanser -Foul Odor after Cleansing No -Anesthetic Used 4% Lidocaine Solution [Edema Assessment] -Right Calf (cm) 39 -Right Ankle (cm) 25 WC - Nurse 2 - General Ulcer CM Notes Start: 11/04/20 09:33 Freq: Status: Active Protocol: Activity Type Activity Date Activity User E-Sign Co-Sign Detail Recorded Client Recorded Date Recorded By Document 11/18/20 14:18 MW [id number] 11/18/20 14:22 MW 11/18/20 14:18 Wound Center Nurse 2 [Procedure/Treatment] #2 RIGHT MEDIAL LE -Time 14:18 -Correct Patient Yes -Correct Side, Site, Position Yes -Correct Procedure Yes -Procedure Performed Yes -Type of Procedure Debridement -Clinical Debridement Subcutaneous -Tissue Removed Subcutaneous -Post Debridement (cm) - Length 0.6 -Post Debridement (cm) - Width 0.6 -Post Debridement (cm) - Depth 0.1 -Total Square (Post) (cm) 0.36 -Area of Debridement (cm) - Length 0.6 -Area of Debridement (cm) - Width 0.6 -Total Square (Area) (cm) 0.36 -Tunneling No -Undermining/Tunneling No -Circular Undermining No -Wound/Ulcer Outcome Not Healed -Ulcer Cleansing Rinsed/ Irrigated with Saline -Foul Odor after Cleansing No -Bioengineered Tissue Yes -Type of Bioengineered Tissue Epifix 18mm Disc -Expiration Date 08/01/25 -Product Lot Number [id number] -Percent Used 100 -Lot number of Saline Used [id number] -Bleeding Controlled with Pressure -Offloading No -Treatment Response Procedure Tolerated Well -Debridement - Subq, 1st 20sq cm No -Apply Skin Sub - 1st 25 sq cm - Legs 1 -Epifix 18mm Disc 3 Query Text:18mm = 3 [See Physician Procedure note for Specifics] Pain Scale: 0-10 Numeric [Pain] -Is Patient Pain Free? Yes - Nurse 3 - General Ulcer D/C NN Start: 11/04/20 09:33 Freq: Status: Active Protocol: Activity Type Activity Date Activity User E-Sign Co-Sign Detail Recorded Client Recorded Date Recorded By Document 11/18/20 14:39 DL [id number] 11/18/20 14:41 DL 11/18/20 14:39 Wound Care Nurse 3 [Wound Dressing] #2 RIGHT MEDIAL LE -Foul Odor after Cleansing No -Primary Dressing Applied NonAdherent Contact Layer -Other Dressing epifix -Primary Dressing Covered/Secured Dry Gauze with [Emely-Wound Care] -Emely-Wound Care Lotion [Compression Applied] Right -Multi-Layered Wrap Application Multi-Layer Comp - Right ($ ) Pain Scale: 0-10 Numeric [Pain] -Is Patient Pain Free? Yes - Visit Discharge [Visit Discharge Information] -Discharge Condition Stable -Ambulatory Status Ambulatory -Transportation Private Auto Neurological: Neuro grossly intact Psych/Mental Status: Normal Affect, Appropriate, Alert and oriented to time, place, person, mood and affect Debridement Note Post-Debridement Measurements/Treatment - Nurse 2 - General Ulcer CM Notes Start: 11/04/20 09:33 Freq: Status: Active Protocol: Activity Type Activity Date Activity User E-Sign Co-Sign Detail Recorded Client Recorded Date Recorded By Document 11/04/20 09:38 MW [id number] 11/04/20 09:47 MW Document 11/11/20 08:54 MW [id number] 11/11/20 09:02 MW Document 11/18/20 14:18 MW [id number] 11/18/20 14:22 MW 11/04/20 11/11/20 11/18/20 09:38 08:54 14:18 Wound Center Nurse 2 #2 RIGHT MEDIAL LE -Time 09:39 08:56 14:18 -Correct Patient Yes Yes Yes -Correct Side, Site, Position Yes Yes Yes -Correct Procedure Yes Yes Yes -Procedure Performed Yes Yes Yes -Type of Procedure Debridement Debridement Debridement -Clinical Debridement Subcutaneous Subcutaneous Subcutaneous -Tissue Removed Subcutaneous Subcutaneous Subcutaneous -Post Debridement (cm) - Length 0.6 1.0 0.6 -Post Debridement (cm) - Width 1.0 0.6 0.6 -Post Debridement (cm) - Depth 0.1 0.1 0.1 -Total Square (Post) (cm) 0.60 0.60 0.36 -Area of Debridement (cm) - Length 0.6 1.0 0.6 -Area of Debridement (cm) - Width 1.0 0.6 0.6 -Total Square (Area) (cm) 0.60 0.60 0.36 -Tunneling No No No -Undermining/Tunneling No No No -Circular Undermining No No No -Wound/Ulcer Outcome Not Healed Not Healed Not Healed -Ulcer Cleansing Rinsed/ Rinsed/ Rinsed/ Irrigated with Irrigated with Irrigated with Saline Saline Saline -Foul Odor after Cleansing No No No -Bioengineered Tissue Yes Yes Yes -Type of Bioengineered Tissue Epifix 18mm Epifix 18mm Epifix 18mm Disc Disc Disc -Expiration Date 08/01/25 08/01/25 08/01/25 -Product Lot Number [id number] 004 -Percent Used 100 100 100 -Lot number of Saline Used [id number] -Bleeding Controlled with Pressure Pressure Pressure -Offloading No No No -Treatment Response Procedure Procedure Tolerated Well Tolerated Well -Debridement - Subq, 1st 20sq cm No No No -Apply Skin Sub - 1st 25 sq cm - Legs 1 1 1 -Epifix 18mm Disc 3 3 3 Query Text:18mm = 3 Pain Scale: 0-10 Numeric Is Patient Pain Free? Yes Yes WC - Nurse 3 - General Ulcer D/C NN Start: 11/04/20 09:33 Freq: Status: Active Protocol: Activity Type Activity Date Activity User E-Sign Co-Sign Detail Recorded Client Recorded Date Recorded By Document 11/04/20 09:59 DL [id number] 11/04/20 10:01 DL Document 11/11/20 09:24 MS [id number] 11/11/20 09:26 MS Document 11/18/20 14:39 DL [id number] 11/18/20 14:41 DL 11/04/20 11/11/20 11/18/20 09:59 09:24 14:39 Wound Care Nurse 3 #2 RIGHT MEDIAL LE -Foul Odor after Cleansing No No No -Primary Dressing Applied NonAdherent Contact Layer -Other Dressing Epifix epifix -Primary Dressing Covered/Secured with Dry Gauze Dry Gauze Dry Gauze Emely-Wound Care Lotion Right -Multi-Layered Wrap Application Multi-Layer Multi-Layer Comp - Right ($ Comp - Right ($ ) ) Left -Multi-Layered Wrap Application Multi-Layer Comp - Left ($) Treatment Response Procedure Tolerated Well Vital Signs Temperature (97.8 F-99.1 F) 98.3 F Temperature Source Temporal Pulse Rate (60-100) 71 Pulse Location Monitor Respiratory Rate (12-18) 16 Respiratory rate source Monitor Blood Pressure (90/60-120/80) 188/75 H Blood Pressure Mean (mm Hg) 112 Source Monitor Position Supine Blood Pressure Location Right Arm Pain Scale: 0-10 Numeric Is Patient Pain Free? Yes Yes Yes WC - Visit Discharge Discharge Condition Stable Stable Ambulatory Status Ambulatory Ambulatory Transportation Private Auto Private Auto Wound debrided: Right lower extremity ulcer Laterality: Right Type of Debridement: Excisional debridement Anesthesia Used: 5% Lidocaine Gel Depth: in the subcutaneous layer Percentage of wound debrided: 100 Instrument Used: 5mm curette Tissue Removed: Slough and devitalized tissue Severity: Fat Layer Exposed Amount of bleeding with debridement: Mild Bleeding Controlled with: Pressure Patient tolerated procedure well Assessment/Plan Active Problems Venous ulcer of right leg (Chronic) Venous insufficiency of both lower extremities (Chronic) Assessment: Chronic/recurrent right lower extremity ulcer. Venous insufficiency. Venous leg ulcer. Plan: Courtesy visit for Dr. Carroll -debridement done as documented above, procedure was well-tolerated. 14th application of Epifix done using 100% of product. Moistened with saline and Adaptic touch over top. Covered with gauze and tape. Leave in place for 2 weeks. 3M wrap for edema management. Leg elevation, avoid idle standing and exercise as tolerated. Increase protein intake as well. His questions were answered and he was advised to call with any further questions or concerns. Follow-up in a week for nurse visit in 2 weeks with me. This note was generated with [employer] software. It may contain incorrect words, spelling, and punctuation that were not noted in checking the note before signing. [id number]: [id number] Skin sub graft trnk/arm/leg
[2020-11-25 08:04] VITALS: BP 130/73; PULSE 66; TEMP 36.5; BMI 29.0
--- NOTE | 2020-11-25 09:53 | PCM.WC.PN ---
(1) Venous insufficiency of both lower extremities Status: Chronic Code(s): I87.2 - Venous insufficiency (chronic) (peripheral) (2) Venous ulcer of right leg Status: Chronic Code(s): I83.019 - Varicose veins of right lower extremity with ulcer of unspecified site; L97.919 - Non-pressure chronic ulcer of unspecified part of right lower leg with unspecified severity Type of Wound Date of Service: 11/25/20 Chief Complaint: Nonhealing right lower extremity ulcer. History of Wound: Mr. Ly is a 59 yo Last seen here in August 2019 for right lower extremity ulcer. He had done well post discharge from the wound center until about 2 to 3 months ago when he noted reopening of his ulcer. Denies trauma. Has been using his compression stockings as prescribed. Was seen by his primary care physician and prescribed an ointment which he applied daily with no significant improvement. Denies chills or fever but notes a lot of pain around the site. No known history of diabetes. Feels well otherwise. Progress of Wound: Minimal area left. Has had 14 applications of Epifix so far. - Physical Exam Vital Signs Temp Pulse Resp BP 97.7 F L 66 18 130/73 H 11/25/20 08:04 11/25/20 08:04 11/18/20 14:06 11/25/20 08:04 General: Alert, Oriented x3, Cooperative, No apparent distress HEENT: Atraumatic, Normocephalic Oral: Moist Mucosa Neck: Supple Lungs: Normal air movement Extremities: No cyanosis, Edema Skin: Ulcer/ Wound Wound Measurements and Assessment WC - Nurse 1 - General Ulcer Measurement Start: 11/04/20 09:33 Freq: Status: Active Protocol: Activity Type Activity Date Activity User E-Sign Co-Sign Detail Recorded Client Recorded Date Recorded By Document 11/25/20 08:04 DL [id number] 11/25/20 08:12 DL 11/25/20 08:04 Wound Center Nurse 1 [Ulcer Assessment] #2 RIGHT MEDIAL LE -Current Size (cm) - Length 1.3 -Current Size (cm) - Width 1.3 -Current Size (cm) - Depth 0.1 -Total Square Cm 1.69 -Photo Taken No -Exudate Amt Small -Exudate Type Serosanguineous -Wound Margin Distinct, Outline Attached -Granulation Amt Large (67-100%) -Granulation Quality Red -Necrosis Amt Small (1-33%) -Necrotic Tissue Type Adherent Slough -Structure Exposed N/A -Moisture (Emely-wound Skin Appearance Dry/Scaly ) -Color (Emely-wound Skin Appearance) No Abnormality -Temperature (Emely-wound Skin No Abnormality Appearance) (Pt Warm) -Tenderness on Palpation (Emely-wound No Skin Appearance) -Ulcer Cleansing soap and water -Foul Odor after Cleansing No -Anesthetic Used 4% Lidocaine Solution [Edema Assessment] -Right Calf (cm) 39 -Right Ankle (cm) 24.5 - Nurse 2 - General Ulcer CM Notes Start: 11/04/20 09:33 Freq: Status: Active Protocol: Activity Type Activity Date Activity User E-Sign Co-Sign Detail Recorded Client Recorded Date Recorded By Document 11/25/20 08:23 MW [id number] 11/25/20 08:26 MW 11/25/20 08:23 Wound Center Nurse 2 [Procedure/Treatment] #2 RIGHT MEDIAL LE -Time 08:24 -Correct Patient Yes -Correct Side, Site, Position Yes -Correct Procedure Yes -Procedure Performed No -Post Debridement (cm) - Length 0.1 -Post Debridement (cm) - Width 0.1 -Post Debridement (cm) - Depth 0.1 -Total Square (Post) (cm) 0.01 -Tunneling No -Undermining/Tunneling No -Circular Undermining No -Wound/Ulcer Outcome Not Healed -Ulcer Cleansing Rinsed/ Irrigated with Saline -Foul Odor after Cleansing No -Bleeding Controlled with NA -Offloading No [See Physician Procedure note for Specifics] Pain Scale: 0-10 Numeric [Pain] -Is Patient Pain Free? Yes - Nurse 3 - General Ulcer D/C NN Start: 11/04/20 09:33 Freq: Status: Active Protocol: Activity Type Activity Date Activity User E-Sign Co-Sign Detail Recorded Client Recorded Date Recorded By Document 11/25/20 08:54 KR [id number] 11/25/20 08:55 KR 11/25/20 08:54 Wound Care Nurse 3 [Wound Dressing] #2 RIGHT MEDIAL LE -Ulcer Cleansing Rinsed/ Irrigated with Saline -Primary Dressing Applied Promogran -Primary Dressing Covered/Secured Dry Gauze with -Promogran 1 [Compression Applied] Right -Tubular Bandage Double Layer -Size of Tubigrip Used Size E -Size E ($) 2 Pain Scale: 0-10 Numeric [Pain] -Is Patient Pain Free? Yes WC - Visit Discharge [Visit Discharge Information] -Discharge Condition Stable -Ambulatory Status Ambulatory -Transportation Private Auto Neurological: Cranial nerves II-XII grossly intact Psych/Mental Status: Normal Affect Debridement Note Post-Debridement Measurements/Treatment WC - Nurse 2 - General Ulcer CM Notes Start: 11/04/20 09:33 Freq: Status: Active Protocol: Activity Type Activity Date Activity User E-Sign Co-Sign Detail Recorded Client Recorded Date Recorded By Document 11/04/20 09:38 MW [id number] 11/04/20 09:47 MW Document 11/11/20 08:54 MW [id number] 11/11/20 09:02 MW Document 11/18/20 14:18 MW [id number] 11/18/20 14:22 MW Document 11/25/20 08:23 MW [id number] 11/25/20 08:26 MW 11/04/20 11/11/20 11/18/20 09:38 08:54 14:18 Wound Center Nurse 2 #2 RIGHT MEDIAL LE -Time 09:39 08:56 14:18 -Correct Patient Yes Yes Yes -Correct Side, Site, Position Yes Yes Yes -Correct Procedure Yes Yes Yes -Procedure Performed Yes Yes Yes -Type of Procedure Debridement Debridement Debridement -Clinical Debridement Subcutaneous Subcutaneous Subcutaneous -Tissue Removed Subcutaneous Subcutaneous Subcutaneous -Post Debridement (cm) - Length 0.6 1.0 0.6 -Post Debridement (cm) - Width 1.0 0.6 0.6 -Post Debridement (cm) - Depth 0.1 0.1 0.1 -Total Square (Post) (cm) 0.60 0.60 0.36 -Area of Debridement (cm) - Length 0.6 1.0 0.6 -Area of Debridement (cm) - Width 1.0 0.6 0.6 -Total Square (Area) (cm) 0.60 0.60 0.36 -Tunneling No No No -Undermining/Tunneling No No No -Circular Undermining No No No -Wound/Ulcer Outcome Not Healed Not Healed Not Healed -Ulcer Cleansing Rinsed/ Rinsed/ Rinsed/ Irrigated with Irrigated with Irrigated with Saline Saline Saline -Foul Odor after Cleansing No No No -Bioengineered Tissue Yes Yes Yes -Type of Bioengineered Tissue Epifix 18mm Epifix 18mm Epifix 18mm Disc Disc Disc -Expiration Date 08/01/25 08/01/25 08/01/25 -Product Lot Number [id number] -Percent Used 100 100 100 -Lot number of Saline Used [id number] -Bleeding Controlled with Pressure Pressure Pressure -Offloading No No No -Treatment Response Procedure Procedure Tolerated Well Tolerated Well -Debridement - Subq, 1st 20sq cm No No No -Apply Skin Sub - 1st 25 sq cm - Legs 1 1 1 -Epifix 18mm Disc 3 3 3 Pain Scale: 0-10 Numeric Is Patient Pain Free? Yes Yes 11/25/20 08:23 Wound Center Nurse 2 #2 RIGHT MEDIAL LE -Time 08:24 -Correct Patient Yes -Correct Side, Site, Position Yes -Correct Procedure Yes -Procedure Performed No -Type of Procedure -Clinical Debridement -Tissue Removed -Post Debridement (cm) - Length 0.1 -Post Debridement (cm) - Width 0.1 -Post Debridement (cm) - Depth 0.1 -Total Square (Post) (cm) 0.01 -Area of Debridement (cm) - Length -Area of Debridement (cm) - Width -Total Square (Area) (cm) -Tunneling No -Undermining/Tunneling No -Circular Undermining No -Wound/Ulcer Outcome Not Healed -Ulcer Cleansing Rinsed/ Irrigated with Saline -Foul Odor after Cleansing No -Bioengineered Tissue -Type of Bioengineered Tissue -Expiration Date -Product Lot Number -Percent Used -Lot number of Saline Used -Bleeding Controlled with NA -Offloading No -Treatment Response -Debridement - Subq, 1st 20sq cm -Apply Skin Sub - 1st 25 sq cm - Legs -Epifix 18mm Disc Pain Scale: 0-10 Numeric Is Patient Pain Free? Yes WC - Nurse 3 - General Ulcer D/C NN Start: 11/04/20 09:33 Freq: Status: Active Protocol: Activity Type Activity Date Activity User E-Sign Co-Sign Detail Recorded Client Recorded Date Recorded By Document 11/04/20 09:59 DL [id number] 11/04/20 10:01 DL Document 11/11/20 09:24 MS [id number] 11/11/20 09:26 MS Document 11/18/20 14:39 DL [id number] 11/18/20 14:41 DL Document 11/25/20 08:54 KR [id number] 11/25/20 08:55 KR 11/04/20 11/11/20 11/18/20 09:59 09:24 14:39 Wound Care Nurse 3 #2 RIGHT MEDIAL LE -Ulcer Cleansing -Foul Odor after Cleansing No No No -Primary Dressing Applied NonAdherent Contact Layer -Other Dressing Epifix epifix -Primary Dressing Covered/Secured with Dry Gauze Dry Gauze Dry Gauze -Promogran Emely-Wound Care Lotion Right -Multi-Layered Wrap Application Multi-Layer Multi-Layer Comp - Right ($ Comp - Right ($ ) ) -Tubular Bandage -Size of Tubigrip Used -Size E ($) Left -Multi-Layered Wrap Application Multi-Layer Comp - Left ($) Treatment Response Procedure Tolerated Well Vital Signs Temperature (97.8 F-99.1 F) 98.3 F Temperature Source Temporal Pulse Rate (60-100 beats/min) 71 Pulse Location Monitor Respiratory Rate (12-18 breaths/min) 16 Respiratory rate source Monitor Blood Pressure (90/60-120/80 mm Hg) 188/75 H Blood Pressure Mean (mm Hg) 112 Source Monitor Position Supine Blood Pressure Location Right Arm Pain Scale: 0-10 Numeric Is Patient Pain Free? Yes Yes Yes WC - Visit Discharge Discharge Condition Stable Stable Ambulatory Status Ambulatory Ambulatory Transportation Private Auto Private Auto 11/25/20 08:54 Wound Care Nurse 3 #2 RIGHT MEDIAL LE -Ulcer Cleansing Rinsed/ Irrigated with Saline -Foul Odor after Cleansing -Primary Dressing Applied Promogran -Other Dressing -Primary Dressing Covered/Secured with Dry Gauze -Promogran 1 Emely-Wound Care Right -Multi-Layered Wrap Application -Tubular Bandage Double Layer -Size of Tubigrip Used Size E -Size E ($) 2 Left -Multi-Layered Wrap Application Treatment Response Vital Signs Temperature (97.8 F-99.1 F) Temperature Source Pulse Rate (60-100 beats/min) Pulse Location Respiratory Rate (12-18 breaths/min) Respiratory rate source Blood Pressure (90/60-120/80 mm Hg) Blood Pressure Mean (mm Hg) Source Position Blood Pressure Location Pain Scale: 0-10 Numeric Is Patient Pain Free? Yes WC - Visit Discharge Discharge Condition Stable Ambulatory Status Ambulatory Transportation Private Auto No debridement was completed today Assessment/Plan Active Problems Venous ulcer of right leg (Chronic) Venous insufficiency of both lower extremities (Chronic) Assessment: Chronic/recurrent right lower extremity ulcer. Venous insufficiency. Venous leg ulcer. Plan: No debridement completed today, minimal area left. Moistened Promogran daily with Adaptic over top. Compression stockings for compression. Leg elevation, avoid idle standing and exercise as tolerated. Increase protein intake as well. His questions were answered and he was advised to call with any further questions or concerns. Follow-up in a week. This note was generated with [employer] dictation software. It may contain incorrect words, spelling, and punctuation that were not noted in checking the note before signing. Office Visits / Consults: [id number] OV L3 Est
== END 2020-11-28 23:59 ==
LOC: WC 08:00
PROVIDERS: PCP Nurse Practitioner Family; Visit Provider Internal Medicine
DX: I83.018 Varicose veins of right lower extremity with ulcer other part of lower leg (principal); L97.812 Non-pressure chronic ulcer of other part of right lower leg with fat layer exposed; I87.2 Venous insufficiency (chronic) (peripheral); R60.9 Edema, unspecified; Z79.899 Other long term (current) drug therapy
CPT/HCPCS: 15271; 29581; 99213; Q4186; G0463

== ENCOUNTER 2020-12-23 08:00 | Outpatient (RCR) | payer MEDICAID, SELFPAY ==
[2020-11-29 00:26] VITALS: BP 130/73; PULSE 66; RESP 18; TEMP 36.5
[2020-12-02 09:25] VITALS: BP 128/84; PULSE 74; RESP 18; TEMP 36.6; BMI 29.0
--- NOTE | 2020-12-02 13:25 | PN.PCM_ITS ---
(1) Venous insufficiency of both lower extremities Status: Chronic Code(s): I87.2 - Venous insufficiency (chronic) (peripheral) (2) Venous ulcer of right leg Status: Chronic Code(s): I83.019 - Varicose veins of right lower extremity with ulcer of unspecified site; L97.919 - Non-pressure chronic ulcer of unspecified part of right lower leg with unspecified severity Type of Wound Date of Service: 12/02/20 Chief Complaint: Nonhealing right lower extremity ulcer. History of Wound: Mr. Ly is a 59 yo Last seen here in August 2019 for right lower extremity ulcer. He had done well post discharge from the wound center until about 2 to 3 months ago when he noted reopening of his ulcer. Denies trauma. Has been using his compression stockings as prescribed. Was seen by his primary care physician and prescribed an ointment which he applied daily with no significant improvement. Denies chills or fever but notes a lot of pain around the site. No known history of diabetes. Feels well otherwise. Progress of Wound: Minimal area left. Has had 14 applications of Epifix so far. - Physical Exam Vital Signs Temp Pulse Resp BP 98 F 74 18 128/84 H 12/02/20 09:25 12/02/20 09:25 12/02/20 09:25 12/02/20 09:25 General: Alert, Oriented x3, Cooperative, No apparent distress HEENT: Atraumatic, Normocephalic Oral: Moist Mucosa Neck: Supple Lungs: Normal air movement Extremities: No cyanosis, Edema Skin: Ulcer/ Wound Wound Measurements and Assessment WC - Nurse 1 - General Ulcer Measurement Start: 12/02/20 09:24 Freq: Status: Active Protocol: Activity Type Activity Date Activity User E-Sign Co-Sign Detail Recorded Client Recorded Date Recorded By Document 12/02/20 09:25 DL [id number] 12/02/20 09:29 DL 12/02/20 09:25 Wound Center Nurse 1 [Ulcer Assessment] #2 RIGHT MEDIAL LE -Current Size (cm) - Length 0.1 -Current Size (cm) - Width 0.1 -Current Size (cm) - Depth 0.1 -Total Square Cm 0.01 -Photo Taken No -Exudate Amt None Present -Wound Margin Thickened -Granulation Amt Medium (34-66%) -Granulation Quality Pale -Necrosis Amt Medium (34-66%) -Necrotic Tissue Type Adherent Slough -Structure Exposed N/A -Texture (Emely-wound Skin Appearance) Scarring -Moisture (Emely-wound Skin Appearance No Abnormality ) -Color (Emely-wound Skin Appearance) No Abnormality -Temperature (Emely-wound Skin No Abnormality Appearance) (Pt Warm) -Tenderness on Palpation (Emely-wound No Skin Appearance) -Ulcer Cleansing Rinsed/ Irrigated with Saline -Foul Odor after Cleansing No -Anesthetic Used 4% Lidocaine Solution [Edema Assessment] -Right Calf (cm) 38 -Right Ankle (cm) 24 WC - Nurse 2 - General Ulcer CM Notes Start: 12/02/20 09:24 Freq: Status: Active Protocol: Activity Type Activity Date Activity User E-Sign Co-Sign Detail Recorded Client Recorded Date Recorded By Document 12/02/20 09:40 MW [id number] 12/02/20 09:43 MW 12/02/20 09:40 Wound Center Nurse 2 [Procedure/Treatment] #2 RIGHT MEDIAL LE -Time 09:40 -Correct Patient Yes -Correct Side, Site, Position Yes -Correct Procedure Yes -Procedure Performed Yes -Type of Procedure Debridement -Clinical Debridement Subcutaneous -Tissue Removed Subcutaneous -Post Debridement (cm) - Length 0.2 -Post Debridement (cm) - Width 0.2 -Post Debridement (cm) - Depth 0.1 -Total Square (Post) (cm) 0.04 -Area of Debridement (cm) - Length 0.2 -Area of Debridement (cm) - Width 0.2 -Total Square (Area) (cm) 0.04 -Tunneling No -Undermining/Tunneling No -Circular Undermining No -Wound/Ulcer Outcome Not Healed -Ulcer Cleansing Rinsed/ Irrigated with Saline -Foul Odor after Cleansing No -Bioengineered Tissue Yes -Type of Bioengineered Tissue Epifix 18mm Disc -Expiration Date 08/01/25 -Product Lot Number [id number] -Percent Used 100 -Lot number of Saline Used [id number] -Bleeding Controlled with Pressure -Offloading No -Treatment Response Procedure Tolerated Well -Debridement - Subq, 1st 20sq cm No -Apply Skin Sub - 1st 25 sq cm - Legs 1 -Epifix 18mm Disc 3 Query Text:18mm = 3 [See Physician Procedure note for Specifics] Pain Scale: 0-10 Numeric [Pain] -Is Patient Pain Free? Yes - Nurse 3 - General Ulcer D/C NN Start: 12/02/20 09:24 Freq: Status: Active Protocol: Activity Type Activity Date Activity User E-Sign Co-Sign Detail Recorded Client Recorded Date Recorded By Document 12/02/20 09:51 DL [id number] 12/02/20 09:52 DL 12/02/20 09:51 Wound Care Nurse 3 [Wound Dressing] #2 RIGHT MEDIAL LE -Other Dressing adaptic -Primary Dressing Covered/Secured Dry Gauze, with Secured with Tape [Compression Applied] Right -Lotion applied to leg before Yes compression wrap -Tubular Bandage Double Layer -Size of Tubigrip Used Size E -Size E ($) 1 - Visit Discharge [Visit Discharge Information] -Discharge Condition Stable -Ambulatory Status Ambulatory -Transportation Private Auto -Medication Reconcilliation completed No & provided to patient/care provider -Clinical Summary of Care Provided Yes -Notes: keep clean, dry and intact. Musculoskeletal: No Muscle Wasting Neurological: Cranial nerves II-XII grossly intact Psych/Mental Status: Normal Affect Debridement Note Post-Debridement Measurements/Treatment - Nurse 2 - General Ulcer CM Notes Start: 12/02/20 09:24 Freq: Status: Active Protocol: Activity Type Activity Date Activity User E-Sign Co-Sign Detail Recorded Client Recorded Date Recorded By Document 12/02/20 09:40 MW [id number] 12/02/20 09:43 MW 12/02/20 09:40 Wound Center Nurse 2 #2 RIGHT MEDIAL LE -Time 09:40 -Correct Patient Yes -Correct Side, Site, Position Yes -Correct Procedure Yes -Procedure Performed Yes -Type of Procedure Debridement -Clinical Debridement Subcutaneous -Tissue Removed Subcutaneous -Post Debridement (cm) - Length 0.2 -Post Debridement (cm) - Width 0.2 -Post Debridement (cm) - Depth 0.1 -Total Square (Post) (cm) 0.04 -Area of Debridement (cm) - Length 0.2 -Area of Debridement (cm) - Width 0.2 -Total Square (Area) (cm) 0.04 -Tunneling No -Undermining/Tunneling No -Circular Undermining No -Wound/Ulcer Outcome Not Healed -Ulcer Cleansing Rinsed/ Irrigated with Saline -Foul Odor after Cleansing No -Bioengineered Tissue Yes -Type of Bioengineered Tissue Epifix 18mm Disc -Expiration Date 08/01/25 -Product Lot Number [id number] -Percent Used 100 -Lot number of Saline Used [id number] -Bleeding Controlled with Pressure -Offloading No -Treatment Response Procedure Tolerated Well -Debridement - Subq, 1st 20sq cm No -Apply Skin Sub - 1st 25 sq cm - Legs 1 -Epifix 18mm Disc 3 Query Text:18mm = 3 Pain Scale: 0-10 Numeric Is Patient Pain Free? Yes - Nurse 3 - General Ulcer D/C NN Start: 12/02/20 09:24 Freq: Status: Active Protocol: Activity Type Activity Date Activity User E-Sign Co-Sign Detail Recorded Client Recorded Date Recorded By Document 12/02/20 09:51 DL [id number] 12/02/20 09:52 DL 12/02/20 09:51 Wound Care Nurse 3 #2 RIGHT MEDIAL LE -Other Dressing adaptic -Primary Dressing Covered/Secured with Dry Gauze, Secured with Tape Right -Lotion applied to leg before Yes compression wrap -Tubular Bandage Double Layer -Size of Tubigrip Used Size E -Size E ($) 1 WC - Visit Discharge Discharge Condition Stable Ambulatory Status Ambulatory Transportation Private Auto Medication Reconcilliation completed & No provided to patient/care provider Clinical Summary of Care Provided Yes Notes: keep clean, dry and intact. Wound debrided: Right Lower Extremity Type of Debridement: Excisional debridement Anesthesia Used: 4% Lidocaine Solution Depth: Down to and including healthy tissue, in the subcutaneous layer Percentage of wound debrided: 100 Tissue Removed: Devitalized tissue Severity: Limited To Skin Breakdown Amount of bleeding with debridement: Mild Bleeding Controlled with: Pressure Patient tolerated procedure well Assessment/Plan Active Problems Venous ulcer of right leg (Chronic) Venous insufficiency of both lower extremities (Chronic) Assessment: Chronic/recurrent right lower extremity ulcer. Venous insufficiency. Venous leg ulcer. Plan: Still has minimal area left. To avoid further breakdown, 50 to application of epifix done today using 100% of product. Moistened with saline and covered with Adaptic touch. Leave in place for a week.Compression stockings for compression. Leg elevation, avoid idle standing and exercise as tolerated. Increase protein intake as well. His questions were answered and he was advised to call with any further questions or concerns. Follow-up in a week. This note was generated with [employer] software. It may contain incorrect words, spelling, and punctuation that were not noted in checking the note before signing. [id number]: [id number] Skin sub graft trnk/arm/leg
[2020-12-09 13:17] VITALS: BP 130/79; PULSE 76; RESP 18; TEMP 37.1; BMI 29.0
--- NOTE | 2020-12-09 15:23 | PCM.WC.PN ---
(1) Venous insufficiency of both lower extremities Status: Chronic Code(s): I87.2 - Venous insufficiency (chronic) (peripheral) (2) Venous ulcer of right leg Status: Chronic Code(s): I83.019 - Varicose veins of right lower extremity with ulcer of unspecified site; L97.919 - Non-pressure chronic ulcer of unspecified part of right lower leg with unspecified severity Type of Wound Date of Service: 12/09/20 Chief Complaint: Nonhealing right lower extremity ulcer. History of Wound: Mr. Ly is a 59 yo Last seen here in August 2019 for right lower extremity ulcer. He had done well post discharge from the wound center until about 2 to 3 months ago when he noted reopening of his ulcer. Denies trauma. Has been using his compression stockings as prescribed. Was seen by his primary care physician and prescribed an ointment which he applied daily with no significant improvement. Denies chills or fever but notes a lot of pain around the site. No known history of diabetes. Feels well otherwise. Progress of Wound: courtesy visit Dr. Carroll Minimal area left. Has had 15 applications of Epifix so far. No new concerns. Will take a break from epifix and use saroj and 3m wrap and change in 3-4 days. - Physical Exam Vital Signs Temp Pulse Resp BP 98.7 F 76 18 130/79 H 12/09/20 13:17 12/09/20 13:17 12/09/20 13:17 12/09/20 13:17 General: Alert, Oriented x3, Cooperative HEENT: Atraumatic Oral: Moist Mucosa Lungs: Clear to auscultation, Normal air movement Cardiovascular: Regular rate, Regular Rhythm Abdomen: Soft, Non Tender Extremities: No clubbing, No cyanosis, No edema Skin: Ulcer/ Wound - see Nursing documentation, slough and devitalized tissue present, no signs of infection at this time Wound Measurements and Assessment WC - Nurse 1 - General Ulcer Measurement Start: 12/02/20 09:24 Freq: Status: Active Protocol: Activity Type Activity Date Activity User E-Sign Co-Sign Detail Recorded Client Recorded Date Recorded By Document 12/09/20 13:17 RB [id number] 12/09/20 13:24 RB 12/09/20 13:17 Wound Center Nurse 1 [Ulcer Assessment] #2 RIGHT MEDIAL LE -Combined with other wound No -Current Size (cm) - Length 1.3 -Current Size (cm) - Width 1.1 -Current Size (cm) - Depth 0.2 -Total Square Cm 1.43 -Tunneling No -Undermining/Tunneling No -Circular Undermining No -Exudate Amt Small -Exudate Type Serosanguineous -Wound Margin Thickened & Rolled Under -Granulation Amt Medium (34-66%) -Granulation Quality [place] -Slough/Fibrin Yes -Necrosis Amt Small (1-33%) -Necrotic Tissue Type Adherent Slough -Structure Exposed N/A -Texture (Emely-wound Skin Appearance) Assessed, Scarring -Moisture (Emely-wound Skin Appearance Assessed ) -Color (Emely-wound Skin Appearance) Assessed -Temperature (Emely-wound Skin No Abnormality Appearance) (Pt Warm) -Tenderness on Palpation (Emely-wound No Skin Appearance) -Ulcer Cleansing Wound Cleanser -Foul Odor after Cleansing No -Anesthetic Used 4% Lidocaine Solution [Edema Assessment] -Lower Limb Edema Present Yes -Right Calf (cm) 40.8 -Right Ankle (cm) 26.5 WC - Nurse 2 - General Ulcer CM Notes Start: 12/02/20 09:24 Freq: Status: Active Protocol: Activity Type Activity Date Activity User E-Sign Co-Sign Detail Recorded Client Recorded Date Recorded By Document 12/09/20 13:33 MW [id number] 12/09/20 13:36 MW 12/09/20 13:33 Wound Center Nurse 2 [Procedure/Treatment] #2 RIGHT MEDIAL LE -Time 13:33 -Correct Patient Yes -Correct Side, Site, Position Yes -Correct Procedure Yes -Procedure Performed Yes -Type of Procedure Debridement -Clinical Debridement Subcutaneous -Tissue Removed Subcutaneous -Post Debridement (cm) - Length 2.1 -Post Debridement (cm) - Width 1.2 -Post Debridement (cm) - Depth 0.1 -Total Square (Post) (cm) 2.52 -Area of Debridement (cm) - Length 2.1 -Area of Debridement (cm) - Width 1.2 -Total Square (Area) (cm) 2.52 -Tunneling No -Undermining/Tunneling No -Circular Undermining No -Wound/Ulcer Outcome Not Healed -Ulcer Cleansing Rinsed/ Irrigated with Saline -Foul Odor after Cleansing No -Bioengineered Tissue No -Bleeding Controlled with Pressure -Offloading No -Treatment Response Procedure Tolerated Well -Debridement - Subq, 1st 20sq cm Yes [See Physician Procedure note for Specifics] Pain Scale: 0-10 Numeric [Pain] -Is Patient Pain Free? Yes - Nurse 3 - General Ulcer D/C NN Start: 12/02/20 09:24 Freq: Status: Active Protocol: Activity Type Activity Date Activity User E-Sign Co-Sign Detail Recorded Client Recorded Date Recorded By Document 12/09/20 13:52 KR [id number] 12/09/20 13:52 KR 12/09/20 13:52 Wound Care Nurse 3 [Wound Dressing] #2 RIGHT MEDIAL LE -Ulcer Cleansing Rinsed/ Irrigated with Saline -Foul Odor after Cleansing No -Primary Dressing Applied Promogran -Primary Dressing Covered/Secured Dry Gauze, with Secured with Tape -Promogran 1 [Compression Applied] Right -Multi-Layered Wrap Application Multi-Layer Comp - Right ($ ) Pain Scale: 0-10 Numeric [Pain] -Is Patient Pain Free? Yes - Visit Discharge [Visit Discharge Information] -Discharge Condition Stable -Ambulatory Status Ambulatory -Transportation Private Auto Neurological: Neuro grossly intact Psych/Mental Status: Normal Affect, Appropriate, Alert and oriented to time, place, person, mood and affect Debridement Note Post-Debridement Measurements/Treatment WC - Nurse 2 - General Ulcer CM Notes Start: 12/02/20 09:24 Freq: Status: Active Protocol: Activity Type Activity Date Activity User E-Sign Co-Sign Detail Recorded Client Recorded Date Recorded By Document 12/02/20 09:40 MW [id number] 12/02/20 09:43 MW Document 12/09/20 13:33 MW [id number] 12/09/20 13:36 MW 12/02/20 12/09/20 09:40 13:33 Wound Center Nurse 2 #2 RIGHT MEDIAL LE -Time 09:40 13:33 -Correct Patient Yes Yes -Correct Side, Site, Position Yes Yes -Correct Procedure Yes Yes -Procedure Performed Yes Yes -Type of Procedure Debridement Debridement -Clinical Debridement Subcutaneous Subcutaneous -Tissue Removed Subcutaneous Subcutaneous -Post Debridement (cm) - Length 0.2 2.1 -Post Debridement (cm) - Width 0.2 1.2 -Post Debridement (cm) - Depth 0.1 0.1 -Total Square (Post) (cm) 0.04 2.52 -Area of Debridement (cm) - Length 0.2 2.1 -Area of Debridement (cm) - Width 0.2 1.2 -Total Square (Area) (cm) 0.04 2.52 -Tunneling No No -Undermining/Tunneling No No -Circular Undermining No No -Wound/Ulcer Outcome Not Healed Not Healed -Ulcer Cleansing Rinsed/ Rinsed/ Irrigated with Irrigated with Saline Saline -Foul Odor after Cleansing No No -Bioengineered Tissue Yes No -Type of Bioengineered Tissue Epifix 18mm Disc -Expiration Date 08/01/25 -Product Lot Number [id number] -Percent Used 100 -Lot number of Saline Used [id number] -Bleeding Controlled with Pressure Pressure -Offloading No No -Treatment Response Procedure Procedure Tolerated Well Tolerated Well -Debridement - Subq, 1st 20sq cm No Yes -Apply Skin Sub - 1st 25 sq cm - Legs 1 -Epifix 18mm Disc 3 Pain Scale: 0-10 Numeric Is Patient Pain Free? Yes Yes - Nurse 3 - General Ulcer D/C NN Start: 12/02/20 09:24 Freq: Status: Active Protocol: Activity Type Activity Date Activity User E-Sign Co-Sign Detail Recorded Client Recorded Date Recorded By Document 12/02/20 09:51 DL [id number] 12/02/20 09:52 DL Document 12/09/20 13:52 KR [id number] 12/09/20 13:52 KR 12/02/20 12/09/20 09:51 13:52 Wound Care Nurse 3 #2 RIGHT MEDIAL LE -Ulcer Cleansing Rinsed/ Irrigated with Saline -Foul Odor after Cleansing No -Primary Dressing Applied Promogran -Other Dressing adaptic -Primary Dressing Covered/Secured with Dry Gauze, Dry Gauze, Secured with Secured with Tape Tape -Promogran 1 Right -Lotion applied to leg before Yes compression wrap -Multi-Layered Wrap Application Multi-Layer Comp - Right ($ ) -Tubular Bandage Double Layer -Size of Tubigrip Used Size E -Size E ($) 1 Pain Scale: 0-10 Numeric Is Patient Pain Free? Yes WC - Visit Discharge Discharge Condition Stable Stable Ambulatory Status Ambulatory Ambulatory Transportation Private Auto Private Auto Medication Reconcilliation completed & No provided to patient/care provider Clinical Summary of Care Provided Yes Notes: keep clean, dry and intact. Wound debrided: right lower extremity venous ulcer Laterality: Right Type of Debridement: Excisional debridement Anesthesia Used: 5% Lidocaine Gel Depth: in the subcutaneous layer Percentage of wound debrided: 100 Instrument Used: 5mm curette Tissue Removed: Slough and devitalized tissue Severity: Fat Layer Exposed Amount of bleeding with debridement: Mild Bleeding Controlled with: Pressure Patient tolerated procedure well Assessment/Plan Active Problems Venous ulcer of right leg (Chronic) Venous insufficiency of both lower extremities (Chronic) Assessment: Chronic/recurrent right lower extremity ulcer. Venous insufficiency. Venous leg ulcer. Plan: Still has minimal area left. Application of saroj and 3m wraps for compression. Change in 4 days. Leg elevation, avoid idle standing and exercise as tolerated. Increase protein intake as well. His questions were answered and he was advised to call with any further questions or concerns. Follow-up in a week. This note was generated with [employer] dictation software. It may contain incorrect words, spelling, and punctuation that were not noted in checking the note before signing. [id number]: [id number] [place] subq tissue 20 sq cm/<
[2020-12-13 08:18] VITALS: BP 143/79; PULSE 79; RESP 16; TEMP 36.6; BMI 29.0
[2020-12-16 09:50] VITALS: BP 140/78; PULSE 75; RESP 20; TEMP 36.4; BMI 29.0
--- NOTE | 2020-12-16 12:08 | PN.PCM_ITS ---
(1) Venous insufficiency of both lower extremities Status: Chronic Code(s): I87.2 - Venous insufficiency (chronic) (peripheral) (2) Venous ulcer of right leg Status: Chronic Code(s): I83.019 - Varicose veins of right lower extremity with ulcer of unspecified site; L97.919 - Non-pressure chronic ulcer of unspecified part of right lower leg with unspecified severity Type of Wound Date of Service: 12/16/20 Chief Complaint: Nonhealing right lower extremity ulcer. History of Wound: Mr. Ly is a 59 yo Last seen here in August 2019 for right lower extremity ulcer. He had done well post discharge from the wound center until about 2 to 3 months ago when he noted reopening of his ulcer. Denies trauma. Has been using his compression stockings as prescribed. Was seen by his primary care physician and prescribed an ointment which he applied daily with no significant improvement. Denies chills or fever but notes a lot of pain around the site. No known history of diabetes. Feels well otherwise. Progress of Wound: Ulcer is essentially healed however has concerns with pain and redness. Concerning for cellulitis. Fever, chills or feeling of unwell. - Physical Exam Vital Signs Temp Pulse Resp BP 97.5 F L 75 20 H 140/78 H 12/16/20 09:50 12/16/20 09:50 12/16/20 09:50 12/16/20 09:50 General: Alert, Oriented x3, Cooperative, No apparent distress HEENT: Atraumatic, Normocephalic Oral: Moist Mucosa Neck: Supple Lungs: Normal air movement Extremities: No cyanosis, Edema Wound Measurements and Assessment WC - Nurse 1 - General Ulcer Measurement Start: 12/02/20 09:24 Freq: Status: Active Protocol: Activity Type Activity Date Activity User E-Sign Co-Sign Detail Recorded Client Recorded Date Recorded By Document 12/16/20 09:50 DL [id number] 12/16/20 09:59 DL 12/16/20 09:50 Wound Center Nurse 1 [Ulcer Assessment] #5 RIGHT MEDIAL LOWER LEG -Current Size (cm) - Length 0.1 -Current Size (cm) - Width 0.1 -Current Size (cm) - Depth 0.1 -Total Square Cm 0.01 -Photo Taken No -Exudate Amt Small -Exudate Type Serosanguineous -Wound Margin Thickened -Granulation Amt Large (67-100%) -Granulation Quality Pale -Necrosis Amt Small (1-33%) -Necrotic Tissue Type Adherent Slough -Structure Exposed N/A -Texture (Emely-wound Skin Appearance) Scarring -Moisture (Emely-wound Skin Appearance Dry/Scaly ) -Color (Emely-wound Skin Appearance) Hemosiderin Staining -Temperature (Emely-wound Skin No Abnormality Appearance) (Pt Warm) -Tenderness on Palpation (Emely-wound No Skin Appearance) -Ulcer Cleansing Wound Cleanser -Foul Odor after Cleansing No -Anesthetic Used 4% Lidocaine Solution [Edema Assessment] -Right Calf (cm) 38.5 -Right Ankle (cm) 24.6 WC - Nurse 2 - General Ulcer CM Notes Start: 12/02/20 09:24 Freq: Status: Active Protocol: Activity Type Activity Date Activity User E-Sign Co-Sign Detail Recorded Client Recorded Date Recorded By Document 12/16/20 10:09 MW [id number] 12/16/20 10:14 MW 12/16/20 10:09 Wound Center Nurse 2 [Procedure/Treatment] #5 RIGHT MEDIAL LOWER LEG -Time 10:10 -Correct Patient Yes -Correct Side, Site, Position Yes -Correct Procedure Yes -Procedure Performed No -Tunneling No -Undermining/Tunneling No -Circular Undermining No -Wound/Ulcer Outcome Not Healed -Foul Odor after Cleansing No -Bioengineered Tissue No -Bleeding Controlled with NA -Offloading No [See Physician Procedure note for Specifics] Pain Scale: 0-10 Numeric [Pain] -Is Patient Pain Free? Yes - Nurse 3 - General Ulcer D/C NN Start: 12/02/20 09:24 Freq: Status: Active Protocol: Activity Type Activity Date Activity User E-Sign Co-Sign Detail Recorded Client Recorded Date Recorded By Document 12/16/20 10:36 PL [id number] 12/16/20 10:37 PL 12/16/20 10:36 Wound Care Nurse 3 [Wound Dressing] #5 RIGHT MEDIAL LOWER LEG -Ulcer Cleansing Rinsed/ Irrigated with Saline -Foul Odor after Cleansing No -Primary Dressing Applied Promogran -Other Dressing Adaptic -Promogran 1 [Compression Applied] Right -Multi-Layered Wrap Application Multi-Layer Comp - Right ($ ) Pain Scale: 0-10 Numeric [Pain] -Is Patient Pain Free? Yes Musculoskeletal: No Muscle Wasting Neurological: Cranial nerves II-XII grossly intact Psych/Mental Status: Normal Affect Debridement Note Post-Debridement Measurements/Treatment WC - Nurse 2 - General Ulcer CM Notes Start: 12/02/20 09:24 Freq: Status: Active Protocol: Activity Type Activity Date Activity User E-Sign Co-Sign Detail Recorded Client Recorded Date Recorded By Document 12/02/20 09:40 MW [id number] 12/02/20 09:43 MW Document 12/09/20 13:33 MW [id number] 12/09/20 13:36 MW Document 12/16/20 10:09 MW [id number] 12/16/20 10:14 MW 12/02/20 12/09/20 12/16/20 09:40 13:33 10:09 Wound Center Nurse 2 #5 RIGHT MEDIAL LOWER LEG -Time 09:40 13:33 10:10 -Correct Patient Yes Yes Yes -Correct Side, Site, Position Yes Yes Yes -Correct Procedure Yes Yes Yes -Procedure Performed Yes Yes No -Type of Procedure Debridement Debridement -Clinical Debridement Subcutaneous Subcutaneous -Tissue Removed Subcutaneous Subcutaneous -Post Debridement (cm) - Length 0.2 2.1 -Post Debridement (cm) - Width 0.2 1.2 -Post Debridement (cm) - Depth 0.1 0.1 -Total Square (Post) (cm) 0.04 2.52 -Area of Debridement (cm) - Length 0.2 2.1 -Area of Debridement (cm) - Width 0.2 1.2 -Total Square (Area) (cm) 0.04 2.52 -Tunneling No No No -Undermining/Tunneling No No No -Circular Undermining No No No -Wound/Ulcer Outcome Not Healed Not Healed Not Healed -Ulcer Cleansing Rinsed/ Rinsed/ Irrigated with Irrigated with Saline Saline -Foul Odor after Cleansing No No No -Bioengineered Tissue Yes No No -Type of Bioengineered Tissue Epifix 18mm Disc -Expiration Date 08/01/25 -Product Lot Number [id number] -Percent Used 100 -Lot number of Saline Used [id number] -Bleeding Controlled with Pressure Pressure NA -Offloading No No No -Treatment Response Procedure Procedure Tolerated Well Tolerated Well -Debridement - Subq, 1st 20sq cm No Yes -Apply Skin Sub - 1st 25 sq cm - Legs 1 -Epifix 18mm Disc 3 Pain Scale: 0-10 Numeric Is Patient Pain Free? Yes Yes Yes WC - Nurse 3 - General Ulcer D/C NN Start: 12/02/20 09:24 Freq: Status: Active Protocol: Activity Type Activity Date Activity User E-Sign Co-Sign Detail Recorded Client Recorded Date Recorded By Document 12/02/20 09:51 DL [id number] 12/02/20 09:52 DL Document 12/09/20 13:52 KR [id number] 12/09/20 13:52 KR Document 12/13/20 08:18 BMF [id number] 12/13/20 08:20 BMF Document 12/16/20 10:36 PL [id number] 12/16/20 10:37 PL 12/02/20 12/09/20 12/13/20 09:51 13:52 08:18 Wound Care Nurse 3 #5 RIGHT MEDIAL LOWER LEG -Ulcer Cleansing Rinsed/ soapy water Irrigated with Saline -Foul Odor after Cleansing No No -Primary Dressing Applied Promogran -Other Dressing adaptic princess, adaptic -Primary Dressing Covered/Secured with Dry Gauze, Dry Gauze, Dry Gauze Secured with Secured with Tape Tape -Promogran 1 Right -Lotion applied to leg before Yes compression wrap -Multi-Layered Wrap Application Multi-Layer Multi-Layer Comp - Right ($ Comp - Right ($ ) ) -Tubular Bandage Double Layer -Size of Tubigrip Used Size E -Size E ($) 1 Treatment Response Procedure Tolerated Well Vital Signs Temperature (97.8 F-99.1 F) 97.8 F Temperature Source Temporal Pulse Rate (60-100 beats/min) 79 Pulse Location Monitor Respiratory Rate (12-18 breaths/min) 16 Respiratory rate source Observation Oxygen Delivery Method Room Air Blood Pressure (90/60-120/80 mm Hg) 143/79 H Blood Pressure Mean (mm Hg) 100 Source Monitor Position Sitting Blood Pressure Location Left Arm Pain Scale: 0-10 Numeric Is Patient Pain Free? Yes Yes WC - Visit Discharge Discharge Condition Stable Stable Stable Ambulatory Status Ambulatory Ambulatory Ambulatory Transportation Private Auto Private Auto Private Auto Medication Reconcilliation completed & No provided to patient/care provider Clinical Summary of Care Provided Yes Notes: keep clean, dry and intact. 12/16/20 10:36 Wound Care Nurse 3 #5 RIGHT MEDIAL LOWER LEG -Ulcer Cleansing Rinsed/ Irrigated with Saline -Foul Odor after Cleansing No -Primary Dressing Applied Promogran -Other Dressing Adaptic -Primary Dressing Covered/Secured with -Promogran 1 Right -Lotion applied to leg before compression wrap -Multi-Layered Wrap Application Multi-Layer Comp - Right ($ ) -Tubular Bandage -Size of Tubigrip Used -Size E ($) Treatment Response Vital Signs Temperature (97.8 F-99.1 F) Temperature Source Pulse Rate (60-100 beats/min) Pulse Location Respiratory Rate (12-18 breaths/min) Respiratory rate source Oxygen Delivery Method Blood Pressure (90/60-120/80 mm Hg) Blood Pressure Mean (mm Hg) Source Position Blood Pressure Location Pain Scale: 0-10 Numeric Is Patient Pain Free? Yes WC - Visit Discharge Discharge Condition Ambulatory Status Transportation Medication Reconcilliation completed & provided to patient/care provider Clinical Summary of Care Provided Notes: No debridement was completed today Assessment/Plan Active Problems Venous ulcer of right leg (Chronic) Venous insufficiency of both lower extremities (Chronic) Assessment: Chronic/recurrent right lower extremity ulcer. Venous insufficiency. Venous leg ulcer. Plan: Concern for right lower extremity cellulitis. Pain and some erythema. No significant differential warmth. No chills or fever. Has used ciprofloxacin successfully in the past, prescription sent. For now, Princess and 3M wraps. He was advised to call with any concerns. Follow-up in a week. This note was generated with [employer] dictation software. It may contain incorrect words, spelling, and punctuation that were not noted in checking the note before signing. Office Visits / Consults: [id number] OV L3 Est
[2020-12-23 08:19] VITALS: BP 132/73; PULSE 83; TEMP 36.2; BMI 29.0
--- NOTE | 2020-12-23 09:43 | PN.PCM_ITS ---
(1) Venous insufficiency of both lower extremities Status: Chronic Code(s): I87.2 - Venous insufficiency (chronic) (peripheral) (2) Venous ulcer of right leg Status: Chronic Code(s): I83.019 - Varicose veins of right lower extremity with ulcer of unspecified site; L97.919 - Non-pressure chronic ulcer of unspecified part of right lower leg with unspecified severity Type of Wound Date of Service: 12/23/20 Chief Complaint: Nonhealing right lower extremity ulcer. History of Wound: Mr. Ly is a 59 yo Last seen here in August 2019 for right lower extremity ulcer. He had done well post discharge from the wound center until about 2 to 3 months ago when he noted reopening of his ulcer. Denies trauma. Has been using his compression stockings as prescribed. Was seen by his primary care physician and prescribed an ointment which he applied daily with no significant improvement. Denies chills or fever but notes a lot of pain around the site. No known history of diabetes. Feels well otherwise. Progress of Wound: Healed. No new concerns at this time. - Physical Exam Vital Signs Temp Pulse Resp BP 97.1 F L 83 20 H 132/73 H 12/23/20 08:19 12/23/20 08:19 12/16/20 09:50 12/23/20 08:19 General: Alert, Oriented x3, Cooperative, No apparent distress HEENT: Atraumatic, Normocephalic Oral: Moist Mucosa Neck: Supple Lungs: Normal air movement Extremities: No cyanosis, Edema Wound Measurements and Assessment WC - Nurse 1 - General Ulcer Measurement Start: 12/02/20 09:24 Freq: Status: Discharge Protocol: Activity Type Activity Date Activity User E-Sign Co-Sign Detail Recorded Client Recorded Date Recorded By Document 12/23/20 08:19 GIOVANNA [id number] 12/23/20 08:22 KR Edit Status 12/23/20 09:00 ISABEL SHUKLA Active=>Discharge [id number] 12/23/20 09:00 ISABEL SHUKLA 12/23/20 08:19 Wound Center Nurse 1 [Ulcer Assessment] #5 RIGHT MEDIAL LOWER LEG -Current Size (cm) - Length 0.1 -Current Size (cm) - Width 1 -Current Size (cm) - Depth 0.1 -Total Square Cm 0.1 -Exudate Amt Small -Exudate Type Serosanguineous -Wound Margin Distinct, Outline Attached -Granulation Amt Medium (34-66%) -Granulation Quality Red -Necrosis Amt Medium (34-66%) -Necrotic Tissue Type Adherent Slough -Texture (Emely-wound Skin Appearance) Assessed, Scarring -Moisture (Emely-wound Skin Appearance No Abnormality, ) Assessed -Color (Emely-wound Skin Appearance) No Abnormality, Assessed -Temperature (Emely-wound Skin No Abnormality Appearance) (Pt Warm) -Tenderness on Palpation (Emely-wound No Skin Appearance) -Ulcer Cleansing Rinsed/ Irrigated with Saline -Foul Odor after Cleansing No -Anesthetic Used 4% Lidocaine Solution [Edema Assessment] -Right Calf (cm) 40 -Right Ankle (cm) 27 WC - Nurse 2 - General Ulcer CM Notes Start: 12/02/20 09:24 Freq: Status: Discharge Protocol: Activity Type Activity Date Activity User E-Sign Co-Sign Detail Recorded Client Recorded Date Recorded By Document 12/23/20 08:40 MW [id number] 12/23/20 08:45 MW Edit Status 12/23/20 09:00 BKG DAEMON Active=>Discharge [id number] 12/23/20 09:00 BKG DAEMON 12/23/20 08:40 Wound Center Nurse 2 [Procedure/Treatment] #5 RIGHT MEDIAL LOWER LEG -Time 08:43 -Correct Patient Yes -Correct Side, Site, Position Yes -Correct Procedure Yes -Procedure Performed No -Post Debridement (cm) - Length 0 -Post Debridement (cm) - Width 0 -Post Debridement (cm) - Depth 0 -Total Square (Post) (cm) 0 -Wound/Ulcer Outcome Healed- Epithelialized [See Physician Procedure note for Specifics] Pain Scale: 0-10 Numeric [Pain] -Is Patient Pain Free? Yes - Nurse 3 - General Ulcer D/C NN Start: 12/02/20 09:24 Freq: Status: Discharge Protocol: Activity Type Activity Date Activity User E-Sign Co-Sign Detail Recorded Client Recorded Date Recorded By Document 12/23/20 08:52 DL [id number] 12/23/20 08:52 DL Edit Status 12/23/20 09:00 BKG DAEMON Active=>Discharge [id number] 12/23/20 09:00 BKG DAEMON 12/23/20 08:52 Wound Care Nurse 3 [Compression Applied] Right -Other stockings [Post Procedure Tolerated] -Treatment Response Procedure Tolerated Well Pain Scale: 0-10 Numeric [Pain] -Is Patient Pain Free? Yes WC - Visit Discharge [Visit Discharge Information] -Discharge Condition Stable -Ambulatory Status Ambulatory -Transportation Private Auto -Notes: Healed/ Discharged Musculoskeletal: No Muscle Wasting Neurological: Cranial nerves II-XII grossly intact Psych/Mental Status: Normal Affect Debridement Note Post-Debridement Measurements/Treatment - Nurse 2 - General Ulcer CM Notes Start: 12/02/20 09:24 Freq: Status: Discharge Protocol: Activity Type Activity Date Activity User E-Sign Co-Sign Detail Recorded Client Recorded Date Recorded By Document 12/02/20 09:40 MW [id number] 12/02/20 09:43 MW Document 12/09/20 13:33 MW [id number] 12/09/20 13:36 MW Document 12/16/20 10:09 MW [id number] 12/16/20 10:14 MW Document 12/23/20 08:40 MW [id number] 12/23/20 08:45 MW 12/02/20 12/09/20 12/16/20 09:40 13:33 10:09 Wound Center Nurse 2 #5 RIGHT MEDIAL LOWER LEG -Time 09:40 13:33 10:10 -Correct Patient Yes Yes Yes -Correct Side, Site, Position Yes Yes Yes -Correct Procedure Yes Yes Yes -Procedure Performed Yes Yes No -Type of Procedure Debridement Debridement -Clinical Debridement Subcutaneous Subcutaneous -Tissue Removed Subcutaneous Subcutaneous -Post Debridement (cm) - Length 0.2 2.1 -Post Debridement (cm) - Width 0.2 1.2 -Post Debridement (cm) - Depth 0.1 0.1 -Total Square (Post) (cm) 0.04 2.52 -Area of Debridement (cm) - Length 0.2 2.1 -Area of Debridement (cm) - Width 0.2 1.2 -Total Square (Area) (cm) 0.04 2.52 -Tunneling No No No -Undermining/Tunneling No No No -Circular Undermining No No No -Wound/Ulcer Outcome Not Healed Not Healed Not Healed -Ulcer Cleansing Rinsed/ Rinsed/ Irrigated with Irrigated with Saline Saline -Foul Odor after Cleansing No No No -Bioengineered Tissue Yes No No -Type of Bioengineered Tissue Epifix 18mm Disc -Expiration Date 08/01/25 -Product Lot Number [id number] -Percent Used 100 -Lot number of Saline Used [id number] -Bleeding Controlled with Pressure Pressure NA -Offloading No No No -Treatment Response Procedure Procedure Tolerated Well Tolerated Well -Debridement - Subq, 1st 20sq cm No Yes -Apply Skin Sub - 1st 25 sq cm - Legs 1 -Epifix 18mm Disc 3 Pain Scale: 0-10 Numeric Is Patient Pain Free? Yes Yes Yes 12/23/20 08:40 Wound Center Nurse 2 #5 RIGHT MEDIAL LOWER LEG -Time 08:43 -Correct Patient Yes -Correct Side, Site, Position Yes -Correct Procedure Yes -Procedure Performed No -Type of Procedure -Clinical Debridement -Tissue Removed -Post Debridement (cm) - Length 0 -Post Debridement (cm) - Width 0 -Post Debridement (cm) - Depth 0 -Total Square (Post) (cm) 0 -Area of Debridement (cm) - Length -Area of Debridement (cm) - Width -Total Square (Area) (cm) -Tunneling -Undermining/Tunneling -Circular Undermining -Wound/Ulcer Outcome Healed- Epithelialized -Ulcer Cleansing -Foul Odor after Cleansing -Bioengineered Tissue -Type of Bioengineered Tissue -Expiration Date -Product Lot Number -Percent Used -Lot number of Saline Used -Bleeding Controlled with -Offloading -Treatment Response -Debridement - Subq, 1st 20sq cm -Apply Skin Sub - 1st 25 sq cm - Legs -Epifix 18mm Disc Pain Scale: 0-10 Numeric Is Patient Pain Free? Yes WC - Nurse 3 - General Ulcer D/C NN Start: 12/02/20 09:24 Freq: Status: Discharge Protocol: Activity Type Activity Date Activity User E-Sign Co-Sign Detail Recorded Client Recorded Date Recorded By Document 12/02/20 09:51 DL [id number] 12/02/20 09:52 DL Document 12/09/20 13:52 KR [id number] 12/09/20 13:52 KR Document 12/13/20 08:18 BMF [id number] 12/13/20 08:20 BMF Document 12/16/20 10:36 PL [id number] 12/16/20 10:37 PL Document 12/23/20 08:52 DL [id number] 12/23/20 08:52 DL 12/02/20 12/09/20 12/13/20 09:51 13:52 08:18 Wound Care Nurse 3 #5 RIGHT MEDIAL LOWER LEG -Ulcer Cleansing Rinsed/ soapy water Irrigated with Saline -Foul Odor after Cleansing No No -Primary Dressing Applied Promogran -Other Dressing adaptic saroj, adaptic -Primary Dressing Covered/Secured with Dry Gauze, Dry Gauze, Dry Gauze Secured with Secured with Tape Tape -Promogran 1 Right -Lotion applied to leg before Yes compression wrap -Multi-Layered Wrap Application Multi-Layer Multi-Layer Comp - Right ($ Comp - Right ($ ) ) -Tubular Bandage Double Layer -Size of Tubigrip Used Size E -Size E ($) 1 -Other Treatment Response Procedure Tolerated Well Vital Signs Temperature (97.8 F-99.1 F) 97.8 F Temperature Source Temporal Pulse Rate (60-100 beats/min) 79 Pulse Location Monitor Respiratory Rate (12-18 breaths/min) 16 Respiratory rate source Observation Oxygen Delivery Method Room Air Blood Pressure (90/60-120/80 mm Hg) 143/79 H Blood Pressure Mean (mm Hg) 100 Source Monitor Position Sitting Blood Pressure Location Left Arm Pain Scale: 0-10 Numeric Is Patient Pain Free? Yes Yes WC - Visit Discharge Discharge Condition Stable Stable Stable Ambulatory Status Ambulatory Ambulatory Ambulatory Transportation Private Auto Private Auto Private Auto Medication Reconcilliation completed & No provided to patient/care provider Clinical Summary of Care Provided Yes Notes: keep clean, dry and intact. 12/16/20 12/23/20 10:36 08:52 Wound Care Nurse 3 #5 RIGHT MEDIAL LOWER LEG -Ulcer Cleansing Rinsed/ Irrigated with Saline -Foul Odor after Cleansing No -Primary Dressing Applied Promogran -Other Dressing Adaptic -Primary Dressing Covered/Secured with -Promogran 1 Right -Lotion applied to leg before compression wrap -Multi-Layered Wrap Application Multi-Layer Comp - Right ($ ) -Tubular Bandage -Size of Tubigrip Used -Size E ($) -Other stockings Treatment Response Procedure Tolerated Well Vital Signs Temperature (97.8 F-99.1 F) Temperature Source Pulse Rate (60-100 beats/min) Pulse Location Respiratory Rate (12-18 breaths/min) Respiratory rate source Oxygen Delivery Method Blood Pressure (90/60-120/80 mm Hg) Blood Pressure Mean (mm Hg) Source Position Blood Pressure Location Pain Scale: 0-10 Numeric Is Patient Pain Free? Yes Yes WC - Visit Discharge Discharge Condition Stable Ambulatory Status Ambulatory Transportation Private Auto Medication Reconcilliation completed & provided to patient/care provider Clinical Summary of Care Provided Notes: Healed/ Discharged No debridement was completed today Assessment/Plan Active Problems Venous ulcer of right leg (Chronic) Venous insufficiency of both lower extremities (Chronic) Assessment: Chronic/recurrent right lower extremity ulcer,Healed. Venous insufficiency. Venous leg ulcer, healed. Plan: Healed, no new concerns. Adaptic and gauze daily for 2 weeks. Compression daily. Advised to moisturize adequately twice daily. Elevate lower extremities when seated and in bed. His questions were answered and he was advised to call with any questions or concerns. Discharge from the wound clinic. This note was generated with [email or web address] dictation software. It may contain incorrect words, spelling, and punctuation that were not noted in checking the note before signing. Office Visits / Consults: [id number] L3 Est
== END 2020-12-23 08:59 | disposition home or self-care (01) ==
LOC: WC 08:00
PROVIDERS: PCP Nurse Practitioner Family; Visit Provider Internal Medicine
DX: I83.018 Varicose veins of right lower extremity with ulcer other part of lower leg (principal); L97.811 Non-pressure chronic ulcer of other part of right lower leg limited to breakdown of skin; I87.2 Venous insufficiency (chronic) (peripheral); Z79.899 Other long term (current) drug therapy
CPT/HCPCS: 11042; 15271; 29581; 99213; Q4186; G0463